=== PATIENT | male | born 1955 | race Caucasian/White ===

== ENCOUNTER 2022-09-24 09:10 | Outpatient (OUT) | payer MEDICARE, SELFPAY ==
--- NOTE | 2022-09-24 | RT_ITS ---
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 Findings were considered accurate and reproducible. Both pre- and post-bronchodilator values utilized for spirometry. No prior studies available for comparison. Spirometry (based on pre-bronchodilator values): -FEV1/FVC: Reduced @ 68% -FEV1: Normal @ 84% -FVC: Normal @ 91% -There is no significant bronchodilator response. Lung volumes by plethysmography (based on pre-bronchodilator values): -RV: Increased @ 135% -TLC: Normal @ 104% Diffusion capacity: -DLCO: Mild reduction @ 77% when corrected for Hb 14.4g/dL Flow-volume loop: -Mild obstructive pattern Impressions: -Mild obstructive pattern in spirometry without a bronchodilator response. Elevated RV suggests air trapping. Mild diffusion impairment. Overall study compatible with mild COPD/emphysema. Clinical correlation required. Electronically Signed On 09-26-2022 18:22:43 EDT by Nilesh Lala
[2022-09-24] MEDS: ALBUTEROL SULFATE 2.5 MG/3 ML VIAL NEB IH (11:38)
== END 2022-09-24 09:11 ==
LOC: CARD 09:16
PROVIDERS: PCP Nurse Practitioner Primary Care; Visit Provider Nurse Practitioner Primary Care
DX: R06.09 Other forms of dyspnea (principal); R94.2 Abnormal results of pulmonary function studies
CPT/HCPCS: 94060; 94726; 94729

== ENCOUNTER 2022-12-09 09:15 | Outpatient (OUT) | payer MEDICARE, SELFPAY ==
[2022-12-09 12:01] LABS: Prostate Specific Antigen Dx <0.13 ng/mL (<=4.00)
== END 2022-12-09 09:16 | disposition home or self-care (01) ==
LOC: LAB 09:17
PROVIDERS: PCP Nurse Practitioner Primary Care; Visit Provider Urology
DX: C61 Malignant neoplasm of prostate (principal)
CPT/HCPCS: 36415; 84153

== ENCOUNTER 2023-01-25 06:46 | Outpatient (OUT) | payer MEDICARE, SELFPAY ==
[2023-01-25 07:10] LABS: Basophils Percent Auto 0.8 % (0.2-2.0); Eosinophils Absolute Auto 0.2 10^3/uL (0.0-0.7); Eosinophils Percent Auto 3.6 % (0.9-7.0); Hematocrit 43.3 % (42.0-54.0); Hemoglobin 14.5 g/dL (14.0-18.0); Immature Granulocytes Abs Auto 0.02 10^3/uL (0.00-0.03); Immature Granulocytes Pct Auto 0.4 % (0.0-0.5); Lymphocytes Absolute Auto 1.1 10^3/uL (1.2-3.8); Lymphocytes Percent Auto 22.4 % (20.5-60.0); Mean Corpuscular HGB Conc 33.5 g/dL (29.9-35.2); Mean Corpuscular Hemoglobin 30.5 pg (25.9-34.0); Monocytes Absolute Auto 0.5 10^3/uL (0.3-0.8); Monocytes Percent Auto 9.2 % (1.7-12.0); Neutrophils Absolute Auto 3.2 10^3/uL (1.4-6.5); Neutrophils Percent Auto 63.6 % (43.0-75.0); Platelet Count 204 10^3/uL (150-450); Red Blood Count 4.76 10^6/uL (4.70-6.10); Red Cell Distribution Width 13.2 % (11.0-15.0)
[2023-01-25 07:59] LABS: Estimated Average Glucose 105 mg/dL; Glycohemoglobin A1C 5.3 % (4.5-6.2)
[2023-01-25 08:00] LABS: Alanine Aminotransferase 52 U/L (16-63); Albumin Globulin Ratio 1.1; Albumin Level 3.9 g/dL (3.4-5.0); Alkaline Phosphatase 57 U/L (46-116); Anion Gap 11.7; Aspartate Amino Transferase 22 U/L (15-37); BUN Creatinine Ratio 19.1; Bilirubin Total 0.4 mg/dL (0.2-1.0); Calcium 9.3 mg/dL (8.5-10.1); Carbon Dioxide 30.4 mmol/L (21.0-32.0); Chloride 105 mmol/L (98-107); Chol HDL Ratio 2.7; Cholesterol 138 mg/dL (<=200); Estimated GFR (African America >60 (>=60); Estimated GFR (Non-African Ame >60 (>=60); Globulin 3.5 g/dL; Glucose 93 mg/dL (74-106); HDL Cholesterol 51 mg/dL (40-60); LDL Cholesterol Calculated 65.4 mg/dL; Potassium 4.1 mmol/L (3.5-5.1); Sodium 143 mmol/L (136-145); Total Protein 7.4 g/dL (6.4-8.2); Triglycerides 108 mg/dL (<=150); VLDL CHOLESTEROL 21.6 mg/dL
[2023-01-25 08:13] LABS: Prostate Specific Antigen Scrn <0.13 ng/mL (<=4.00)
[2023-01-26 08:08] LABS: HCV Ab Non Reactive (Non Reactive)
== END 2023-01-25 06:47 | disposition home or self-care (01) ==
LOC: LAB 06:46
PROVIDERS: PCP Nurse Practitioner Primary Care; Visit Provider Nurse Practitioner Primary Care
DX: Z00.00 Encounter for general adult medical examination without abnormal findings (principal); Z11.59 Encounter for screening for other viral diseases; Z12.5 Encounter for screening for malignant neoplasm of prostate; Z13.6 Encounter for screening for cardiovascular disorders
CPT/HCPCS: 36415; 80053; 80061; 83036; 85025; 86803; G0103

== ENCOUNTER 2023-01-30 08:34 | Outpatient (OUT) | payer MEDICARE, SELFPAY ==
--- NOTE | 2023-01-30 | CT_ITS ---
[address] [address] Patient Name: CAMRON GRANDE MRN: [id number] date: 1955 Sex: M Assigned Patient Location: CT Current Patient Location: Accession/Order Number: [id number] Exam Date: 01/30/2023 08:40 Report Date: 01/31/2023 06:44 At the request of: SARAH MEJIAS Procedure: CT chest wo con EXAMINATION: CT chest wo con HISTORY: incidental lung nodule: AAA ; follow-up lung nodules; follow-up aortic aneurysm COMPARISON: CTA chest 08/28/2022, CT lung cancer screening 01/24/2022 TECHNIQUE: Multi-planar CT images were obtained without and/or with IV contrast as indicated by examination type. Axial, Coronal, and Sagittal images. Dose reduction techniques were achieved by using automated exposure control and/or adjustment of mA and/or kV according to patient size and/or use of iterative reconstruction technique. FINDINGS: LUNGS: A few small calcified granulomas scattered within the lungs. No significant chronic interstitial changes, acute infiltrates, or suspicious nodules. PLEURA: No mass, effusion, or pneumothorax. VASCULATURE: No abnormality. JOLLY: Calcified hilar lymph nodes compatible with chronic granulomatous disease. MEDIASTINUM: A few calcified lymph nodes. CARDIAC: No enlargement, pericardial thickening, or significant calcification. AORTA: Ascending aorta is upper limits of normal, 4.0 cm in diameter. CHEST WALL: No mass or axillary adenopathy. BONES: No bone lesion or fracture. LIMITED ABDOMEN: No suspicious findings Limited images of the upper abdomen. OTHER: Negative. CT/CT chest wo con IMPRESSION: 1. Evidence of chronic granulomatous disease. No suspicious nodules. 2. Diameter of ascending aorta is upper limits of normal; increased compared to prior studies. Electronically authenticated by: PAMELA BRUNO Date: 01/31/2023 06:44
== END 2023-01-30 08:35 | disposition home or self-care (01) ==
LOC: CT 08:34
PROVIDERS: PCP Nurse Practitioner Primary Care; Visit Provider Nurse Practitioner Primary Care
DX: R91.1 Solitary pulmonary nodule (principal); I71.9 Aortic aneurysm of unspecified site, without rupture; D71 Functional disorders of polymorphonuclear neutrophils
CPT/HCPCS: 71250

== ENCOUNTER 2023-03-03 07:48 | Outpatient (OUT) | payer MEDICARE, SELFPAY ==
[2023-03-03 09:29] LABS: Prostate Specific Antigen Dx <0.13 ng/mL (<=4.00)
== END 2023-03-03 07:49 | disposition home or self-care (01) ==
LOC: LAB 07:58
PROVIDERS: PCP Nurse Practitioner Primary Care; Visit Provider Urology
DX: C61 Malignant neoplasm of prostate (principal)
CPT/HCPCS: 36415; 84153

== ENCOUNTER 2023-08-13 08:52 | Outpatient (OUT) | payer MEDICARE, SELFPAY ==
--- OUTSIDE RECORDS SUMMARY | 2023-08-13 09:17 | XMS_ITS | CCD ---
Author Organization [facility] Care Team Providers Care Marine Machinist Name Role Phone NURYMO, MR. ALVAREZ ANGELA Primary Care Physician Shammo, Antonio Primary Care Provider [phone] Shammo, Antonio Primary Care Provider SHAMMO, ANTONIO ANGELA Primary Care Physician Shammo HAND TUFTER, Antonio Primary Care Provider SHAMMO, ANTONIO Primary Care Unavailable SALTY, DR JUAN PABLO Ojeda Consulting Unavailable ENGELER, DR JUAN PABLO Ojeda Admitting Unavailable ENGELER, DR JUAN PABLO Ojeda Attending Unavailable SHAMMO, ANTONIO Primary Care Unavailable SHAMMO, ANTONIO Consulting Unavailable SHAMMO, ANTONIO Admitting Unavailable SHAMMO, ANTONIO Attending Unavailable SHAMMO, ANTONIO Attending Unavailable SHAMMO, ANTONIO Primary Care Unavailable DO NOT USE SHAMMO, ANTONIO Admitting Unavail able SHAMMO, ANTONIO Primary Care Unavailable ABBAS, DR AYALA Consulting Unavailable ABBAS, DR AYALA Admitting Unavailable ABBAS, DR AYALA Attending Unavailable SHAMMO, ANTONIO Attending Unavailable SHAMMO, ANTONIO Consulting Unavailable SHAMMO, ANTONIO Primary Care Unavailable SHAMMO, ANTONIO Admitting Unavailable SHAMMO, ANTONIO Primary Care Unavailable MARKER ., DR CORONEL Consulting Unavailable MARKER ., DR CORONEL Admitting Unavailable MARKER ., DR CORONEL Attending Unavailable POLICARO, KARINA Consulting Unavailable GOMEZ ., DR NAZARIO Admitting Unavailable GOMEZ ., DR NAZARIO Attending Unavailable GOMEZ ., DR NAZARIO Consulting Unavailable SHAMMO, ANTONIO Primary Care Unavailable ZIEBER, DR PAMELA Cordova Consulting Unavailable FARIAS, BONNIE Consulting Unavailable GOMEZ ., DR NAZARIO Admitting Unavailable GOMEZ ., DR NAZARIO Attending Unavailable GOMEZ ., DR NAZARIO Consulting Unavailable SHAMMO, ANTONIO Primary Care Unavailable PECAN GAP, DR LEONARD Smith Consulting Unavailable SHAMMO, ANTONIO Attending Unavailable SHAMMO, ANTONIO Consulting Unavailable SHAMMO, ANTONIO Admitting Unavailable SHAMMO, ANTONIO Primary Care Unavailable SHAMMO, ANTONIO Primary Care Unavailable ABBAS, DR AYALA Consulting Unavailable ABBAS, DR AYALA Admitting Unavailable ABBAS, DR AYALA Attending Unavailable WEST, DR LEONARD Smith Consulting Unavailable SHAMMO, ANTONIO Attending Unavailable SHAMMO, ANTONIO Primary Care Unavailable SHAMMO, ANTONIO Admitting Unavailable ZIEBER, DR PAMELA Cordova Consulting Unavailable SHAMMO, ANTONIO Consulting Unavailable GOMEZ ., DR NAZARIO Admitting Unavailable GOMEZ ., DR NAZARIO Attending Unavailable SHAMMO, ANTONIO Primary Care Unavailable GOMEZ ., DR NAZARIO Consulting Unavailable SHAMMO, ANTONIO Primary Care Unavailable SHAMMO, ANTONIO Attending Unavailable SHAMMO, ANTONIO Admitting Unavailable WEST, DR LEONARD Smith Consulting Unavailable SHAMMO, ANTONIO Consulting Unavailable SHAMMO, ANTONIO Primary Care Unavailable SHAMMO, ANTONIO Admitting Unavailable SHAMMO, ANTONIO Attending Unavailable SHAMMO, ANTONIO Consulting Unavailable SHAMMO, ANTONIO Primary Care Unavailable NILL ., DR GRULLON Consulting Unavailable NILL ., DR GRULLON Admitting Unavailable NILL ., DR GRULLON Attending Unavailable FREDERICKFELIPA ChandlerCHRISTINE Consulting Unavailable VENKAT II, MARGARET Consulting Unavailable SHAMMO, ANTONIO Primary Care Unavailable MAXIMINO, MADELYN Consulting Unavailable MAXIMINO, MADELYN Admitting Unavailable MAXIMINO, MADELYN Attending Unavailable SHAMMO, ANTONIO Primary Care Unavailable MAXIMINO, MADELYN Consulting Unavailable MAXIMINO, MADELYN Admitting Unavailable MAXIMINO, MADELYN Attending Unavailable ZIEBER, DR PAMELA Cordova Consulting Unavailable GOMEZ ., DR NAZARIO Admitting Unavailable GOMEZ ., DR NAZARIO Attending Unavailable GOMEZ ., DR NAZARIO Consulting Unavailable SHAMMO, ANTONIO Primary Care Unavailable ENGELER, DR JUAN PABLO Ojeda Consulting Unavailable ZIEBER, DR PAMELA Cordova Consulting Unavailable VENKAT II, MARGARET Consulting Unavailable KULWANT ATKINSON Consulting Unavailable NILL ., DR GRULLON Consulting Unavailable NILL ., DR GRULLON Admitting Unavailable NILL ., DR GRULLON Attending Unavailable Unknown, Referring Provider Unavailable Unav ailable Unavailable Unavailable MD Safia Cerda Attending Provider Shammo, EXECUTIVE ADMINISTRATOR-BC Antonio T Primary Care Provider [phone] UNKNOWN, PCP Primary Care Unavailable SAFIA CERDA Referring Unavailable SAFIA CERDA Attending Unavailable MD SAFIA CERDA Attending Unavailable UNKNOWN, PCP Primary Care Unavailable UNKNOWN, PCP Primary Care Unavailable MD SAFIA CERDA Attending Unavailable Dr. Nilesh Lala Referring Unavailab le Unavailable Primary Care Provider Unavailabl e Mansi GOMEZ Attending Unavailable SHAMMO, ANTONIO Primary Care Unavailable SHAMMO, ANTONIO Primary Care Unavailable Mansi GOMEZ Attending Unavailable GOMEZMansi Attending Unavailable SHAMMO, ANTONIO Primary Care Unavailable SHAMMO, ANTONIO Primary Care Unavailable SHAMMO, ANTONIO Primary Care Unavailable NILL, Mitchel Cordova Attending Unavailable NILL, Mitchel Cordova Attending Unavailable SHAMMO, ANTONIO Primary Care Unavailable SHAMMO, ANTONIO Referring Unavailable NILL, Mitchel Cordova Attending Unavailable SHAMMO, ANTONIO Primary Care Unavailable SHAMMO, ANTONIO Referring Unavailable SHAMMO, ANTONIO Primary Care Unavailable Mansi GOMEZ Attending Unavailable SHAMMO, ANTONIO Primary Care Unavailable NILL, Mitchel Cordova Attending Unavailable GOMEZMansi Attending Unavailable SHAMMO, ANTONIO Primary Care Unavailable SHAMMO, ANTONIO Primary Care Unavailable Mansi GOMEZ Attending Unavailable SHAMMO, ANTONIO Primary Care Unavailable Mansi GOMEZ Attending Unavailable Safia Cerda Admitting Unavailable Safia Cerda Attending Unavailable Shammo, Antonio T Primary Care Unavailable Safia Cerda Attending Unavailable Cerda Safia Admitting Unavailable Shammo, Antonio T Primary Care Unavailable ABBAS JIHAD T Referring Unavailable SHAMMO, ANTONIO Primary Care Unavailable ABBAS JIHAD T Referring Unavailable SHAMMO, ANTONIO Primary Care Unavailable ABBAS, JIHAD T Admitting Unavailable ABBAS, JIHAD T Attending Unavailable SHAMMO, ANTONIO Primary Care Unavailable Shammo ENGLISH LANGUAGE LEARNER TUTOR-HAND TUFTER, Antonio Primary Care Provider ABBJAMIE JUNIOR T Attending Unavailable SHAMMO, ANTONIO Referring Unavailable SHAMMO, ANTONIO Primary Care Unavailable VALERIE ARRIOLA F Attending Unavailable SHAMMO, ANTONIO Referring Unavailable SHAMMO, ANTONIO Primary Care Unavailable Shelley POND Attending Unavailable SHAMMO, ANTONIO Primary Care Unavailable Shelley POND Referring Unavailable SHAMMO, ANTONIO Primary Care Unavailable CORRY HANSON Attending Unavailable SHAMMO, ANTONIO Primary Care Unavailable SHAMMO, ANTONIO Primary Care Unavailable Shelley POND Attending Unavailable SHAMMO, ANTONIO Primary Care Unavailable RUDY OSORIO Attending Unavailable SHAMMO, ANTONIO Primary Care Unavailable RICARDO WANG Attending Unavailable SELF Referring Unavailable [facility] ANTONIO Primary Care Unavailable RICARDO WANG Referring Unavailable RICARDO WANG Referring Unavailable [facility], ANTONIO Primary Care Unavailable SAFIA CERDA Attending Unavailable SAFIA CERDA Attending Unavailable SAFIA CERDA Referring Unavailable Allergies Allergy Classification Reported Allergen(s) Allergy Type Date of Onset Reaction(s) Facility (13 sources) Iodinated Contrast Media; Translations: [IODINATED CONTRAST MEDIA] Drug Allergy [address] [facility] (2 sources) Iodine (And Iodine Containting Drugs) Drug allergy (disorder) 3 [facility] (1 source) No Known Medication Allergies; Translations: [No Known Medication Allergies] Propensity to adverse reactions (disorder) [facility] Repository Medications Current Medications Medication Drug Class(es) Dates Sig (Normalized) Sig (Original) acetaminophen 325 mg / HYDROcodone bitartrate 5 mg oral tablet (20 sources) Opioid Agonist Start: 03-05-2023 End: 08-07-2023 take 1 tablet by mouth every six hours acetaminophen-hyd rocodone 325 mg-5 mg oral tablet 1 tab(s), Oral, q6hr, Refill(s) 0 Start Date: 03/05/23 Status: Ordered Start: 12-12-2022 take 1 tablet by jos th twice daily Hydrocodone-Acetaminophen Active 1 TAB P O Twice daily December 12, 2022 12:00am Start: 05-06-2022 take 1 tablet by jos th every eight hours as needed for pain HYDROcodone-acetaminophen (NORCO) 5-325 mg per tablet Indications: Malignant neoplasm of prostate (HCC) Take 1 tablet by mouth every 8 hours as needed for pain. 10 tablet 0 05/06/2022 Active Start: 02-01-2022 take 1 tablet by jos th once, then take 1 tablet by mouth every hour [place] 325 mg-7.5 mg oral tablet 1 tab(s) , Oral, Once, 1 tab(s), Refill(s) 0, Take 1 hour prior to procedure, [id number], 183, cm, 02/01/22 9:57:00 EDT, Height/Length Dosing, 95, kg, 02/01/22 9:57:00 EDT, Weight Dosing Start Date: 02/01/22 Status: Ordered take 1 tablet by jos th every four to six hours as needed for pain HYDROcodone-Acetaminophen 5-325 MG Oral Tablet TAKE 1 TABLET EVERY 4 TO 6 HOURS NEEDED FOR PAIN. Quantity: 0 Refills: 0 Ordered: 28-Nov-2022 DO Active Comment on above: Take 1 tablet by jos th every 8 hours as needed for pain. aspirin 81 mg chewable tablet (20 sources) Platelet Aggregation Inhibitor, Nonsteroidal Anti-inflammatory Drug Start: 08-07-2023 End: 08-06-2024 aspirin 81 mg chewable tablet Indications: Peripheral vascular disease ([facility]-H[facility]) Chew 1 tablet (81 mg) once daily. 90 tablet 3 08/07/2023 08/06/2024 Active Start: 03-05-2023 take 1 capsule by mo uth every twenty-four hours aspirin 81 mg oral capsule 81 mg = 1 cap(s), Oral, q24hr Start Date: 03/05/23 Status: Ordered Start: 12-12-2022 take 81 mg by mouth once daily Aspirin Active 81 MG PO Daily December 12, 2022 12:00am End: 08-07-2023 take 1 tablet by mouth once daily aspirin 81 mg EC tab let Take 1 tablet (81 mg) by mouth once daily. 08/07/2023 Discontinued (Therapy completed) take 1 tablet by mouth once castro y aspirin 325 mg tablet Take 325 mg by mouth once daily. 0 Active take 1 tablet by jos th in the morning aspirin 325 mg EC tablet Take 1 tablet (325 mg total) by mouth in the morning. 0 Active Comment on above: Take 81 mg by mouth once daily. Take 325 mg by mouth once daily. atorvastatin 40 mg oral tablet (18 sources) HMG-CoA Reductase Inhibitor Start: 3 End: take 1 tablet by mouth once daily atorvastatin (Lipitor) 40 mg tablet Indications: Mixed hyperlipidemia Take 1 tablet (40 mg) by mouth once daily. 90 tablet 3 08/07/2023 08/06/2024 Active Comment on above: Take 40 mg by mouth once daily. bicalutamide 50 mg oral tablet (14 sources) Androgen Receptor Inhibitor Start: take 1 tablet by mouth every twenty-four hours bicalutamide 50 mg Tab 50 mg = 1 tab(s), Oral, q24hr Start Date: 03/05/23 Status: Ordered Start: 12-12-2022 End: 08-07-2023 take 50 mg by mouth once daily Bicalutamide Active 50 MG PO Daily December 12, 2022 12:00am Comment on above: Take 50 mg by mouth once daily. calcium carb and citrate-vitD3 600 mg-12.5 mcg (500 unit) tablet extended release (2 sources) End: 08-07-2023 take 2 tablets by mouth once daily calcium carb and citrate-vitD3 600 mg-12.5 mcg (500 unit) tablet extended release Take 2 tablets by mouth once daily. 08/07/2023 Discontinued (Therapy completed) take 2 tablets by mouth once janis ly calcium carb and citrate-vitD3 600 mg-12.5 mcg (500 unit) tablet extended release Take 2 tablets by mouth once daily. 0 Active cilostazol 100 mg oral tablet (5 sources) Phosphodiesterase 3 Inhibitor Start: 05-29-2023 take 1 tablet by mouth in the morning, then take 1 tablet by mouth at bedtime cilostazoL (PLETAL) 100 mg tablet Take 1 tablet (100 mg total) by mouth in the morning and 1 tablet (100 mg total) before bedtime. 180 tablet 1 05/29/2023 Active Start: 02-01-2022 cilostazol Ora l, BID, Refills(s) 0 Start Date: 02/01/22 Status: Ordered ciprofloxacin 500 mg oral tablet (6 sources) Quinolone Antimicrobial Start: 05-06-2022 End: 05-16-2022 take 1 tablet by mouth twice daily ciprofloxacin HCl (CIPRO) 500 mg tablet Take 1 tablet by mouth twice daily for 10 days. 20 tablet 1 05/06/2022 05/16/2022 Active Start: 02-01-2022 End: 02-08-2022 Cipro 500 mg Tab 500 mg = 1 tab(s), Oral, q12hr, Start 3 days prior to procedure, X 7 day(s), # 14 tab(s), Refills(s) 0, Pharmacy: [id number], 183, cm, 02/01/22 9:57:00 EDT, Height/Length Dosing, 95, kg, 02/01/22 9:57:00 EDT, Weight Dosing Start Date: 02/01/22 Stop Date: 02/08/22 Status: Ordered Comment on above: Take 1 tablet by jos th twice daily for 10 days. clopidogrel 75 mg oral tablet (17 sources) P2Y12 Platelet Inhibitor Start: 11-15-19 End: 08-07-19 take 1 tablet by mouth once daily clopidogrel (Plavix) 75 mg tablet Indications: Peripheral vascular disease (CMS-HCC) , Mixed hyperlipidemia Take 1 tablet (75 mg) by mouth once daily. 90 tablet 3 08/07/2023 08/06/2024 Active Comment on above: Take 75 mg by mouth once daily. 24 hr dilTIAZem hydrochloride 120 mg extended release oral capsule (13 sources) Calcium Channel Damaris Start: 11-29-19 End: 08-07-19 take 1 capsule by mouth once daily dilTIAZem CD (Cardizem CD) 120 mg 24 hr capsule Indications: Primary hypertension Take 1 capsule (120 mg) by mouth once daily. 90 capsule 3 08/07/2023 08/06/2024 Active Comment on above: Take 120 mg by mouth once daily. enteric contrast (will be provided with radiology test) (1 source) Start: 05-08-19 End: 05-09-19 enteric contrast (will be provided with radiology test) For CT ABD/PEL W IVCON Routine order Administer, As Directed One Time Only, via Oral, Rectal, both Oral and Rectal, Enteric Tube, Stoma or Indwelling Catheter, Enteric Contrast as designated per enteric contrast guidelines 1 Each 0 05/08/2022 05/09/2022 Active Comment on above: For CT ABD/PEL W IVC ON Routine order Administer, As Directed One Time Only, via Oral, Rectal, both Oral and Rectal, Enteric Tube, Stoma or Indwelling Catheter, Enteric Contrast as designated per enteric contrast guidelines losartan potassium 25 mg oral tablet (20 sources) Angiotensin 2 Receptor Damaris Start: 04-08-20 End: 08-07-19 take 1 tablet by mouth once daily losartan (Cozaar) 25 mg tablet Indications: Primary hypertension Take 1 tablet (25 mg) by mouth once daily. 90 tablet 3 08/07/2023 08/06/2024 Active Start: 04-08-2022 End: 07-02-2023 losartan (COZAAR) 25 mg tabl et 20 mg. 0 04/08/2022 07/02/2023 Discontinued (Discontinued by another Health Care Provider) Comment on above: TAKE 1 TABLET BY JOS TH EVERY DAY FOR 90 DAYS 20 mg. naproxen 500 mg oral tablet (17 sources) Nonsteroidal Anti-inflammatory Drug Start: 04-02-2022 take 1 tablet by mouth twice daily naproxen 500 mg Tab 500 mg = 1 tab(s), Oral, BID, Refills(s) 0 Start Date: 04/02/22 Status: Ordered Start: 03-08-2022 End: 05-08-2023 take 1 tablet by mouth every twelve hours at mealtime as needed naproxen (NAPROSYN) 500 mg tablet TAKE 1 TABLET BY MOUTH EVERY 12 HOURS WITH FOOD OR MILK NEEDED FOR 30 DAYS 0 03/08/2022 05/08/2023 Discontinued (Therapy completed) Start: 02-01-2022 naproxen 500 m g Tab Refills(s) 0 Start Date: 02/01/22 Status: Ordered Comment on above: TAKE 1 TABLET BY JOS TH EVERY 12 HOURS WITH FOOD OR MILK NEEDED FOR 30 DAYS 24 hr oxybutynin chloride 15 mg extended release oral tablet (20 sources) Cholinergic Muscarinic Antagonist Start: End: take 1 tablet by mouth at bedtime oxybutynin 15 mg ER Tab 15 mg = 1 tab(s), Oral, Bedtime, X 30 day(s), # 30 tab(s), Refills(s) 11, Pharmacy: [id number], 184, cm, 03/05/23 8:06:00 EST, Height/Length Dosing, 115.4, kg, 03/05/23 8:06:00 EST, Weight Dosing Start Date: 03/05/23 Stop Date: 02/28/24 Status: Ordered Start: 12-12-2022 End: 08-07-2023 take 10 mg by mouth once daily Oxybutynin Chloride Act carrie 10 MG PO Daily December 12, 2022 12:00am Start: 06-17-2022 take 2 tablets by mo uth once daily oxybutynin (DITROPAN) 5 mg tablet Take 2 tablets (10 mg total) by mouth nightly. 0 06/17/2022 Active Start: 06-17-2022 End: 01-13-2023 take 1 tablet by mouth once daily at bedtime oxybutynin 5 mg Tab 5 mg = 1 tab(s), Oral, Daily, Take at bedtime., X 30 day(s), # 30 tab(s), Refills(s) 6, Pharmacy: [id number], 184, cm, 06/17/22 9:43:00 EST, Height/Length Dosing, 95, kg, 06/17/22 9:43:00 EST, Weight Dosing Start Date: 06/17/22 Stop Date: 01/13/23 Status: Ordered take 1 tablet by jos once daily oxybutynin ER (DITROPAN XL) 10 mg 24 hr tablet Take 15 mg by mouth once daily. 0 Active Comment on above: Take 10 mg by mouth once daily. Take 15 mg by mouth once daily. potassium bicarbonate 25 meq effervescent oral tablet (3 sources) take 1 tablet by mouth in the evening potassium bicarbonate (K-LYTE) 25 MEQ disintegrating tablet Take 1 tablet (25 mEq total) by mouth in the evening. 0 Active solifenacin succinate 10 mg oral tablet (4 sources) Cholinergic Muscarinic Antagonist Start: 05-23-19 take 1 tablet by mouth in the morning solifenacin (VESICARE) 10 mg tablet Take 1 tablet (10 mg total) by mouth in the morning. 0 05/23/2022 Active sucralfate 1000 mg oral tablet (18 sources) Aluminum Complex Start: 03-13-20 sucralfate 1 g Tab gm tab(s), Oral, QIDACHS, Refills(s) 0 Start Date: 03/13/22 Status: Ordered Start: 03-11-2022 End: 07-04-2022 sucralfate (CARAFATE) 1 gram tablet 1 tablet on an empty stomach 0 03/11/2022 07/04/2022 Discontinued (Discontinued by another Health Care Provider) Comment on above: 1 tablet on an empty stomach tamsulosin hydrochloride 0.4 mg oral capsule (20 sources) alpha-Adrenergic Damaris Start: 06-17-2022 End: 08-07-2023 take 1 capsule by mouth twice daily tamsulosin (FLOMAX) 0.4 mg capsule TAKE ONE CAPSULE BY MOUTH TWICE A DAY FOR 30 DAYS 0 06/17/2022 Active Start: 04-08-2022 End: 06-04-2022 take 1 capsule by mouth once daily at bedtime tamsulosin (FLOMAX) 0.4 mg Take 1 capsule by mouth daily at bedtime. 30 capsule 1 06/04/2022 Active Comment on above: Take 1 capsule by mo [facility] daily at bedtime. varenicline 1 mg oral tablet (3 sources) Partial Cholinergic Nicotinic Agonist Start: 3 End: 4 take 1 tablet by mouth twice daily varenicline 1 mg oral tablet 1 mg = 1 tab(s), Oral, BID, Refills(s) 0 Start Date: 05/31/22 Status: Ordered Completed/Discontinued Medications Medication Drug Class(es) Dates Sig (Normalized) Sig (Original) Calcium (3 sources) Phosphate Binder, Calcium take 2 tablets by mouth once daily [facility] 600 MG Oral Tablet TAKE 2 TABLET Daily Quantity: 0 Refills: 0 Ordered: 28-Nov-2022 DO Active Calcium Carbonate (1 source) End: 05-08-2023 take 1200 mg by mouth in the morning CALCIUM CARBONATE ORAL Take 1,200 mg by mouth in the morning. 0 05/08/2023 Discontinued (Therapy completed) 30 actuat fluticasone furoate 0.1 mg/actuat / umeclidinium 0.0625 mg/actuat / vilanterol 0.025 mg/actuat dry powder inhaler (1 source) Anticholinergic, Corticosteroid, beta2-Adrenergic Agonist End: 05-08-2023 take 1 puff(s) by inhalation once daily fluticasone-umeclid in-vilanter (TRELEGY ELLIPTA) 100-62.5-25 mcg blister with device Inhale 1 puff once daily. 0 05/08/2023 Discontinued (Therapy completed) Folic Acid (1 source) End: 05-08-2023 take 800 mg by mouth in the morning FOLIC ACID ORAL Take 800 mg by mouth in the morning. 0 05/08/2023 Discontinued (Therapy completed) hydrOXYzine pamoate 25 mg oral capsule (20 sources) Antihistamine Start: 03-13-2022 End: 01-02-2023 take 1 capsule by mouth once daily as needed hydrOXYzine pamoate (VISTARIL) 25 mg capsule TAKE 1 CAPSULE BY MOUTH EVERY DAY NEEDED AT BEDTIME FOR 30 DAYS 0 03/13/2022 01/02/2023 Discontinued (Discontinued by another Health Care Provider) Comment on above: TAKE 1 CAPSULE BY [facility] EVERY DAY NEEDED AT BEDTIME FOR 30 DAYS iv contrast (will be provided with radiology test) (3 sources) Start: 01-02-2023 End: 01-03-2023 iv contrast (will be provided with radiology test) CT kidney wow Inject, intravenously, once for 1 dose.No IV access, insert saline lock prior to the beginning of sedation, infusion, injection of imaging exam. Discontinue saline lock post exam. If Pt. has a central line or IVAD, may access for administration according to line specific nursing protocol. Once exam is complete flush line and de-access according to line specific nursing protocol in the CT contrast administration guidelines link. 1 Each 0 01/02/2023 01/03/2023 Start: 05-10-2022 End: 05-11-2022 iv contrast (will be provide d with radiology test) CT kidney wow Inject, intravenously, once for 1 dose.No IV access, insert saline lock prior to the beginning of sedation, infusion, injection of imaging exam. Discontinue saline lock post exam. If Pt. has a central line or IVAD, may access for administration according to line specific nursing protocol. Once exam is complete flush line and de-access according to line specific nursing protocol in the CT contrast administration guidelines link. 1 Each 0 05/10/2022 05/11/2022 Active Start: 05-08-2022 End: 05-09-2022 iv contrast (will be provide d with radiology test) CT ABD/PEL -Inject, intravenously, once for 1 dose.No IV access, insert saline lock prior to the beginning of sedation, infusion, injection of imaging exam. Discontinue saline lock post exam. If Pt. has a central line or IVAD, may access for administration according to line specific nursing protocol. Once exam is complete flush line and de-access according to line specific nursing protocol in the CT contrast administration guidelines link. 1 Each 0 05/08/2022 05/09/2022 Active Comment on above: CT ABD/PEL -Inject, intravenously, once for 1 dose.No IV access, insert saline lock prior to the beginning of sedation, infusion, injection of imaging exam. Discontinue saline lock post exam. If Pt. has a central line or IVAD, may access for administration according to line specific nursing protocol. Once exam is complete flush line and de-access according to line specific nursing protocol in the CT contrast administration guidelines link. CT kidney wow Inject , intravenously, once for 1 dose.No IV access, insert saline lock prior to the beginning of sedation, infusion, injection of imaging exam. Discontinue saline lock post exam. If Pt. has a central line or IVAD, may access for administration according to line specific nursing protocol. Once exam is complete flush line and de-access according to line specific nursing protocol in the CT contrast administration guidelines link. omeprazole 20 mg delayed release oral capsule (20 sources) Proton Pump Inhibitor Start: 03-11-2022 End: 01-02-2023 omeprazole (PRILOSEC) 20 mg capsule TAKE 1 CAPSULE BY MOUTH EVERY DAY 30 MINUTES BEFORE MORNING MEAL FOR 90 DAYS 0 03/11/2022 01/02/2023 Discontinued (Discontinued by another Health Care Provider) Comment on above: TAKE 1 CAPSULE BY [facility] EVERY DAY 30 MINUTES BEFORE MORNING MEAL FOR 90 DAYS sertraline 25 mg oral tablet (20 sources) Serotonin Reuptake Inhibitor Start: 03-11-2022 End: 01-02-2023 sertraline (ZOLOFT) 25 mg tablet Take 1 tablet by mouth. 0 03/11/2022 01/02/2023 Discontinued (Discontinued by another Health Care Provider) Comment on above: Take 1 tablet by jos . Problems Active Problems Problem Classification Problem Date Documented Date Episodic/Chronic Abdominal pain (10 sources) Left lower quadrant pain; Translations: [Left lower quadrant pain] Onset: 05-15-2022 Episodic Anxiety disorders (5 sources) Anxiety; Translations: [Anxiety disorder, unspecified] Onset: 09-02-2022 03-29-2022 Chronic Aortic; peripheral; and visceral artery aneurysms (1 source) Aneurysm of artery of lower extremity; Translations: [Aneurysm of artery of lower extremity] 07-09-2023 Chronic Cancer of prostate (20 sources) Malignant tumor of prostate; Translations: [Malignant neoplasm of prostate] Onset: 03-13-2022 Chronic Chronic obstructive pulmonary disease and bronchiectasis (11 sources) Chronic obstructive pulmonary disease, unspecified; Translations: [Pulmonary emphysema] Onset: 09-02-2022 01-22-2023 Chronic Diabetes mellitus with complications (6 sources) Type 2 diabetes mellitus with diabetic mononeuropathy; Translations: [Mononeuropathy due to type 2 diabetes mellitus] Onset: 07-02-2022 07-04-2023 Chronic Disorders of lipid metabolism (9 sources) Hyperlipidemia; Translations: [Other and unspecified hyperlipidemia] Onset: 01-22-2023 01-23-2023 Chronic Diverticulosis and diverticulitis (6 sources) Diverticulosis of sigmoid colon; Translations: [Diverticulosis of large intestine without perforation or abscess without bleeding] Onset: 03-13-2022 04-02-2022 Chronic Esophageal disorders (6 sources) Gastroesophageal reflux disease; Translations: [Gastroesophageal reflux disease without esophagitis] Onset: 05-31-2022 03-29-2022 Chronic Essential hypertension (15 sources) Essential (primary) hypertension; Translations: [Hypertensive disorder] Onset: 09-02-2022 Resolved: 08-07-2023 01-23-2023 Chronic Gastroduodenal ulcer (except hemorrhage) (5 sources) H/O: peptic ulcer; Translations: [Personal history of peptic ulcer disease] Onset: 05-17-2022 04-02-2022 Episodic Genitourinary symptoms and ill-defined conditions (1 source) Urge incontinence of urine 09-11-2022 Chronic Genitourinary symptoms and ill-defined conditions (6 sources) Nocturia; Translations: [Nocturia] Onset: 06-17-2022 Episodic Headache; including migraine (9 sources) Migraine; Translations: [Migraine, unspecified, without mention of intractable migraine without mention of status migrainosus] Onset: 01-22-2023 03-29-2022 Chronic Hyperplasia of prostate (11 sources) Benign prostatic hypertrophy without outflow obstruction; Translations: [Nodular prostate without lower urinary tract symptoms] Onset: 02-01-2022 Chronic Nonspecific chest pain (4 sources) Other chest pain; Translations: [OTHER CHEST PAIN] Onset: 09-17-2022 Episodic Occlusion or stenosis of precerebral arteries (7 sources) Bilateral stenosis of carotid arteries; Translations: [Occlusion and stenosis of bilateral carotid arteries] Onset: 07-04-2023 07-04-2023 Chronic Other aftercare (1 source) 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; Translations: [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 USE OF ASPIRIN] Onset: 09-02-2022 Episodic Other aftercare (1 source) Other assisted (current) drug therapy; Translations: [OTH FDC CURRENT DRUG THERAPY] Onset: 09-02-2022 Episodic Other aftercare (3 sources) Treatment changed; Translations: [Long-term (current) use of other medications] Episodic Other and ill-defined cerebrovascular disease (1 source) Cerebral aneurysm, nonruptured; Translations: [CEREBRAL ANEURYSM NONRUPTURED] Onset: 02-13-2022 Chronic Other and ill-defined cerebrovascular disease (5 sources) Intracranial aneurysm; Translations: [Cerebral aneurysm, nonruptured] Onset: 01-22-2023 01-22-2023 Chronic Other circulatory disease (1 source) Other specified symptoms and signs involving the circulatory and respiratory systems; Translations: [OTH SPEC SX SIGNS INVLV CIRC RS] Onset: 07-02-2022 Episodic Other connective tissue disease (5 sources) Neurogenic claudication; Translations: [Other symptoms and signs involving the nervous system] Onset: 07-04-2023 07-04-2023 Episodic Other diseases of kidney and ureters (2 sources) Disorder of kidney and/or ureter; Translations: [Other specified disorders of kidney and ureter] Chronic Other diseases of kidney and ureters (8 sources) Renal mass; Translations: [Other specified disorders of kidney and ureter] Onset: 04-16-2023 Chronic Other diseases of kidney and ureters (1 source) Other specified disorders of kidney and ureter; Translations: [Other specified disorders of kidney and ureter] Onset: 01-17-2023 Chronic Other diseases of kidney and ureters (1 source) Acquired renal cystic disease; Translations: [Cyst of kidney, acquired] Episodic Other diseases of kidney and ureters (1 source) Disorder of kidney and/or ureter; Translations: [Disorder of kidney and ureter, unspecified] Onset: 03-05-2023 Episodic Other diseases of kidney and ureters (1 source) Kidney lesion 09-11-2022 Episodic Other lower respiratory disease (3 sources) Dyspnea on exertion; Translations: [Shortness of breath] Episodic Other lower respiratory disease (11 sources) Dyspnea; Translations: [Shortness of breath] Onset: 01-22-2023 01-23-2023 Episodic Other lower respiratory disease (1 source) Shortness of breath; Translations: [Shortness of breath] Onset: 12-16-2022 Episodic Other nervous system disorders (4 sources) Other specified polyneuropathies; Translations: [OTHER SPECIFIED POLYNEUROPATHIES] Onset: 04-22-2022 Chronic Other nervous system disorders (4 sources) Paresthesia 03-29-2022 Episodic Other nutritional; endocrine; and metabolic disorders (8 sources) Obese class I; Translations: [Obesity, unspecified] Onset: 03-21-2023 03-21-2023 Chronic Other nutritional; endocrine; and metabolic disorders (1 source) Obesity, unspecified; Translations: [Obesity, Class I, BMI 30-34.9] Onset: 03-21-2023 Chronic Other nutritional; endocrine; and metabolic disorders (2 sources) Body mass index 30+ - obesity; Translations: [Body mass index (BMI) 34.0-34.9, adult] Onset: 08-07-2023 08-07-2023 Chronic Other nutritional; endocrine; and metabolic disorders (2 sources) Body mass index (BMI) 34.0-34.9, adult; Translations: [Body mass index (BMI) 34.0-34.9, adult] Onset: 08-07-2023 Chronic Other nutritional; endocrine; and metabolic disorders (4 sources) Overweight in adulthood with body mass index of 25 or more but less than 30 04-02-2022 Episodic Other screening for suspected conditions (not mental disorders or infectious disease) (20 sources) Raised prostate specific antigen; Translations: [Elevated prostate specific antigen [PSA]] Onset: 01-25-2022 Episodic Peripheral and visceral atherosclerosis (20 sources) Peripheral vascular disease; Translations: [Peripheral vascular disease, unspecified] Onset: 01-25-2022 03-29-2022 Chronic Residual codes; unclassified (1 source) Acquired absence of other specified parts of digestive tract; Translations: [ACQ ABSENCE OTH PART DIGESTV TRACT] Onset: 09-02-2022 Episodic Residual codes; unclassified (2 sources) Patient noncompliance - general; Translations: [Medical non-compliance] Onset: 08-07-2023 08-07-2023 Episodic Screening and history of mental health and substance abuse codes (8 sources) Personal history of nicotine dependence; Translations: [Ex-smoker] Onset: 09-02-2022 08-07-2023 Episodic Comment on above: August 2022 1ppd; Substance-related disorders (12 sources) Smoker; Translations: [Nicotine dependence, cigarettes, uncomplicated] Onset: 01-24-2022 02-01-2022 Chronic Comment on above: Added secondary to d ocumentation in Social History. Unclassified (4 sources) Patient encounter status 04-02-2022 Unclassified (1 source) CONTACT W/AND (SUSP) EXPOS COVID-19; Translations: [CONTACT W/AND (SUSP) EXPOS COVID-19] Onset: 05-15-2022 Unclassified (1 source) Encounter for preprocedural laboratory examination; Translations: [Encounter for preprocedural laboratory examination] Onset: 12-12-2022 Unclassified (1 source) PAD WITH CLAUDICATION Onset: 05-08-2023 Past or Other Problems Problem Classification Problem Date Documented Date Episodic/Chronic Administrative/socia l admission (3 sources) Follow-up status; Translations: [Person consulting for explanation of examination or test findings] Onset: 01-23-2023 01-23-2023 Episodic Gastritis and duodenitis (1 source) Gastritis, unspecified, without bleeding; Translations: [GASTRITIS UNS WITHOUT BLEEDING] Onset: 05-17-2022 Episodic Immunizations and screening for infectious disease (4 sources) Encounter for screening for human immunodeficiency virus [HIV]; Translations: [ENCOUNTER FOR SCREENING FOR HIV] Onset: 06-05-2022 Episodic Mood disorders (3 sources) Mood disorders; Translations: [DEPRESSION UNSPECIFIED] Onset: 05-27-2022 01-23-2023 Nausea and vomiting (1 source) Nausea; Translations: [NAUSEA] Onset: 05-17-2022 Episodic Other circulatory disease (4 sources) Other disorder of circulatory system; Translations: [OTHER DISORDER CIRCULATORY SYSTEM] Onset: 02-08-2022 Episodic Other connective tissue disease (5 sources) Muscle pain; Translations: [Myalgia and myositis, unspecified] Onset: 01-22-2023 01-22-2023 Episodic Other lower respiratory disease (4 sources) Shortness of breath; Translations: [SHORTNESS OF BREATH] Onset: 09-02-2022 Episodic Other lower respiratory disease (5 sources) Multiple nodules of lung; Translations: [Other nonspecific abnormal finding of lung field] Onset: 01-22-2023 01-22-2023 Episodic Other nutritional; endocrine; and metabolic disorders (6 sources) Obesity; Translations: [Obesity, unspecified] Onset: 01-22-2023 Resolved: 08-07-2023 01-25-2023 Chronic Residual codes; unclassified (1 source) Family history of malignant neoplasm of digestive organs; Translations: [FAM HX MALIG NEOPLASM DIGESTIV ORGN] Onset: 05-27-2022 Episodic Residual codes; unclassified (1 source) Family history of leukemia; Translations: [FAMILY HISTORY OF LEUKEMIA] Onset: 05-27-2022 Episodic Unclassified (3 sources) Patient status finding; Translations: [Patient new to provider] Unclassified (2 sources) Onset: 01-23-2023 Resolved: 08-07-2023 01-23-2023 Results Test Name Value Interpretation Reference Range Facility [facility] 07-08-2023 CNPN Telephone (VASSMN) -------- ELVIS GRANDE ([id number]) 1955 M Date Time Provider Department 07/08/23 RICARDO WANG During your visit today, we recorded the following information about you: Yolis Young RN 07/08/2023 8:[address] Wang has requested for patient to see spine (Dr. Calzada) for neurogenic claudication as well as pulmonology to evaluate chronic shortness of breath. Pending these appointments, patient should have a carotid duplex followed by office visit with Dr Wang. Patient agreeable to plan and verbalizes understanding. All additional questions have been answered at this time. Office call back number provided. Additionally- need OSH records and imaging sent for review. -PFT's done last year at [facility] -CTA abd/pelvis with runoff 04/24/23 done @ [facility] (need images) -Angiogram done at [facility] 11/14/22 (needs images and op report) Aleida Arauz 07/09/2023 1:16 PM Signed Spoke to patient advise of phone number to the appointment center to have the pulm and niq scheduled. Advised will schedule patient once these are scheduled. Allergies As of Date: 07/08/2023 Noted Allergy Reaction IODINATED CONTRAST MEDIA 04/05/2013 16 - Unknown Comments: In the 1970S but has had it since and no problems Date Reviewed: 07/04/2023 Reviewed by: Emerita Marin LPN - Fully Assessed Prescriptions as of 07/09/2023 - aspirin 325 mg tablet Take 325 mg by mouth once daily. - oxybutynin ER (DITROPAN XL) 10 mg 24 hr tablet Take 15 mg by mouth once daily. - atorvastatin (LIPITOR) 40 mg tablet Take 40 mg by mouth once daily. - aspirin, enteric coated (ASPIRIN, ENTERIC COATED) 81 mg EC tablet Take 81 mg by mouth once daily. - tamsulosin (FLOMAX) 0.4 mg Take 1 capsule by mouth daily at bedtime. - HYDROcodone-acetaminophe n (NORCO) 5-325 mg per tablet Take 1 tablet by mouth every 8 hours as needed for pain. Problem List As Of Date 07/08/2023 Noted Resolved Obesity, Class I, BMI 30-34.9 [E66.9] 03/21/2023 Prostate cancer (HCC) [C61] 04/16/2023 Renal mass [N28.89] 04/16/2023 Diabetic mononeuropathy associated with type 2 *07/04/2023 SOB (shortness of breath) [R06.02] 07/04/2023 Neurogenic claudication [R29.818] 07/04/2023 Bilateral carotid artery stenosis [I65.23] 07/04/2023 Encounter Status:Closed by YOLIS YOUNG on 07/08/23 [facility] CNOVon 07-04-2023 CNOV Office Visit (VASSMN ) -------- ELVIS GRANDE ([id number]) 1955 Date Time Provider Department 07/04/23 1:00 PM RICARDO WANG During your visit today, we recorded the following information about you: Pulse Respiration Blood pressure Weight 102/minute 16/minute 119/92 113.4 kg Height 1.829 m Ricardo Wang MD 07/04/2023 1:34 PM Signed [facility] [place] DEPARTMENT OF VASCULAR SURGERY OUTPATIENT VISIT DATE July 04, 2023 OUTPATIENT VISIT TYPE CONSULTATION SERVICE DATE: 07/04/2023 SERVICE TIME: 1:13 PM PRIMARY CARE PHYSICIAN: Antonio Castellon CNP REFERRING PROVIDER: WILLIAN Consult requested for an opinion regarding the evaluation and treatment of the above. My final impression and recommendations will be communicated back to the requesting physician by way of the shared medical record or letter via [place] mail. CHIEF COMPLAINT: PAD HISTORY OF PRESENT ILLNESS: Vascular consultation at the request of Dr. Mora. A copy of this consultation note will be provided to the requesting physician by way of shared Medical record or letter to requesting physician via US mail. Mr. Grande is a 68 year old male who is seen today for for lower extremity symptoms. He states that over the last year or 2 he has had bilateral lower extremity numbness which is present at rest and at all times. No provocative or ameliorating factors. Bilateral forefoot and toes with this sensation. He has had several angiograms 1 of which included an left common iliac stent per his report we do not have the imaging. He had a CAT scan most recently in April. He has a reported and documented history of contrast dye allergy although he states that this was many years ago and he states that he has since had contrast dye exposure without any premedication. He reports that he has had a Long history of physical work which may have resulted in the back injury and he has at least 1 flare of chronic back pain each year that is quite severe. He is also had worsening shortness of breath that relatively a short distance with minimal exertion he is underwent a left heart catheterization which demonstrated no hemodynamically significant coronary disease per the report that we have available. His echo demonstrated a preserved ejection fraction. He states that he is also undergone PFTs although we do not have those results. 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 PAST MEDICAL HISTORY Diagnosis Date Brain aneurysm With Clamp Stomach ulcer Hypertension, hyperlipidemia Coronary artery disease peripheral artery disease, PAST SURGICAL HISTORY Procedure Laterality Date PAST SURGICAL HISTORY OF Vein strippings REMOVAL GALLBLADDER Left heart catheterization, iliac stent placement, lower extremity angiography SOCIAL HISTORY: Social History Tobacco Use Smoking status: Every Day Packs/day: 1.00 Years: 45.00 Additional pack years: 0.00 Total pack years: 45.00 Types: Cigarettes Smokeless tobacco: Never Substance Use Topics Alcohol use: Never FAMILY HISTORY Problem Relation Age of Onset Leukemia Mother other (esophageal cancer) Brother MEDICATIONS: aspirin 325 mg tablet Take 325 mg by mouth once daily. oxybutynin ER (DITROPAN XL) 10 mg 24 hr tablet Take 15 mg by mouth once daily. atorvastatin (LIPITOR) 40 mg tablet Take 40 mg by mouth once daily. tamsulosin (FLOMAX) 0.4 mg Take 1 capsule by mouth daily at bedtime. HYDROcodone-acetaminophe n (NORCO) 5-325 mg per tablet Take 1 tablet by mouth every 8 hours as needed for pain. aspirin, enteric coated (ASPIRIN, ENTERIC COATED) 81 mg EC tablet Take 81 mg by mouth once daily. (Patient not taking: Reported on 07/04/2023) ALLERGIES: ALLERGIES Allergen Reactions Iodinated Contrast * Unknown In the 1970S but has had it since and no problems REVIEW OF SYSTEM: Constitutional: No weight loss, malaise or fevers. HEENT: Negative for frequent or significant headaches Respiratory: Positive for shortness of breath limiting daily activity Cardiovascular: Negative for chest pain, leg swelling or palpitations Gatrointestinal: Negative for abdominal discomfort, blood in stools or black stools or change in bowel habits Genitourinary: No history of dysuria, frequency, or incontinence Musculoskeletal: Negative for joint pain or swelling, back pain or muscle pain Endocrine: Negative for cold or heat intolerance, polyuria, polydipsia and goiter Hematology/Lymphatic: Negative for prolonged bleeding, bruising easily or swollen nodes Neurologic: No history or headaches, syncope, paralysis, seizures or tremors Integumentary: Negative for lesions, rash, and itching. PHYSICAL EXAM: VITALS: BP 119/92 Pulse 102 Resp 16 Ht 6' 0 (1.83m) Wt 250 lb (113.4kg) (more content not included)... Normal [facility] PVR LEG DIETER VAS LABon 2023 PVR LEG DIETER VAS LAB Non-Invasive Vascula r Laboratory [facility] F30 Lower Extremity Arterial Physiology Study Bilateral/Complete Date of service/time: 07/04/2023 1:52:08 PM Name: MR. ELVIS GRANDE Date of : 1955 Age: 68 years Gender: M Clinical Indication Peripheral arterial disease. TECHNIQUE -------- An arterial physiological examination was performed, including measurement of blood pressures using continuous wave Doppler and recording of plethysmographic with or without Doppler waveforms at the below-mentioned limb segments. FINDINGS -------- RIGHT SIDE AT REST Right Pressures Brachial: 116 mmHg High thigh: 140 mmHg Low thigh: 140 mmHg Calf: 132 mmHg Ankle dorsalis pedis: 116 mmHg LIZ: 0.97 Ankle posterior tibial: 125 mmHg LIZ: 1.04 Digit: 82 mmHg Right PVR Waveforms High thigh: Normal. Low thigh: Normal. Calf: Normal. Ankle: Normal. Transmetatarsal: Normal. Digit: Mildly dampened. LEFT SIDE AT REST Left Pressures Brachial: 120 mmHg High thigh: 157 mmHg Partially non-compressible arteries. Low thigh: 123 mmHg Calf: 97 mmHg Ankle dorsalis pedis: 91 mmHg LIZ: 0.76 Ankle posterior tibial: 97 mmHg LIZ: 0.81 Digit: 66 mmHg Left PVR Waveforms High thigh: Normal. Low thigh: Normal. Calf: Mildly dampened. Ankle: Mildly dampened. Transmetatarsal: Mildly dampened. Digit: Mildly dampened. IMPRESSION The patient has an LIZ consistent with a diagnosis of peripheral artery disease. Consider referral to a vascular specialist for evaluation unless already implemented. RIGHT SIDE Resting right ankle brachial index: 1.04 Right toe brachial index: 0.68 Normal ankle brachial index at rest in the right leg. Abnormal toe brachial index at rest is evidence of peripheral artery disease. Right ankle: Normal at rest. Right small vessel disease versus vasoconstriction. LEFT SIDE Resting left ankle brachial index: 0.81 Left toe brachial index: 0.55 Abnormal ankle brachial index at rest diagnostic of peripheral artery disease. Abnormal toe brachial index at rest is evidence of peripheral artery disease. Left ankle: Mild disease at rest. Left distal superficial femoral and/or popliteal disease. Technologist: Mitchel Holder RVT Marlin Astorga RVT Ordering physician: RICARDO WANG Interpreting physician: RUPINDER Hernandez DO Final CC [facility] : [id number] See Link below for Image Normal [facility] US CAROTID ARTERIES DIETER VAS LABon 07-04-2023 US CAROTID ARTERIES DIETER VAS LAB Non-Invasive Vascular Laboratory [facility] F30 Carotid Duplex Bilateral/Complete Date of service/time: 07/04/2023 1:58:18 PM Name: MR. ELVIS GRANDE Date of : 1955 Age: 68 years Gender: M Clinical Indication Bruit. TECHNIQUE -------- A carotid duplex ultrasound examination was performed, including grayscale imaging and color Doppler and spectral Doppler examination of the below mentioned arteries. FINDINGS -------- RIGHT SIDE Common carotid artery: Origin: PSV: 91 cm/s. EDV: 11 cm/s. Proximal: PSV: 97 cm/s. EDV: 20 cm/s. Mid: PSV: 67 cm/s. EDV: 19 cm/s. Distal: PSV: 52 cm/s. EDV: 15 cm/s. Mild heterogeneous plaque from proximal to distal. Internal carotid artery: Origin: PSV: 34 cm/s. EDV: 12 cm/s. Proximal: PSV: 63 cm/s. EDV: 24 cm/s. Mid: PSV: 72 cm/s. EDV: 33 cm/s. Distal: PSV: 72 cm/s. EDV: 33 cm/s. Mild heterogeneous plaque at origin. ICA/CCA Ratio: 1.4 External carotid artery: PSV: 83 cm/s. EDV: 12 cm/s. Proximal: PSV: 83 cm/s. EDV: 12 cm/s. Subclavian artery: PSV: 138 cm/s. EDV: 0 cm/s. Innominate artery: PSV: 129 cm/s. EDV: 13 cm/s. Vertebral artery: PSV: 39 cm/s. EDV: 14 cm/s. LEFT SIDE Common carotid artery: Proximal: PSV: 106 cm/s. EDV: 26 cm/s. Mid: PSV: 67 cm/s. EDV: 20 cm/s. Distal: PSV: 52 cm/s. EDV: 17 cm/s. Internal carotid artery: Proximal: PSV: 57 cm/s. EDV: 28 cm/s. Mid: PSV: 65 cm/s. EDV: 31 cm/s. Distal: PSV: 68 cm/s. EDV: 34 cm/s. Mild heterogeneous plaque at origin. ICA/CCA Ratio: 1.3 External carotid artery: PSV: 92 cm/s. EDV: 15 cm/s. Subclavian artery: Proximal: PSV: 132 cm/s. EDV: 6 cm/s. Vertebral artery: PSV: 35 cm/s. EDV: 15 cm/s. IMPRESSION RIGHT SIDE Common carotid artery: Plaque visualized without evidence of hemodynamically significant stenosis. Internal carotid artery: 20-39% stenosis. Vertebral artery: Patent and antegrade flow noted. LEFT SIDE Internal carotid artery: 20-39% stenosis. Vertebral artery: Patent and antegrade flow noted. Technologist: Mitchel Holder T Ordering physician: RICARDO WANG Interpreting physician: RUPINDER Hernandez DO Final CC [facility] : [id number] See Link below for Image Normal [facility] US Carotid arteries - bilate ralon 07-04-[address] [facility] CNOVon 07-02-2023 CNOV Office Visit (RADTSA ) -------- ELVIS GRANDE ([id number]) 1955 M Date Time Provider Department 07/02/23 9:00 AM Shelley POND During your visit today, we recorded the following information about you: Temperature Pulse Respiration Blood pressure 97 degrees 67/minute 16/minute 135/85 Weight 113 kg Sally Alfredo LPN 07/10/2023 2:20 PM Signed AUA= 13 Shelley Pond MD 07/10/2023 2:20 PM Signed Radiation Oncology - Follow Up Note PATIENT NAME: Elvis Grande PATIENT DIAGNOSIS: Prostate adenocarcinoma, initial PSA 32.05, biopsy Clara score 4 + 3 = 7 (grade group 3), clinical stage T2a, N0, M0, stage IIIA [T1-T2, N0, M0, PSA >=20, GG 1-4] (AJCC 8th ed.), s/p TRUS Random biopsy. Prostate cancer (C61), 2019 NCCN Risk Group: High Risk Group Clinical State: Localized Cancer - New Diagnosis RADIATION SUMMARY: DATES OF TREATMENT: 04/01/22-05/08/22: Pelvic EBRT 05/23/22: Prostate Brachytherapy AREA TREATED: Pelvis Prostate DELIVERED DOSE: Pelvis Prostate: 45Gy in 25 fractions, 3 Celis, IMRT, 10MV with daily CBCT Prostate: 100 Gy, Pd-103. 71 sources, 112.18 mCi INTERVAL HISTORY: Doing well no new problems or concerns. PSA HISTORY: PSA. (no units) Date Value 03/03/2023 <0.13 12/09/2022 <0.13 2022 0.14 ALLERGIES Allergen Reactions Iodinated Contrast * Unknown In the 1970S but has had it since and no problems oxybutynin ER (DITROPAN XL) 10 mg 24 hr tablet Take 15 mg by mouth once daily. atorvastatin (LIPITOR) 40 mg tablet Take 40 mg by mouth once daily. aspirin, enteric coated (ASPIRIN, ENTERIC COATED) 81 mg EC tablet Take 81 mg by mouth once daily. (Patient not taking: Reported on 07/04/2023) tamsulosin (FLOMAX) 0.4 mg Take 1 capsule by mouth daily at bedtime. HYDROcodone-acetaminophe n (NORCO) 5-325 mg per tablet Take 1 tablet by mouth every 8 hours as needed for pain. aspirin 325 mg tablet Take 325 mg by mouth once daily. REVIEW OF SYSTEMS: D/N = 5-7/2-3 Hematuria: none Dysuria: no Incontinence: No Urgency: moderate Catheter use: none Medications to aid urination: y - Total AUA Score: 13 Bowel movement frequency: 1-2/day Bowel movement quality: normal Blood per rectum: none PHYSICAL EXAM: BP 135/85 Pulse 67 Temp 36.1 ?C (97 ?F) Resp 16 Wt 113 kg (249 lb 1.9 oz) SpO2 99% BMI 33.79 kg/m? KPS: 100 General Appearance: Alert and oriented. No acute distress. Rectal exam is deferred. ASSESSMENT/PLAN: Prostate adenocarcinoma, initial PSA 32.05, biopsy Clara score 4 + 3 = 7 (grade group 3), clinical stage T2a, N0, M0, stage IIIA [T1-T2, N0, M0, PSA >=20, GG 1-4] (AJCC 8th ed.), s/p pelvic radiation, prostate brachytherapy boost, ADT. Doing well with undetectable PSA. No significant posttreatment problems. He continues close follow-up with urology. Plan to see patient back in 6 months for further postradiation follow-up. Signed by: Shelley Pond MD cc: ANTONIO CASTELLON [address] [place] [address] Dr. Gomez Allergies As of Date: 07/02/2023 Noted Allergy Reaction IODINATED CONTRAST MEDIA 04/05/2013 16 - Unknown Date Reviewed: 07/02/2023 Reviewed by: Sally Alfredo LPN - Fully Assessed Primary Visit Diagnosis:Malignant neoplasm of prostate (HCC) [C61] Order(s):PSA (OUTSIDE) [[id number]] Order #: [id number] Prescriptions as of 07/10/2023 - aspirin 325 mg tablet Take 325 mg by mouth once daily. - oxybutynin ER (DITROPAN XL) 10 mg 24 hr tablet Take 15 mg by mouth once daily. - atorvastatin (LIPITOR) 40 mg tablet Take 40 mg by mouth once daily. - aspirin, enteric coated (ASPIRIN, ENTERIC COATED) 81 mg EC tablet Take 81 mg by mouth once daily. - tamsulosin (FLOMAX) 0.4 mg Take 1 capsule by mouth daily at bedtime. - HYDROcodone-acetaminophe n (NORCO) 5-325 mg per tablet Take 1 tablet by mouth every 8 hours as needed for pain. Problem List As Of Date 07/02/2023 Noted Resolved Obesity, Class I, BMI 30-34.9 [E66.9] 03/21/2023 Prostate cancer (HCC) [C61] 04/16/2023 Renal mass [N28.89] 04/16/2023 Visit Notes: >> Sally Alfredo LPN FriJul 02, 2023 8:41 AM Status: Signed AUA= 13 Medications Discontinued During This Encounter Prescriptions - losartan (COZAAR) 25 mg tablet (Discontinued) 20 mg. - dilTIAZem CR (TIAZAC, TAZTIA XT) 120 mg 24 hr capsule (Discontinued) Take 120 mg by mouth once daily. - clopidogrel (PLAVIX) 75 mg tablet (Discontinued) Take 75 mg by mouth once daily. - bicalutamide (CASODEX) 50 mg tablet (Discontinued) Take 50 mg by mouth once daily. Disposition: Return in about 6 months (around 01/02/2024). Follow-up and Disposition History for Encounter Date Provider Department Center 07/02/2023 [id number] POND [facility] Encounter Status:Closed by Shelley POND on 07/10/23 [facility] Carloz 06-24-2023 YADIN Telephone (LUIGI) -------- ELVIS GRANDE ([id number]) 1955 M Date Time Provider Department 06/24/23 RICARDO WANG During your visit today, we recorded the following information about you: Mariah Brumfield 06/24/2023 9:29 AM Signed New Pt : Reason: 2nd opinion Diagnosis: 73.9 Claudication in peripheral vascular disease Ziggy Whaley 06/27/2023 9:20 AM Signed Spoke with patient appt scheduled 07/04/[address] Wang,patient MyChart active. Allergies As of Date: 06/24/2023 Noted Allergy Reaction IODINATED CONTRAST MEDIA 04/05/2013 16 - Unknown Date Reviewed: 03/21/2023 Reviewed by: Juan C Wolfe OCCA - Fully Assessed Reason for Visit: Appointment [186] Prescriptions as of 06/27/2023 - bicalutamide (CASODEX) 50 mg tablet Take 50 mg by mouth once daily. - oxybutynin ER (DITROPAN XL) 10 mg 24 hr tablet Take 10 mg by mouth once daily. - atorvastatin (LIPITOR) 40 mg tablet Take 40 mg by mouth once daily. - clopidogrel (PLAVIX) 75 mg tablet Take 75 mg by mouth once daily. - dilTIAZem CR (TIAZAC, TAZTIA XT) 120 mg 24 hr capsule Take 120 mg by mouth once daily. - aspirin, enteric coated (ASPIRIN, ENTERIC COATED) 81 mg EC tablet Take 81 mg by mouth once daily. - tamsulosin (FLOMAX) 0.4 mg Take 1 capsule by mouth daily at bedtime. - HYDROcodone-acetaminophe n (NORCO) 5-325 mg per tablet Take 1 tablet by mouth every 8 hours as needed for pain. - losartan (COZAAR) 25 mg tablet 20 mg. Problem List As Of Date 06/24/2023 Noted Resolved Obesity, Class I, BMI 30-34.9 [E66.9] 03/21/2023 Prostate cancer (HCC) [C61] 04/16/2023 Renal mass [N28.89] 04/16/2023 Encounter Status:Closed by [facility] ELVIS GRANDE ([id number]) 1955 M Date Time Provider Department 06/24/23 ANTONIO CASTELLON During your visit today, we recorded the following information about you: Kajal Conley 06/24/2023 1:34 PM Signed reason for call: Mr Grande called and he would like to schedule an appointment with DR [facility] and cell number [phone] Diagnosis 73.9 Claudication in peripheral vascular disease Kind Regards Kajal Lita Allergies As of Date: 06/24/2023 Noted Allergy Reaction IODINATED CONTRAST MEDIA 04/05/2013 16 - Unknown Date Reviewed: 03/21/2023 Reviewed by: Juan C Wolfe OCCA - Fully Assessed Reason for Visit: Appointment [186] Prescriptions as of 06/24/2023 - bicalutamide (CASODEX) 50 mg tablet Take 50 mg by mouth once daily. - oxybutynin ER (DITROPAN XL) 10 mg 24 hr tablet Take 10 mg by mouth once daily. - atorvastatin (LIPITOR) 40 mg tablet Take 40 mg by mouth once daily. - clopidogrel (PLAVIX) 75 mg tablet Take 75 mg by mouth once daily. - dilTIAZem CR (TIAZAC, TAZTIA XT) 120 mg 24 hr capsule Take 120 mg by mouth once daily. - aspirin, enteric coated (ASPIRIN, ENTERIC COATED) 81 mg EC tablet Take 81 mg by mouth once daily. - tamsulosin (FLOMAX) 0.4 mg Take 1 capsule by mouth daily at bedtime. - HYDROcodone-acetaminophe n (NORCO) 5-325 mg per tablet Take 1 tablet by mouth every 8 hours as needed for pain. - losartan (COZAAR) 25 mg tablet 20 mg. Problem List As Of Date 06/24/2023 Noted Resolved Obesity, Class I, BMI 30-34.9 [E66.9] 03/21/2023 Prostate cancer (HCC) [C61] 04/16/2023 Renal mass [N28.89] 04/16/2023 Encounter Status:Closed by KAJAL CONLEY on 06/24/23 Normal [facility] CT CTA ABD AORTA W RUNOFFon 04-28-2023 CT CTA ABD AORTA W RUNOFF CT CTA ABD AORTA W RUNOFF INDICATION: Lower extremity arterial dissection, known or suspected. Bilateral lower extremity pain while walking. COMPARISON: Vascular ultrasound on 03/27/2023. TECHNIQUE: Multidetector CT Angiogram performed with IV contrast through the abdomen, pelvis, and bilateral lower extremities. 3-D Maximum intensity projection reconstructions constructed under concurrent physician supervision on a independent workstation. 3 D images obtained to improve visualization of vascular detail. All CT scans at this facility use dose modulation, iterative reconstruction, and/or weight based dosing when appropriate to reduce radiation dose to as low as reasonably achievable. FINDINGS: VASCULAR STRUCTURES: Aorta: Moderate calcified atherosclerosis. No aneurysm or high-grade stenosis. Celiac artery: No aneurysm, occlusion, or high-grade stenosis. Superior mesenteric artery: No aneurysm, occlusion, or high-grade stenosis. Renal arteries: No aneurysm, occlusion, or high-grade stenosis. Inferior mesenteric artery: No occlusion. R. common iliac artery: Calcified atherosclerosis. No aneurysm, occlusion, or high-grade stenosis. R. internal iliac artery: Calcified atherosclerosis. No occlusion. R. external iliac artery: No aneurysm or occlusion. At least mild stenosis. Calcified atherosclerosis. L. common iliac artery: No aneurysm. Moderate calcified atherosclerosis. Status post stent repair. L. internal iliac artery: Calcified atherosclerosis. No aneurysm or occlusion. L. external iliac artery: No aneurysm or occlusion. Moderate calcified atherosclerosis. Status post stent repair. Moderate to high-grade stenosis at the stent terminus. Right lower extremity: Common femoral artery: No aneurysm, occlusion, or stenosis. Profunda femoris: No aneurysm or occlusion. Superficial femoral artery: No aneurysm or occlusion. Popliteal artery: No aneurysm, occlusion, or stenosis. Tibioperoneal trunk: No aneurysm or occlusion. Anterior tibial artery: No occlusion. Peroneal artery: No occlusion. Posterior tibial artery: No occlusion. Left lower extremity: Common femoral artery: No aneurysm, occlusion, or stenosis. Profunda femoris: No aneurysm or occlusion. Superficial femoral artery: No aneurysm or occlusion. Popliteal artery: There is complete occlusion of the left popliteal artery, with enhancement of collateral vasculature, supplying the branches of the popliteal artery distally. Tibioperoneal trunk: No occlusion. Likely supplied by a lateral collateral artery. Anterior tibial artery: No occlusion. Peroneal artery: No occlusion. Posterior tibial artery: No occlusion. Assessment of the arterial vasculature in the bilateral ankles and feet is limited by suboptimal contrast bolus timing. NON-VASCULAR STRUCTURES: LOWER CHEST: No focal consolidation or pleural effusion. LIVER AND BILIARY: Suggestion of diffuse hepatic steatosis, however the diffuse hypoattenuation of the liver may be sequelae of arterial phase of contrast. The gallbladder is absent. PANCREAS: No focally enhancing lesions are seen in the pancreas. A 1.0 cm focus of macroscopic fat is seen in the pancreatic body, nonspecific for lipoma versus fatty infiltration. No follow-up is recommended for this finding. Punctate calcification in the pancreatic neck. SPLEEN: Nonenlarged. Multiple calcified splenic granulomas are seen. ADRENALS: Unremarkable. KIDNEYS, URETERS, AND BLADDER: Exophytic inferior right renal cyst, requiring no follow-up. A 1.1 cm heterogeneous lesion in the left inferior renal cortex is indeterminate (axial image 84 of 497). Brachytherapy seeds in the prostate. GI TRACT AND PERITONEUM: The bowel is nondistended. Unremarkable appendix. Descending colon diverticulosis. No free gas or free fluid. LYMPH NODES AND IVC: No enlarged retroperitoneal lymph nodes by size criteria. The IVC is right-sided. MUSCULOSKELETAL: Multilevel degenerative changes of the thoracolumbar spine. L5 spondylolisthesis. 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 * Patent Left external iliac artery stent, moderate to high-grade stenosis at the stent terminus. * No occlusion, aneurysm, or high-grade stenosis of the right lower extremity arterial vasculature. * Moderate calcified atherosclerosis of the abdominal aorta without high-grade stenosis. Approved by Resident Savita Barkley MD on 04/28/2023 8:18 AM I, Pamela Borja MD have personally reviewed the image(s) and agree with and/or edited the report Finalized by Pamela Borja MD on 04/28/2023 9:18 AM Normal [facility] CREATININEon 04-24-2023 Creatinine [Mass/Vol] 0.88 mg/dL Normal 0.70-1.20 [facility] Comment on above: Result Comment: METH OD TRACEABLE TO IDMS STANDARD Performed By: #### C RT #### [facility] ([id number]) [address] [place] [id number] eGFR (CKD-EPI) NON-RACE DEPENDENT >90 Normal >[address] [facility] Comment on above: Result Comment: Reported eGFR is based on the CKD-EPI 2020 equation that does not use a race coefficient. 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 His renal mass was previously noted to be 1cm on last CT scan 05/22/22. 1-Duration: 2022 2-Location: kidney 3-Severity: see imaging 4-Quality: Not applicable 5-Context: Imaging 6-Timing: N/A 7-Modifying factors: No treatment prior to referral 8-Associated signs AND symptoms: no additional symptoms Family History of Genitourinary Cancer: N/A LABS Creatinine Date Value Ref Range Status 01/17/2023 0.91 0.73 - 1.22 mg/dL Final 05/06/2022 0.74 0.73 - 1.22 mg/dL Final PSA <0.[address] Kidney 01/17/23 IMPRESSION: 1. Since 05/22/2022, slight increase in size of a now 1.2 cm enhancing mass arising from the left renal lower pole (previously 1 cm). As previously, this remains suspicious for a primary renal neoplasm. Consider urology consultation, if not previously obtained. 2. Unchanged 0.6 cm enhancing left posterior interpolar renal mass, likely also a small renal neoplasm. 3. Patent renal veins and inferior vena cava. No lymphadenopathy or evidence of abdominal metastatic disease. 4. Diffuse hepatic steatosis. REVIEW OF SYSTEMS GENERAL:No weight loss, malaise or fevers., SEE HPI HEENT:Negative for frequent or significant headaches, No changes in hearing or vision, no nose bleeds or other nasal problems RESPIRATORY: See HPI CARDIOVASCULAR: Not reviewed GASTROINTESTINAL: Not reviewed GENITOURINARY: No history of dysuria, frequency or incontinence, See HPI TRAFFIC COURT REFEREE: NA MUSCULOSKELETAL: Negative for joint pain or swelling, back pain or muscle pain. NEUROLOGIC:Not reviewed HEMATOLOGIC/LYMPHATIC/IM MUNOLOGIC:Not reviewed ENDOCRINE: Not reviewed The remainder of the ROS was negative. HISTORIES PAST MEDICAL HISTORY Diagnosis Date Brain aneurysm With Clamp Stomach ulcer FAMILY HISTORY Problem Relation Age of Onset Leukemia Mother other (esophageal cancer) Brother SOCIAL HISTORY Social History Tobacco Use Smoking status: Every Day Packs/day: 1.00 Years: 45.00 Additional pack years: 0.00 Total pack years: 45.00 Types: Cigarettes Smokeless tobacco: Never Substance Use Topics Alcohol use: Never PHYSICAL EXAMINATION General appearance: Well appearing, alert, in no acute distress, and well-hydrated, well nourished Back: no pain to palpation over spine or costovertebral angles, reflexes are 2+ and symmetric, motor and sensory appear to be normal Lungs: Not examined Heart: Not examined Abdomen: Not reviewed Extremities: Extremities normal. No deformities, edema, or skin discoloration. Good capillary refill. Musculoskeletal: Spine range of motion normal. 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 of the kidney on 01/17/2023 showed that the slight increase in size of a now 1.2 cm enhancing mass arising from the left renal lower pole (previously 1 cm). Suspicious for a primary renal neoplasm. Unchanged 0.6 cm enhancing left posterior interpolar renal mass, likely also a small renal neoplasm. Diffuse hepatic steatosis. I have reassured the Pt that the kidney cancer is unlikely to metastasize, and his previous Hx of prostate cancer is unrelated to the development of cancer in the kidney. Plan - CT Kidney at [facility] in 9 months with a virtual visit at least 1 day later with Pina Ott - If no substantial growth in the tumors, then annual follow up with CT or MRI Scribe Attestation: By signing my name below, I, Get Hicks, attest that this documentation has been prepared under the direction and in the presence of Corry Hanson MD. Electronically Signed:oc Youssef, March 21, 2023 10:46 AM Allergies As of Date: 03/21/2023 Noted Allergy Reaction IODINATED CONTRAST MEDIA 04/05/2013 16 - Unknown Date Reviewed: 03/21/2023 Reviewed by: Juan C Wolfe OCCA - Fully Assessed Primary Visit Diagnosis:Other specified disorders of kidney and ureter [N28.89] Other Visit Diagnoses:Obesity, Class I, BMI 30-34.9 [E66.9] Prostate cancer (HCC) [C61] Renal mass [N28.89] Order(s):CT KIDNEY WO/W IVCON [[id number]] Order #: [id number] FUTURE [] iv cont (more content not included)... Normal [facility] URINALYSIS, REFLEX MICROSCOP ICon 03-21-2023 Bilirubin Ql (U) Negative Normal Negative [facility] Comment on above: Order Comment: Speci men Type: URINE SPECIMENOrdering Facility: [facility] Address: [address] [place] [address] Performed By: #### L [id number] ####[facility] LABCLIA [id number] [place] [address] [place] Clarity (Unsp spec) Clear Normal Clear [facility] Comment on above: Order Comment: Speci men Type: URINE SPECIMENOrdering Facility: [facility] Address: [address] [place] [address] Performed By: #### L [id number] ####[facility] LABCLIA [id number] [place] [address] [place] Color (U) Light Yellow Normal Yellow [facility] Comment on above: Order Comment: Speci men Type: URINE SPECIMENOrdering Facility: [facility] Address: [address] [place] [address] Performed By: #### L [id number] ####[facility] LABCLIA [id number] [place] [address] [place] Glucose Test strip (U) [Mass/Vol] Negative Normal Trace, Negative [facility] Comment on above: Order Comment: Speci men Type: URINE SPECIMENOrdering Facility: [facility] Address: [address] [place] [address] Performed By: #### L [id number] ####[facility] LABCLIA [id number] [place] [address] [place] Hemoglobin Ql (U) Negative Normal Negative, Trace [facility] Comment on above: Order Comment: Speci men Type: URINE SPECIMENOrdering Facility: [facility] Address: [address] [place] [address] Performed By: #### L [id number] ####[facility] LABCLIA [id number] [place] [address] [place] Ketones Ql (U) Negative Normal Negative, Trace [facility] Comment on above: Order Comment: Speci men Type: URINE SPECIMENOrdering Facility: [facility] Address: [address] [place] [address] Performed By: #### L [id number] ####[facility] LABCLIA [id number] [place] [address] [place] Leukocyte esterase Test strip Ql (U) Negative Normal Negative, 25 Demetri/uL [facility] Comment on above: Order Comment: Speci men Type: URINE SPECIMENOrdering Facility: [facility] Address: [address] [place] [address] Performed By: #### L [id number] ####[facility] LABCLIA [id number] [place] [address] [place] Nitrite Ql (U) Negative Normal Negative [facility] Comment on above: Order Comment: Speci men Type: URINE SPECIMENOrdering Facility: [facility] Address: [address] [place] [address] Performed By: #### L [id number] ####[facility] LABIA [id number] [place] [address] [place] pH (U) 5.0 [pH] Normal 5.0-8.0 [facility] Comment on above: Order Comment: Speci men Type: URINE SPECIMENOrdering Facility: [facility] Address: [address] [place] [address] Performed By: #### L [id number] ####[facility] LABIA [id number] [place] [address] [place] Protein (U) [Mass/Vol] Negative Normal Trace, Negative [facility] Comment on above: Order Comment: Speci men Type: URINE SPECIMENOrdering Facility: [facility] Address: [address] [place] [address] Performed By: #### L [id number] ####[facility] LABIA [id number] [place] [address] [place] Specific gravity (U) [Rel density] 1.025 Normal 1.005-1.030 [facility] Comment on above: Order Comment: Speci men Type: URINE SPECIMENOrdering Facility: [facility] Address: [address] [place] [address] Performed By: #### L [id number] ####[facility] LABIA [id number] [place] [address] [place] Urobilinogen Ql (U) Negative Normal Negative [facility] Comment on above: Order Comment: Speci men Type: URINE SPECIMENOrdering Facility: [facility] Address: [address] [place] [address] Performed By: #### L [id number] ####[facility] LABCLIA [id number] [facility] [id number] [address] [place] Bilirubin Ql (U) Negative Negative [facility] Clarity (Unsp spec) Clear Clear [facility] Color (U) Light Yellow Yellow [facility] Glucose Test strip (U) [Mass/Vol] Negative Trace, Negative [facility] Hemoglobin Ql (U) Negative Negative, Trace [facility] Ketones Ql (U) Negative Negative, Trace [facility] Leukocyte esterase Test strip Ql (U) Negative Negative, 25 Demetri/uL [facility] Nitrite Ql (U) Negative Negative [facility] pH (U) 5.0 [pH] 5.0 - 8.[address] [facility] Protein (U) [Mass/Vol] Negative Trace, Negative [facility] Specific gravity (U) [Rel density] 1.025 1.005 - 1.[address] [facility] Urobilinogen Ql (U) Negative Negative [facility] Screenson 03-06-2023 Screens [id number] FF Normal [facility] Ambulatory Visit Summaryon 1 05-05-2022 Ambulatory Visit Summary ELVIS GRANDE :1955 Visit Date:03/05/2023 Ambulatory Visit Instructions Your Diagnosis Prostate cancer Urinary urgency Nocturia Renal lesion Shortness of breath Tests Performed Urnls Dip Stick Auto w/o Microscopy POC [id number] Your Care Team Attending Physician - PATRICIA SALINAS, Mansi Cordova Primary Care Physician - ANTONIO CASTELLON CNP This Is Your Medications List oxybutynin (oxybutynin 15 mg ER Tab) tamsulosin (Flomax 0.4 mg Cap) Contact prescribing physician if questions or concerns acetaminophen-hydrocodon e (acetaminophen-hydrocodo ne 325 mg-5 mg oral tablet) aspirin (aspirin 81 mg oral capsule) bicalutamide (bicalutamide 50 mg Tab) clopidogrel (clopidogrel 75 mg Tab) losartan (losartan 25 mg Tab) Procedures Performed Brachytherapy (05/23/2022), Colonoscopy (05/15/2022), EGD - Esophagogastroduodenosco py (05/15/2022), External beam radiation therapy procedure (04/21/2022), Transrectal needle biopsy of prostate (02/13/2022), Cholecystectomy, Clamping of cerebral aneurysm, Colonoscopy, EGD - Esophagogastroduodenosco py, Excision of vein, Removal of foreign body from neck, Stripping of vein. Discharge Vitals Heart Rate (Peripheral) 74 Blood Pressure 120/88 Height 184 cm Height 72 in Weight 115.4 kg Weight 253.88 lb BMI 34.09 What to do next Scheduled Follow-Up Appointments Friday. 2023 8:00 AM EDT With: Mansi GOMEZ MD Where: [facility] Patient Educationon 03-05-20 Patient Education Oncology Hormone Suppression Therapy for Prostate Cancer Hormone suppression therapy is a treatment for prostate cancer that can help slow the growth of cancer cells in the prostate gland. It is also called androgen deprivation therapy (ADT) or androgen suppression therapy. Hormone suppression therapy targets male sex hormones (androgens) in the body that help cancer cells grow. Hormone suppression therapy alone will not cure prostate cancer, but it can slow the growth of cancer cells and may shrink tumors over time. Your health care provider can help you find the best treatment that fits your lifestyle. Hormone suppression therapy may be used in the following cases: ? When prostate cancer has spread too far to other places in the body and cannot be cured by surgery or radiation. ? When a person has health problems that prevent the use of surgery or radiation. ? Before radiation to help shrink the size of the cancer and make the radiation treatment more effective. ? If the prostate cancer remains or comes back following treatment with surgery or radiation. What are the types of hormone suppression therapy? Orchiectomy Orchiectomy, also called surgical castration, is a surgery to remove one or both testicles. The testicles make the two main androgens?testosterone and dihydrotestosterone (DHT). This surgery reduces the levels of testosterone in the blood, leading to decreased androgen production. Medicine therapy Medicine therapy, also called medical or chemical castration, involves taking medicines to keep your body from making or using androgens. Medicines can do this in one of three ways: 1. Reducing androgen production by the testicles. ? Luteinizing hormone-releasing hormone (LHRH) agonists. These medicines are injected or implanted under your skin to lower the amount of androgens that your testicles make. Depending on the medicine, they can be given monthly or up to every 3 to 6 months. If you take these medicines, you may also be prescribed other medicines to help with side effects. ? LHRH antagonists. These medicines also work to lower the amount of androgens made in the testicles, but they work faster than LHRH agonist medicines and have less severe side effects. They are given as a monthly injection under the skin, and they are used when prostate cancer is in an advanced stage. ? Estrogens. These medicines are female hormones that help to reduce androgen production by the testicles. Estrogens are not used as commonly as other types of hormone suppression therapy due to their side effects. However, they may be used if other treatments do not work. 2. Blocking androgen attachment throughout the body. ? Anti-androgen medicines, also called androgen receptor antagonists, block areas on the body where androgens attach. These are pills that are usually used in combination with other types of hormone suppression therapy, like orchiectomy and other medicines. 3. Blocking androgen production throughout the body. ? Androgen synthesis inhibitor medicines. These medicines help to stop other areas of the body from making androgens. They are taken as pills. They may be used if the prostate cancer is advanced and has not gotten better with surgery or other medicines. A steroid medicine may be given with this type of medicine to help with side effects. What are the risks? Hormone suppression therapy may cause side effects, including: ? Hot flashes. ? Diarrhea and nausea. ? Itching. ? Sexual side effects, such as: ? Decrease or lack of sexual desire. ? Decrease in size of the penis or testicles. ? Inability to get an erection (erectile dysfunction, or impotence). ? Breast tenderness or increase in breast size. ? Fatigue. ? Weight gain. ? Anemia. ? Thinning of the bones (osteoporosis) and loss of muscle mass. ? Depression, mood swings, and trouble with thinking or focusing. Hormone suppression therapy may also increase your risk of high blood pressure, increased cholesterol levels, stroke, heart attack, or diabetes. What are the benefits? One of the main benefits of hormone suppression therapy is having additional treatment options. You may have only one type of treatment, or two or more types at the same time. Treatments may be combined to: ? Help with side effects. ? Treat advanced cancer. Where to find more information ? [place] [employer]: www.cancer.org ? National Cancer [place]: www.cancer.gov Contact a health care provider if: ? You have pain or side effects that do not get better with treatment. ? You have trouble urinating. ? You have new side effects that do not go away. Get help right away if: ? You have severe chest pain. ? You have trouble breathing. ? You have an irregular heartbeat. ? You have numbness or paralysis in the lower half of your body. ? You are confused. ? You have trouble talking or understanding speech. These symptoms may be an emergenc (more content not included)... [facility] Urology Office/Clinic Noteon 03-05-2023 Urology Office/Clinic Note Chief Complaint 6 month follow up HPI Staff 67 yo male here for 6 month f/u with PSA. Previous DX: prostate ca, nocturia, urge incontinence, renal lesion. S/p brachytherapy 05/23/22 and EBRT 04/21/22. Saw Dr. Pond 01/02/23. Began Casodex 50mg qd at prior OV. D/c oxybutynin 5mg qhs and started oxybutynin ER 10mg qhs at prior OV. CT kidney wo/w IV con done 01/17/23 at [facility]. D/C Lupron Injection per last visit. PSA 07/01/22 - 0.14 09/09/22 - <0.13 12/09/22 - <0.13 Dysuria: yes having burring denies any pain Incomplete bladder emptying: denies Hematuria: denies visible blood Frequency: every hour Urgency: yes Nocturia: every hour and half Stream: denies hesitancy, denies weak stream Leaking: denies Post void dripping: denies Wearing pads/ Depends: denies Urge incontinence: denies Stress incontinence: denies Incontinence without Sensory Awareness: denies Abdominal pain: denies Flank pain: denies Sexual complaints: denies History of Present Illness Tests reviewed: reviewed UA, PSA, CT, consult note I have reviewed the previous health record information and history for this patient from Dr. Gomez. I have reviewed and verified the staff HPI to be accurate for this encounter. There have been no associated fever, chills, flank pain, or blood in the urine. Denies any urinary infections since last encounter. Review of Systems PHQ Score Initial Depression Screen Score: 0 SCORE ROS - Provider Constitutional: denies weight loss, denies hot flashes. Eyes: denies eye problems. Gastrointestinal: denies nausea, denies vomiting. Cardiovascular: denies chest pain or angina. Integumentary: no dryness Musculoskeletal: denies musculoskeletal symptoms. ENMT: denies otolaryngeal symptoms. Respiratory: no shortness of breath. Heme/Lymph: denies easy bleeding tendency, denies easy bruising tendency. Psychiatric: no confusion, no anxiety. Genitourinary: See HPI. Physical Exam Vitals & Measurements HR: 74(Peripheral) BP: 120/88 HT: 72 in HT: 184 cm WT: 115.4 kg WT: 253.88 lb BMI: 34.09 General Appearance: alert, no distress, well nourished, well developed male. Genitourinary: normal scrotum, normal testes, normal urethra, normal epididymis, normal vas deferens/spermatic cord. Flank Pain: none. Bladder: nonpalpable. Assessment/Plan 1. Prostate cancer (C61: Malignant neoplasm of prostate) PSA: 01/23/22 - 32.05 07/01/22 - 0.14 09/09/22 - <0.13 12/09/22 - <0.13 03/03/23 - <0.13 TRUS/bx 02/13/22 - Clara Score 7 (3+4) 1 cores, 7 (4+3) in 2 cores, grade group 3, and CHAS in 2 cores (all right side). Bone scan 03/08/22 - No evidence of metastatic disease to the bones. CT AP w con scan 03/08/22 - No definite metastatic disease. S/p EBRT 04/01/22 - 04/21/22. S/p brachytherapy 05/23/22. Last rad onc consult 01/02/23 - Plan to see pt for 6 mos f/u. D/c Lupron injections due to bothersome SE of hot flashes and started Casodex 50 mg qd at prior OV. Taking Flomax 0.4 mg bid. IPSS 17 (22). Also c/o dysuria, this is from radiation. Will cont to heal with time. PSA remains undetectable. Will cont to monitor. Follow up 6 mos with PSA or sooner if needed. Pt understands and agrees with plan. -D/c Casodex for 2 weeks to see if #5 improves, possible unique SE of this med. If #5 does not improve, he is to restart this med. 2. Urinary urgency (R39.15: Urgency of urination) Increased Oxybutynin to 10 mg ER qhs at prior OV. Still having urgency but no UUI. Reassured pt this is not causing #5. -Increase Oxybutynin to 15 mg ER qhs. SEs discussed. Rx sent to [facility]. 3. Nocturia (R35.1: Nocturia) Ongoing, q30min. See #2. 4. Renal lesion (N28.9: Disorder of kidney and ureter, unspecified) CT kidney w/wo con 05/22/22 - A 1 cm enhancing exophytic solid mass arising from the lateral left renal lower pole, compatible with a small renal neoplasm. A 0.6 cm exophytic solid mass arising from the posterior left renal interpolar region, compatible with a small renal neoplasm. Both unchanged compared to 05/08/22. No lymphadenopathy or evidence of abdominal metastatic disease. CT Ab (kidney) w/wo con 01/17/23 [facility] - Slight increase in size of a now 1.2 cm enhancing exophytic solid mass arising from the lateral L renal lower pole, compatible with a small renal neoplasm (previously 1 cm). A 0.6 cm exophytic solid mass arising from the posterior L renal interpolar region, unchanged. No new renal lesion. Reviewed CT with pt. Discussed referring to [facility] to discuss possible partial nephrectomy. -Refer to [facility]. 5. Shortness of breath (R06.02: Shortness of breath) Has been having SOB, saw cardiology and pulmonology with no clear etiology. Onset about 5 mos ago when he stopped smoking. See #1. Follow-up With When Contact Information PATRICIA SALINAS, Mansi Cordova, [facility] [address], [place] [address]- Additional Instructions: 6 mos with PSA Patient Education Hormone Suppression Therapy for Pros (more content not included)... [facility] Comment on above: Result Comment: Elec tronically Signed By: Mansi GOMEZ MD\.br\Date and Time Signed: 03/05/23 08:55 EST\.br\Electronically Co-Signed By: Karissa Reyez\.br\Date and Time Co-Signed: 03/05/23 08:53 EST Lab Reportson 03-04-2023 Lab Reports [id number] F [facility] RAD - CT Reporton 01-31-2023 RAD - CT Report [id number] F [facility] CREATININE BLDon 01-17-2023 Creatinine [Mass/Vol] 0.91 mg/dL Normal 0.73-1.22 [facility] Comment on above: Order Comment: Speci men Type: BLOOD SPECIMENOrdering Facility: [facility] Address: [address] [place] [address] Performed By: #### C RET1 ####[facility] LABCLIA [id number] [place] [id number] Creatinine and Glomerular filtration rate.predicted panel (S/P/Bld) 93 mL/min/1.73m??? Normal >=60 [facility] Comment on above: Order Comment: Speci men Type: BLOOD SPECIMENOrdering Facility: [facility] Address: [address] [place] [address] Result Comment: Nela mated Glomerular Filtration Rate (eGFR) is calculated using the 2020 CKD-EPI creatinine equation. This equation utilizes serum creatinine, sex, and age as parameters. The creatinine assay has traceable calibration to isotope dilution-mass spectrometry. Refer to KDIGO guidelines for clinical interpretation. In patients with unstable renal function, e.g. those with acute kidney injury, the eGFR may not accurately reflect actual GFR. Performed By: #### C RET1 ####[facility] LABCLIA [id number] [place] [address] CT KIDNEY WO/W IVCONon 01-17 CT KIDNEY WO/W IVCON * * *Final Report* * * DATE OF EXAM: Jan 17 2023 9:18AM [facility] 0546 - CT KIDNEY WO/W IVCON / PROCEDURE REASON: Other specified disorders of kidney and ureter * * * * Physician Interpretation * * * * RESULT: EXAMINATION: CT ABDOMEN (KIDNEY) WITHOUT AND WITH IV CONTRAST CLINICAL HISTORY: Renal mass TECHNIQUE: Spiral imaging in three phases through the kidneys and including the abdomen was performed utilizing IV contrast only. No oral contrast was given. Arterial phase MIP, and nephrographic phase oblique coronal and sagittal reformations were created from thin-slice images under physician supervision on the imaging modality workstation. MQ: [id number] Contrast: IV: 120 ml of Omnipaque 350 Oral Contrast: None CT Radiation dose: Integrated dose-length product (DLP) for this visit = 2564 mGy*cm. CT Dose Reduction Employed: mAs-kVp adjusted based on patient size-age COMPARISON: CT abdomen 05/22/2022; CT abdomen 05/08/2022 RESULT: Renal findings RIGHT kidney and vasculature: Right kidney and ureter: No nephrolithiasis or hydronephrosis. Unchanged cyst within the right renal lower pole, measuring 2 cm (Bosniak 1). No suspicious right renal mass. Right renal vasculature: The right renal artery is patent. There are two patent right renal veins. Right adrenal: Normal, no nodules or thickening LEFT kidney and vasculature: Left kidney and ureter: No nephrolithiasis or hydronephrosis. There has been slight increase in size of a now 1.2 cm enhancing exophytic solid mass arising from the lateral left renal lower pole (series 8, image 268), compatible with a small renal neoplasm (previously 1 cm). A 0.6 cm exophytic solid mass arising from the posterior left renal interpolar region (series 8, image 220) is unchanged. No new renal lesion is identified. Left renal vasculature: The left renal artery is patent. Patent preaortic left renal vein. Left adrenal: Normal, no nodules or thickening Retroperitoneal lymphadenopathy and IVC involvement: The inferior vena cava is patent. No retroperitoneal lymphadenopathy. Abdomen: Liver: Normal liver morphology. Diffuse hypodensity of the hepatic parenchyma is compatible with hepatic steatosis. No suspicious hepatic mass. Biliary: No bile duct dilation. The gallbladder is absent. Spleen: No mass. Multiple calcified splenic granulomas. No splenomegaly. Pancreas: No mass or duct dilatation. Punctate calcifications within the pancreatic head are likely the sequela of prior pancreatitis. GI tract: The imaged bowel is normal in caliber without evidence of wall thickening or obstruction. There are scattered colonic diverticula, without associated inflammation. Lymph nodes (other): No abdominal lymphadenopathy. Mesentery/Peritoneum: No ascites or mass. Retroperitoneum: No mass. Vasculature (other): Vasculature: - Abdominal aorta: Atherosclerotic calcifications without aneurysm. A left external iliac artery stent is patent. - Celiac and SMA: Patent without stenosis. - Portal venous system (SMV, splenic vein, portal vein and branches): Patent. - Hepatic veins: Patent. - IVC: Patent IVC without thrombus. Bones/Soft Tissues: Degenerative changes involve the lumbar spine. No destructive lytic or blastic osseous abnormality. There are bilateral L5 pars defects with grade 1 anterolisthesis of L5 on S1. Lower thorax: There is mild left basilar juxtapleural subsegmental atelectasis. Webmaster (topogram) images: No additional findings. IMPRESSION: 1. Since 05/22/2022, slight increase in size of a now 1.2 cm enhancing mass arising from the left renal lower pole (previously 1 cm). As previously, this remains suspicious for a primary renal neoplasm. Consider urology consultation, if not previously obtained. 2. Unchanged 0.6 cm enhancing left posterior interpolar renal mass, likely also a small renal neoplasm. 3. Patent renal veins and inferior vena cava. No lymphadenopathy or evidence of abdominal metastatic disease. 4. Diffuse hepatic steatosis. ACTIONABLE RESULT: FOLLOW-UP Acuity: Actionable Findings: Kidneys/Ureters/Bladder Routing Code: GU_1 Recommendation: Unlisted Recommendation (see report) Time Frame: At the discretion of the clinical team. COMMUNICATION: Results will be communicated with the ordering provider via [facility] staff message or phone message by [employer] within 2 business days of report finalization. --END OF FINDING-- Algorithms for management of incidental imaging findings can be found on the [facility] Intranet Sharepoint site at: [email or web address] ndi [email or web address] Transcribe Date/Time: Jan 17 2023 9:57A Dictated by: BRYCE ISBELL MD This examination was interpreted and the report reviewed and electronically signed by: BRYCE ISBELL MD on (more content not included)... Invalid Interpretation Code [facility] Consultation Noteon 01-14-20 Consultation Note [id number]: 127 [facility] CNOVon 01-02-2023 CNOV Office Visit (RADTSA ) -------- ELVIS GRANDE ([id number]) 1955 M Date Time Provider Department 01/02/23 9:00 AM Shelley POND During your visit today, we recorded the following information about you: Temperature Pulse Respiration Blood pressure 96.7 degrees 65/minute 18/minute 113/74 Weight 110.5 kg Shelley Pond MD 01/09/2023 12:55 PM Signed Radiation Oncology - Follow Up Note PATIENT NAME: Elvis Grande PATIENT DIAGNOSIS: Prostate adenocarcinoma, initial PSA 32.05, biopsy [place] score 4 + 3 = 7 (grade group 3), clinical stage T2a, N0, M0, stage IIIA [T1-T2, N0, M0, PSA >=20, GG 1-4] (AJCC 8th ed.), s/p TRUS Random biopsy. Prostate cancer (C61), 2019 NCCN Risk Group: High Risk Group Clinical State: Localized Cancer - New Diagnosis RADIATION SUMMARY: DATES OF TREATMENT: 04/01/22-05/08/22: Pelvic EBRT 05/23/22: Prostate Brachytherapy AREA TREATED: Pelvis Prostate DELIVERED DOSE: Pelvis Prostate: 45Gy in 25 fractions, 3 Celis, IMRT, 10MV with daily CBCT Prostate: 100 Gy, Pd-103. 71 sources, 112.18 mCi INTERVAL HISTORY: The patient presents for routine follow-up. Doing fairly well. Still sensation of increased urinary frequency and urgency though improved. No hematuria. PSA HISTORY: PSA. (no units) Date Value 12/09/2022 <0.13 2022 0.14 ALLERGIES Allergen Reactions Iodinated Contrast * Unknown bicalutamide (CASODEX) 50 mg tablet Take 50 mg by mouth once daily. oxybutynin ER (DITROPAN XL) 10 mg 24 hr tablet Take 10 mg by mouth once daily. atorvastatin (LIPITOR) 40 mg tablet Take 40 mg by mouth once daily. clopidogrel (PLAVIX) 75 mg tablet Take 75 mg by mouth once daily. dilTIAZem CR (TIAZAC, TAZTIA XT) 120 mg 24 hr capsule Take 120 mg by mouth once daily. aspirin, enteric coated (ASPIRIN, ENTERIC COATED) 81 mg EC tablet Take 81 mg by mouth once daily. tamsulosin (FLOMAX) 0.4 mg Take 1 capsule by mouth daily at bedtime. HYDROcodone-acetaminophe n (NORCO) 5-325 mg per tablet Take 1 tablet by mouth every 8 hours as needed for pain. losartan (COZAAR) 25 mg tablet 20 mg. REVIEW OF SYSTEMS: D/N = 5-7/2-3 Hematuria: none Dysuria: no Incontinence: No Urgency: moderate Catheter use: none Medications to aid urination: y - Total AUA Score: 19 Bowel movement frequency: 1-2/day Bowel movement quality: normal Blood per rectum: none PHYSICAL EXAM: BP 113/74 Pulse 65 Temp (!) 35.9 ?C (96.7 ?F) Resp 18 Wt 110.5 kg (243 lb 9.6 oz) SpO2 98% BMI 33.03 kg/m? KPS: 100 General Appearance: Alert and oriented. No acute distress. Rectal exam is deferred. ASSESSMENT/PLAN: Prostate adenocarcinoma, initial PSA 32.05, biopsy [place] score 4 + 3 = 7 (grade group 3), clinical stage T2a, N0, M0, stage IIIA [T1-T2, N0, M0, PSA >=20, GG 1-4] (AJCC 8th ed.), s/p pelvic radiation, prostate brachytherapy boost, ADT. Patient doing fairly well. PSA undetectable. He continues on ADT given his initial elevated PSA. He continues close follow-up with urology. Plan to see patient back in 6 months for further postradiation follow-up. Signed by: Shelley Pond MD cc: ANTONIO CASTELLON [address] [place] [address] Bonnie Martin RN 01/09/2023 12:55 PM Signed AUA 19 Bonnie Sanz RN Allergies As of Date: 01/02/2023 Noted Allergy Reaction IODINATED CONTRAST MEDIA 04/05/2013 16 - Unknown Date Reviewed: 01/02/2023 Reviewed by: Bonnie Sanz RN - Fully Assessed Reason for Visit: Prostate Cancer [590] Primary Visit Diagnosis:Malignant neoplasm of prostate (HCC) [C61] Other Visit Diagnosis:Other specified disorders of kidney and ureter [N28.89] Order(s):PSA (OUTSIDE) [8834901] Order #: [id number] CT KIDNEY WO/W IVCON [5730331] Order #: [id number] FUTURE [] iv contrast (will be provided with radiology test)CT kidney wow Inject, intravenously, once for 1 dose.No IV access, insert saline lock prior to the beginning of sedation, infusion, injection of imaging exam. Discontinue saline lock post exam. If Pt. has a central line or IVAD, may access for administration according to line specific nursing protocol. Once exam is complete flush line and de-access according to line specific nursing protocol in the CT contrast administration guidelines link.Disp: 1 EachRfl: 0 CREATININE BLD [SQCRET] Order #: [id number] FUTURE Prescriptions as of 01/09/2023 - bicalutamide (CASODEX) 50 mg tablet Take 50 mg by mouth once daily. - oxybutynin ER (DITROPAN XL) 10 mg 24 hr tablet Take 10 mg by mouth once daily. - atorvastatin (LIPITOR) 40 mg tablet Take 40 mg by mouth once daily. - clopidogrel (PLAVIX) 75 mg tablet Take 75 mg by mouth once daily. - dilTIAZem CR (TIAZAC, TAZTIA XT) 120 mg 24 hr capsule Take 120 mg by mouth once daily. - aspirin, enteric coated (ASPIRIN, ENTERIC (more content not included)... [facility] Echocardiogramon 12-20-2022 Echocardiography [facility] [address], [address], [place] [address] TRANSTHORACIC ECHOCARDIOGRAM REPORT Patient Name: ELVIS Alvarado HARJINDER Reading Physician: [id number] Renata Hammond MD Study Date: 12/20/2022 Referring Physician: SAFIA CERDA MRN/PID: [id number] PCP: Accession/Order#: [id number] Department Location: [facility] Date of : 1955 Fellow: Gender: M Nurse: Admit Date: Air Reduction Equipment Operator: Marisa Akbar RDCS, RT(R), RDMS, RVT Height: 182.88 cm CC Report to: Weight: 108.86 kg Study Type: Echocardiogram BSA: 2.30 m2 Blood Pressure: 112 /60 mmHg Diagnosis/ICD: R06.02-Shortness of breath Indication: SOBOE Procedure/CPT: Echo Complete w Full Doppler-[id number] Patient History: Smoker: Former. Pertinent History: COPD and Hyperlipidemia. Study Detail: The following Echo studies were performed: 2D, M-Mode, Doppler and color flow. PHYSICIAN INTERPRETATION: Left Ventricle: Left ventricular systolic function is normal, with an estimated ejection fraction of 65%. There are no regional wall motion abnormalities. The left ventricular cavity size is normal. Spectral Doppler shows an impaired relaxation pattern of left ventricular diastolic filling. Left Atrium: The left atrium is normal in size. Right Ventricle: The right ventricle is normal in size. There is normal right ventricular global systolic function. Right Atrium: The right atrium is normal in size. Aortic Valve: The aortic valve appears abnormal. There is mild to moderate aortic valve cusp calcification. There is no evidence of aortic valve regurgitation. The peak instantaneous gradient of the aortic valve is 25.0 mmHg. The mean gradient of the aortic valve is 17.0 mmHg. The aortic valve appearance consistent with mild aortic stenosis. Peak gradient measured around 25 mmHg. Mean gradient around 17 mmHg there is hemodynamic consistent with mild aortic stenosis. Mitral Valve: The mitral valve is normal in structure. There is no evidence of mitral valve regurgitation. Tricuspid Valve: The tricuspid valve is structurally normal. No evidence of tricuspid regurgitation. Pulmonic Valve: The pulmonic valve is structurally normal. There is no indication of pulmonic valve regurgitation. Pericardium: There is no pericardial effusion noted. Aorta: The aortic root is normal. CONCLUSIONS: 1. Left ventricular systolic function is normal with a 65% estimated ejection fraction. 2. Spectral Doppler shows an impaired relaxation pattern of left ventricular diastolic filling. 3. Aortic valve appears abnormal. 4. The aortic valve appearance consistent with mild aortic stenosis. Peak gradient measured around 25 mmHg. Mean gradient around 17 mmHg there is hemodynamic consistent with mild aortic stenosis. 5. No previous study available for comparison. QUANTITATIVE DATA SUMMARY: 2D MEASUREMENTS: Normal Ranges: Ao Root d: 3.20 cm (2.0-3.7cm) LAs: 3.70 cm (2.7-4.0cm) RVIDd: 2.80 cm (0.9-3.6cm) IVSd: 0.90 cm (0.6-1.1cm) LVPWd: 0.80 cm (0.6-1.1cm) LVIDd: 4.90 cm (3.9-5.9cm) LVIDs: 3.90 cm LV Mass Index: 61.6 g/m2 LV % FS 20.4 % LA VOLUME: Normal Ranges: LA Volume Index: 15.0 ml/m2 AORTA MEASUREMENTS: Normal Ranges: Asc Ao, d: 3.20 cm (2.1-3.4cm) LV SYSTOLIC FUNCTION BY 2D PLANIMETRY (MOD): Normal Ranges: EF-A4C View: 60.4 % (>=55%) EF-A2C View: 70.1 % EF-Biplane: 67.3 % LV DIASTOLIC FUNCTION: Normal Ranges: MV Peak E: 1.05 m/s (0.7-1.2 m/s) MV Peak A: 1.00 m/s (0.42-0.7 m/s) E/A Ratio: 1.05 (1.0-2.2) MV lateral e' 0.09 m/s MV medial e' 0.06 m/s E/e' Ratio: 11.30 (<8.0) MITRAL VALVE: Normal Ranges: MV Vmax: 1.10 m/s (<=1.3m/s) MV peak P.8 mmHg (<5mmHg) MV mean P.0 mmHg (<48mmHg) MV DT: 222 msec (150-240msec) AORTIC VALVE: Normal Ranges: AoV Vmax: 2.50 m/s (<=1.7m/s) AoV Peak P.0 mmHg (<20mmHg) AoV Mean P.0 mmHg (1.7-11.5mmHg) LVOT Max Anam: 1.52 m/s (<=1.1m/s) AoV VTI: 63.60 cm (18-25cm) LVOT VTI: 31.00 cm LVOT Diameter: 2.50 cm (1.8-2.4cm) AoV Area, VTI: 2.39 cm2 (2.5-5.5cm2) AoV Area,Vmax: 2.98 cm2 (2.5-4.5cm2) AoV Dimensionless Index: 0.49 PULMONIC VALVE: Normal Ranges: PV Max Anam: 1.3 m/s (0.6-0.9m/s) PV Max P.7 mmHg PIEDV: 1.37 m/s PADP: 10.5 mmHg [id number] Renata Hammond MD Electronically signed on 12/24/2022 at 2:25:[address] [facility] Reminderson 12-17-2022 Reminders - From: Karissa Reyez To: [facility] - Results; Sent: 09/11/2022 14:36:39 EDT Show up: 12/12/2022 14:36:00 EDT Subject: 3 mos PSA wo OV Due Date/Time: 12/18/2022 14:36:00 EDT Pt should have gotten 3 mos PSA wo OV. Please look for these results. He will then need another PSA in 3 mos WITH an OV. Monitoring PSA more closely since d/c Lupron and starting casodex. addressed in separate message. [facility] Arterial Blood Gason 023 ABG Base Excess -1.2 mmol/L Normal -3.0-3.0 [facility] Comment on above: Order Comment: drawn Wedge Performed By: #### A BG #### Point of Care testing , ABG Frac Inspired O2 21 % Normal [facility] [facility] Comment on above: Order Comment: drawn Wedge Performed By: #### A BG #### Point of Care testing , ABG Oxygen Content 6.5 mmol/L Low 6.6-9.7 [facility] Comment on above: Order Comment: drawn Wedge Performed By: #### A BG #### Point of Care testing , ABG Oxygen Saturation 74.2 % Low 95.0-100.0 [facility] Comment on above: Order Comment: drawn Wedge Performed By: #### A BG #### Point of Care testing , ABG PCO2 45.6 mm[Hg] High 35.0-45.0 [facility] Comment on above: Order Comment: drawn Wedge Performed By: #### A BG #### Point of Care testing , ABG PH 7.35 Normal 7.35-7.45 [facility] Comment on above: Order Comment: drawn Wedge Performed By: #### A BG #### Point of Care testing , ABG PO2 38.2 mm[Hg] Off scale low 80.0-100.0 [facility] Comment on above: Order Comment: drawn Wedge Performed By: #### A BG #### Point of Care testing , CO2 [Moles/Vol] 26.1 mmol/L Normal 23.0-27.0 [facility] Comment on above: Order Comment: drawn Wedge Performed By: #### A BG #### Point of Care testing , HCO3 (Bld) [Moles/Vol] 24.7 mmol/L Normal 23.0-29.0 [facility] Comment on above: Order Comment: drawn Wedge Performed By: #### A BG #### Point of Care testing , Respiratory Critical Normal [facility] Comment on above: Order Comment: drawn Wedge Result Comment: Crit ical Value called on: 12/16/2022 at 17:17 PERFORMED BY: [facility] [place] [address] PATHOLOGIST DISTRIBUTOR PUBLICATIONS THOM SKAGGS M.D. Performed By: #### A BG #### Point of Care testing , VBG Draw Site Artline Normal [facility] Comment on above: Order Comment: drawn Wedge Performed By: #### A BG #### Point of Care testing , ABG Base Excess -1.6 mmol/L Normal -3.0-3.0 [facility] Comment on above: Order Comment: drawn from Fem Art Performed By: #### A BG #### Point of Care testing , ABG Frac Inspired O2 21 % Normal [facility] Comment on above: Order Comment: drawn from Fem Art Performed By: #### A BG #### Point of Care testing , ABG Oxygen Content 8.8 mmol/L Normal 6.6-9.7 [facility] Comment on above: Order Comment: drawn from Fem Art Performed By: #### A BG #### Point of Care testing , ABG Oxygen Saturation 94.8 % Low 95.0-100.0 [facility] Comment on above: Order Comment: drawn from Fem Art Performed By: #### A BG #### Point of Care testing , ABG PCO2 38.6 mm[Hg] Normal 35.0-45.0 [facility] Comment on above: Order Comment: drawn from Fem Art Performed By: #### A BG #### Point of Care testing , ABG PH 7.39 Normal 7.35-7.45 [facility] Comment on above: Order Comment: drawn from Fem Art Performed By: #### A BG #### Point of Care testing , ABG PO2 71.0 mm[Hg] Low 80.0-100.0 [facility] Comment on above: Order Comment: drawn from Fem Art Performed By: #### A BG #### Point of Care testing , CO2 [Moles/Vol] 24.2 mmol/L Normal 23.0-27.0 [facility] Comment on above: Order Comment: drawn from Fem Art Performed By: #### A BG #### Point of Care testing , HCO3 (Bld) [Moles/Vol] 23.0 mmol/L Normal 23.0-29.0 [facility] Comment on above: Order Comment: drawn from Fem Art Performed By: #### A BG #### Point of Care testing , Respiratory Critical [facility] Comment on above: Order Comment: drawn from Fem Art Result Comment: Crit ical Value called on: 12/16/2022 at 17:10 PERFORMED BY: [facility] [place] [address] PATHOLOGIST DISTRIBUTOR PUBLICATIONS THOM SKAGGS M.D. Performed By: #### A BG #### Point of Care testing , VBG Draw Site Artline [facility] Comment on above: Order Comment: drawn from Fem Art Performed By: #### A BG #### Point of Care testing , ABG Base Excess -1.8 mmol/L Normal -3.0-3.0 [facility] Comment on above: Order Comment: drawn from Fem Art Performed By: #### A BG #### Point of Care testing , ABG Frac Inspired O2 21 % Normal [facility] Comment on above: Order Comment: drawn from Fem Art Performed By: #### A BG #### Point of Care testing , ABG Oxygen Content 6.3 mmol/L Low 6.6-9.7 [facility] Comment on above: Order Comment: drawn from Fem Art Performed By: #### A BG #### Point of Care testing , ABG Oxygen Saturation 72.5 % Low 95.0-100.0 [facility] Comment on above: Order Comment: drawn from Fem Art Performed By: #### A BG #### Point of Care testing , ABG PCO2 44.6 mm[Hg] Normal 35.0-45.0 [facility] Comment on above: Order Comment: drawn from Fem Art Performed By: #### A BG #### Point of Care testing , ABG PH 7.35 Normal 7.35-7.45 [facility] Comment on above: Order Comment: drawn from Fem Art Performed By: #### A BG #### Point of Care testing , ABG PO2 37.6 mm[Hg] Off scale low 80.0-100.0 [facility] Comment on above: Order Comment: drawn from Fem Art Performed By: #### A BG #### Point of Care testing , CO2 [Moles/Vol] 25.4 mmol/L Normal 23.0-27.0 [facility] Comment on above: Order Comment: drawn from Fem Art Performed By: #### A BG #### Point of Care testing , HCO3 (Bld) [Moles/Vol] 24.0 mmol/L Normal 23.0-29.0 [facility] Comment on above: Order Comment: drawn from Fem Art Performed By: #### A BG #### Point of Care testing , Respiratory Critical Normal [facility] Comment on above: Order Comment: drawn from Fem Art Result Comment: Crit ical Value called on: 12/16/2022 at 17:05 PERFORMED BY: [facility] [address] [place] [address] PATHOLOGIST DISTRIBUTOR PUBLICATIONS THOM SKAGGS M.D. Performed By: #### A BG #### Point of Care testing , VBG Draw Site Artline [facility] Comment on above: Order Comment: drawn from Fem Art Performed By: #### A BG #### Point of Care testing , ABG Base Excess -0.4 mmol/L Normal -3.0-3.0 [facility] Comment on above: Order Comment: drawn RA Performed By: #### A BG #### Point of Care testing , ABG Frac Inspired O2 21 % [facility] Comment on above: Order Comment: drawn RA Performed By: #### A BG #### Point of Care testing , ABG Oxygen Content 6.2 mmol/L Low 6.6-9.7 [facility] Comment on above: Order Comment: drawn RA Performed By: #### A BG #### Point of Care testing , ABG Oxygen Saturation 70.4 % Low 95.0-100.0 [facility] Comment on above: Order Comment: drawn RA Performed By: #### A BG #### Point of Care testing , ABG PCO2 45.9 mm[Hg] High 35.0-45.0 [facility] Comment on above: Order Comment: drawn RA Performed By: #### A BG #### Point of Care testing , ABG PH 7.36 Normal 7.35-7.45 [facility] Comment on above: Order Comment: drawn RA Performed By: #### A BG #### Point of Care testing , ABG PO2 35.5 mm[Hg] Off scale low 80.0-100.0 [facility] Comment on above: Order Comment: drawn RA Performed By: #### A BG #### Point of Care testing , CO2 [Moles/Vol] 26.8 mmol/L Normal 23.0-27.0 [facility] Comment on above: Order Comment: drawn RA Performed By: #### A BG #### Point of Care testing , HCO3 (Bld) [Moles/Vol] 25.4 mmol/L Normal 23.0-29.0 [facility] Comment on above: Order Comment: drawn RA Performed By: #### A BG #### Point of Care testing , Respiratory Critical Normal [facility] Comment on above: Order Comment: drawn RA Result Comment: Crit ical Value called on: 12/16/2022 at 17:00 PERFORMED BY: [facility] [address] [place] [address] PATHOLOGIST DISTRIBUTOR PUBLICATIONS THOM SKAGGS M.D. Performed By: #### A BG #### Point of Care testing , [facility] Comment on above: Order Comment: drawn RA Performed By: #### A BG #### Point of Care testing , Laboratory - Chemistry and C hemistry - challengeOrdered By: Safia Cerda on 12-16-2022 CO2 [Moles/Vol] 26.1 mmol/L 23.0-27.0 [facility] HCO3 (Bld) [Moles/Vol] 24.7 mmol/L 23.0-29.0 [facility] No Panel InformationOrdered By: Safia Cerda on 12-16-2022 Arterial Blood Base Excess -1.2 mmol/L -3.0-3.0 [facility] Arterial Blood Oxygen Content 6.5 mmol/L 6.6-9.7 [facility] Arterial Blood Oxygen Saturation 74.2 % 95.0-100.0 [facility] Arterial Blood Partial Pressure CO2 45.6 mm[Hg] 35.0-45.0 [facility] Arterial Blood Partial Pressure O2 38.2 mm[Hg] 80.0-100.0 [facility] Arterial Blood pH 7.35 7.35-7.45 [facility] Blood Gas Critical Value See comment [facility] Comment on above: Critical Value ellis walden on: 12/16/2022 at 17:17 Blood Gas Sample Site [facility] FiO2 21 % [facility] Lab Reportson 12-13-2022 Lab Reports [id number]: 127 Normal [facility] Activated partial thrombopla stin time (aPTT) in platelet poor plasma by coagulation aOrdered By: Safia Cerda on 12-12-2022 aPTT Coag (PPP) [Time] 28.7 s 25.1-36.5 [facility] Basophils Auto (Bld) [#/Vol] Ordered By: Safia Cerda on 12-12-2022 Basophils (Bld) [#/Vol] 0.0 10*3/uL 0.0-0.2 [facility] Basophils/100 WBC Auto (Bld) Ordered By: Safia Cerda on 12-12-2022 Basophils/100 WBC (Bld) 0.6 % . [facility] Blood Urea Nitrogenon 2022 Urea nitrogen [Mass/Vol] 19 mg/dL Normal 11-12 [facility] Comment on above: Performed By: #### C REAT, CBC, PP, LIPID, LYTES, BUN #### [facility] [address] Carbon dioxide, total [Moles /volume] in Serum or PlasmaOrdered By: Safia Cerda on 12-12-2022 CO2 [Moles/Vol] 25.6 mmol/L 21.0-31.0 [facility] Chloride [Moles/volume] in S angel or PlasmaOrdered By: Safia Cerda on 12-12-2022 Chloride [Moles/Vol] 108 mmol/L 98-107 [facility] Cholesterol [Mass/volume] in Serum or PlasmaOrdered By: Safia Cerda on 12-12-2022 Cholesterol [Mass/Vol] 135 mg/dL 140-200 [facility] Comment on above: Chol less than 200 m g/dl low riskChol 201-239 mg/dl borderline riskChol 240 mg/dl and greater high risk Cholesterol in LDL Calc [Mas s/Vol]Ordered By: Safia Cerda on 12-12-2022 Cholesterol in LDL [Mass/Vol] 67 mg/dL 0-100 [facility] Comment on above: LDL ATP III CLASSIFI CATIONLDL less than 100 mg/dL OptimalLDL 100-129 mg/dL Near or above optimalLDL 130-159 mg/dL Borderline highLDL 160-189 mg/dL HighLDL greater than 189 mg/dL Very high Cholesterol in VLDL Calc [Ma ss/Vol]Ordered By: Safia Cerda on 12-12-2022 Cholesterol in VLDL [Mass/Vol] 19 mg/dL [facility] Coagulation Profileon 2022 aPTT Coag (Bld) [Time] 28.7 s Normal 25.1-36.5 [facility] Comment on above: Result Comment: PERF ORMED BY: [place] [address] PATHOLOGIST DISTRIBUTOR PUBLICATIONS THOM SKAGGS M.D. Performed By: #### C REAT, CBC, PP, LIPID, LYTES, BUN #### [facility] [address] [place] [address] INR Coag (PPP) [Relative time] 1.1 {INR} Normal [facility] Comment on above: Result Comment: INR Therapeutic Range A) Pre- and Peroperative OAT started two weeks before surgery. NOT HIP SURGERY: 1.5 - 2.5 HIP SURGERY: 2 - 3 B) Primary and secondary prevention of venous THROMBOSIS: 2 - 3 C) Active venous thrombosis, pulmonary embolism and prevention of recurrent venous thrombosis: 2 - 3 D) Prevention of arterial thromboembolism including patients with mechanical heart valves: 3 - 4.5 Performed By: #### C REAT, CBC, PP, LIPID, LYTES, BUN #### [address] PT Coag (PPP) [Time] 12.4 s Normal 9.0-12.9 [facility] Comment on above: Performed By: #### C REAT, CBC, PP, LIPID, LYTES, BUN #### [address] Complete Blood Count Auto Di ffon 12-12-2022 Basophils (Bld) [#/Vol] 0.0 10*3/uL Normal 0.0-0.2 [facility] Comment on above: Result Comment: PERF ORMED BY: [place] [address] PATHOLOGIST DISTRIBUTOR PUBLICATIONS THOM SKAGGS M.D. Performed By: #### C REAT, CBC, PP, LIPID, LYTES, BUN #### [address] Basophils/100 WBC (Bld) 0.6 % Normal . [facility] Comment on above: Performed By: #### C REAT, CBC, PP, LIPID, LYTES, BUN #### [address] Eosinophils (Bld) [#/Vol] 0.2 10*3/uL Normal 0.0-0.45 [facility] Comment on above: Performed By: #### C REAT, CBC, PP, LIPID, LYTES, BUN #### [address] Eosinophils/100 WBC (Bld) 5.0 % Normal . [facility] Comment on above: Performed By: #### C REAT, CBC, PP, LIPID, LYTES, BUN #### [address] Erythrocyte distribution width (RBC) [Ratio] 14.1 % Normal 12.0-14.8 [facility] Comment on above: Performed By: #### C REAT, CBC, PP, LIPID, LYTES, BUN #### [address] Hematocrit (Bld) [Volume fraction] 40.8 % Normal 38.8-50.0 [facility] Comment on above: Performed By: #### C REAT, CBC, PP, LIPID, LYTES, BUN #### [address] Hemoglobin (Bld) [Mass/Vol] 13.9 g/dL Normal 13.0-17.0 [facility] Comment on above: Performed By: #### C REAT, CBC, PP, LIPID, LYTES, BUN #### [address] Lymphocytes (Bld) [#/Vol] 0.9 10*3/uL Low 1.00-4.8 [facility] Comment on above: Performed By: #### C REAT, CBC, PP, LIPID, LYTES, BUN #### [address] Lymphocytes/100 WBC (Bld) 21.1 % Normal . [facility] Comment on above: Performed By: #### C REAT, CBC, PP, LIPID, LYTES, BUN #### [address] MCH (RBC) [Entitic mass] 30.5 pg Normal 27.5-35.2 [facility] Comment on above: Performed By: #### C REAT, CBC, PP, LIPID, LYTES, BUN #### [address] MCV (RBC) [Entitic vol] 89.2 fL Normal 83.5-101 [facility] Comment on above: Performed By: #### C REAT, CBC, PP, LIPID, LYTES, BUN #### [address] Mean Corpuscular HGB Conc 34.2 g/dL Normal 32.5-35.6 [facility] Comment on above: Performed By: #### C REAT, CBC, PP, LIPID, LYTES, BUN #### [address] Monocytes (Bld) [#/Vol] 0.5 10*3/uL Normal 0.0-0.8 [facility] Comment on above: Performed By: #### C REAT, CBC, PP, LIPID, LYTES, BUN #### [facility] [address] Monocytes/100 WBC (Bld) 11.6 % Normal . [facility] Comment on above: Performed By: #### C REAT, CBC, PP, LIPID, LYTES, BUN #### [address] Neutrophils (Bld) [#/Vol] 2.6 10*3/uL Normal 1.8-7.7 [facility] Comment on above: Performed By: #### C REAT, CBC, PP, LIPID, LYTES, BUN #### [address] Neutrophils/100 WBC (Bld) 61.7 % Normal . [facility] Comment on above: Performed By: #### C REAT, CBC, PP, LIPID, LYTES, BUN #### [address] NRBC% 0.1 /100{WBC} Normal 0-0.5 [facility] Comment on above: Performed By: #### C REAT, CBC, PP, LIPID, LYTES, BUN #### [address] Platelet mean volume (Bld) [Entitic vol] 7.4 fL Normal 6.6-10.1 [facility] Comment on above: Performed By: #### C REAT, CBC, PP, LIPID, LYTES, BUN #### [address] Platelets (Bld) [#/Vol] 186 10*3/uL Normal 150-450 [facility] Comment on above: Performed By: #### C REAT, CBC, PP, LIPID, LYTES, BUN #### [address] RBC (Bld) [#/Vol] 4.57 10*6/uL Normal 3.90-5.60 [facility] Comment on above: Performed By: #### C REAT, CBC, PP, LIPID, LYTES, BUN #### [facility] [address] WBC (Bld) [#/Vol] 4.1 10*3/uL Normal 4.1-10.5 [facility] Comment on above: Performed By: #### C REAT, CBC, PP, LIPID, LYTES, BUN #### [facility] [address] Creatinineon 12-12-2022 Creatinine [Mass/Vol] 0.79 mg/dL Normal 0.70-1.30 [facility] Comment on above: Performed By: #### C REAT, CBC, PP, LIPID, LYTES, BUN #### [facility] [address] GFR/1.73 sq M.predicted MDRD (S/P/Bld) [Vol rate/Area] mL/min/{1.73_m2} [facility] Comment on above: Performed By: #### C REAT, CBC, PP, LIPID, LYTES, BUN #### [facility] [address] Creatinine [Mass/volume] in Serum or PlasmaOrdered By: Safia Cerda on 12-12-2022 Creatinine [Mass/Vol] 0.79 mg/dL 0.70-1.30 [facility] ECG 12 lead ECGon 12-12-2022 ECG 12 lead ECG [facility] [place] [address] [place] [address] Electrocardiograph Report Signed Patient: Elvis Grande MR#: [id number] : 1955 Acct:[id number] Age/Sex: 67 / M ADM Date: 12/12/22 Loc: Room: [facility]: Safia Cerda MD Ordering Provider: Safia Cerda MD Date of Service: 12/12/22 ECG/ECG 12 lead ECG: Pre op Copies to: Test Reason : Blood Pressure : / mmHG Vent. Rate : 067 BPM Atrial Rate : 067 BPM P-R Int : 170 ms QRS Dur : 076 ms QT Int : 398 ms P-R-T Axes : 016 027 029 degrees QTc Int : 420 ms Normal sinus rhythm Normal ECG No previous ECGs available Confirmed by RENATA HAMMOND MD ([id number]) on 12/12/2022 2:55:25 PM Referred By: PARI Electronically Signed By:RENATA HAMMOND MD Transcribed By: MUS Signed By Renata Hammond MD 0 12/12/22 1455 Normal [facility] Electrolyteson 12-12-2022 Anion gap [Moles/Vol] 10.7 mmol/L Normal 6.0-15.0 [facility] Comment on above: Performed By: #### C REAT, CBC, PP, LIPID, LYTES, BUN #### [facility] [address] Chloride [Moles/Vol] 108 mmol/L High 98-107 [facility] Comment on above: Performed By: #### C REAT, CBC, PP, LIPID, LYTES, BUN #### [facility] [address] CO2 [Moles/Vol] 25.6 mmol/L Normal 21.0-31.0 [facility] Comment on above: Performed By: #### C REAT, CBC, PP, LIPID, LYTES, BUN #### [facility] [address] [place] [address] [place] Potassium [Moles/Vol] 4.3 mmol/L Normal 3.5-5.1 [facility] Comment on above: Performed By: #### C REAT, CBC, PP, LIPID, LYTES, BUN #### [facility] [address] [place] [address] [place] Sodium [Moles/Vol] 140 mmol/L Normal 136-145 [facility] Comment on above: Performed By: #### C REAT, CBC, PP, LIPID, LYTES, BUN #### [facility] [address] Eosinophils Auto (Bld) [#/Vo l]Ordered By: Safia Cerda on 12-12-2022 Eosinophils (Bld) [#/Vol] 0.2 10*3/uL 0.0-0.45 [facility] Eosinophils/100 WBC Auto (Bl d)Ordered By: Safia Cerda on 12-12-2022 Eosinophils/100 WBC (Bld) 5.0 % . [facility] Erythrocyte distribution wid th Auto (RBC) [Ratio]Ordered By: Safia Cerda on 12-12-2022 Erythrocyte distribution width (RBC) [Ratio] 14.1 % 12.0-14.8 [facility] Hematocrit Auto (Bld) [Volum e fraction]Ordered By: Safiamichael Cerda on 12-12-2022 Hematocrit (Bld) [Volume fraction] 40.8 % 38.8-50.0 [facility] Hemoglobin [Mass/volume] in BloodOrdered By: Safia Cerda on 12-12-2022 Hemoglobin (Bld) [Mass/Vol] 13.9 g/dL 13.0-17.0 [facility] INR in Platelet poor plasma by Coagulation assayOrdered By: Safia Cerda on 12-12-2022 INR Coag (PPP) [Relative time] 1.1 {INR} [facility] Comment on above: INR Therapeutic Rang e A) Pre- and Peroperative OAT started two weeks before surgery. NOT HIP SURGERY: 1.5 - 2.5 HIP SURGERY: 2 - 3B) Primary and secondary prevention of venous THROMBOSIS: 2 - 3C) Active venous thrombosis, pulmonary embolismand prevention of recurrent venous thrombosis: 2 - 3D) Prevention of arterial thromboembolismincluding patients with mechanical heart valves: 3 - 4.5 Laboratory - Chemistry and C hemistry - challengeon 12-12-2022 Cholesterol [Mass/Vol] 135\S\135 below low threshold 140-200 [facility] [address] DO Work Phone: Comment on above: Chol less than 200 m g/dl low risk Chol 201-239 mg/dl borderline risk Chol 240 mg/dl and greater high risk Cholesterol in LDL [Mass/Vol] 67\S\67 Normal 0-100 [facility]u [address] 250 DO Work Phone: Comment on above: LDL ATP III CLASSIFI CATION LDL less than 100 mg/dL Optimal LDL 100-129 mg/dL Near or above optimal LDL 130-159 mg/dL Borderline high LDL 160-189 mg/dL High LDL greater than 189 mg/dL Very high Laboratory - CoagulationOrde red By: Safia Cerda on 12-12-2022 PT Coag (PPP) [Time] 12.4 s 9.0-12.9 [facility] Leukocytes [#/volume] correc sybil for nucleated erythrocytes in Blood by Automated counOrdered By: Safia Cerda on 12-12-2022 WBC corrected for nucl RBC Auto (Bld) [#/Vol] 4.1 10*3/uL 4.1-10.5 [facility] Lipid Panelon 12-12-2022 Cholesterol [Mass/Vol] 135 mg/dL Low 140-200 [facility] Comment on above: Result Comment: Chol less than 200 mg/dl low risk Chol 201-239 mg/dl borderline risk Chol 240 mg/dl and greater high risk Performed By: #### C REAT, CBC, PP, LIPID, LYTES, BUN #### [facility] [address] [place] [id number] [place] Cholesterol in HDL [Mass/Vol] 48 mg/dL Normal 23-92 [facility] Comment on above: Result Comment: HDL CHOL ATP-III CLASSIFICATION Cardiovascular Risk HDL > or equal to 60 mg/dL LOW HDL < 40 mg/dL HIGH Performed By: #### C REAT, CBC, PP, LIPID, LYTES, BUN #### [facility] [address] [place] [id number] [place] Cholesterol.total/Cho lesterol in HDL [Mass ratio] 2.8 {ratio} Normal <5.0 [facility] Comment on above: Result Comment: PERF ORMED BY: [facility] [address] [place] [address] PATHOLOGIST DISTRIBUTOR PUBLICATIONS JIANLAN SUN M.D. Performed By: #### C REAT, CBC, PP, LIPID, LYTES, BUN #### [facility] [address] LDL Cholesterol,Calculate d 67 mg/dL Normal 0-100 [facility] Comment on above: Result Comment: LDL ATP III CLASSIFICATION LDL less than 100 mg/dL Optimal LDL 100-129 mg/dL Near or above optimal LDL 130-159 mg/dL Borderline high LDL 160-189 mg/dL High LDL greater than 189 mg/dL Very high Performed By: #### C REAT, CBC, PP, LIPID, LYTES, BUN #### [facility] [address] Triglyceride w/Reflex 99 mg/dL Normal 0-149 [facility] Comment on above: Result Comment: TRIG ATP III CLASSIFICATION TRIG less than 150 mg/dL Normal TRIG 150-199 mg/dL Borderline high TRIG 200-500 mg/dL High TRIG greater than 500 mg/dL Very high Standard traceable to the Center for Disease Conrtrol and Prevention (CDC) test method. Performed By: #### C REAT, CBC, PP, LIPID, LYTES, BUN #### [facility] [address] VLDL CHOLESTEROL 19 mg/dL Normal [facility] Comment on above: Performed By: #### C REAT, CBC, PP, LIPID, LYTES, BUN #### [facility] [address] Lymphocytes Auto (Bld) [#/Vo l]Ordered By: Safia Cerda on 12-12-2022 Lymphocytes (Bld) [#/Vol] 0.9 10*3/uL 1.00-4.8 [facility] Lymphocytes/100 WBC Auto (Bl d)Ordered By: Safia Cerda on 12-12-2022 Lymphocytes/100 WBC (Bld) 21.1 % . [facility] MCH Auto (RBC) [Entitic mass ]Ordered By: Safia Cerda on 12-12-2022 MCH (RBC) [Entitic mass] 30.5 pg 27.5-35.2 [facility] MCHC Auto (RBC) [Mass/Vol]Or dered By: Safia Cerda on 12-12-2022 MCHC (RBC) [Mass/Vol] 34.2 g/dL 32.5-35.6 [facility] MCV Auto (RBC) [Entitic vol] Ordered By: Safia Cerda on 12-12-2022 MCV (RBC) [Entitic vol] 89.2 fL 83.5-101 [facility] Monocytes Auto (Bld) [#/Vol] Ordered By: Safia Cerda on 12-12-2022 Monocytes (Bld) [#/Vol] 0.5 10*3/uL 0.0-0.8 [facility] Monocytes/100 WBC Auto (Bld) Ordered By: Safia Cerda on 12-12-2022 Monocytes/100 WBC (Bld) 11.6 % . [facility] Neutrophils Auto (Bld) [#/Vo l]Ordered By: Safia Cerda on 12-12-2022 Neutrophils (Bld) [#/Vol] 2.6 10*3/uL 1.8-7.7 [facility] Neutrophils/100 WBC Auto (Bl d)Ordered By: Safia Cerda on 12-12-2022 Neutrophils/100 WBC (Bld) 61.7 % . [facility] No Panel InformationOrdered By: Safia Cerda on 12-12-2022 Estimated GFR (CKD-EPI) > 60.0 mL/Min [facility] Creatinine Clearance (Chem N/A [facility] No Panel Informationon 12-12 2.8\S\2.8 Normal <5.0 [facility] [place] husam 250 DO Work Phone: Comment on above: PERFORMED BY:[place] [address] [place], [place] [phone] MEDICAL DIRECTORTHOM SKAGGS M.D. 19\S\19 Normal 7-25 [facility] husam 250 DO Work Phone: 99\S\99 Normal 0-149 [facility] husam 250 DO Work Phone: Comment on above: TRIG ATP III CLASSIF ICATION TRIG less than 150 mg/dL Normal TRIG 150-199 mg/dL Borderline high TRIG 200-500 mg/dL High TRIG greater than 500 mg/dL Very high Standard traceable to the Center for Disease Conrtrol and Prevention (CDC) test method. 48\S\48 Normal 23-92 [facility]-Daphne weiner 250 DO Work Phone: Comment on above: HDL CHOL ATP-III CLA SSIFICATION Cardiovascular Risk HDL > or equal to 60 mg/dL LOW HDL < 40 mg/dL HIGH > 60.0 Normal [facility]-Daphne weiner 250 DO Work Phone: 0.79\S\0.79 Normal 0.70-1.30 [facility]-Daphne weiner 250 DO Work Phone: 10.7\S\10.7 Normal 6.0-15.0 [facility]-Daphne weiner 250 DO Work Phone: 25.6\S\25.6 Normal 21.0-31.0 [facility]-Daphne weiner 250 DO Work Phone: 108\S\108 above high threshold 98-107 [facility]-Daphne weiner 250 DO Work Phone: 4.3\S\4.3 Normal 3.5-5.1 [facility] HeartBoris weiner 250 DO Work Phone: 140\S\140 Normal 136-145 [facility] HeartBoris weiner 250 DO Work Phone: 28.7\S\28.7 Normal 25.1-36.5 [facility]-Daphne weiner 250 DO Work Phone: Comment on above: PERFORMED BY:[place] [address] [place], [place] [phone] MEDICAL DIRECTORTHOM SKAGGS M.D. 1.1\S\1.1 Normal [facility] Heart-aDphne weiner 250 DO Work Phone: Comment on above: INR Therapeutic Rang e A) Pre- and Peroperative OAT started two weeks before surgery. NOT HIP SURGERY: 1.5 - 2.5 HIP SURGERY: 2 - 3 B) Primary and secondary prevention of venous THROMBOSIS: 2 - 3 C) Active venous thrombosis, pulmonary embolism and prevention of recurrent venous thrombosis: 2 - 3 D) Prevention of arterial thromboembolism including patients with mechanical heart valves: 3 - 4.5 12.4\S\12.4 Normal 9.0-12.9 -[facility]-Sandu husam 250 DO Work Phone: 61.7\S\61.7 Normal . [facility]-Sandu husam 250 DO Work Phone: 7.4\S\7.4 Normal 6.6-10.1 [facility]-Sandu husam 250 DO Work Phone: [phone] 186\S\186 Normal 150-450 [facility]-Sandu husam 250 DO Work Phone: 14.1\S\14.1 Normal 12.0-14.8 [facility]-Sandu husam 250 DO Work Phone: 34.2\S\34.2 Normal 32.5-35.6 [facility]-Sandu husam 250 DO Work Phone: 30.5\S\30.5 Normal 27.5-35.2 [facility]-Sandu husam 250 DO Work Phone: 2.6\S\2.6 Normal 1.8-7.7 [facility]-Sandu husam 250 DO Work Phone: 0.1\S\0.1 Normal 0-0.5 -[facility]-Sandu husam 250 DO Work Phone: 0.6\S\0.6 Normal . [facility]-Sandu husam 250 DO Work Phone: 5.0\S\5.0 Normal . [facility]-Sandu husam 250 DO Work Phone: [phone] 11.6\S\11.6 Normal . [facility]-Sandu husam 250 DO Work Phone: [phone] 21.1\S\21.1 Normal . [facility]-Sandu husam 250 DO Work Phone: [phone] 0.0\S\0.0 Normal 0.0-0.2 [facility]-Sandu husam 250 DO Work Phone: Comment on above: PERFORMED BY:[facility] [place], [place] [phone] MEDICAL DIRECTORTHOM SKAGGS M.D. 0.2\S\0.2 Normal 0.0-0.45 [facility]-Sandu husam 250 DO Work Phone: 0.5\S\0.5 Normal 0.0-0.8 [facility]-Ensocareu husam 250 DO Work Phone: [phone] 0.9\S\0.9 below low threshold 1.00-4.8 [facility]-Sandu husam 250 DO Work Phone: [phone] 89.2\S\89.2 Normal 83.5-101 [facility]-Sandu husam 250 DO Work Phone: [phone] 40.8\S\40.8 Normal 38.8-50.0 [facility]-Ensocareu husam 250 DO Work Phone: [phone] 13.9\S\13.9 Normal 13.0-17.0 [facility]-Sandu husam 250 DO Work Phone: [phone] 4.57\S\4.57 Normal 3.90-5.60 -[facility]-Sandu husam 250 DO Work Phone: [phone] 4.1\S\4.1 Normal 4.1-10.5 -[facility]-Sandu husam 250 DO Work Phone: Nucleated erythrocytes [Pres ence] in Blood by Automated countOrdered By: Safia Cerda on 12-12-2022 Nucleated RBC Auto Ql (Bld) 0.1 /100{WBC} 0-0.5 [facility] Platelet mean volume Auto (B ld) [Entitic vol]Ordered By: Safia Cerda on 12-12-2022 Platelet mean volume (Bld) [Entitic vol] 7.4 fL 6.6-10.1 [facility] Platelets Auto (Bld) [#/Vol] Ordered By: Safia Cerda on 12-12-2022 Platelets (Bld) [#/Vol] 186 10*3/uL 150-450 [facility] Potassium [Moles/volume] in Serum or PlasmaOrdered By: Safia Cerda on 12-12-2022 Potassium [Moles/Vol] 4.3 mmol/L 3.5-5.1 [facility] RBC Auto (Bld) [#/Vol]Ordere d By: Safia Cerda on 12-12-2022 RBC (Bld) [#/Vol] 4.57 10*6/uL 3.90-5.60 [facility] Serum or plasma anion gap de terminationOrdered By: Safia Cerda on 12-12-2022 Anion gap [Moles/Vol] 10.7 mmol/L 6.0-15.0 [facility] Serum or plasma high density lipoprotein (HDL) cholesterol measurementOrdered By: Safia Cerda on 12-12-2022 Cholesterol in HDL [Mass/Vol] 48 mg/dL 23-92 [facility] Comment on above: HDL CHOL ATP-III CLA SSIFICATION Cardiovascular RiskHDL > or equal to 60 mg/dL LOWHDL < 40 mg/dL HIGH Serum or plasma total choles terol/high density lipoprotein (HDL) cholesterol mass ratOrdered By: Safia Cerda on 12-12-2022 Cholesterol.total/Cho lesterol in HDL [Mass ratio] 2.8 {ratio} <5.0 [facility] Sodium [Moles/volume] in Ser um or PlasmaOrdered By: Safia Cerda on 12-12-2022 Sodium [Moles/Vol] 140 mmol/L 136-145 [facility] Triglyceride [Mass/volume] i n Serum or PlasmaOrdered By: Safia Cerda on 12-12-2022 Triglyceride [Mass/Vol] 99 mg/dL 0-149 [facility] Comment on above: TRIG ATP III CLASSIF ICATIONTRIG less than 150 mg/dL NormalTRIG 150-199 mg/dL Borderline highTRIG 200-500 mg/dL High TRIG greater than 500 mg/dL Very highStandard traceable to the Center for Disease Conrtrol and Prevention (CDC) test method. 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) SOB (shortness of breath) on exertion (786.05) (R06.02) Prostate cancer (185) (C61) Hyperlipidemia (272.4) (E78.5) Peripheral vascular disease (443.9) (I73.9) Migraine (346.90) (G43.909) Cerebral aneurysm (437.3) (I67.1) Primary hypertension (401.9) (I10) Medication course changed (V58.69) (Z79.899) Myalgia (729.1) (M79.10) Former smoker (V15.82) (Z87.891) August 2022 1ppd Claudication, class III (443.9) (I73.9) Orders Class 1 obesity with body mass index (BMI) of 32.0 to 32.9 in adult Healthy Weight Tips; Status:Complete - Retrospective Authorization; Done: 28Nov2022 Some eating tips that can help you lose weight.; Status:Complete - Retrospective Authorization; Done: 28Nov2022 COPD (chronic obstructive pulmonary disease) with emphysema, Peripheral vascular disease, SOB (shortness of breath) on exertion Cardiac Catherization; Status:Active - Retrospective Authorization; Requested for:28Nov2022; Health Maintenance, Patient new to provider IO EKG Electrocardiogram- 12 Lead; Status:Complete; Done: 28Nov2022 Hyperlipidemia Basic Metabolic Panel; Status:Active - Retrospective Authorization; Requested for:28Nov2022; Complete Blood Count; Status:Active - Retrospective Authorization; Requested for:28Nov2022; Creatine Kinase, Level; Status:Active - Retrospective Authorization; Requested for:28Nov2022; PT/INR; Status:Active - Retrospective Authorization; Requested for:28Nov2022; Hypertension, unspecified type, Peripheral vascular disease Start: dilTIAZem HCl ER Coated Beads 120 MG Oral Capsule Extended Release 24 Hour; TAKE 1 CAPSULE ONCE DAILY Peripheral vascular disease, SOB (shortness of breath) on exertion Echocardiogram; Status:Hold For - Scheduling,Retrospective Authorization; Requested for:28Nov2022; SocHx: Former smoker Tobacco Use Screening; Status:Complete; Done: 28Nov2022 Patient Instructions Please bring all medicines, vitamins, and herbal supplements with you when you come to the office. Prescriptions will not be filled unless you are compliant with your follow up appointments or have a follow up appointment scheduled as per instruction of your physician. Refills should be requested at the time of your visit. echo testing Cardiac Cath labs 1 week prior to testing follow up in 6-8 weeks Chief Complaint ELVIS GRANDE is being seen for Dr. Lala Referral for LAZAR. History of Present Illness 67-year-old gentleman is being seen in cardiology consultation at the request of Dr. Spike Talavera exertional shortness of breath particularly noticeable in the past 3 to 4 months. Currently functional class III, no orthopnea PND or lower extremity edema. Has multiple cardiac risk factors to include hypertension hyperlipidemia peripheral vascular disease age male sex. Smoked 2 packs/day for 25 years then 1 pack/day for 25 years and quit 4 months ago patient reports that ever since he quit smoking he has been noticing the shortness of breath and also pain in his legs with activity. 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 Denies orthopnea or PND, denies lower extremity edema. Activity is limited by burning discomfort in the calf area both legs, left worse than right. Also reports achy muscles particularly in the lower extremities. Diagnosed with prostate cancer few months ago, had 25 radiation treatments, radiation seed implantation, and currently is on hormone replacement therapy, which causes him to have hot flashes and sweating and some shortness of breath particularly at night. Gives history of migraine headaches peripheral vascular disease stent in the left lower extremity above thigh, migraine headaches and small abdominal aortic aneurysm. EKG is normal I reviewed laboratory data and testing results from Dr. Lala. Lexiscan Myoview was reported to be normal. History so far : 1.Multiple cardiac risk factors 2. Hypertension 3. Hyperlipidemia 4. Class II/III claudication 5. Cannot exclude statin induced myalgia 6. 04-[id number]-[id number] history of smoking quit 4 months ago 7. Lexiscan Myoview08/2022 -normal perfusion, Patient reports that he did not walk on the treadmill.Transient ischemic dilatation 0.8, LVEF 69% 8. History of cerebral aneurysm clipping in 1980 at [facility] in [place], has seen Dr. Castillo of neurology, who is no longer seeing patient on a regular basis 9. Current use of dual antiplatelet therapy 10. Increased BMI 11. Pulmonary function testing-September 2022-mild obstructive pattern on spirometry without bronchodilator response elevated residual volumes suggest air trapping mild diffusion impairment overall study compatible with mild COPD/emphysema diffus (more content not included)... Normal [employer] Tobacco Screening.on 023 Adult depression screening assessment No [facility] [employer] 250 DO Work Phone: Fall risk assessment a) No falls within the last year [facility] [employer] husam 250 DO Work Phone: Tobacco use status [facility] b) No [facility] [employer] 250 DO Work Phone: NM STRESS/REST MULTIon 09-17 NM STRESS/REST MULTI Patient: DANIE GRANDE. Exam Date: 09/17/2022 : 1955 Gender:M Ordering : ANTONIO CASTELLON Admission #: [id number] Family : Order #: [id number] CLICK HERE TO VIEW EXAM RADIOLOGY REPORT PROCEDURE: RADIONUCLIDE IMAGING STRESS/REST MULTI COMPARISON: None. INDICATIONS: Chest pain TECHNIQUE: Exam Description: Rest/Stress one day protocol gated SPECT Rest Imagin.3 mCi Tc-99m Cardiolite IV on 09/17/2022 Stress Imaging 30.4 mCi Tc-99m Cardiolite IV on 09/17/2022 Exercise Protocol: 0.4 mg Lexiscan given IV Heart Rate (bpm): Rest: 68 Max: 95 PMHR: 61 Blood Pressure: Rest: 142/86 Max: 152/82 Symptoms: Rest and peak stress ECG findings were normal and the exercise portion of the study was normal per attending physician Dr. Lala . For more details please see separate cardiac stress test report. FINDINGS: QUALITY OF STUDY: Excellent. PERFUSION DEFECT: None. LOCATION: N/A SIZE: N/A. SEVERITY: N/A. TYPE: N/A. WALL MOTION: Normal. LV SIZE: Normal. 89 mL. TID / TCD: None; 0.8 LVEF: Normal. Calculated EF 69%. SUMMARY: Myocardial perfusion imaging study is NORMAL. CONCLUSION: 1. Normal nuclear medicine myocardial perfusion scan. Dictated by: Pamela Bruno M.D. on 09/18/2022 at 11:42 Approved by: Pamela Bruno M.D. on 09/18/2022 at 11:[address] [facility] Lab Reportson 09-12-2022 Lab Reports [id number]: 127 Normal [facility] Screenson 09-12-2022 Screens [id number]: 127 Normal [facility] Patient Educationon 09-12-19 Patient Education Oncology Hormone Suppression Therapy for Prostate Cancer Hormone suppression therapy is a treatment for prostate cancer that can help slow the growth of cancer cells in the prostate gland. It is also called androgen deprivation therapy (ADT) or androgen suppression therapy. Hormone suppression therapy targets male sex hormones (androgens) in the body that help cancer cells grow. Hormone suppression therapy alone will not cure prostate cancer, but it can slow the growth of cancer cells and may shrink tumors over time. Your health care provider can help you find the best treatment that fits your lifestyle. Hormone suppression therapy may be used in the following cases: ? When prostate cancer has spread too far to other places in the body and cannot be cured by surgery or radiation. ? When a person has health problems that prevent the use of surgery or radiation. ? Before radiation to help shrink the size of the cancer and make the radiation treatment more effective. ? If the prostate cancer remains or comes back following treatment with surgery or radiation. What are the types of hormone suppression therapy? Orchiectomy Orchiectomy, also called surgical castration, is a surgery to remove one or both testicles. The testicles make the two main androgens?testosterone and dihydrotestosterone (DHT). This surgery reduces the levels of testosterone in the blood, leading to decreased androgen production. Medicine therapy Medicine therapy, also called medical or chemical castration, involves taking medicines to keep your body from making or using androgens. Medicines can do this in one of three ways: 1. Reducing androgen production by the testicles. ? Luteinizing hormone-releasing hormone (LHRH) agonists. These medicines are injected or implanted under your skin to lower the amount of androgens that your testicles make. Depending on the medicine, they can be given monthly or up to every 3 to 6 months. If you take these medicines, you may also be prescribed other medicines to help with side effects. ? LHRH antagonists. These medicines also work to lower the amount of androgens made in the testicles, but they work faster than LHRH agonist medicines and have less severe side effects. They are given as a monthly injection under the skin, and they are used when prostate cancer is in an advanced stage. ? Estrogens. These medicines are female hormones that help to reduce androgen production by the testicles. Estrogens are not used as commonly as other types of hormone suppression therapy due to their side effects. However, they may be used if other treatments do not work. 2. Blocking androgen attachment throughout the body. ? Anti-androgen medicines, also called androgen receptor antagonists, block areas on the body where androgens attach. These are pills that are usually used in combination with other types of hormone suppression therapy, like orchiectomy and other medicines. 3. Blocking androgen production throughout the body. ? Androgen synthesis inhibitor medicines. These medicines help to stop other areas of the body from making androgens. They are taken as pills. They may be used if the prostate cancer is advanced and has not gotten better with surgery or other medicines. A steroid medicine may be given with this type of medicine to help with side effects. What are the risks? Hormone suppression therapy may cause side effects, including: ? Hot flashes. ? Diarrhea and nausea. ? Itching. ? Sexual side effects, such as: ? Decrease or lack of sexual desire. ? Decrease in size of the penis or testicles. ? Inability to get an erection (erectile dysfunction, or impotence). ? Breast tenderness or increase in breast size. ? Fatigue. ? Weight gain. ? Anemia. ? Thinning of the bones (osteoporosis) and loss of muscle mass. ? Depression, mood swings, and trouble with thinking or focusing. Hormone suppression therapy may also increase your risk of high blood pressure, increased cholesterol levels, stroke, heart attack, or diabetes. What are the benefits? One of the main benefits of hormone suppression therapy is having additional treatment options. You may have only one type of treatment, or two or more types at the same time. Treatments may be combined to: ? Help with side effects. ? Treat advanced cancer. Where to find more information ? [place] [employer]: www.cancer.org ? National Cancer [place]: www.cancer.gov Contact a health care provider if: ? You have pain or side effects that do not get better with treatment. ? You have trouble urinating. ? You have new side effects that do not go away. Get help right away if: ? You have severe chest pain. ? You have trouble breathing. ? You have an irregular heartbeat. ? You have numbness or paralysis in the lower half of your body. ? You are confused. ? You have trouble talking or understanding speech. These symptoms may be an emergenc (more content not included)... Normal [facility] Urology Office/Clinic Noteon 09-11-2022 Urology Office/Clinic Note Chief Complaint 3 month follow up HPI Staff Pt is here today for 3 month follow up w/ PSA & Lupron. Previous DX: elevated PSA, nocturia, prostate cancer, prostate nodule. S/P brachytherapy done on 05/15/22, EBRT done on 04/21/22, TRUS/bx done on 02/13/22. Current PSA 0.14 done on 07/01/22, previous PSA 32.05 done 01/23/22. Pt currently taking Tamsulosin 0.4mg qd. Oxybutynin 5mg qd. IPSS 22. Pt wants to discuss if he still needs the Lupron Injection. Dysuria: denies pain or burning Incomplete bladder emptying: sometimes Hematuria: denies visible blood Frequency: denies Urgency: yes Nocturia: 6-8x a night Stream: sometimes has hesitancy, sometimes has weak stream Leaking: denies Post void dripping: denies Wearing pads/ Depends: denies Urge incontinence: denies Stress incontinence: denies Incontinence without Sensory Awareness: denies Abdominal pain: denies Flank pain: denies Sexual complaints: denies History of Present Illness Tests reviewed: reviewed UA, PSA. I have reviewed the previous health record information and history for this patient from Dr. Gomez. I have reviewed and verified the staff HPI to be accurate for this encounter. There have been no associated fever, chills, flank pain, or blood in the urine. Denies any urinary infections since last encounter. Review of Systems PHQ Score Initial Depression Screen Score: 0 ROS - Provider Constitutional: denies weight loss, denies hot flashes. Eyes: denies eye problems. Gastrointestinal: denies nausea, denies vomiting. Cardiovascular: denies chest pain or angina. Integumentary: no dryness Musculoskeletal: denies musculoskeletal symptoms. ENMT: denies otolaryngeal symptoms. Respiratory: no shortness of breath. Heme/Lymph: denies easy bleeding tendency, denies easy bruising tendency. Psychiatric: no confusion, no anxiety. Genitourinary: See HPI. Physical Exam Vitals & Measurements HR: 77(Peripheral) BP: 118/80 HT: 72 in HT: 184 cm WT: 95 kg WT: 209 lb BMI: 28.06 General Appearance: alert, no distress, well nourished, well developed male. Genitourinary: normal scrotum, normal testes, normal urethra, normal epididymis, normal vas deferens/spermatic cord. Flank Pain: none. Bladder: nonpalpable. Assessment/Plan 1. Prostate CA (C61: Malignant neoplasm of prostate) PSA: 01/23/22 - 32.05 07/01/22 - 0.14 09/09/22 - <0.13 TRUS/bx 02/13/22 - Path showed [facility] Score 7 (3+4) 1 cores, 7 (4+3) in 2 cores, grade group 3, and CHAS in 2 cores (all right side). Bone scan 03/08/22 - No evidence of metastatic disease to the bones. CT AP w con scan 03/08/22 - No definite metastatic disease. EBRT 04/01/22 - 04/21/22. S/P brachytherapy 05/23/22. Last rad onc consult 07/04/22. Started Flomax 0.4 mg bid at prior OV due to bothersome urinary sxs post brachy. UA today negative for blood and infection. IPSS 22. C/o hot flashes, 6-10/day. Pt inquired about d/c Lupron injections, discussed this including starting oral med instead. Would also require PSAs q3mos. Could take 6+ mos for hot flashes to cease. Can also start injections again if PSA starts to rise. Still having urgency and some UUI episodes after starting Flomax. Follow up 6 mos with 2 PSAs or sooner if needed. Pt understands and agrees with plan. -Start Casodex 50 mg qd. SEs discussed. Rx sent to [facility]. -PSA in 3 mos then in 6 mos. 2. Nocturia (R35.1: Nocturia) Started Oxybutynin 5 mg qhs at prior OV. Does not feel sxs have improved. Still getting up q1-1.5hs during the night. -D/c Oxy 5 mg and start Oxybutynin 10 mg ER qhs. SEs discussed. Rx sent to [facility]. 3. Urge incontinence (N39.41: Urge incontinence) See #1 and #2. Oxy ER for nighttime and daytime sx control. 4. Renal lesion (N28.9: Disorder of kidney and ureter, unspecified) CT kidney w/wo con 05/22/22 - There is a 1 cm enhancing exophytic solid mass arising from the lateral left renal lower pole (series 6, image 65) compatible with a small renal neoplasm. There is a 0.6 cm exophytic solid mass arising from the posterior left renal interpolar region (series 6, image 52), compatible with a small renal neoplasm. Both of the aforementioned masses are unchanged since the recent comparison examination of 05/08/2022. Patent renal veins and inferior vena cava. No lymphadenopathy or evidence of abdominal metastatic disease. Will cont to monitor. reimaging scheduled at [facility] in a few months. Follow-up With When Contact Information Mansi GOMEZ MD, URL [facility] [address] [place] [address]- Additional Instructions: 6 mos with 2 PSAs Patient Education Hormone Suppression Therapy for Prostate Cancer I, Karissa Reyez, personally scribed for Dr. Gomez on 09/11/2022 14:34:18. . Documentation recorded by the scribe, Karissa Reyez, accurately reflects the services(s) I performed and decisions made by me. Authenticated by Dr. Spears (more content not included)... Normal [facility] Comment on above: Result Comment: Elec tronically Signed By: Mansi GOMEZ MD\.br\Date and Time Signed: 09/11/22 14:37 EDT\.br\Electronically Co-Signed By: Karissa Reyez\.br\Date and Time Co-Signed: 09/11/22 14:34 EDT CTA CHEST WO W CONon 023 CTA CHEST WO W CON CTA OF THE CHEST HISTORY: Shortness of breath and chest pain. COMPARISON: None. TECHNIQUE: CT angiography of the pulmonary arteries following the administration of intravenous contrast. Coronal and sagittal MIP images were performed. Dose reduction techniques were achieved by using automated exposure control and/or adjustment of mA and/or kV according to patient size and/or use of iterative reconstruction technique. FINDINGS: There is no acute pulmonary embolism. The evaluation of the thoracic aorta is limited with no IV contrast. There are no enlarged mediastinal or hilar lymph nodes. There is no pericardial effusion. The lungs are clear. There are no pleural effusions. There are emphysematous changes. There is no pneumothorax. The liver is fatty. There are no acute bony abnormalities. IMPRESSION: No acute pulmonary embolism. Emphysema. Fatty liver. Electronically authenticated by: KARINA MEZA Date: 2022-08-28 23:29 Normal [facility] ER URINE PROFILEon 3 Bilirubin Ql (U) Negative Normal NEGATIVE [facility] Comment on above: Performed By: #### E RUR #### [facility] [address] [place] [address] Dr. Suresh Durand Clarity (U) CLEAR Normal CLEAR [facility] Comment on above: Performed By: #### E RUR #### [facility] [address] [place] [address] Dr. Suresh Durand Color (U) LT. YELLOW Normal YELLOW [facility] Comment on above: Performed By: #### E RUR #### [facility] [address] [place] [address] Dr. Suresh Durand ERUAHD A micrscopic examina tion will be performed if indicated. Normal [facility] Comment on above: Performed By: #### E RUR #### [facility] [address] [place] [address] Dr. Suresh Durand Glucose Ql (U) Negative Normal NEGATIVE [facility] Comment on above: Performed By: #### E RUR #### [facility] [address] [place] [address] Dr. Suresh Durand Hemoglobin Ql (U) Negative Normal NEGATIVE [facility] Comment on above: Performed By: #### E RUR #### [facility] [address] [place] [address] Dr. Suresh Durand Ketones Ql (U) Negative Normal NEGATIVE [facility] Comment on above: Performed By: #### E RUR #### [facility] [address] [place] [address] Dr. Suresh Durand LEUKOCYTES Negative Normal NEGATIVE [facility] Comment on above: Performed By: #### E RUR #### [facility] [address] [place] [address] Dr. Suresh Durand Nitrite Ql (U) Negative Normal NEGATIVE [facility] Comment on above: Performed By: #### E RUR #### [facility] [address] [place] [address] Dr. Suresh Durand pH (U) 5.0 [pH] Normal 5-[address] [facility] Comment on above: Performed By: #### E RUR #### [facility] [address] [place] [address] Dr. Suresh Durand SPEC GRAVITY 1.010 Normal 1.005-<=1.025 [facility] Comment on above: Performed By: #### E RUR #### [facility] [address] [place] [address] Dr. Suresh Durand UA PROTEIN Negative Normal NEGATIVE/ TRACE [facility] Comment on above: Performed By: #### E RUR #### [facility] [address] [place] [address] Dr. Suresh Durand UR MICRO IND NOT INDICATED Normal [facility] Comment on above: Performed By: #### E RUR #### [facility] [address] [place] [address] Dr. Suresh Durand Urobilinogen Qn (U) 0.2 {Terrence'U}/dL Normal 0.2 - 1. 0 [facility] Comment on above: Performed By: #### E RUR #### [facility] [address] [place] [address] Dr. Suresh Durand MAGNESIUMon 08-29-2022 Magnesium [Mass/Vol] 2.0 mg/dL Normal 1.8-2.[address] [facility] Comment on above: Performed By: #### C VDTBH #### [facility] [address] [place] [address] Dr. Suresh Durand PROF 14(COMP METB)on 023 Albumin [Mass/Vol] 3.6 g/dL Normal 3.4-5.[address] [facility] Comment on above: Performed By: #### C VDTBH #### [facility] [address] [place] [address] Dr. Suresh Durand Albumin/Globulin [Mass ratio] 0.9 {ratio} Normal [facility] Comment on above: Performed By: #### C VDTBH #### [facility] [address] [place] [address] Dr. Suresh Durand ALP [Catalytic activity/Vol] 57 U/L Normal 46-116 [facility] Comment on above: Performed By: #### C VDTBH #### [facility] [address] [place] [address] Dr. Suresh Durand ALT [Catalytic activity/Vol] 80 U/L Critically high 16-[address] [facility] Comment on above: Performed By: #### C VDTBH #### [facility] [address] [place] [address] Dr. Suresh Durand Anion gap [Moles/Vol] 13.8 mmol/L Normal Th e [facility] Comment on above: Performed By: #### C VDTBH #### [facility] [address] [place] [address] Dr. Suresh Durand AST [Catalytic activity/Vol] 30 U/L Normal 15-[address] [facility] Comment on above: Performed By: #### C VDTBH #### [facility] [address] [place] [address] Dr. Suresh Durand Bilirubin [Mass/Vol] 0.2 mg/dL Normal 0.2-1.[address] [facility] Comment on above: Performed By: #### C VDTBH #### [facility] [address] [place] [address] Dr. Suresh Durand Calcium [Mass/Vol] 9.5 mg/dL Normal 8.5-10.[address] [facility] Comment on above: Performed By: #### C VDTBH #### [facility] [address] [place] [address] Dr. Suresh Durand Chloride [Moles/Vol] 109 mmol/L Critically high 98-[address] [facility] Comment on above: Performed By: #### C VDTBH #### [facility] [address] [place] [address] Dr. Suresh Durand CO2 [Moles/Vol] 23.7 mmol/L Normal 21.0-32.0 [facility] Comment on above: Performed By: #### C VDTBH #### [facility] [address] [place] [address] Dr. Suresh Durand Creatinine [Mass/Vol] 0.85 mg/dL Normal 0.70-1.[address] [facility] Comment on above: Performed By: #### C VDTBH #### [facility] [address] [place] [address] Dr. Suresh Durand EGFR-AF FILIPINO >60 Normal >=[address] [facility] Comment on above: Performed By: #### C VDTBH #### [facility] [address] [place] [address] Dr. Suresh Durand EGFR-NON AF FILIPINO >60 Normal >=[address] [facility] Comment on above: Performed By: #### C VDTBH #### [facility] [address] [address] [address] Suresh Durand Globulin (S) [Mass/Vol] 4.0 g/dL Normal [facility] Comment on above: Performed By: #### C VDTBH #### [facility] [address] [place] [address] Dr. Suresh Durand Glucose [Mass/Vol] 112 mg/dL Critically high 74-106 [facility] Comment on above: Performed By: #### C VDTBH #### [facility] [address] [place] [address] Dr. Suresh Durand Potassium [Moles/Vol] 4.5 mmol/L Normal 3.5-5.[address] [facility] Comment on above: Performed By: #### C VDTBH #### [facility] [address] [place] [address] Dr. Suresh Durand Protein [Mass/Vol] 7.6 g/dL Normal 6.4-8.[address] [facility] Comment on above: Performed By: #### C VDTBH #### [facility] [address] [place] [address] Dr. Suresh uDrand Sodium [Moles/Vol] 142 mmol/L Normal 136-[address] [facility] Comment on above: Performed By: #### C VDTBH #### [facility] [address] [address] [address] Suresh Durand Urea nitrogen [Mass/Vol] 20.0 mg/dL Critically high 7.0-18.[address] [facility] Comment on above: Performed By: #### C VDTBH #### [facility] [address] [place] [address] Dr. Suresh Durand Urea nitrogen/Creatinine [Mass ratio] 23.5 mg/mg Normal [facility] Comment on above: Performed By: #### C VDTBH #### [facility] [address] [place] [address] Dr. Suresh Durand TROPONIN, HIGH SENSITIVITYon 08-29-2022 HSTROP 4.6 pg/mL Normal 4.0-76.1 [facility] Comment on above: Result Comment: CUT- OFF POINTS HAVE BEEN ESTABLISHED BASED ON THE FOURTH UNIVERSAL DEFINITIONS OF MYOCARDIAL INFARCTION. THE UPPER REFERENCE LIMIT (URL) OF TROPONIN, DEFINED THE 99TH PERCENTILE OF cTnI DISTRIBUTION IN A REFERENCE POPULATION, HAS BEEN CONFIRMED THE DECISION THRESHOLD FOR CT DIAGNOSIS. Performed By: #### C VDTBH #### [facility] [address] [place] [address] Dr. Suresh Durand HSTROP 6.5 pg/mL Normal 4.0-76.1 [facility] Comment on above: Result Comment: CUT- OFF POINTS HAVE BEEN ESTABLISHED BASED ON THE FOURTH UNIVERSAL DEFINITIONS OF MYOCARDIAL INFARCTION. THE UPPER REFERENCE LIMIT (URL) OF TROPONIN, DEFINED THE 99TH PERCENTILE OF cTnI DISTRIBUTION IN A REFERENCE POPULATION, HAS BEEN CONFIRMED THE DECISION THRESHOLD FOR CT DIAGNOSIS. Performed By: #### H STROPN #### [facility] [address] [place] [address] Dr. Suresh Durand BNPon 08-28-2022 Natriuretic peptide B (Bld) [Mass/Vol] 72.0 pg/mL Normal <=900.0 [facility] Comment on above: Performed By: #### C MP, BNP, HSTROPN #### [facility] [address] [place] [address] Dr. Suresh Durand CBC AUTO DIFFon 08-28-2022 BASO # 0.0 103/ul Normal 0.0-0.1 [facility] Comment on above: Performed By: #### P SAD #### [facility] [address] [place] [address] Dr. Suresh Durand Basophils/100 WBC (Bld) 0.7 % Normal 0.2-2.[address] [facility] Comment on above: Performed By: #### P SAD #### [facility] [address] [place] [address] Dr. Suresh Durand EO # 0.3 103/ul Normal 0.0-0.7 [facility] Comment on above: Performed By: #### P SAD #### [facility] [address] [place] [address] Dr. Suresh Durand Eosinophils/100 WBC (Bld) 4.7 % Normal 0.9-7.[address] [facility] Comment on above: Performed By: #### P SAD #### [facility] [address] [place] [address] Dr. Suresh Durand Erythrocyte distribution width (RBC) [Ratio] 13.2 % Normal 11.0-15.[address] [facility] Comment on above: Performed By: #### P SAD #### [facility] [address] [place] [address] Dr. Suresh Durand Hematocrit (Bld) [Volume fraction] 43.2 % Normal 42.0-54.[address] [facility] Comment on above: Performed By: #### P SAD #### [facility] [address] [place] [address] Dr. Suresh Durand Hemoglobin (Bld) [Mass/Vol] 14.4 g/dL Normal 14.0-18.0 [facility] Comment on above: Performed By: #### P SAD #### [facility] [address] [place] [address] Dr. Suresh Durand IG # 0.03 10e3/ul Normal 0.00-0.03 [facility] Comment on above: Performed By: #### P SAD #### [facility] [address] [place] [address] Dr. Suresh Durand IG % 0.5 % Normal 0.0-0.5 [facility] Comment on above: Performed By: #### P SAD #### [facility] [address] [place] [address] Dr. Suresh Durand LYMPH # 1.3 103/ul Normal 1.2-3.8 [facility] Comment on above: Performed By: #### P SAD #### [facility] [address] [place] [address] Dr. Suresh Durand Lymphocytes/100 WBC (Bld) 22.8 % Normal 20.5-60.[address] [facility] Comment on above: Performed By: #### P SAD #### [facility] [address] [place] [address] Dr. Suresh Durand MANUAL DIFF REQ NO Normal [facility] Comment on above: Performed By: #### P SAD #### [facility] [address] [place] [address] Dr. Suresh Durand MCH (RBC) [Entitic mass] 30.9 pg Normal 25.9-34.[address] [facility] Comment on above: Performed By: #### P SAD #### [facility] [address] [place] [address] Dr. Suresh Durand MCHC (RBC) [Mass/Vol] 33.3 g/dL Normal 29.9-35.[address] [facility] Comment on above: Performed By: #### P SAD #### [facility] [address] [place] [address] Dr. Suresh Durand MCV (RBC) [Entitic vol] 92.7 fL Normal 80.0-94.[address] [facility] Comment on above: Performed By: #### P SAD #### [facility] [address] [place] [address] Dr. Suresh Durand MONO # 0.5 103/ul Normal 0.3-0.[address] [facility] Comment on above: Performed By: #### P SAD #### [facility] [address] [place] [address] Dr. Suresh Durand Monocytes/100 WBC (Bld) 8.3 % Normal 1.7-12.[address] [facility] Comment on above: Performed By: #### P SAD #### [facility] [address] [place] [address] Dr. Suresh Durand NEUT # 3.5 103/ul Normal 1.4-6.[address] [facility] Comment on above: Performed By: #### P SAD #### [facility] [address] [place] [address] Dr. Suresh Durand Neutrophils/100 WBC (Bld) 63.0 % Normal 43.0-75.[address] [facility] Comment on above: Performed By: #### P SAD #### [facility] [address] [place] [address] Dr. Suresh Durand Platelet mean volume (Bld) [Entitic vol] 9.1 fL Critically low 9.5-13.[address] [facility] Comment on above: Performed By: #### P SAD #### [facility] [address] [place] [address] Dr. Suresh Durand PLT 227 103/ul Normal 150-450 [facility] Comment on above: Performed By: #### P SAD #### [facility] [address] [place] [address] Dr. Suresh Durand RBC 4.66 106/ul Critically low 4.70-6.10 [facility] Comment on above: Performed By: #### P SAD #### [facility] [address] [place] [address] Dr. Suresh Durand WBC 5.5 103/ul Normal 4.0-11.0 [facility] Comment on above: Performed By: #### P SAD #### [facility] [address] [place] [address] Dr. Suresh Durand LACTATE/LACTIC ACIDon 2022 Lactate [Moles/Vol] 1.6 mmol/L Normal 0.4-2.[address] [facility] Comment on above: Performed By: #### C VDTBH #### [facility] [address] [place] [address] Dr. Suresh Durand PROF 14(COMP METB)on 023 Albumin [Mass/Vol] 3.9 g/dL Normal 3.4-5.0 [facility] Comment on above: Performed By: #### C MP, BNP, HSTROPN #### [facility] [address] [place] [address] Dr. Suresh Durand Albumin/Globulin [Mass ratio] 1.0 {ratio} Normal [facility] Comment on above: Performed By: #### C MP, BNP, HSTROPN #### [facility] [address] [address] [address] Suresh Durand ALP [Catalytic activity/Vol] 65 U/L Normal 46-116 [facility] Comment on above: Performed By: #### C MP, BNP, HSTROPN #### [facility] [address] [address] [address] Suresh Durand ALT [Catalytic activity/Vol] 80 U/L Critically high 16-63 [facility] Comment on above: Performed By: #### C MP, BNP, HSTROPN #### [facility] [address] [address] [address] Suresh Durand Anion gap [Moles/Vol] 12.5 mmol/L Normal Th e [facility] Comment on above: Performed By: #### C MP, BNP, HSTROPN #### [facility] [address] [place] [address] Dr. Suresh Durand AST [Catalytic activity/Vol] 33 U/L Normal 15-[address] [facility] Comment on above: Performed By: #### C MP, BNP, HSTROPN #### [facility] [address] [address] [address] Suresh Durand Bilirubin [Mass/Vol] 0.3 mg/dL Normal 0.2-1.[address] [facility] Comment on above: Performed By: #### C MP, BNP, HSTROPN #### [facility] [address] [address] [address] Suresh Durand Calcium [Mass/Vol] 9.4 mg/dL Normal 8.5-10.[address] [facility] Comment on above: Performed By: #### C MP, BNP, HSTROPN #### [facility] [address] [address] [address] Suresh Durand Chloride [Moles/Vol] 106 mmol/L Normal 98-107 [facility] Comment on above: Performed By: #### C MP, BNP, HSTROPN #### [facility] [address] [address] [address] Suresh Durand CO2 [Moles/Vol] 28.3 mmol/L Normal 21.0-32.[address] [facility] Comment on above: Performed By: #### C MP, BNP, HSTROPN #### [facility] [address] [place] [address] Dr. Suresh Durand Creatinine [Mass/Vol] 0.97 mg/dL Normal 0.70-1.[address] [facility] Comment on above: Performed By: #### C MP, BNP, HSTROPN #### [facility] [address] [place] [address] Dr. Suresh Durand EGFR-AF FILIPINO >60 Normal >=[address] [facility] Comment on above: Performed By: #### C MP, BNP, HSTROPN #### [facility] [address] [place] [address] Dr. Suresh Durand EGFR-NON AF FILIPINO >60 Normal >=[address] [facility] Comment on above: Performed By: #### C MP, BNP, HSTROPN #### [facility] [address] [place] [address] Dr. Suresh Durand Globulin (S) [Mass/Vol] 3.9 g/dL Normal [facility] Comment on above: Performed By: #### C MP, BNP, HSTROPN #### [facility] [address] [place] [address] Dr. Suresh Durand Glucose [Mass/Vol] 121 mg/dL Critically high 74-106 [facility] Comment on above: Performed By: #### C MP, BNP, HSTROPN #### [facility] [address] [place] [address] Dr. Suresh Durand Potassium [Moles/Vol] 3.8 mmol/L Normal 3.5-5.1 [facility] Comment on above: Performed By: #### C MP, BNP, HSTROPN #### [facility] [address] [place] [address] Dr. Suresh Durand Protein [Mass/Vol] 7.8 g/dL Normal 6.4-8.[address] [facility] Comment on above: Performed By: #### C MP, BNP, HSTROPN #### [facility] [address] [address] [address] Suresh Durand Sodium [Moles/Vol] 143 mmol/L Normal 136-[address] [facility] Comment on above: Performed By: #### C MP, BNP, HSTROPN #### [facility] [address] [address] [address] Suresh Durand Urea nitrogen [Mass/Vol] 21.0 mg/dL Critically high 7.0-18.[address] [facility] Comment on above: Performed By: #### C MP, BNP, HSTROPN #### [facility] [address] [address] [address] Suresh Durand Urea nitrogen/Creatinine [Mass ratio] 21.6 mg/mg Normal [facility] Comment on above: Performed By: #### C MP, BNP, HSTROPN #### [facility] [address] [place] [address] Dr. Suresh Durand TROPONIN, HIGH SENSITIVITYon 08-28-2022 HSTROP 6.5 pg/mL Normal 4.0-76.[address] [facility] Comment on above: Result Comment: CUT- OFF POINTS HAVE BEEN ESTABLISHED BASED ON THE FOURTH UNIVERSAL DEFINITIONS OF MYOCARDIAL INFARCTION. THE UPPER REFERENCE LIMIT (URL) OF TROPONIN, DEFINED THE 99TH PERCENTILE OF cTnI DISTRIBUTION IN A REFERENCE POPULATION, HAS BEEN CONFIRMED THE DECISION THRESHOLD FOR CT DIAGNOSIS. Performed By: #### C MP, BNP, HSTROPN #### [facility] [address] [place] [address] Dr. Suresh Durand Consultation Noteon 07-17-19 Consultation Note [id number]: 127 Normal [facility] Patient Educationon 06-17-19 Patient Education Oncology Prostate Cancer The prostate is a walnut-sized gland that is involved in the production of semen. It is located below a man's bladder, in front of the rectum. Prostate cancer is the abnormal growth of cells in the prostate gland. What are the causes? The exact cause of this condition is not known. What increases the risk? This condition is more likely to develop in men who: ? Are older than age 65. ? Are -[place]. ? Are obese. ? Have a family history of prostate cancer. ? Have a family history of breast cancer. What are the signs or symptoms? Symptoms of this condition include: ? A need to urinate often. ? Weak or interrupted flow of urine. ? Trouble starting or stopping urination. ? Inability to urinate. ? Pain or burning during urination. ? Painful ejaculation. ? Blood in urine or semen. ? Persistent pain or discomfort in the lower back, lower abdomen, hips, or upper thighs. ? Trouble getting an erection. ? Trouble emptying the bladder all the way. How is this diagnosed? This condition can be diagnosed with: ? A digital rectal exam. For this exam, a health care provider inserts a gloved finger into the rectum to feel the prostate gland. ? A blood test called a prostate-specific antigen (PSA) test. ? An imaging test called transrectal ultrasonography. ? A procedure in which a sample of tissue is taken from the prostate and examined under a microscope (prostate biopsy). Once the condition is diagnosed, tests will be done to determine how far the cancer has spread. This is called staging the cancer. Staging may involve imaging tests, such as: ? A bone scan. ? A CT scan. ? A PET scan. ? An MRI. The stages of prostate cancer are as follows: ? Stage I. At this stage, the cancer is found in the prostate only. The cancer is not visible on imaging tests and it is usually found by accident, such as during a prostate surgery. ? Stage II. At this stage, the cancer is more advanced than it is in stage I, but the cancer has not spread outside the prostate. ? Stage III. At this stage, the cancer has spread beyond the outer layer of the prostate to nearby tissues. The cancer may be found in the seminal vesicles, which are near the bladder and the prostate. ? Stage IV. At this stage, the cancer has spread other parts of the body, such as the lymph nodes, bones, bladder, rectum, liver, or lungs. How is this treated? Treatment for this condition depends on several factors, including the stage of the cancer, your age, personal preferences, and your overall health. Talk with your health care provider about treatment options that are recommended for you. Common treatments include: ? Observation for early stage prostate cancer (active surveillance). This involves having exams, blood tests, and in some cases, more biopsies. For some men, this is the only treatment needed. ? Surgery. Types of surgeries include: ? Open surgery. In this surgery, a larger incision is made to remove the prostate. ? A laparoscopic prostatectomy. This is a surgery to remove the prostate and lymph nodes through several, small incisions. It is often referred to as a minimally invasive surgery. ? A robotic prostatectomy. This is a surgery to remove the prostate and lymph nodes with the help of a robotic arm that is controlled by a computer. ? Orchiectomy. This is a surgery to remove the testicles. ? Cryosurgery. This is a surgery to freeze and destroy cancer cells. ? Radiation treatment. Types of radiation treatment include: ? External beam radiation. This type aims beams of radiation from outside the body at the prostate to destroy cancerous cells. ? Brachytherapy. This type uses radioactive needles, seeds, wires, or tubes that are implanted into the prostate gland. Like external beam radiation, brachytherapy destroys cancerous cells. An advantage is that this type of radiation limits the damage to surrounding tissue and has fewer side effects. ? High-intensity, focused ultrasonography. This treatment destroys cancer cells by delivering high-energy ultrasound waves to the cancerous cells. ? Chemotherapy medicines. This treatment kills cancer cells or stops them from multiplying. ? Hormone treatment. This treatment involves taking medicines that act on one of the male hormones (testosterone): ? By stopping your body from producing testosterone. ? By blocking testosterone from reaching cancer cells. Follow these instructions at home: ? Take cagp-yez-yisabdo and prescription medicines only as told by your health care provider. ? Maintain a healthy diet. ? Get plenty of sleep. ? Consider joining a support group for men who have prostate cancer. Meeting with a support group may help you learn to cope with the stress of having cancer. ? Keep all follow-up visits as told by your health care provider. This is important. ? If you have to go to the hospital, notify your cancer specialis (more content not included)... [facility] Urology Office/Clinic Noteon 06-17-2022 Urology Office/Clinic Note Chief Complaint S/P Brachytherapy HPI Staff S/P Brachytherapy done 05/23/22 due to Prostate Cancer. Pt c/o burning, dribbling, urgency and discomfort around prostate area since procedure. No Urology Medications at this time. History of Present Illness Tests reviewed: reviewed UA, op note. I have reviewed the previous health record information and history for this patient from Dr. Gomez. I have reviewed and verified the staff HPI to be accurate for this encounter. There have been no associated fever, chills, flank pain, or blood in the urine. Denies any urinary infections since last encounter. Review of Systems PHQ Score Initial Depression Screen Score: 0 ROS - Provider Constitutional: denies weight loss, denies hot flashes. Eyes: denies eye problems. Gastrointestinal: denies nausea, denies vomiting. Cardiovascular: denies chest pain or angina. Integumentary: no dryness Musculoskeletal: denies musculoskeletal symptoms. ENMT: denies otolaryngeal symptoms. Respiratory: no shortness of breath. Heme/Lymph: denies easy bleeding tendency, denies easy bruising tendency. Psychiatric: no confusion, no anxiety. Genitourinary: See HPI. Physical Exam Vitals & Measurements HR: 83(Peripheral) RR: 16 BP: 132/82 HT: 72 in HT: 184 cm WT: 95 kg WT: 209 lb BMI: 28.06 General Appearance: alert, no distress, well nourished, well developed male. Genitourinary: normal scrotum, normal testes, normal urethra, normal epididymis, normal vas deferens/spermatic cord. Flank Pain: none. Bladder: nonpalpable. Assessment/Plan 1. Prostate cancer (C61: Malignant neoplasm of prostate) -Most recent PSA 32.05 done 01/22/22, none prior in our records. -S/P TRUS/bx done on 02/13/22. Pathology showed [place] [facility] Score 7 (3+4) 1 cores, 7 (4+3) in 2 cores, CHAS in 2 cores (all right side). -Bone scan done 03/08/22 showed no evidence of metastatic disease to the bones. CT scan done 03/08/22 showed no definite metastatic disease. Crea done 03/08/22 WNL. -S/P brachytherapy done 05/23/22. UA today negative for blood and infection. C/o burning at tip of penis, urgency and urge incontinence. Pt to start Flomax 0.4 mg BID to help with urination sxs PO brachytherapy, will remain on this med assisted to help with urination. SEs discussed. Rx sent to [facility]. Voids q1hrs during the day and the night. Follow up already scheduled in August for Lupron, PSA, and review meds, or sooner if needed. Pt understands and agrees with plan. -start Flomax BID 2. Nocturia (R35.1: Nocturia) Voids q1hrs during the day and the night. Pt to start Oxybutynin 5 mg QD at bedtime with 6 refills. SEs discussed. Rx sent to [facility]. -start Oxybutynin at bedtime Follow-up With When Contact Information PATRICIA SALINAS, Mansi Cordova, [facility] [address], [place] [address]- Additional Instructions: august 2022 for psa, lupron Patient Education Prostate Cancer I, Karissa Reyez, personally scribed for Dr. Gomez on 06/17/2022 10:19:23. . Documentation recorded by the scribe, Karissa Reyez, accurately reflects the services(s) I performed and decisions made by me. Authenticated by Dr. Gomez on 06/17/2022 10:21:04. Problem List/Past Medical History Ongoing Abnormal abdominal CT scan Anxiety BMI 29.0-29.9,adult Elevated PSA Epigastric pain GERD (gastroesophageal reflux disease) Migraines Nocturia Paresthesia Peripheral vascular disease Personal history of peptic ulcer disease Prostate CA Prostate cancer Prostate nodule Screening for malignant neoplasm of colon Sigmoid diverticulosis Smoker Historical No qualifying data Procedure/Surgical History Brachytherapy (05/23/2022), Colonoscopy (05/15/2022), EGD - Esophagogastroduodenosco py (05/15/2022), External beam radiation therapy procedure (04/21/2022), Transrectal needle biopsy of prostate (02/13/2022), Cholecystectomy, Clamping of cerebral aneurysm, Colonoscopy, EGD - Esophagogastroduodenosco py, Excision of vein, Removal of foreign body from neck, Stripping of vein. Medications hydrOXYzine pamoate 25 mg Cap losartan 25 mg Tab omeprazole 20 mg Cap-DR, Oral, Daily tamsulosin 0.4 mg Cap varenicline 1 mg oral tablet, 1 mg= 1 tab(s), Oral, BID Allergies No Known Allergies No Known Medication Allergies Social History Alcohol - Denies Alcohol Use, 04/02/2022 Substance Abuse - Denies Substance Abuse, 04/02/2022 Tobacco 10 or more cigarettes (1/2 pack or more)/day in last 30 days Tobacco Use:. Never Smokeless Tobacco Use:. Cigarettes, 1 per day. Started age 16.0 Years. Yes, 06/17/2022 Family History Esophageal cancer: Brother. Leukemia: Mother. Immunizations Vaccine Date Status Comments influenza virus vaccine, inactivated - Not Given Patient Refuses SARS-CoV-2 (COVID-19) mRNA BNT-162b2 vax 03/02/2021 Recorded 2022-03-13: TPV60 SARS-CoV-2 (COVID-19) Ad26 vaccine 08/28/2020 Recor (more content not included)... [facility] Comment on above: Result Comment: Elec tronically Signed By: Mansi GOMEZ MD\.br\Date and Time Signed: 06/17/22 10:21 EST\.br\Electronically Co-Signed By: Karissa Reyez\.br\Date and Time Co-Signed: 06/17/22 10:20 EST HIV 1 AND 2 WITH REFLEXon HIV Screen 4th Generation wRfx Non-Reactive Normal Non Reactive [facility] Comment on above: Result Comment: HIV Negative HIV-1/HIV-2 antibodies and HIV-1 p24 antigen were NOT detected. There is no laboratory evidence of HIV infection. Performed By: #### P SAD #### [facility] [address] [address] [address] Suresh Durand Ambulatory Visit Summaryon 0 05-31-2022 Ambulatory Visit Summary ELVIS GRANDE :1955 Visit Date:05/31/2022 Ambulatory Visit Instructions Your Care Team Attending Physician - SANYA SALINAS, Mitchel Cordova Primary Care Physician - ANTONIO CASTELLON CNP This Is Your Medications List hydrOXYzine (hydrOXYzine pamoate 25 mg Cap) naproxen (naproxen 500 mg Tab) omeprazole (omeprazole 20 mg Cap-) sertraline (sertraline 25 mg Tab) solifenacin (solifenacin 10 mg Tab) varenicline (varenicline 1 mg oral tablet) Procedures Performed Colonoscopy (05/15/2022), EGD - Esophagogastroduodenosco py (05/15/2022), Transrectal needle biopsy of prostate (02/13/2022), Cholecystectomy, Clamping of cerebral aneurysm, Colonoscopy, EGD - Esophagogastroduodenosco py, Excision of vein, Removal of foreign body from neck, Stripping of vein. What to do next Scheduled Follow-Up Appointments Friday 9:30 AM EST With: PATRICIA SALINAS, Mansi Cordova Where: [facility] Normal [address] [place] [address]- \.br\ Medications\.b r\ What How Much When Instructions\. br\ Unchanged hydrOXYzine (hydrOXYzine pamoate 25 mg Cap)\.br\ Unchanged naproxen (naproxen 500 mg Tab) 1 Tablets By Mouth 2 times a day\.br\ Unchanged omeprazole (omeprazole 20 mg Cap-DR) By Mouth Every day\.br\ Unchanged sertraline (sertraline 25 mg Tab) By Mouth Every day\.br\ Unchanged solifenacin (solifenacin 10 mg Tab) 1 Tablets By Mouth Every day\.br\ Unchanged varenicline (varenicline 1 mg oral tablet) 1 Tablets By Mouth 2 times a day\.br\ Allergies\.br\ No Known Allergies\.br\ No Known Medication Allergies\.br\ Problems\.br\ Ongoing - Any problem that you are currently receiving treatment for.\.br\ Abnormal abdominal CT scan\.br\ Anxiety\.br\ BMI 29.0-29.9,adul t\.br\ Elevated PSA\.br\ Epigastric pain\.br\ GERD (gastroesophag eal reflux disease)\.br\ Migraines\.br\ Paresthesia\.b r\ Peripheral vascular disease\.br\ Personal history of peptic ulcer disease\.br\ Prostate CA\.br\ Prostate nodule\.br\ Screening for malignant neoplasm of colon\.br\ Sigmoid diverticulosis \.br\ Smoker\.br\ \.br\ [facility] General Surgery Office/Clini c Noteon 05-31-2022 General Surgery Office/Clinic Note Chief Complaint post operative follow up HPI Staff 16 day post operative follow up post colonoscopy and EGD with antral biopsy. History of Present Illness s/p EGD and colonoscopy due to abd pain and diverticular disease; doing well; denies pain; no bowel problems; had brachytherapy to prostate last week. Review of Systems ROS - Provider Constitutional: no fever, no sweats, no weight loss. Eyes: no glasses, no blurred vision, no visual loss. ENMT: no dentures, no hoarseness, no swallowing difficulties, no hearing loss, no ear infection(s), no nose bleeds. Cardiovascular: normal blood pressure, no chest pain, regular heartbeat, no heart murmur. Respiratory: no shortness of breath, no cough, no asthma, no wheezing. Gastrointestinal: no nausea, no vomiting, no diarrhea, no constipation, no blood in stool, no change in bowel habits, no abdominal pain, no hepatitis. Genitourinary: no kidney stones, no urine infection, no dysuria. Musculoskeletal: no pain, no weakness. Skin: no changing moles, no rash, no skin lumps. Neurologic: no seizures, no epilepsy, no headache. Psychiatric: no emotional or psychiatric problem. Heme/Lymph: no bleeding problems, no anemia, no blood clots, no transfusions. Allergy/Immunologic: no swollen lymph nodes/glands, no IV drug abuse. Other: Additional ROS info: Except as noted in the above Review of Systems and in the History of Present Illness, all other systems have been reviewed and are negative or noncontributory. Assessment/Plan 1. GERD (gastroesophageal reflux disease) (K21.9: Gastro-esophageal reflux disease without esophagitis) controlled, some gastritis on antral bx, negative for H pylori; patient asymptomatic; normal colon, moderated diverticulosis without inflammation or scarring; doing well, recommend high fiber diet, f/u screening colonoscopy in 10 years; call sooner if problems/questions. 2. Abnormal abdominal CT scan (R93.5: Abnormal findings on diagnostic imaging of other abdominal regions, including retroperitoneum) see # 1 Follow-up No qualifying data available Problem List/Past Medical History Ongoing Abnormal abdominal CT scan Anxiety BMI 29.0-29.9,adult Elevated PSA Epigastric pain GERD (gastroesophageal reflux disease) Migraines Paresthesia Peripheral vascular disease Personal history of peptic ulcer disease Prostate CA Prostate nodule Screening for malignant neoplasm of colon Sigmoid diverticulosis Smoker Historical No qualifying data Procedure/Surgical History Colonoscopy (05/15/2022), EGD - Esophagogastroduodenosco py (05/15/2022), Transrectal needle biopsy of prostate (02/13/2022), Cholecystectomy, Clamping of cerebral aneurysm, Colonoscopy, EGD - Esophagogastroduodenosco py, Excision of vein, Removal of foreign body from neck, Stripping of vein. Medications hydrOXYzine pamoate 25 mg Cap naproxen 500 mg Tab, 500 mg= 1 tab(s), Oral, BID omeprazole 20 mg Cap-DR, Oral, Daily sertraline 25 mg Tab, Oral, Daily solifenacin 10 mg Tab, 10 mg= 1 tab(s), Oral, Daily varenicline 1 mg oral tablet, 1 mg= 1 tab(s), Oral, BID Allergies No Known Allergies No Known Medication Allergies Social History Alcohol - Denies Alcohol Use, 04/02/2022 Substance Abuse - Denies Substance Abuse, 04/02/2022 Tobacco 10 or more cigarettes (1/2 pack or more)/day in last 30 days Tobacco Use:. Never Smokeless Tobacco Use:. Cigarettes, 1 per day. Started age 16.0 Years. Yes, 04/02/2022 Family History Esophageal cancer: Brother. Leukemia: Mother. Immunizations Vaccine Date Status Comments influenza virus vaccine, inactivated - Not Given Patient Refuses SARS-CoV-2 (COVID-19) mRNA BNT-162b2 vax 03/02/2021 Recorded 2022-03-13: TPV60 SARS-CoV-2 (COVID-19) Ad26 vaccine 08/28/2020 Recorded 2022-03-13: TPV60 [facility] Comment on above: Result Comment: Elec tronically Signed By: SANYA SALINAS, Mitchel Vizcarra\Date and Time Signed: 05/31/22 16:20 EST Operative Reporton Operative Report [id number]: 127 [facility] RAD - MISCon 05-24-2022 RAD - MISC [id number]: 127 [facility] Consultation Noteon 05-17-19 Consultation Note [id number]: 127 [facility] ECG 12-Leadon 05-17-2022 ECG 12-Lead [id number]#1.00CD: 127 [facility] Lab Reportson 05-17-2022 Lab Reports [id number]: 127 [facility] Outside Colonoscopyon 2022 Outside Colonoscopy [id number]: 127 [facility] Pathology Noteon 05-17-2022 Pathology Note [id number]: 127 [facility] RAD - MISCon 05-17-2022 RAD - MISC [id number]: 127 [facility] Reminderson 05-16-2022 Reminders - From: Yarelis Wilkerson LPN To: N - Clinical; Sent: 05/16/2022 16:03:35 EST Show up: 04/15/2032 07:00:00 EST Subject: colonoscopy recall Due Date/Time: 05/16/2032 07:00:00 EST Reminder/Recall Patient is due for screening colonoscopy 05/16/2032. [facility] Lab Reportson 05-15-2022 Lab Reports [id number]: 127 [facility] CBC W MANUAL DIFFon 05-13-19 ATYPICAL LYMPH # Normal [facility] Comment on above: Performed By: #### [facility] #### [facility] [address] [place] [address] Dr. Suresh Durand ATYPICAL LYMPH % Normal [facility] Comment on above: Performed By: #### C VDTBH #### [facility] [address] [place] [address] Dr. Suresh Durand BAND # Normal 0.0-0.[address] [facility] Comment on above: Performed By: #### C VDTBH #### [facility] [address] [place] [address] Dr. Suresh Durand BAND % Normal 0-[address] [facility] Comment on above: Performed By: #### C VDTBH #### [facility] [address] [place] [address] Dr. Suresh Durand BASOM # 0.05 103/ul Normal 0.00-0.[address] [facility] Comment on above: Performed By: #### C VDTBH #### [facility] [address] [place] [address] Dr. Suresh Durand BASOM % 1.0 % Normal 0.2-2.[address] [facility] Comment on above: Performed By: #### C VDTBH #### [facility] [address] [place] [address] Dr. Suresh Durand BLAST # Normal [facility] Comment on above: Performed By: #### C VDTBH #### [facility] [address] [place] [address] Dr. Suresh Durand BLAST % Normal [facility] Comment on above: Performed By: #### C VDTBH #### [facility] [address] [place] [address] Dr. Suresh Durand CORRECTED WBC Normal 4.0-11.[address] [facility] Comment on above: Performed By: #### C VDTBH #### [facility] [address] [place] [address] Dr. Suresh Durand EOS # 0.10 103/ul Normal 0.00-0.[address] [facility] Comment on above: Performed By: #### C VDTBH #### [facility] [address] [place] [address] Dr. Suresh Durand EOS% 2.0 % Normal 0.9-7.[address] [facility] Comment on above: Performed By: #### C VDTBH #### [facility] [address] [place] [address] Dr. Suresh Durand HCT 41.1 % Critically low 42.0-54.[address] [facility] Comment on above: Performed By: #### C VDTBH #### [facility] [address] [place] [address] Dr. Suresh Durand HGB 14.7 g/dl Normal 14.0-18.[address] [facility] Comment on above: Performed By: #### C VDTBH #### [facility] [address] [place] [address] Dr. Suresh Durand LYMPHM # 0.72 103/ul Critically low 1.20-3.[address] [facility] Comment on above: Performed By: #### C VDTBH #### [facility] [address] [place] [address] Dr. Suresh Durand LYMPHM% 15.0 % Critically low 20.5-60.[address] [facility] Comment on above: Performed By: #### C VDTBH #### [facility] [address] [place] [address] Dr. Suresh Durand MCH 29.7 pg Normal 25.9-34.[address] [facility] Comment on above: Performed By: #### C VDTBH #### [facility] [address] [place] [address] Dr. Suresh Durand MCHC 35.8 g/dl Critically high 29.9-35.2 [facility] Comment on above: Performed By: #### C VDTBH #### [facility] [address] [place] [address] Dr. Suresh uDrand MCV 83.0 fL Normal 80.0-94.[address] [facility] Comment on above: Performed By: #### C VDTBH #### [facility] [address] [place] [address] Dr. Suresh Durand METAMYELOCYTE # Normal [facility] Comment on above: Performed By: #### C VDTBH #### [facility] [address] [place] [address] Dr. Suresh Durand METAMYELOCYTE % Normal [facility] Comment on above: Performed By: #### C VDTBH #### [facility] [address] [place] [address] Dr. Suresh Durand MONOM# 0.38 103/ul Normal 0.30-0.[address] [facility] Comment on above: Performed By: #### C VDTBH #### [facility] [address] [place] [address] Dr. Suresh Durand MONOM% 8.0 % Normal 1.7-12.[address] [facility] Comment on above: Performed By: #### C VDTBH #### [facility] [address] [place] [address] Dr. Suresh Durand MPV 8.6 fL Critically low 9.5-13.[address] [facility] Comment on above: Performed By: #### C VDTBH #### [facility] [address] [place] [address] Dr. Suresh Durand MYELOCYTE # Normal [facility] Comment on above: Performed By: #### C VDTBH #### [facility] [address] [place] [address] Dr. Suresh Durand MYELOCYTE % Normal [facility] Comment on above: Performed By: #### C VDTBH #### [facility] [address] [place] [address] Dr. Suresh Durand NRBC Normal [facility] Comment on above: Performed By: #### C VDTBH #### [facility] [address] [place] [address] Dr. Suresh Durand PLT 210 103/ul Normal 150-[address] [facility] Comment on above: Performed By: #### C VDTBH #### [facility] [address] [place] [address] Dr. Suresh Durand RBC 4.95 106/ul Normal 4.70-6.[address] [facility] Comment on above: Performed By: #### C VDTBH #### [facility] [address] [address] [address] Suresh Durand RDW 14.4 % Normal 11.0-15.[address] [facility] Comment on above: Performed By: #### C VDTBH #### [facility] [address] [place], [place] [address] Dr. Suresh Durand SEG # 3.55 103/ul Normal 1.40-6.[address] [facility] Comment on above: Performed By: #### C VDTBH #### [facility] [address] [address] [address] Suresh Durand SEG % 74.0 % Normal 43.0-75.[address] [facility] Comment on above: Performed By: #### C VDTBH #### [facility] [address] [place] [address] Dr[address] Suresh Durand WBC 4.8 103/ul Normal 4.0-11.[address] [facility] Comment on above: Performed By: #### C VDTBH #### [facility] [address] [address] [address] Suresh Durand [facility] SARS-CoV-2 (COVID-19) RNA JEREMIAH+probe Ql (Unsp spec) Not detected Normal NOT DETECTED [facility] Comment on above: Result Comment: This test is not yet approved or cleared by the [place] FDA. When there are no FDA-approved or cleared tests available, and other criteria are met, FDA can make tests available under an emergency access mechanism called an Emergency Use Authorization (EUA). The EUA for this test is supported by the [employer] of Health and Human Service's (HHS's) declaration that circumstances exist to justify the emergency use of in vitro diagnostics for the detection and/or diagnosis of the virus that causes COVID-19. This EUA will remain in effect (meaning this test can be used) for the duration of the COVID-19 declaration justifying emergency of IVDs, unless it is terminated or revoked by FDA (after which the test may no longer be used). When diagnostic testing is negative, the possibility of a false negative should be considered in the context of a patient's recent exposures and the presence of clinical signs and symptoms consistent with SARS-CoV-2. Performed By: #### C VDTBH #### [facility] [address] [place] [address] Dr. Suresh Durand PROF CHEM 8 (BAS METB)on Anion gap [Moles/Vol] 11.8 mmol/L Normal [facility] Comment on above: Performed By: #### C VDTBH #### [facility] [address] [place] [address] Dr. Suresh Durand Calcium [Mass/Vol] 9.6 mg/dL Normal 8.5-10.[address] [facility] Comment on above: Performed By: #### C VDTBH #### [facility] [address] [place] [address] Dr. Suresh Durand Chloride [Moles/Vol] 104 mmol/L Normal 98-[address] [facility] Comment on above: Performed By: #### C VDTBH #### [facility] [address] [place] [address] Dr. Suresh Durand CO2 [Moles/Vol] 30.6 mmol/L Normal 21.0-32.[address] [facility] Comment on above: Performed By: #### C VDTBH #### [facility] [address] [place] [address] Dr. Suresh Durand Creatinine [Mass/Vol] 0.74 mg/dL Normal 0.70-1.30 [facility] Comment on above: Performed By: #### C VDTBH #### [facility] [address] [place] [address] Dr. Suresh Durand EGFR-AF FILIPINO >60 Normal >=60 [facility] Comment on above: Performed By: #### C VDTBH #### [facility] [address] [place] [address] Dr. Suresh Durand EGFR-NON AF FILIPINO >60 Normal >=60 [facility] Comment on above: Performed By: #### C VDTBH #### [facility] [address] [place] [address] Dr. Suresh Durand Glucose [Mass/Vol] 97 mg/dL Normal 74-106 [facility] Comment on above: Performed By: #### C VDTBH #### [facility] [address] [place] [address] Dr. Suresh Durand Potassium [Moles/Vol] 4.4 mmol/L Normal 3.5-5.[address] [facility] Comment on above: Performed By: #### C VDTBH #### [facility] [address] [place] [address] Dr. Suresh Durand Sodium [Moles/Vol] 142 mmol/L Normal 136-145 [facility] Comment on above: Performed By: #### C VDTBH #### [facility] [address] [place] [address] Dr. Suresh Durand Urea nitrogen [Mass/Vol] 23.0 mg/dL Critically high 7.0-18.[address] [facility] Comment on above: Performed By: #### C VDTBH #### [facility] [address] [place] [address] Dr. Suresh Durand Urea nitrogen/Creatinine [Mass ratio] 31.1 mg/mg Normal [facility] Comment on above: Performed By: #### C VDTBH #### [facility] [address] [place] [address] Dr. Suresh Durand PROTIMEon 05-13-2022 INR Coag (PPP) [Relative time] 0.96 {INR} Normal [facility] Comment on above: Performed By: #### P TT, PT #### [facility] [address] [place] [address] Dr. Suresh Durand INR GUIDELINES SEE BELOW Normal [facility] Comment on above: Result Comment: JAZMÍN RED INR: 2.0 - 3.0 CONDITIONS NOT LISTED BELOW 2.5 - 3.5 FOR PROSTHETIC HEART VALVE REPLACEMENT 2.5 - 3.5 RECURRENT THROMBOSIS Performed By: #### P TT, PT #### [facility] [address] [place] [address] Dr. Suresh Durand PT Coag (PPP) [Time] 10.2 s Normal 9.0-11.[address] [facility] Comment on above: Performed By: #### P TT, PT #### [facility] [address] [address] [address] Suresh Durand PTTon 05-13-2022 aPTT Coag (Bld) [Time] 25.9 s Normal 22.3-36.2 [facility] Comment on above: Performed By: #### P SASC #### [facility] [address] [address] [address] ABD/PEL W IVCONon 023 Radiology Result ACTIONABLE Abnormal [facility] Basic metabolic 2000 panelon 05-06-2022 Anion gap [Moles/Vol] 9 mmol/L 9 - 18 mmol/L [facility] Calcium [Mass/Vol] 9.7 mg/dL 8.5 - 10. 2 mg/dL [facility] Chloride [Moles/Vol] 104 mmol/L 97 - 10 5 mmol/L [facility] CO2 [Moles/Vol] 26 mmol/L 22 - 30 mmol/L [facility] Creatinine [Mass/Vol] 0.74 mg/dL 0.73 - 1.22 mg/dL [facility] Estimated Glomerular Filtration Rate 101 mL/min/1.73m >=60 mL/min/1.73m [facility] Glucose [Mass/Vol] 104 mg/dL High 74 - 99 mg/dL [facility] Potassium [Moles/Vol] 4.5 mmol/L 3.7 - 5.1 mmol/L [facility] Sodium [Moles/Vol] 139 mmol/L 136 - 144 mmol/L [facility] Urea nitrogen [Mass/Vol] 25 mg/dL High 9 - 24 mg/dL [facility] CBC W Auto Differential pane l (Bld)on 05-06-2022 Basophils (Bld) [#/Vol] 0.04 10*3/uL <0.11 k/uL [facility] Basophils/100 WBC (Bld) 0.8 % [facility] Differential cell count method Nom (Bld) Auto [facility] Eosinophils (Bld) [#/Vol] 0.17 10*3/uL <0.46 k/uL [facility] Eosinophils/100 WBC (Bld) 3.2 % [facility] Erythrocyte distribution width (RBC) [Ratio] 14.0 % 11.5 - 15.0 % [facility] Hematocrit (Bld) [Volume fraction] 45.9 % 39.0 - 51.0 % [facility] Hemoglobin (Bld) [Mass/Vol] 15.4 g/dL 13.0 - 17.0 g/dL [facility] Immature granulocytes (Bld) [#/Vol] 0.04 10*3/uL <0.10 k/uL [facility] Immature granulocytes/100 WBC (Bld) 0.8 % [facility] Lymphocytes (Bld) [#/Vol] 0.67 10*3/uL Low 1.00 - 4.00 k/uL [facility] Lymphocytes/100 WBC (Bld) 12.7 % [facility] MCH (RBC) [Entitic mass] 29.6 pg 26.0 - 34.[address] [facility] MCHC (RBC) [Mass/Vol] 33.6 g/dL 30.5 - 36.0 g/dL [facility] MCV (RBC) [Entitic vol] 88.1 fL 80.0 - 100.[address] [facility] Monocytes (Bld) [#/Vol] 0.44 10*3/uL <0.87 k/uL [facility] Monocytes/100 WBC (Bld) 8.3 % [facility] Neutrophils (Bld) [#/Vol] 3.91 10*3/uL 1.45 - 7.50 k/uL [facility] Neutrophils/100 WBC (Bld) 74.2 % [facility] Nucleated RBC (Bld) [#/Vol] <0.01 k/uL [facility] Nucleated RBC/100 WBC (Bld) [Ratio] 0.0 /[address] [facility] Platelet mean volume (Bld) [Entitic vol] 8.8 fL Low 9.0 - 12.[address] [facility] Platelets (Bld) [#/Vol] 210 10*3/uL 150 - 400 k/uL [facility] RBC (Bld) [#/Vol] 5.21 10*6/uL 4.20 - 6.0 0 m/uL [facility] WBC (Bld) [#/Vol] 5.27 10*3/uL 3.70 - 11. 00 k/uL [facility] Consent for Procedure/Surger yon 04-29-2022 Consent for Procedure/Surgery [id number]: 127 Normal [facility] CTA HEAD WO W CONon 04-23-19 CTA HEAD WO W CON EXAMINATION: CTA HEA D WO W CON HISTORY: Polyneuropathy ; history of brain aneurysm and clip repair COMPARISON: No relevant comparison available. TECHNIQUE: CT imaging of the head following IV administration of non-ionic contrast. Multi-planar/3-D imaging were created to optimize visualization of vascular anatomy. Dose reduction techniques were achieved by using automated exposure control and/or adjustment of mA and/or kV according to patient size and/or use of iterative reconstruction technique. FINDINGS: VASCULATURE: Prior aneurysm clip repair adjacent the proximal right middle cerebral artery. No additional aneurysm. No appreciable vessel stenosis or occlusion. VENTRICLES: Normal for age. No enlargement or displacement. CEREBRUM: Normal for age. No excessive atrophy, mass, or hemorrhage, or abnormal enhancement. CEREBELLUM: Normal for age. No excessive atrophy, mass, or hemorrhage, or abnormal enhancement. BRAINSTEM: Normal for age. No excessive atrophy, mass, or hemorrhage, or abnormal enhancement. BASAL CISTERNS: Normal. No subarachnoid hemorrhage or effacement. SKULL: Negative. IMPRESSION: 1. 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 No prior studies for comparison. 2. Mild age consistent chronic changes. No acute or suspicious findings. Electronically authenticated by: PAMELA BRUNO Date: 2022-04-23 08:31 Normal [facility] BUNon 04-22-2022 Urea nitrogen [Mass/Vol] 18.0 mg/dL Normal 7.0-18.[address] [facility] Comment on above: Performed By: #### P SAS #### [facility] [address] [address] [address] Suresh Durand CREATININEon 04-22-2022 Creatinine [Mass/Vol] 0.74 mg/dL Normal 0.70-1.[address] [facility] Comment on above: Performed By: #### P SASC #### [facility] [address] [address] [address] Suresh Durand EGFR-AF FILIPINO >60 Normal >=[address] [facility] Comment on above: Performed By: #### P SAS #### [facility] [address] [address] [address] Suresh Durand EGFR-NON AF FILIPINO >60 Normal >=60 [facility] Comment on above: Performed By: #### P SASC #### [facility] [address] [address] [address] Suresh Durand PROTEIN ELECTROPHERESISon Albumin [Mass/Vol] 3.9 g/dL Normal 2.9-4.[address] [facility] Comment on above: Performed By: #### P SASC #### [facility] [address] [address] [address] Suresh Durand Albumin/Globulin [Mass ratio] 1.3 {ratio} Normal 0.7-1.[address] [facility] Comment on above: Performed By: #### P SASC #### [facility] [address] [place] [address] Dr. Suresh Durand Ykhxe-8-Jssttdew 0.3 g/dL Normal 0.0-0.[address] [facility] Comment on above: Performed By: #### P SASC #### [facility] [address] [address] [address] Suresh Durand Ckbxf-3-Maoopfod 0.8 g/dL Normal 0.4-1.[address] [facility] Comment on above: Performed By: #### P SASC #### [facility] [address] [address] [address] Suresh Durand Beta Globulin 1.1 g/dL Normal 0.7-1.3 [facility] Comment on above: Performed By: #### P SASC #### [facility] [address] [address] [address] Suresh Durand Gamma Globulin 0.9 g/dL Normal 0.4-1.8 [facility] Comment on above: Performed By: #### P SASC #### [facility] [address] [place] [address] Dr. Suresh Durand Globulin (S) [Mass/Vol] 3.1 g/dL Normal 2.2-3.9 [facility] Comment on above: Performed By: #### P SASC #### [facility] [address] [address] [address] Suresh Durand M-Inder Not Observed Normal Not Observed [facility] Comment on above: Performed By: #### P SASC #### [facility] [address] [address] [address] Suresh Durand PDF . Normal [facility] Comment on above: Performed By: #### P SASC #### [facility] [address] [address] [address] Suresh Durand Please note: Comment Normal [facility] Comment on above: Result Comment: Prot ein electrophoresis scan will follow via computer, mail, or certified ophthalmic technician delivery. Performed By: #### P SASC #### [facility] [address] [place] [address] Dr. Suresh Durand Protein [Mass/Vol] 7.0 g/dL Normal 6.0-8.5 [facility] Comment on above: Performed By: #### P SASC #### [facility] [address] [place] [address] Dr. Suresh Durand VIT B12 AND FOLATEon Cobalamin (Vitamin B12) [Mass/Vol] 939.0 pg/mL Normal 193.0-986.[address] [facility] Comment on above: Performed By: #### P SASC #### [facility] [address] [place] [address] Dr. Suresh Durand FOLATE 6.40 ng/mL Critically low 8.60-58.[address] [facility] Comment on above: Performed By: #### P SASC #### [facility] [address] [place] [address] Dr. Suresh Durand CBC W Auto Differential pane l (Bld)on 04-11-2022 Basophils (Bld) [#/Vol] <0.11 k/uL [facility] Basophils/100 WBC (Bld) 0.2 % [facility] Differential cell count method Nom (Bld) Auto [facility] Eosinophils (Bld) [#/Vol] 0.09 10*3/uL <0.46 k/uL [facility] Eosinophils/100 WBC (Bld) 1.6 % [facility] Erythrocyte distribution width (RBC) [Ratio] 13.6 % 11.5 - 15.0 % [facility] Hematocrit (Bld) [Volume fraction] 47.2 % 39.0 - 51.0 % [facility] Hemoglobin (Bld) [Mass/Vol] 16.0 g/dL 13.0 - 17.0 g/dL [facility] Immature granulocytes (Bld) [#/Vol] 0.03 10*3/uL <0.10 k/uL [facility] Immature granulocytes/100 WBC (Bld) 0.5 % [facility] Lymphocytes (Bld) [#/Vol] 0.98 10*3/uL Low 1.00 - 4.00 k/uL [facility] Lymphocytes/100 WBC (Bld) 17.8 % [facility] MCH (RBC) [Entitic mass] 30.0 pg 26.0 - 34.[address] [facility] MCHC (RBC) [Mass/Vol] 33.9 g/dL 30.5 - 36.0 g/dL [facility] MCV (RBC) [Entitic vol] 88.4 fL 80.0 - 100.[address] [facility] Monocytes (Bld) [#/Vol] 0.38 10*3/uL <0.87 k/uL [facility] Monocytes/100 WBC (Bld) 6.9 % [facility] Neutrophils (Bld) [#/Vol] 4.03 10*3/uL 1.45 - 7.50 k/uL [facility] Neutrophils/100 WBC (Bld) 73.0 % [facility] Nucleated RBC (Bld) [#/Vol] <0.01 k/uL [facility] Nucleated RBC/100 WBC (Bld) [Ratio] 0.0 /[address] [facility] Platelet mean volume (Bld) [Entitic vol] 9.4 fL 9.0 - 12.[address] [facility] Platelets (Bld) [#/Vol] 171 10*3/uL 150 - 400 k/uL [facility] RBC (Bld) [#/Vol] 5.34 10*6/uL 4.20 - 6.0 0 m/uL [facility] WBC (Bld) [#/Vol] 5.52 10*3/uL 3.70 - 11. 00 k/uL [facility] Consent for Procedure/Surger yon 04-04-2022 Consent for Procedure/Surgery [id number]: 127 Normal [facility] Ambulatory Visit Summaryon 1 05-13-2021 Ambulatory Visit Summary ELVIS GRANDE :1955 Visit Date:03/13/2022 Ambulatory Visit Instructions Your Diagnosis Prostate CA Elevated PSA Prostate nodule Tests Performed Urnls Dip Stick Auto w/o Microscopy POC 53294 Your Care Team Attending Physician - Mansi GOMEZ MD Primary Care Physician - CANDE, MR. ANTONIO MILLER This Is Your Medications List Contact prescribing physician if questions or concerns cilostazol hydrOXYzine (hydrOXYzine pamoate 25 mg Cap) naproxen (naproxen 500 mg Tab) omeprazole (omeprazole 20 mg Cap-DR) sertraline (sertraline 25 mg Tab) sucralfate (sucralfate 1 g Tab) Procedures Performed Transrectal needle biopsy of prostate (02/13/2022), Cholecystectomy, Procedure on brain, Stripping of vein. Discharge Vitals Heart Rate (Peripheral) 80 Blood Pressure 139/83 Height 72 cm Height 28 in Weight 95 kg Weight 209 lb BMI 183.26 What to do next Scheduled Follow-Up Appointments Friday 3:20 PM EST With: Mitchel SEGUNDO MD Where: [facility] Normal [address] [place] [address]- \.br\ You Need to Schedule the Following Appointments\. br\ Follow Up with Mansi GOMEZ MD, URL When: \.br\ Where:\.br\ [facility] [address]\.br\ [place] [address]-\.br\ Medications\.b r\ What How Much When Instructions\. br\ Unchanged cilostazol 2 times a day Contact prescribing physician if questions or concerns \.br\ Unchanged hydrOXYzine (hydrOXYzine pamoate 25 mg Cap) Contact prescribing physician if questions or concerns \.br\ Unchanged naproxen (naproxen 500 mg Tab) Contact prescribing physician if questions or concerns \.br\ Unchanged omeprazole (omeprazole 20 mg Cap-DR) Every day Contact prescribing physician if questions or concerns \.br\ Unchanged sertraline (sertraline 25 mg Tab) Every day Contact prescribing physician if questions or concerns \.br\ Unchanged sucralfate (sucralfate 1 g Tab) Four times a day (before meals and at bedtime) Contact prescribing physician if questions or concerns \.br\ Test Results\.br\ Urnls Dip Stick Auto w/o Microscopy POC 11617 (03/13/2022)\. br\ Bilirubin Urine Dipstick - Negative\.br\ Blood Urine Dipstick - Trace-intact\. br\ Glucose Urine Dipstick - Negative\.br\ Ketones Urine Dipstick - Negative\.br\ Leukocytes Urine Dipstick - Negative\.br\ Nitrite Urine Dipstick - Negative\.br\ Protein Urine Dipstick - Negative\.br\ Specific Arena Urine Dipstick - >=1.030\.br \ Urine Appearance Urine Dipstick - Clear\.br\ Urine Color Urine Dipstick - Yellow\.br\ Urobilinogen Urine Dipstick - Normal 0.2-1 EU/dl\.br\ pH Urine Dipstick - 5.5\.br\ Medications and Immunizations Administered\. br\ Given\.br\ Lupron Depot 45 mg/6 months intramuscular injection, extended release, 45 mg, IntraMuscular. For: Prostate CA\.br\ Allergies\.br\ No Known Medication Allergies\.br\ Problems\.br\ Ongoing - Any problem that you are currently receiving treatment for.\.br\ Elevated PSA\.br\ Prostate CA\.br\ Prostate nodule\.br\ Smoker\.br\ Education Materials\.br\ Brachytherapy for Prostate Cancer\.br\ \.br\ Brachytherapy for prostate cancer is radiation treatment that is placed inside of the prostate (prostate gland). There are several types of brachytherapy: \.br\ ? \.br\ Low-dose rate (LDR) therapy. This may involve temporary implants or permanent radioactive seed or pellet implants. The radiation does not travel far from the prostate, which means that healthy, noncancerous tissues around the prostate receive only a small dose of radiation. This helps to protect those tissues from injury. This type of treatment may be followed by a course of external beam radiation.\.br \ ? \.br\ Temporary low-dose implants are left in the prostate for 1?7 days. The implants are needles, applicators, or thin, plastic tubes (catheters) that contain radioactive material. You will need to stay in the hospital while the implant is in place.\.br\ ? \.br\ Permanent low-dose implants (seeds or pellets) are injected into the prostate, and they work for up to one year after they are inserted. They are left in place and are not removed.\.br\ ? \.br\ High-dose rate (HDR) therapy. This is given through needles, applicators, or catheters that contain radioactive material. The tubes are removed after treatment, and no radiation is left in the prostate. This type of treatment may be followed by a course of external beam radiation.\.br \ Tell a health care provider about:\.br\ ? \.br\ Any allergies you have.\.br\ ? \.br\ All medicines you are taking, including vitamins, herbs, eye drops, creams, and uspq-wpr-fugvn er medicines.\.br \ ? \.br\ Any problems you or family members have had with anesthetic medicines.\.br \ ? \.br\ Any surgeries you have had.\.br\ ? \.br\ Any blood disorders you have.\.br\ ? \.br\ Any medical conditions you have.\.br\ What are the risks?\.br\ Generally, this is a safe procedure. However, problems may occur, including:\.br \ ? \.br\ Inflammation of the rectum.\.br\ ? \.br\ Problems getting or keeping an erection (erectile dysfunction).\ .br\ ? \.br\ Trouble urinating.\.br \ ? \.br\ Diarrhea.\.br\ ? \.br\ Bleeding.\.br\ ? \.br\ Loss of bowel control.\.br\ What happens before the procedure?\.br \ Staying hydrated\.br\ Follow instructions from your health care provider about hydration, which may include:\.br\ ? \.br\ Up to 2 hours before the procedure ? you may continue to drink clear liquids, such as water, clear fruit juice, black coffee, and plain tea.\.br\ Eating and drinking\.br\ Follow instructions from your health care provider about eating and drinking, which may include:\.br\ ? \.br\ 8 hours before the procedure ? stop eating heavy meals or foods such as meat, fried foods, or fatty foods.\.br\ ? \.br\ 6 hours before the procedure ? stop eating light meals or foods, such as toast or cereal.\.br\ ? \.br\ 6 hours before the procedure ? stop drinking milk or drinks that contain milk.\.br\ ? \.br\ 2 hours before the procedure ? stop drinking clear liquids.\.br\ Medicines\.br\ ? \.br\ Ask your health care provider about:\.br\ ? \.br\ Changing or stopping your regular medicines. This is especially important if you are taking diabetes medicines or blood thinners.\.br\ ? \.br\ Taking medicines such as aspirin and ibuprofen. These medicines can thin your blood. Do not take these medicines before your procedure if your health care provider instructs you not to.\.br\ ? \.br\ You may be given antibiotic medicine to help prevent infection.\.br \ General instructions\. br\ ? \.br\ Plan to have someone take you home from the hospital or clinic.\.br\ ? \.br\ If you will be going home right after the procedure, plan to have someone with you for 24 hours.\.br\ ? \.br\ You may have imaging tests done, including an ultrasound, CT scan, or MRI.\.br\ ? \.br\ You may have blood tests done.\.br\ ? \.br\ You may have a test to check the electrical signals in your heart (electrocardio gram).\.br\ ? \.br\ You may need to take medicine to clean out your bowel (bowel prep).\.br\ What happens during the procedure?\.br \ ? \.br\ To lower your risk of infection:\.br \ ? \.br\ Your health care team will wash or sanitize their hands.\.br\ ? \.br\ Your skin will be washed with soap.\.br\ ? \.br\ Hair may be removed from the surgical area.\.br\ ? \.br\ An IV will be inserted into one of your veins.\.br\ ? \.br\ You will be given one or more of the following:\.br \ ? \.br\ A medicine to help you relax (sedative).\.b r\ ? \.br\ A medicine to numb the area (local anesthetic).\. br\ ? \.br\ A medicine to make you fall asleep (general anesthetic).\. br\ ? \.br\ You may have a thin, plastic tube (catheter) inserted to drain your bladder.\.br\ ? \.br\ If you are receiving brachytherapy with implants:\.br\ ? \.br\ A needle, applicator, or catheter will be inserted into the prostate. It will be inserted through a body cavity, such as the rectum, or through the tissue between the testicles and the anus (perineum).\.b r\ ? \.br\ An X-ray, ultrasound, MRI, or CT scan will be used to guide the catheter or applicator toward the prostate.\.br\ ? \.br\ Radioactive seeds, wires, or ribbons will be fed through the catheter or applicator.\.b r\ ? \.br\ If the high-dose method is used:\.br\ ? \.br\ The radioactive [facility] Patient Educationon 03-13-20 Patient Education Oncology Brachytherapy for Prostate Cancer Brachytherapy for prostate cancer is radiation treatment that is placed inside of the prostate (prostate gland). There are several types of brachytherapy: ? Low-dose rate (LDR) therapy. This may involve temporary implants or permanent radioactive seed or pellet implants. The radiation does not travel far from the prostate, which means that healthy, noncancerous tissues around the prostate receive only a small dose of radiation. This helps to protect those tissues from injury. This type of treatment may be followed by a course of external beam radiation. ? Temporary low-dose implants are left in the prostate for 1?7 days. The implants are needles, applicators, or thin, plastic tubes (catheters) that contain radioactive material. You will need to stay in the hospital while the implant is in place. ? Permanent low-dose implants (seeds or pellets) are injected into the prostate, and they work for up to one year after they are inserted. They are left in place and are not removed. ? High-dose rate (HDR) therapy. This is given through needles, applicators, or catheters that contain radioactive material. The tubes are removed after treatment, and no radiation is left in the prostate. This type of treatment may be followed by a course of external beam radiation. Tell a health care provider about: ? Any allergies you have. ? All medicines you are taking, including vitamins, herbs, eye drops, creams, and htrk-zrj-kfpwged medicines. ? Any problems you or family members have had with anesthetic medicines. ? Any surgeries you have had. ? Any blood disorders you have. ? Any medical conditions you have. What are the risks? Generally, this is a safe procedure. However, problems may occur, including: ? Inflammation of the rectum. ? Problems getting or keeping an erection (erectile dysfunction). ? Trouble urinating. ? Diarrhea. ? Bleeding. ? Loss of bowel control. What happens before the procedure? Staying hydrated Follow instructions from your health care provider about hydration, which may include: ? Up to 2 hours before the procedure ? you may continue to drink clear liquids, such as water, clear fruit juice, black coffee, and plain tea. Eating and drinking Follow instructions from your health care provider about eating and drinking, which may include: ? 8 hours before the procedure ? stop eating heavy meals or foods such as meat, fried foods, or fatty foods. ? 6 hours before the procedure ? stop eating light meals or foods, such as toast or cereal. ? 6 hours before the procedure ? stop drinking milk or drinks that contain milk. ? 2 hours before the procedure ? stop drinking clear liquids. Medicines ? Ask your health care provider about: ? Changing or stopping your regular medicines. This is especially important if you are taking diabetes medicines or blood thinners. ? Taking medicines such as aspirin and ibuprofen. These medicines can thin your blood. Do not take these medicines before your procedure if your health care provider instructs you not to. ? You may be given antibiotic medicine to help prevent infection. General instructions ? Plan to have someone take you home from the hospital or clinic. ? If you will be going home right after the procedure, plan to have someone with you for 24 hours. ? You may have imaging tests done, including an ultrasound, CT scan, or MRI. ? You may have blood tests done. ? You may have a test to check the electrical signals in your heart (electrocardiogram). ? You may need to take medicine to clean out your bowel (bowel prep). What happens during the procedure? ? To lower your risk of infection: ? Your health care team will wash or sanitize their hands. ? Your skin will be washed with soap. ? Hair may be removed from the surgical area. ? An IV will be inserted into one of your veins. ? You will be given one or more of the following: ? A medicine to help you relax (sedative). ? A medicine to numb the area (local anesthetic). ? A medicine to make you fall asleep (general anesthetic). ? You may have a thin, plastic tube (catheter) inserted to drain your bladder. ? If you are receiving brachytherapy with implants: ? A needle, applicator, or catheter will be inserted into the prostate. It will be inserted through a body cavity, such as the rectum, or through the tissue between the testicles and the anus (perineum). ? An X-ray, ultrasound, MRI, or CT scan will be used to guide the catheter or applicator toward the prostate. ? Radioactive seeds, wires, or ribbons will be fed through the catheter or applicator. ? If the high-dose method is used: ? The radioactive wires or ribbons will be left in for a few minutes and then removed. ? Once the treatment is finished, the catheter or applicator will be removed. ? If the low-dose method is used, the implant will stay in place for 1?7 days. ? You w (more content not included)... Normal [facility] Urology Office/Clinic Noteon 03-13-2022 Urology Office/Clinic Note Chief Complaint Pt is here for review CT and bone scan HPI Staff Elvis is a 66 y.o. male here to review CT and bone scan. Previous Dx: elevated PSA, prostate CA, prostate nodule. S/P TRUS/bx done on 02/13/22. Bone scan done on 03/08/22 showed no evidence of metastatic disease to the bones. CT scan done on 03/08/22 showed no definite metastatic disease. Dysuria: denies Incomplete bladder emptying: denies Hematuria: denies Frequency: every 45 minutes Urgency: on occasion Nocturia: 2x a night Stream: steady stream some hesitancy Leaking: denies Post void dripping: denies Wearing pads/ Depends: denies Urge incontinence: denies Stress incontinence: denies Incontinence without Sensory Awareness: denies Abdominal pain: yes Flank pain: denies Sexual complaints: _ History of Present Illness Tests reviewed: reviewed UA, CT scan, bone scan. I have reviewed the previous health record information and history for this patient from Dr. Gomez. I have reviewed and verified the staff HPI to be accurate for this encounter. There have been no associated fever, chills, flank pain, or blood in the urine. Denies any urinary infections since last encounter. Review of Systems PHQ Score Initial Depression Screen Score: 0 ROS - Provider Constitutional: denies weight loss, denies hot flashes. Eyes: denies eye problems. Gastrointestinal: denies nausea, denies vomiting. Cardiovascular: denies chest pain or angina. Integumentary: no dryness Musculoskeletal: denies musculoskeletal symptoms. ENMT: denies otolaryngeal symptoms. Respiratory: no shortness of breath. Heme/Lymph: denies easy bleeding tendency, denies easy bruising tendency. Psychiatric: no confusion, no anxiety. Genitourinary: denies dysuria, denies hematuria, denies discharge, denies urinary frequency, denies urinary hesitancy, denies nocturia, denies incontinence, denies genital sores, denies decreased libido, and denies erectile dysfunction. Physical Exam Vitals & Measurements HR: 80(Peripheral) BP: 139/83 HT: 28 in HT: 72 cm WT: 95 kg WT: 209 lb BMI: 183.26 General Appearance: alert, no distress, well nourished, well developed male. Genitourinary: normal scrotum, normal testes, normal urethra, normal epididymis, normal vas deferens/spermatic cord. Flank Pain: none. Bladder: nonpalpable. Assessment/Plan 1. Prostate CA (C61: Malignant neoplasm of prostate) S/P TRUS/bx done on 02/13/22. Pathology showed Clara Score 3+4 =7 in 1 cores, 4+3=7 in 2 cores, CHAS in 2 cores (all right sided). Bone scan done on 03/08/22 showed no evidence of metastatic disease to the bones. CT scan done on 03/08/22 showed no definite metastatic disease. Crea done 03/08/22 WNL. UA today negative for blood and infection. Pt experiencing every 45 minutes, occasional urgency, nocturia 2x/night, steady stream some hesitancy, abdominal pain. Discussed results from CT and bone scan, negative, however high PSA indicates systemic cancer. Pt seeing Dr. Pond and has discussed hormone injections and external beam and subsequent seed implant with him. Pt will have Lupron injections done at this office. Discussed Lupron side effects (hot flashes, decreased libido, achieving/maintaining erection difficulty, bone thinning). Pt to start taking OTC calcium and vitamin D QD for bone health. Discussed testosterone level recovery once permanently finished with Lupron injections. Lupron given IO today. Lupron 45 mgIM injection given today with no complications. Left glute. Pt. denies side effects at this time. All questions/concerns were discussed. Pt. to call the office if heencounters any issues prior. Pt. acknowledges understanding. Follow up for prostate seed implant after he completes his external beam, then in 6 mos with PSA and Lupron injection. 2. Elevated PSA (R97.20: Elevated prostate specific antigen [PSA]) Current PSA 32.05 done 01/22/22. 3. Prostate nodule (N40.2: Nodular prostate without lower urinary tract symptoms) Entire R half of prostate is rock hard from prior OV note. Follow-up With When Contact Information PATRICIA SALINAS, Mansi Cordova, [facility] [address], [place] [address]- Additional Instructions: F/u 6 mos w/PSA, lupron Patient Education Brachytherapy for Prostate Cancer I, Karissa Reyez, personally scribed for Dr. Gomez on 03/13/2022 12:11:25. . .. Problem List/Past Medical History Ongoing Elevated PSA Prostate CA Prostate nodule Smoker Historical No qualifying data Procedure/Surgical History Transrectal needle biopsy of prostate (02/13/2022), Cholecystectomy, Procedure on brain, Stripping of vein. Medications cilostazol, Oral, BID hydrOXYzine pamoate 25 mg Cap naproxen 500 mg Tab omeprazole 20 mg Cap-DR, Oral, Daily sertraline 25 mg Tab, Oral, Daily sucralfate 1 g Tab, Oral, QIDACHS Allergies No Known Medication Allergies Social History (more content not included)... Normal [facility] Comment on above: Result Comment: Elec tronically Signed By: Mansi GOMEZ MD\.br\Date and Time Signed: 03/13/22 12:23 EST\.br\Electronically Co-Signed By: Karissa Reyez\.br\Date and Time Co-Signed: 03/13/22 12:11 EST Lab Reportson 03-12-2022 Lab Reports [id number]: 127 Normal [facility] RAD - CT Reporton 03-12-2022 RAD - CT Report [id number]: 127 Normal [facility] RAD - Pet Scan Reporton 02-20 RAD - Pet Scan Report [id number]: 127 Normal [facility] Physician Referralon 022 Physician Referral [id number]: 127 Normal [facility] Physician Referral [id number]: 127 Normal [facility] CREATININEon 03-08-2022 Creatinine [Mass/Vol] 0.79 mg/dL Normal 0.70-1.[address] [facility] Comment on above: Performed By: #### P SASC #### [facility] [address] [address] [address] Suresh Durand EGFR-AF FILIPINO >60 Normal >=[address] [facility] Comment on above: Performed By: #### P SASC #### [facility] [address] [address] [address] Suresh Durand EGFR-NON AF FILIPINO >60 Normal >=[address] [facility] Comment on above: Performed By: #### P SASC #### [facility] [address] [address] [address] ABD/PELV W CONon 03-08-20 CT ABD/PELV W CON EXAMINATION: CT ABD/ PELV W CON, 03/08/2022 9:01 AM EST HISTORY: Primary malignant neoplasm of prostate COMPARISON: None. TECHNIQUE: CT scan of the abdomen and pelvis was performed with IV contrast. CT dose reduction technique was used, including Automated Exposure Control. FINDINGS: LUNG BASES: No visible pulmonary or pleural disease. LIVER: No enlargement, atrophy, abnormal density, or significant focal lesion. BILIARY: Surgical clips from cholecystectomy PANCREAS: No lesion, fluid collection, ductal dilatation, or atrophy. SPLEEN: No enlargement or focal lesion. ADRENALS: No mass or enlargement. KIDNEYS: No mass, obstruction, or calcification. BOWEL/MESENTERY: Inflammatory changes surrounding the descending, second portion of the duodenum with small outpouching possibly representing a diverticulum this is best visualized on axial image 49 Large amount of stool in the rectum which measures 6.5 cm extensive colonic diverticulosis without evidence of acute diverticulitis. Nonobstructive bowel gas pattern. AORTA/VASCULAR: No aortic aneurysm. Moderate atherosclerosis RETROPERITONEUM: No mass or adenopathy. LYMPH NODES: No adenopathy. URINARY BLADDER: No visible focal wall thickening, lesion, or calculus. PELVIC ORGANS: Moderately enlarged prostate gland which measures 6 cm transversely ABDOMINAL WALL: No mass or hernia. BONES: 10 mm anterolisthesis of L5 on S1. Bilateral L5 pars reticularis fracture. Moderate diffuse degenerative change OTHER: Negative. IMPRESSION: No definite evidence of metastatic disease Inflammatory changes of the descending duodenum, consider duodenal diverticulum, duodenitis versus ulcer. Extensive colonic diverticulosis without evidence of acute diverticulitis Electronically authenticated by: LEONARD PEPE Date: 2022-03-08 14:41 Normal [facility] BODYon 022 [facility] BODY EXAMINATION: [facility] BODY HISTORY: Carcinoma of prostate COMPARISON: No relevant comparison available. TECHNIQUE: After obtaining the patient's consent, 25.6 mCi Technetium 99m MDP was injected intravenously. Images were obtained approximately two hours later. FINDINGS: ABNORMALITIES: Normal target and nontarget ratio. Increased activity identified in the bilateral acromioclavicular, glenohumeral and the joints. No areas of increased uptake to suggest metastatic disease to the bones OTHER: Negative. IMPRESSION: No definite evidence of metastatic disease to the bones Electronically authenticated by: LEONARD PEPE Date: 2022-03-08 15:[address] [facility] US CAROTID ART BILon -21-2 022 US CAROTID ART DIETER EXAMINATION: US COLON TID ART DIETER HISTORY: Disorder of cardiovascular system COMPARISON: No relevant comparison available. TECHNIQUE: Duplex Doppler ultrasound analysis of carotid and vertebral arteries. . Bilateral carotid arterial duplex examination was performed using B-mode, color flow and spectral analysis. Carotid stenosis is reported according to validated velocity parameters, similar to NASCET criteria. FINDINGS: RIGHT CAROTID ARTERY Mild atherosclerotic plaque Subclavian: PSV: 131.9 cm/s cm/s EDV: 0.0 cm/s cm/s CCA: Prox: PSV: 74.7 cm/s cm/s EDV: 17.5 cm/s cm/s Mid: PSV: 64.9 cm/s cm/s EDV: 19.5 cm/s cm/s Distal: PSV: 39.5 cm/s cm/s EDV: 12.0 cm/s cm/s BULB: PSV: 49.3 cm/s cm/s EDV: 12.0 cm/s cm/s ICA: Prox: PSV: 76.3 cm/s cm/s EDV: 31.0 cm/s cm/s Mid: PSV: 74.6 cm/s cm/s EDV: 32.6 cm/s cm/s Distal: PSV: 92.3 cm/s cm/s EDV: 40.7 cm/s cm/s ECA: PSV: 69.7 cm/s cm/s EDV: 11.6 cm/s cm/s VERTEBRAL: PSV: 43.8 cm/s cm/s EDV: 13.1 cm/s cm/s ICA/CCA ratio: PSV: 1.4 EDV: 2.1 LEFT CAROTID ARTERY Mild atherosclerotic plaque Subclavian: PSV: 135.2 cm/s cm/s EDV: 12.1 cm/s CCA: Prox: PSV: 107.3 cm/s cm/s EDV: 30.7 cm/s Mid: PSV: 77.1 cm/s cm/s EDV: 21.4 cm/s Distal: PSV: 70.1 cm/s cm/s EDV: 19.0 cm/s BULB: PSV: 40.7 cm/s cm/s EDV: 14.9 cm/s ICA: Prox: PSV: 91.9 cm/s cm/s EDV: 33.8 cm/s Mid: PSV: 108.0 cm/s cm/s EDV: 49.9 cm/s Distal: PSV: 91.9 cm/s cm/s EDV: 37.0 cm/s ECA: PSV: 104.8 cm/s cm/s EDV: 14.4 cm/s VERTEBRAL: PSV: 56.3 cm/s cm/s EDV: 24.1 cm/s ICA/CCA ratio: PSV: 1.5 EDV: 2.6 Left thyroid nodule measuring 1.9 cm IMPRESSION: 0-49% flow stenosis bilateral internal carotid arteries Spectral Doppler US Thresholds (Reference: Ammon EG, et al. Radiology 2000; 214:247-252) Stenosis (%) PSV (cm/sec) VICA/VCCA 0-49 <150 <2.5 50-69 150-225 2.5-4.0 >70 >225 >4.0 Electronically authenticated by: LEONARD PEPE Date: 2022-02-08 19:[address] [facility] CT LUNG CANCER SCREENINGon 1 CT LUNG CANCER SCREENING EXAMINATION: CT LUNG CANCER SCREENING HISTORY: Screening for malignant neoplasm of respiratory tract COMPARISON: No relevant comparison available. TECHNIQUE: Axial, Coronal, and Sagittal images were created without the administration of IV contrast material. Dose reduction techniques were achieved by using automated exposure control and/or adjustment of mA and/or kV according to patient size and/or use of iterative reconstruction technique. FINDINGS: LUNGS: Mild paraseptal and centrilobular emphysema. Some linear opacities identified in the left lung base, atelectasis or scar is favored. Scattered punctate pulmonary nodules calcified and noncalcified measuring up to 4 mm, nonspecific. PLEURA: No mass, effusion, or pneumothorax. VASCULATURE: No abnormality. JOLLY: Small calcified bilateral hilar lymph nodes MEDIASTINUM: Small calcified pretracheal lymph nodes CARDIAC: No enlargement or pericardial effusion. Mild coronary atherosclerosis AORTA: No aortic aneurysm. Mild atherosclerosis CHEST WALL: No mass or axillary adenopathy BONES: No bone lesion or fracture. Moderate degenerative spondylosis LIMITED ABDOMEN: No suspicious findings. Limited images of the upper abdomen. OTHER: Negative. IMPRESSION: LUNG SCREENING: Lung-RADS Category 2- Benign Appearance or Behavior. Nodules with a very low likelihood of becoming a clinically active cancer due to size or lack of growth. 2. Continue annual screening with LDCT in 12 months. Electronically authenticated by: LEONARD PEPE Date: 2022-01-24 08:41 Normal [facility] US ABD AORTA SCREENINGon US ABD AORTA SCREENING EXAMINATION: US ABD AORTA SCREENING HISTORY: Screening for cardiovascular system disease COMPARISON: No relevant comparison available. TECHNIQUE: Ultrasound examination of the retroperitoneal area was performed, with a focused evaluation of the abdominal aorta. 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 CBC AUTO DIFFon 01-22-2022 BASO # 0.0 103/ul Normal 0.0-0.[address] [facility] Comment on above: Performed By: #### C BC #### [facility] [address] [place] [address] Dr. Suresh Durand Basophils/100 WBC (Bld) 0.4 % Normal 0.2-2.[address] [facility] Comment on above: Performed By: #### C BC #### [facility] [address] [place] [address] Dr. Suresh Durand EO # 0.2 103/ul Normal 0.0-0.[address] [facility] Comment on above: Performed By: #### C BC #### [facility] [address] [place] [address] Dr. Suresh Durand Eosinophils/100 WBC (Bld) 2.0 % Normal 0.9-7.[address] [facility] Comment on above: Performed By: #### C BC #### [facility] [address] [place] [address] Dr. Suresh Durand Erythrocyte distribution width (RBC) [Ratio] 14.2 % Normal 11.0-15.[address] [facility] Comment on above: Performed By: #### C BC #### [facility] [address] [place] [address] Dr. Suresh Durand Hematocrit (Bld) [Volume fraction] 50.7 % Normal 42.0-54.[address] [facility] Comment on above: Performed By: #### C BC #### [facility] [address] [place] [address] Dr. Suresh Durand Hemoglobin (Bld) [Mass/Vol] 16.8 g/dL Normal 14.0-18.[address] [facility] Comment on above: Performed By: #### C BC #### [facility] [address] [place] [address] Dr. Suresh Durand IG # 0.03 10e3/ul Normal 0.00-0.[address] [facility] Comment on above: Performed By: #### C BC #### [facility] [address] [place] [address] Dr. Suresh Durand IG % 0.3 % Normal 0.0-0.[address] [facility] Comment on above: Performed By: #### C BC #### [facility] [address] [place] [address] Dr. Suresh Durand LYMPH # 2.3 103/ul Normal 1.2-3.[address] [facility] Comment on above: Performed By: #### C BC #### [facility] [address] [place] [address] Dr. Suresh Durand Lymphocytes/100 WBC (Bld) 24.0 % Normal 20.5-60.[address] [facility] Comment on above: Performed By: #### C BC #### [facility] [address] [place] [address] Dr. Suresh Durand MANUAL DIFF REQ NO Normal [facility] Comment on above: Performed By: #### C BC #### [facility] [address] [place] [address] Dr. Suresh Durand MCH (RBC) [Entitic mass] 30.3 pg Normal 25.9-34.[address] [facility] Comment on above: Performed By: #### C BC #### [facility] [address] [address] [address] Suresh Durand MCHC (RBC) [Mass/Vol] 33.1 g/dL Normal 29.9-35.[address] [facility] Comment on above: Performed By: #### C BC #### [facility] [address] [address] [address] Suresh Durand MCV (RBC) [Entitic vol] 91.4 fL Normal 80.0-94.[address] [facility] Comment on above: Performed By: #### C BC #### [facility] [address] [place] [address] Dr. Suresh Durand MONO # 0.6 103/ul Normal 0.3-0.[address] [facility] Comment on above: Performed By: #### C BC #### [facility] [address] [place] [address] Dr. Suresh Durand Monocytes/100 WBC (Bld) 6.6 % Normal 1.7-12.[address] [facility] Comment on above: Performed By: #### C BC #### [facility] [address] [place] [address] Dr. Suresh Durand NEUT # 6.5 103/ul Normal 1.4-6.[address] [facility] Comment on above: Performed By: #### C BC #### [facility] [address] [place] [address] Dr. Suresh Durand Neutrophils/100 WBC (Bld) 66.7 % Normal 43.0-75.0 [facility] Comment on above: Performed By: #### C BC #### [facility] [address] [place] [address] Dr. Suresh Durand Platelet mean volume (Bld) [Entitic vol] 9.0 fL Critically low 9.5-13.5 [facility] Comment on above: Performed By: #### C BC #### [facility] [address] [place] [address] Dr. Suresh Durand PLT 230 103/ul Normal 150-450 [facility] Comment on above: Performed By: #### C BC #### [facility] [address] [place] [address] Dr. Suresh Durand RBC 5.55 106/ul Normal 4.70-6.[address] [facility] Comment on above: Performed By: #### C BC #### [facility] [address] [place] [address] Dr. Suresh Durand WBC 9.7 103/ul Normal 4.0-11.[address] [facility] Comment on above: Performed By: #### C BC #### [facility] [address] [place] [address] Dr. Suresh Durand GLYCOHEMOGLOBIN A1Con 2021 ADA RECOMMENDATION SEE BELOW Normal [facility] Comment on above: Result Comment: ADA RECOMMENDED LIMIT 4.0 - 6.0 ADA THERAPEUTIC TARGET < 7.0 ACTION SUGGESTED > 7.0 Performed By: #### C VDTBH #### [facility] [address] [place] [address] Dr. Suresh Durand Glucose [Mass/Vol] 108 mg/dL Normal [facility] Comment on above: Performed By: #### C VDTBH #### [facility] [address] [place] [address] Dr. Suresh Durand HbA1c (Bld) [Mass fraction] 5.4 % Normal 4.5-6.[address] [facility] Comment on above: Performed By: #### C VDTBH #### [facility] [address] [place] [address] Dr. Suresh Durand LIPID PROFILEon 01-22-2022 CHOL-HDL RATIO NORM SEE BELOW Normal [facility] Comment on above: Result Comment: 3.3 - 4.4 LOW RISK 4.4 - 7.1 AVERAGE RISK 7.1 - 11.0 MODERATE RISK >11.0 HIGH RISK Performed By: #### C VDTBH #### [facility] [address] [place] [address] Dr. Suresh Durand Cholesterol [Mass/Vol] 181 mg/dL Normal <=[address] [facility] Comment on above: Performed By: #### C VDTBH #### [facility] [address] [address] [address] Suresh Durand Cholesterol in HDL [Mass/Vol] 37 mg/dL Critically low 40-[address] [facility] Comment on above: Performed By: #### C VDTBH #### [facility] [address] [address] [address] Suresh Durand Cholesterol in LDL [Mass/Vol] 121.0 mg/dL Normal [facility] Comment on above: Performed By: #### C VDTBH #### [facility] [address] [address] [address] Suresh Durand Cholesterol.total/Cho lesterol in HDL [Mass ratio] 4.9 {ratio} Normal [facility] Comment on above: Performed By: #### C VDTBH #### [facility] [address] [address] [address] Suresh Durand HDL NORMAL > or = 60 mg/dl - LO W CARDIOVASCULAR RISK <40 mg/dl - HIGH CARDIOVASCULAR RISK Normal [facility] Comment on above: Performed By: #### C VDTBH #### [facility] [address] [place] [address] Dr. Suresh Durand LDL CALC NORMAL SEE BELOW Normal [facility] Comment on above: Result Comment: <100 mg/dl OPTIMAL 100 - 129 mg/dl NEAR OR ABOVE OPTIMAL 130 - 159 mg/dl BORDERLINE HIGH 160 - 189 mg/dl HIGH >190 mg/dl VERY HIGH Performed By: #### C VDTBH #### [facility] [address] [place] [address] Dr. Suresh Durand Triglyceride [Mass/Vol] 115 mg/dL Normal <=150 [facility] Comment on above: Performed By: #### C VDTBH #### [facility] [address] [address] [address] Suresh Durand VLDL CALC 23.0 mg/dL Normal [facility] Comment on above: Performed By: #### C VDTBH #### [facility] [address] [address] [address] Suresh Durand PROF 14(COMP METB)on 022 Albumin [Mass/Vol] 4.0 g/dL Normal 3.4-5.[address] [facility] Comment on above: Performed By: #### C VDTBH #### [facility] [address] [place] [address] Dr. Suresh Durand Albumin/Globulin [Mass ratio] 1.1 {ratio} Normal [facility] Comment on above: Performed By: #### C VDTBH #### [facility] [address] [address] [address] Suresh Durand ALP [Catalytic activity/Vol] 54 U/L Normal 46-[address] [facility] Comment on above: Performed By: #### C VDTBH #### [facility] [address] [place] [address] Dr. Suresh Durand ALT [Catalytic activity/Vol] 46 U/L Normal 16-[address] [facility] Comment on above: Performed By: #### C VDTBH #### [facility] [address] [place] [address] Dr. Suresh Durand Anion gap [Moles/Vol] 12.6 mmol/L Normal [facility] Comment on above: Performed By: #### C VDTBH #### [facility] [address] [place] [address] Dr. Suresh Durand AST [Catalytic activity/Vol] 26 U/L Normal 15-[address] [facility] Comment on above: Performed By: #### C VDTBH #### [facility] [address] [place] [address] Dr. Suresh Durand Bilirubin [Mass/Vol] 0.6 mg/dL Normal 0.2-1.0 [facility] Comment on above: Performed By: #### C VDTBH #### [facility] [address] [place] [address] Dr. Suresh Durand Calcium [Mass/Vol] 9.3 mg/dL Normal 8.5-10.[address] [facility] Comment on above: Performed By: #### C VDTBH #### [facility] [address] [address] [address] Suresh Durand Chloride [Moles/Vol] 105 mmol/L Normal 98-[address] [facility] Comment on above: Performed By: #### C VDTBH #### [facility] [address] [address] [address] Suresh Durand CO2 [Moles/Vol] 27.9 mmol/L Normal 21.0-32.0 [facility] Comment on above: Performed By: #### C VDTBH #### [facility] [address] [address] [address] Suresh Durand Creatinine [Mass/Vol] 0.78 mg/dL Normal 0.70-1.30 [facility] Comment on above: Performed By: #### C VDTBH #### [facility] [address] [address] [address] Suresh Durand EGFR-AF FILIPINO >60 Normal >=[address] [facility] Comment on above: Performed By: #### C VDTBH #### [facility] [address] [address] [address] Suresh Durand EGFR-NON AF FILIPINO >60 Normal >=60 [facility] Comment on above: Performed By: #### C VDTBH #### [facility] [address] [address] [address] Suresh Durand Globulin (S) [Mass/Vol] 3.5 g/dL Normal [facility] Comment on above: Performed By: #### C VDTBH #### [facility] [address] [address] [address] Suresh Durand Glucose [Mass/Vol] 100 mg/dL Normal 74-106 [facility] Comment on above: Performed By: #### C VDTBH #### [facility] [address] [address] [address] Suresh Durand Potassium [Moles/Vol] 4.5 mmol/L Normal 3.5-5.1 [facility] Comment on above: Performed By: #### C VDTBH #### [facility] [address] [address] [address] Suresh Durand Protein [Mass/Vol] 7.5 g/dL Normal 6.4-8.2 [facility] Comment on above: Performed By: #### C VDTBH #### [facility] [address] [address] [address] Suresh Durand Sodium [Moles/Vol] 141 mmol/L Normal 136-[address] [facility] Comment on above: Performed By: #### C VDTBH #### [facility] [address] [address] [address] Suresh Durand Urea nitrogen [Mass/Vol] 16.0 mg/dL Normal 7.0-18.[address] [facility] Comment on above: Performed By: #### C VDTBH #### [facility] [address] [address] [address] Suresh Durand Urea nitrogen/Creatinine [Mass ratio] 20.5 mg/mg Normal [facility] Comment on above: Performed By: #### C VDTBH #### [facility] [address] [address] [address] Suresh Durand Vital Signs Date Time Vital Sign Value Performing Clinician Facility 08-07-2023 09:31-0400 Body height 182.9 cm Safia Cerda MD Work Phone: [facility] 08-07-2023 09:31-0400 Body mass index (BMI) [Ratio] 34.31 kg/m2 Safia Cerda MD Work Phone: [facility] 08-07-2023 09:31-0400 Body weight 114.76 kg Safia Cerda MD Work Phone: [facility] 08-07-2023 09:31-0400 Diastolic blood pressure 90 mm[Hg] Safia Cerda MD Work Phone: [facility] 08-07-2023 09:31-0400 Heart rate 80 /min Safia eCrda MD Work Phone: [facility] 08-07-2023 09:31-0400 Systolic blood pressure 154 mm[Hg] Safia Cerda MD Work Phone: [facility] 07-04-2023 12:44-0400 Body height 182.9 cm Ricardo Wang MD Work Phone: [facility] 07-04-2023 12:44-0400 Body weight 113.4 kg Ricardo Wang MD Work Phone: [facility] 07-04-2023 12:44-0400 Diastolic blood pressure 92 mm[Hg] Ricardo Wang MD Work Phone: [facility] 07-04-2023 12:44-0400 Heart rate 102 /min Ricardo Wang MD Work Phone: [facility] 07-04-2023 12:44-0400 Respiratory rate 16 /min Ricardo Wang MD Work Phone: [facility] 07-04-2023 12:44-0400 SaO2% (BldA) [Mass fraction] 97 % Ricardo Wang MD Work Phone: [facility] 07-04-2023 12:44-0400 Systolic blood pressure 119 mm[Hg] Ricardo Wang MD Work Phone: [facility] 07-02-2023 08:40-0400 Body temperature 97 [degF] FEDERICO Pond MD Work Phone: [facility] 07-02-2023 08:40-0400 Body weight 113 kg FEDERICO Pond MD Work Phone: [facility] 07-02-2023 08:40-0400 Diastolic blood pressure 85 mm[Hg] FEDERICO Pond MD Work Phone: [facility] 07-02-2023 08:40-0400 Heart rate 67 /min FEDERICO Pond MD Work Phone: [facility] 07-02-2023 08:40-0400 Respiratory rate 16 /min FEDERICO Pond MD Work Phone: [facility] 07-02-2023 08:40-0400 SaO2% (BldA) [Mass fraction] 99 % FEDERICO Pond MD Work Phone: [facility] 07-02-2023 08:40-0400 Systolic blood pressure 135 mm[Hg] FEDERICO Pond MD Work Phone: [facility] 05-29-2023 10:18-0500 Body height 182.9 cm Valerie Arriola MD Work Phone: [facility] 05-29-2023 10:18-0500 Body mass index (BMI) [Ratio] 34.64 kg/m2 Valerie Arriola MD Work Phone: [facility] 05-29-2023 10:18-0500 Body weight 115.85 kg Valerie Arriola MD Work Phone: [facility] 05-29-2023 10:18-0500 Diastolic blood pressure 75 mm[Hg] Valerie Arriola MD Work Phone: [facility] 05-29-2023 10:18-0500 Heart rate 73 /min Valerie Arriola MD Work Phone: [facility] 05-29-2023 10:18-0500 Systolic blood pressure 117 mm[Hg] Valerie Arriola MD Work Phone: [facility] 05-01-2023 15:15-0500 Diastolic blood pressure 88 mm[Hg] Jamie Dave MD Work Phone: [facility] 05-01-2023 15:15-0500 Heart rate 74 /min Jamie Dave MD Work Phone: [facility] 05-01-2023 15:15-0500 Systolic blood pressure 142 mm[Hg] Jamie Dave MD Work Phone: [facility] 05-01-2023 15:14-0500 Body height 182.9 cm Jamie Dave MD Work Phone: [facility] 05-01-2023 15:14-0500 Body mass index (BMI) [Ratio] 34.91 kg/m2 Jamie Dave MD Work Phone: [facility] 05-01-2023 15:14-0500 Body weight 116.76 kg Jamie Dave MD Work Phone: [facility] L[facility] 03-05-2023 08:04-0500 Blood Pressure Location Mansi GOMEZ [facility] 03-05-2023 08:04-0500 Diastolic blood pressure 88 mm[Hg] Mansi GOMEZ [facility] 03-05-2023 08:04-0500 Heart rate 74 /min Mansi GOMEZ [facility] 03-05-2023 08:04-0500 Systolic blood pressure 120 mm[Hg] Mansi GOMEZ [facility] 01-23-2023 09:19-0400 Body height 182.9 cm Safia Cerda MD Work Phone: [facility] 01-23-2023 09:19-0400 Body mass index (BMI) [Ratio] 33.23 kg/m2 Safia Cerda MD Work Phone: [facility] 01-23-2023 09:19-0400 Body weight 111.13 kg Safia Cerda MD Work Phone: [facility] 01-23-2023 09:19-0400 Diastolic blood pressure 78 mm[Hg] Safia Cerda MD Work Phone: [facility] 01-23-2023 09:19-0400 Heart rate 64 /min Safia Cerda MD Work Phone: [facility] 01-23-2023 09:19-0400 Systolic blood pressure 100 mm[Hg] Safia Cerda MD Work Phone: [facility] 01-02-2023 08:55-0400 Body temperature 96.69 [degF] FEDERICO Pond MD Work Phone: [facility] 01-02-2023 08:55-0400 Body weight 110.5 kg FEDERICO Pond MD Work Phone: [facility] 01-02-2023 08:55-0400 Diastolic blood pressure 74 mm[Hg] FEDERICO Pond MD Work Phone: [facility] 01-02-2023 08:55-0400 Heart rate 65 /min FEDERICO Pond MD Work Phone: [facility] 01-02-2023 08:55-0400 Respiratory rate 18 /min FEDERICO Pond MD Work Phone: [facility] 01-02-2023 08:55-0400 SaO2% (BldA) [Mass fraction] 98 % FEDERICO Pond MD Work Phone: [facility] 01-02-2023 08:55-0400 Systolic blood pressure 113 mm[Hg] FEDERICO Pond MD Work Phone: [facility] 12-16-2022 19:47-0400 Diastolic blood pressure 84 mm[Hg] EXECUTIVE ADMINISTRATOR-BC Antonio Shammo Work Phone: [facility] 12-16-2022 19:47-0400 Heart rate 63 /min EXECUTIVE ADMINISTRATOR-BC Antonio Shammo Work Phone: [facility] 12-16-2022 19:47-0400 Respiratory rate 16 /min EXECUTIVE ADMINISTRATOR-BC Antonio Shammo Work Phone: [facility] 12-16-2022 19:47-0400 SaO2% (BldA) [Mass fraction] 97 % EXECUTIVE ADMINISTRATOR-BC Antonio Shammo Work Phone: [facility] 12-16-2022 19:47-0400 Systolic blood pressure 129 mm[Hg] EXECUTIVE ADMINISTRATOR-BC Antonio Shammo Work Phone: [facility] 12-16-2022 13:58-0400 Body height 182.88 cm EXECUTIVE ADMINISTRATOR-BC Antonio Shammo Work Phone: [facility] 12-16-2022 13:58-0400 Body temperature 97.1 [degF] [facility] Antonio Shammo Work Phone: [facility] 12-16-2022 13:58-0400 Body weight 109.5 kg [facility] Antonio Shammo Work Phone: [facility] 11-28-2022 14:11-0400 Diastolic blood pressure 82 mm[Hg] Referring Provider Unknown [facility] 250 DO Work Phone: 11-28-2022 14:11-0400 Systolic blood pressure 130 mm[Hg] Referring Provider Unknown [facility] 250 DO Work Phone: 11-28-2022 14:10-0400 Body height 182.88 cm Referring Provider Unknown [facility] 250 DO Work Phone: 11-28-2022 14:10-0400 Body mass index (BMI) [Ratio] 32.55 kg/m2 Referring Provider Unknown [facility] 250 DO Work Phone: 11-28-2022 14:10-0400 Body surface area Derived from formula 2.3 m2 Referring Provider Unknown [facility] 250 DO Work Phone: 11-28-2022 14:10-0400 Body weight 108.86 kg Referring Provider Unknown [facility] 250 DO Work Phone: 11-28-2022 14:10-0400 Diastolic blood pressure 86 mm[Hg] Referring Provider Unknown [facility] 250 DO Work Phone: 11-28-2022 14:10-0400 Heart rate 75 /min Referring Provider Unknown [facility] 250 DO Work Phone: 11-28-2022 14:10-0400 Systolic blood pressure 140 mm[Hg] Referring Provider Unknown [facility] 250 DO Work Phone: 03-16-2023 09:43-0400 Body temperature 96.91 [degF] FEDERICO Pond MD Work Phone: [facility] 07-04-2022 09:43-0400 Body weight 102.51 kg FEDERICO Pond MD Work Phone: [facility] 07-04-2022 09:43-0400 Diastolic blood pressure 85 mm[Hg] FEDERICO Pond MD Work Phone: [facility] 07-04-2022 09:43-0400 Heart rate 74 /min FEDERICO Pond MD Work Phone: [facility] 07-04-2022 09:43-0400 Respiratory rate 16 /min FEDERICO Pond MD Work Phone: [facility] 07-04-2022 09:43-0400 SaO2% (BldA) [Mass fraction] 100 % FEDERICO Pond MD Work Phone: [facility] 07-04-2022 09:43-0400 Systolic blood pressure 135 mm[Hg] FEDERICO Pond MD Work Phone: [facility] 06-17-2022 09:40-0500 Blood Pressure Location Mansi GOMEZ [facility] 06-17-2022 09:40-0500 Diastolic blood pressure 82 mm[Hg] Mansi GOMEZ [facility] 06-17-2022 09:40-0500 Heart rate 83 /min Mansi GOMEZ [facility] 06-17-2022 09:40-0500 Respiratory rate 16 /min Mansi GOMEZ [facility] 06-17-2022 09:40-0500 Systolic blood pressure 132 mm[Hg] Mansi GOMEZ [facility] 06-07-2022 09:29-0500 Body height 182.9 cm FEDERICO Pond MD Work Phone: [facility] 06-07-2022 09:29-0500 Body temperature 97.81 [degF] FEDERICO Pond MD Work Phone: [facility] 06-07-2022 09:29-0500 Body weight 100.97 kg FEDERICO Pond MD Work Phone: [facility] 06-07-2022 09:29-0500 Diastolic blood pressure 79 mm[Hg] FEDERICO Pond MD Work Phone: [facility] 06-07-2022 09:29-0500 Heart rate 79 /min FEDERICO Pond MD Work Phone: [facility] 06-07-2022 09:29-0500 Respiratory rate 16 /min FEDERICO Pond MD Work Phone: [facility] 06-07-2022 09:29-0500 SaO2% (BldA) [Mass fraction] 99 % FEDERICO Pond MD Work Phone: [facility] 06-07-2022 09:29-0500 Systolic blood pressure 129 mm[Hg] FEDERICO Pond MD Work Phone: [facility] 05-06-2022 07:47-0500 Body temperature 96.01 [degF] FEDERICO Pond MD Work Phone: [facility] 05-06-2022 07:47-0500 Body weight 97.52 kg FEDERICO Pond MD Work Phone: [facility] 05-06-2022 07:47-0500 Diastolic blood pressure 86 mm[Hg] FEDERICO Pond MD Work Phone: [facility] 05-06-2022 07:47-0500 Heart rate 85 /min FEDERICO Pond MD Work Phone: [facility] 05-06-2022 07:47-0500 Respiratory rate 18 /min FEDERICO Pond MD Work Phone: [facility] 05-06-2022 07:47-0500 SaO2% (BldA) [Mass fraction] 100 % FEDERICO Pond MD Work Phone: [facility] 05-06-2022 07:47-0500 Systolic blood pressure 116 mm[Hg] FEDERICO Pond MD Work Phone: [facility] 04-29-2022 08:19-0500 Body temperature 96.69 [degF] Scot Licona MD Work Phone: [facility] 04-29-2022 08:19-0500 Body weight 100.25 kg Scot Licona MD Work Phone: [facility] 04-29-2022 08:19-0500 Diastolic blood pressure 81 mm[Hg] Scot Licona MD Work Phone: [facility] 04-29-2022 08:19-0500 Heart rate 84 /min Scot Licona MD Work Phone: [facility] 04-29-2022 08:19-0500 Respiratory rate 18 /min Scot Licona MD Work Phone: [facility] 04-29-2022 08:19-0500 SaO2% (BldA) [Mass fraction] 98 % Scot Licona MD Work Phone: [facility] 04-29-2022 08:19-0500 Systolic blood pressure 151 mm[Hg] Scot Licona MD Work Phone: [facility] 04-23-2022 08:25-0500 Body temperature 97.11 [degF] FEDERICO Pond MD Work Phone: [facility] 04-23-2022 08:25-0500 Body weight 99.61 kg FEDERICO Pond MD Work Phone: [facility] 04-23-2022 08:25-0500 Diastolic blood pressure 77 mm[Hg] FEDERICO Pond MD Work Phone: [facility] 04-23-2022 08:25-0500 Heart rate 82 /min FEDERICO Pond MD Work Phone: [facility] 04-23-2022 08:25-0500 Respiratory rate 18 /min FEDERICO Pond MD Work Phone: [facility] 04-23-2022 08:25-0500 SaO2% (BldA) [Mass fraction] 99 % FEDERICO Pond MD Work Phone: [facility] 04-23-2022 08:25-0500 Systolic blood pressure 125 mm[Hg] FEDERICO Pond MD Work Phone: [facility] 04-16-2022 17:09-0500 Body temperature 97.3 [degF] FEDERICO Pond MD Work Phone: [facility] 04-16-2022 17:09-0500 Body weight 100.25 kg FEDERICO Pond MD Work Phone: [facility] 04-16-2022 17:09-0500 Diastolic blood pressure 84 mm[Hg] FEDERICO Pond MD Work Phone: [facility] 04-16-2022 17:09-0500 Heart rate 81 /min FEDERICO Pond MD Work Phone: [facility] 04-16-2022 17:09-0500 Respiratory rate 16 /min FEDERICO Pond MD Work Phone: [facility] 04-16-2022 17:09-0500 SaO2% (BldA) [Mass fraction] 99 % FEDERICO Pond MD Work Phone: [facility] 04-16-2022 17:09-0500 Systolic blood pressure 144 mm[Hg] FEDERICO Pond MD Work Phone: [facility] 04-08-2022 07:58-0500 Body temperature 97.39 [degF] FEDERICO Pond MD Work Phone: [facility] 04-08-2022 07:58-0500 Body weight 99.34 kg FEDERICO Pond MD Work Phone: [facility] 04-08-2022 07:58-0500 Heart rate 75 /min FEDERICO Pond MD Work Phone: [facility] 04-08-2022 07:58-0500 Respiratory rate 18 /min FEDERICO Pond MD [facility] [facility] 04-08-2022 07:58-0500 SaO2% (BldA) [Mass fraction] 98 % FEDERICO Pond MD Work Phone: [facility] 04-01-2022 07:49-0500 Body temperature 96.3 [degF] FEDERICO Pond MD Work Phone: [facility] 04-01-2022 07:49-0500 Body weight 92.53 kg FEDERICO Pond MD Work Phone: [facility] 04-01-2022 07:49-0500 Diastolic blood pressure 88 mm[Hg] FEDERICO Pond MD Work Phone: [facility] 04-01-2022 07:49-0500 Heart rate 74 /min FEDERICO Pond MD Work Phone: [facility] 04-01-2022 07:49-0500 Respiratory rate 16 /min FEDERICO Pond MD Work Phone: [facility] 04-01-2022 07:49-0500 SaO2% (BldA) [Mass fraction] 74 % FEDERICO Pond MD Work Phone: [facility] 04-01-2022 07:49-0500 Systolic blood pressure 158 mm[Hg] FEDERICO Pond MD Work Phone: [facility] 03-13-2022 11:33-0500 Blood Pressure Location Mansi GOMEZ [facility] 03-13-2022 11:33-0500 Diastolic blood pressure 83 mm[Hg] Mansi GOMEZ [facility] 03-13-2022 11:33-0500 Heart rate 80 /min Mansi GOMEZ [facility] 03-13-2022 11:33-0500 Systolic blood pressure 139 mm[Hg] Mansi GOMEZ [facility] 03-06-2022 12:57-0500 Body height 182.9 cm FEDERICO Pond MD Work Phone: [facility] 03-06-2022 12:57-0500 Body temperature 96.69 [degF] FEDERICO Pond MD Work Phone: [facility] 03-06-2022 12:57-0500 Body weight 96.16 kg FEDERICO Pond MD Work Phone: [facility] 03-06-2022 12:57-0500 Diastolic blood pressure 83 mm[Hg] FEDERICO Pond MD Work Phone: [facility] 03-06-2022 12:57-0500 Heart rate 72 /min FEDERICO Pond MD Work Phone: [facility] 03-06-2022 12:57-0500 Respiratory rate 18 /min FEDERICO Pond MD Work Phone: [facility] 03-06-2022 12:57-0500 SaO2% (BldA) [Mass fraction] 99 % FEDERICO Pond MD Work Phone: [facility] 03-06-2022 12:57-0500 Systolic blood pressure 151 mm[Hg] FEDERICO Pond MD Work Phone: [facility] 02-13-2022 13:11-0400 Blood Pressure Location Mansi GOMEZ [facility] 02-13-2022 13:11-0400 Diastolic blood pressure 87 mm[Hg] Mansi GOMEZ [facility] 02-13-2022 13:11-0400 Heart rate 68 /min Mansi GOMEZ [facility] 02-13-2022 13:11-0400 Respiratory rate 16 /min Mansivibha GOMEZ [facility] 02-13-2022 13:11-0400 Systolic blood pressure 130 mm[Hg] Mansivibha GOMEZ [facility] 02-01-2022 09:34-0400 Blood Pressure Location Mansivibha GOMEZ [facility] 02-01-2022 09:34-0400 Diastolic blood pressure 81 mm[Hg] Mansi GOMEZ [facility] 02-01-2022 09:34-0400 Heart rate 76 /min Mansivibha GOMEZ [facility] 02-01-2022 09:34-0400 Respiratory rate 16 /min Mansivibha GOMEZ [facility] 02-01-2022 09:34-0400 Systolic blood pressure 137 mm[Hg] Mansi GOMEZ [facility] Encounters Encounter Date Encounter Type Care Provider Facility Start: 09-10-2023 ambulatory [facility] Facility:Rachel Pitty Start: 08-07-2023 End: 08-07-2023 ambulatory [facility] Amb[facility] Start: 08-07-2023 End: 08-07-2023 Office outpatient visit 25 minutes Safia Cerda MD Work Phone: [facility] Comment on above: Peripheral vascular disease (CMS-HCC); Primary hypertension; Mixed hyperlipidemia; BMI 34.0-34.9,adult; Pulmonary emphysema, unspecified emphysema type (Multi); Shortness of breath; Former smoker; Prostate cancer (Multi); Medical non-compliance Start: 07-09-2023 Orders Only Ricardo gaffney MD Work Phone: [facility] Comment on above: Bilateral carotid ar betzaida stenosis (Primary Dx); 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) Start: 07-08-2023 Telephone encounter Ricardo bravo MD Work Phone: [facility] Start: 07-04-2023 End: 07-04-2023 ambulatory RICARDO WANG Facility:[facility] Start: 07-04-2023 End: 07-04-2023 Patient encounter procedure Ricardo Wang MD Work Phone: [facility]urg [facility] Comment on above: SOB (shortness of br eath) (Primary Dx); Neurogenic claudication; Bilateral carotid artery stenosis; Diabetic mononeuropathy associated with type 2 diabetes mellitus (HCC) Start: 07-02-2023 End: 07-02-2023 Orders Only Ricardo Wang MD Work Phone: [facility] Surg Dept Comment on above: PAD (peripheral jozef ry disease) (HCC) (Primary Dx) Malignant neoplasm o f prostate (HCC) (Primary Dx) Start: 06-27-2023 Orders Only Ricardo gaffney MD Work Phone: [facility]urg [facility] Comment on above: PAD (peripheral jozef ry disease) (HCC) (Primary Dx) Start: 06-24-2023 Telephone encounter Ricardo bravo MD Work Phone: V[facility] Surg Dept Comment on above: Appointment Start: 06-10-2023 Telephone encounter [facility] Start: 05-29-2023 End: 05-29-2023 ambulatory VALERIE ARRIOLA [facility] Start: 05-29-2023 End: 05-29-2023 Office outpatient visit 25 minutes Valerie Arriola MD [facility] Comment on above: PAD (peripheral jozef ry disease) (CMS-HCC) (Primary Dx); Claudication (CMS-HCC) Start: 05-08-2023 End: 05-08-2023 ambulatory [facility] Start: 05-01-2023 End: 05-01-2023 ambulatory [facility] Start: 05-01-2023 End: 05-01-2023 Office outpatient visit 25 minutes Jamie Dave MD Work Phone: [facility] Comment on above: PAD (peripheral jozef ry disease) (CMS-HCC) (Primary Dx); Claudication (CMS-HCC); Rest pain of lower extremity due to atherosclerosis (CMS-HCC) Start: 04-24-2023 End: 04-25-2023 ambulatory [facility] Start: 03-21-2023 End: 03-22-2023 ambulatory Corry Hanson MD Work Phone: Urology Start: 03-05-2023 End: 03-06-2023 ambulatory [facility] Facility:[facility] Start: 03-05-2023 End: 03-05-2023 Patient encounter procedure Mansi GOMEZ [facility] Start: 01-23-2023 End: 01-23-2023 ambulatory [facility] Ambulatory Start: 01-23-2023 End: 01-23-2023 Office outpatient visit 15 minutes Safia Cerda MD Work Phone: [facility] Comment on above: Peripheral vascular disease (CMS/HCC) (Primary Dx); Shortness of breath; Mixed hyperlipidemia; Primary hypertension; Encounter to discuss test results; Class 1 obesity with body mass index (BMI) of 32.0 to 32.9 in adult Start: 01-17-2023 End: 01-17-2023 ambulatory Shelley POND Facility:[facility] Start: 01-02-2023 End: 01-03-2023 ambulatory Shelley POND Facility:[facility] Start: 01-02-2023 End: 01-03-2023 Patient encounter procedure Shelley Pond MD Work Phone: Radiation Oncology Comment on above: Malignant neoplasm o f prostate (HCC) (Primary Dx); Other specified disorders of kidney and ureter Start: 12-28-2022 Chart Update Referring Prov ider Unknown [facility] 250 DO Work Phone: Start: 12-20-2022 ambulatory PCP UNKNOWN Facility:[id number] Start: 12-16-2022 End: 12-16-2022 ambulatory Safia Cerda Facility:[facility] Start: 12-16-2022 End: 12-16-2022 Admission to same day surgery center [facility] Antonio Shammo Work Phone: [facility] [facility] Manager Work Phone: Start: 12-16-2022 End: 12-16-2022 ambulatory [facility] Antonio T Shammo Work Phone: [facility] Work Phone: Start: 12-16-2022 ambulatory MD SAFIA CERDA Facilit y:[id number] Start: 12-12-2022 Chart Update Referring Prov ider Unknown [facility] 250 DO Work Phone: Start: 12-12-2022 End: 12-12-2022 ambulatory Safia Cerda Facility:[facility] Start: 12-12-2022 End: 12-12-2022 Patient encounter procedure [facility] Antonio Shammo Work Phone: [facility] Work Phone: Start: 11-28-2022 Office consultation new/estab patient 60 min Referring Provider Unknown [facility] 250 DO Work Phone: Start: 11-28-2022 ambulatory PCP UNKNOWN Facility:[id number] Start: 09-17-2022 End: 09-18-2022 ambulatory ANTONIO SHAMMO Facility:[facility] Start: 09-11-2022 End: 09-12-2022 ambulatory Mansi GOMEZ Facility: [place] Start: 09-09-2022 End: 09-10-[address] MANSI GOMEZ . Facility:[facility]1 Start: 08-29-2022 End: 08-30-2022 ambulatory ANTONIO SHAMMO Facility:[facility] Start: 08-28-2022 End: 08-29-2022 ambulatory ANTONIO SHAMMO Facility:[facility] Start: 07-04-2022 End: 07-04-2022 Patient encounter procedure Shelley Pond MD Work Phone: [facility] Comment on above: Malignant neoplasm o f prostate (HCC) (Primary Dx); Renal mass, left Start: 2022 End: 07-02-2022 ambulatory ANTONIO SHAMMO Facility:[facility] Start: 06-28-2022 End: 06-29-2022 ambulatory ANTONIO SHAMMO Facility:[facility] Start: 06-20-2022 Patient encounter procedure Shelley Pond MD Work Phone: [facility] Start: 06-20-2022 Radiation Oncology Note G Jitendra Pond MD Work Phone: [facility] Comment on above: Simulation Note Start: 06-17-2022 End: 06-18-2022 ambulatory Mansi GOMEZ Facility: [place] Start: 06-17-2022 End: 06-17-2022 Patient encounter procedure Mansi GOMEZ [facility] Start: 06-07-2022 End: 06-07-2022 Patient encounter procedure Shelley Pond MD Work Phone: [facility] Comment on above: Malignant neoplasm o f prostate (HCC) (Primary Dx) Start: 06-05-2022 End: 06-06-2022 ambulatory ANTONIO SHAMMO Facility:[facility] Start: 06-04-2022 Refill G Stuart west MD Work Phone: [facility] Comment on above: Refill Request Start: 05-31-2022 End: 06-01-2022 ambulatory ANTONIO SHAMMO Facility: [place] Start: 05-31-2022 End: 05-31-2022 Patient encounter procedure Mitchel SEGUNDO General Surgery [facility] [place] Start: 05-29-2022 End: 05-30-2022 ambulatory ANTONIOSANDI ARRINGTONMO Facility: [place] Start: 05-29-2022 End: 05-29-2022 Patient encounter procedure Mansi GOMEZ [facility] [place] Start: 05-24-2022 End: 05-24-2022 ambulatory ANTONIOSANDI ARRINGTONUT Facility:CD:[id number] Start: 05-23-2022 End: 05-23-[address] MANSI GOMEZ . Facility:[facility] Start: 05-23-2022 End: 05-23-2022 Patient encounter procedure Shelley Pond MD Work Phone: Radiation Oncology Comment on above: Malignant neoplasm o f prostate (HCC) (Primary Dx) Start: 05-15-2022 Encounter for preprocedural cardiovascular examination DR MITCHEL SEGUNDO . [facility] Start: 05-15-2022 Encounter for preprocedural laboratory examination DR MITCHEL SEGUNDO . [facility] Start: 05-15-2022 End: 05-16-2022 ambulatory ANTONIO [facility] Facility:[facility]1 Start: 05-14-2022 Encounter for preprocedural cardiovascular examination DR MANSI GOMEZ . [facility] Start: 05-14-2022 Encounter for preprocedural laboratory examination DR MANSI GOMEZ . [facility] Start: 05-14-2022 Patient encounter procedure Shelley Pond MD Work Phone: [place] Start: 05-14-2022 Radiation Oncology Note G Jitendra Pond MD Work Phone: Radiation Oncology Comment on above: Treatment Planning Start: 05-13-2022 End: 05-14-[address] MANSI GOMEZ . Facility:[facility]1 Start: 05-13-2022 End: 05-14-2022 Encounter for preprocedural cardiovascular examination ANTONIO SHAMMO Facility:[facility] Start: 05-13-2022 End: 05-14-2022 Encounter for preprocedural laboratory examination DR MANSI GOMEZ . Facility:[facility]1 Start: 05-10-2022 Orders Only Shelley west MD Work Phone: [facility] Comment on above: Acquired cyst of kid apollo (Primary Dx); Other specified disorders of kidney and ureter Appointment Start: 05-08-2022 End: 05-08-2022 Patient encounter procedure Shelley Pond MD Work Phone: [facility] Comment on above: Left lower quadrant abdominal pain (Primary Dx); Left inguinal pain Start: 05-08-2022 Radiation Oncology Note Shelley Pond MD Work Phone: [facility] Comment on above: Completion Note Start: 05-06-2022 End: 05-06-2022 Patient encounter procedure Shelley Pond MD Work Phone: [facility] Comment on above: Malignant neoplasm o f prostate (HCC) (Primary Dx) Start: 04-29-2022 End: 04-29-2022 Patient encounter procedure Scot Licona MD Work Phone: [facility] Oncology Comment on above: Malignant neoplasm o f prostate (HCC) (Primary Dx) Start: 04-23-2022 End: 04-23-2022 Patient encounter procedure Shelley Pond MD Work Phone: [facility] Oncology Comment on above: Malignant neoplasm o f prostate (HCC) (Primary Dx) Start: 04-22-2022 End: 04-23-2022 ambulatory ANTONIO SHAMUT Facility:[facility] Start: 04-18-2022 End: 04-19-2022 ambulatory [facility] Facility:[facility]1 Start: 04-16-2022 End: 04-16-2022 Patient encounter procedure Shelley Pond MD Work Phone: Radiation Oncology Comment on above: Malignant neoplasm o f prostate (HCC) (Primary Dx) Start: 04-11-2022 End: 04-11-2022 Patient encounter procedure [facility] [facility] Work Phone: Radiation Oncology Comment on above: Malignant neoplasm o f prostate (HCC) Start: 04-08-2022 End: 04-08-2022 Patient encounter procedure Shelley Pond MD Work Phone: Rad[facility] Oncology Comment on above: Malignant neoplasm o f prostate (HCC) (Primary Dx) Start: 04-02-2022 End: 04-03-2022 ambulatory Mitchel SEGUNDO Facility: [place] Start: 04-01-2022 End: 04-01-2022 Patient encounter procedure Shelley Pond MD Work Phone: Rad[facility] Oncology Comment on above: Malignant neoplasm o f prostate (HCC) (Primary Dx) Start: 03-27-2022 End: 03-27-2022 Patient encounter procedure Shelley Pond MD Work Phone: [facility] Comment on above: Malignant neoplasm o f prostate (HCC) (Primary Dx) Start: 03-25-2022 Telephone encounter Shelley Pond MD Work Phone: Radiation Oncology Comment on above: Orders Start: 03-21-2022 Patient encounter procedure [facility]cf Provider [facility] Department Start: 03-18-2022 Patient encounter procedure Shelley Pond MD Work Phone: [place] Start: 03-18-2022 Radiation Oncology Note Shelley Pond MD Work Phone: Radiation Oncology Comment on above: Simulation Note Treatment Planning Start: 03-13-2022 End: 03-13-2022 Patient encounter procedure Ccf Provider [facility] Department Start: 03-13-2022 End: 03-14-2022 ambulatory Mansi GOMEZ Facility: [place] Start: 03-11-2022 ambulatory Mitchel SEGUNDO Facility : [place] Start: 03-08-2022 End: 03-09-[address] MANSI GOMEZ . Facility: Start: 03-06-2022 ambulatory Bonnie Sanz RN Radiati on Oncology Comment on above: Patient Education Start: 03-06-2022 End: 03-06-2022 Patient encounter procedure Shelley Pond MD Work Phone: [facility]iation Oncology Comment on above: Malignant neoplasm o f prostate (HCC) (Primary Dx) Start: 02-13-2022 End: 02-13-2022 Patient encounter procedure Mansi GOMEZ [facility] Start: 02-08-2022 End: 02-09-2022 ambulatory ANTONIO SHAMMO Facility:[facility] Start: 02-01-2022 End: 02-01-2022 Patient encounter procedure Mansi GOMEZ [facility] Start: 01-25-2022 Encounter for genera l adult medical examination without abnormal findings ANTONIO SHAMMO [facility] Start: 01-25-2022 ambulatory ANTONIO SHAMMO Facility:H 1 Start: 01-24-2022 End: 01-25-2022 ambulatory ANTONIO SHAMMO Facility:[facility] Start: 01-23-2022 End: 01-24-2022 ambulatory ANTONIO SHAMMO Facility:[facility] Start: 01-22-2022 End: 01-23-2022 ambulatory ANTONIO SHAMMO Facility:[facility] Start: 01-22-2022 End: 01-23-2022 Encounter for general adult medical examination without abnormal findings ANTONIO SHAMMO Facility:[facility] Procedures Date Procedure Procedure Detail Performing Clinician Start: 08-07-2023 FOLLOW UP IN CARDIOLOGY SAFIA CERDA Start: 05-01-2023 Follow-up visit Follow-up JAMIE DAVE Start: 03-21-2023 Urnls dip stick/tablet rgnt auto w/o microscopy Bulk Order Provider Start: 03-03-2023 PSA screening [facility] Provider Start: 12-20-2022 Echocardiography Referring Provider Unknown Start: 12-16-2022 CL Closure Device Placement 0 EXECUTIVE ADMINISTRATOR-BC Ge as Shammo Work Phone: Start: 12-16-2022 CL RHC/LHC w/Cor Angio EXECUTIVE ADMINISTRATOR-BC Antonio Shammo Work Phone: Start: 12-09-2022 PSA screening [facility] Provider Start: 09-09-2022 PSA screening ANTONIO SHAMMO Comment on above: Performed By: #### PSAD #### [facility] [address] [place] [address] Dr. Suresh Durand Start: 2022 End: 2022 PSA screening [facility] Provider Comment on above: Performed By: #### PSAD #### [facility] [address] [place] [address] Dr. Suresh Durand Start: 05-23-2022 Brachytherapy Mansi GOMEZ Start: 05-15-2022 Colonoscopy Safia Cerda MD Work Phone: Start: 05-15-2022 Colonoscopy Mitchel SEGUNDO Start: 05-15-2022 Esophagogastroduodenoscopy Mitchel SEGUNDO Start: 04-21-2022 Teleradiotherapy procedure Mansi VACA S Start: 04-11-2022 Blood count complete auto&auto difrntl wbc G Stuart Pond MD Work Phone: Start: 03-11-2022 Colonoscopy FEDERICO Pond MD Work Phone: Start: 02-13-2022 Transrectal needle biopsy of prostate Mansi GOMEZ Start: 01-22-2022 PSA screening ANTONIO CASTELLON Comment on above: Performed By: #### PSASC #### [facility] [address] [place] [address] Dr. 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, Adriane or [place] Mansi GOMEZ Cholecystectomy Mansivibha SPEARSRachel SWAN Cholecystectomy Referring Pr ovider Unknown Colonoscopy Mansi GOMEZ Esophagogastroduodenoscopy P atrick PATRICIA Excision of vein Mansi ALICIA ERS Comment on above: scrotum Internal metabolic radiotherapy Referring Provider Unknown Intracranial aneurysm operation Referring Provider Unknown Ligation of varicose vein Re ferring Provider Unknown Procedure on brain Mansi Vida ATEBENY Removal of foreign body from neck Mansi GOMEZ Removal of foreign b veda of subcutaneous tissue Referring Provider Unknown Stripping of vein Mansi FABIAN Total colonoscopy Referring Provider Unknown Comment on above: September 2022; Plan of Treatment Date Care Activity Detail Author Start: 05-15-2032 Screening for malign ant neoplasm of colon [facility] Start: 03-03-2028 Prostate specific antigen measurement Prostate Cancer Screening Discussion [facility] Start: 12-10-2027 Prostate Cancer Screening Discussion Prostate Cancer Screening Discussion [facility] Start: 07-02-2027 PROSTATE CANCER SCREENING DISCUSSION PROSTATE CANCER SCREENING DISCUSSION [facility] Start: 01-22-2027 PROSTATE CANCER SCREENING DISCUSSION PROSTATE CANCER SCREENING DISCUSSION [facility] Start: 05-06-2025 DIABETES SCREEN DIABETES SCREEN [facility] Start: 05-06-2025 Diabetes Screening Diabetes Screenin g [facility] Start: 11-26-2024 Tobacco Counseling Tobacco Counselin g [facility] Start: 08-02-2024 End: 08-02-2024 Patient encounter procedure 08/02/2024 9:30 AM EDT Office Visit [facility] [address] [facility] [address] [place] [address] Safia Cerda MD [address] [facility] [address] [place], [place] [id number] [facility] Start: 05-29-2024 Adult BMI Screening Adult BMI Screen ing [facility] Start: 05-29-2024 Tobacco Screening Tobacco Screening [facility] Start: 05-08-2024 Adult BMI Screening Adult BMI Screen ing [facility] Start: 05-03-2024 Tobacco Counseling Tobacco Counselin g [facility] Start: 05-01-2024 Tobacco Screening Tobacco Screening [facility] Start: 12-21-2023 Influenza vaccination Influenz a Vaccine (Season Ended) [facility] Start: 08-28-2023 End: 08-28-2023 Patient encounter procedure 08/28/2023 8:30 AM EDT Office Visit [facility] [address] [place] [address] Valerie Arriola MD [address], [facility] [address] [place] [address] [facility] Start: 08-07-2023 End: 08-06-2024 Comprehensive metabolic 2000 panel - Serum or Plasma Comprehensive Metabolic Panel Lab Routine Peripheral vascular disease (CMS-HCC) Primary hypertension Mixed hyperlipidemia Expected: 08/07/2023 (Approximate), Expires: 08/06/2024 [facility] Work Phone: Comment on above: Expected: 08/07/2023 (Approximate), Expires: 08/06/2024 Start: 08-07-2023 End: 08-06-2024 Lipid 1996 panel - Serum or Plasma Lipid Panel Lab Routine Mixed hyperlipidemia Expected: 08/07/2023 (Approximate), Expires: 08/06/2024 [facility] Service Area Work Phone: Comment on above: Expected: 08/07/2023 (Approximate), Expires: 08/06/2024 Start: 08-07-2023 End: 08-07-2023 Patient encounter procedure 08/07/2023 9:30 AM EDT Office Visit [facility] [address] [facility] [address] [place] [address] Safia Cerda MD [address] [facility] [address] [place] [address] [facility] Start: 05-29-2023 End: 05-29-2023 Patient encounter procedure 05/29/2023 10:00 AM EST Office Visit [facility] [address] [place] [address] Valerie Arriola MD [address], [address] [place] [address] [facility] Start: 04-21-2023 Advance Directive Discussion Advance Directive Discussion [facility] Start: 04-21-2023 Depression Assessment Depression Ass essment [facility] Start: 03-11-2023 Colonoscopy COLONOSCOPY [facility] Start: 03-11-2023 COLORECTAL CANCER SCREENING COLORECTAL CANCER SCREENING [facility] Start: 01-23-2023 End: 01-24-2024 Comprehensive metabolic 2000 panel - Serum or Plasma Comprehensive metabolic panel Lab Routine Peripheral vascular disease (CMS/HCC) Mixed hyperlipidemia Primary hypertension Expected: 01/23/2023 (Approximate), Expires: 01/24/2024 [facility] Work Phone: Comment on above: Expected: 01/23/2023 (Approximate), Expires: 01/24/2024 Start: 01-23-2023 End: 01-24-2024 Lipid 1996 panel - Serum or Plasma Lipid Panel Lab Routine Peripheral vascular disease (CMS/HCC) Mixed hyperlipidemia Primary hypertension Expected: 01/23/2023 (Approximate), Expires: 01/24/2024 [facility] Service Area Work Phone: Comment on above: Expected: 01/23/2023 (Approximate), Expires: 01/24/2024 Start: 01-23-2023 FUV, Provider: Safia Cerda, Status: Pen, Time: 9:15 AM FUV, Provider: Safia Cerda, Status: Pen, Time: 9:15 AM [facility] 250 DO Work Phone: Start: 01-16-2023 End: 02-01-2024 Ct abdomen w/o & w/contrast material CT KIDNEY WO/W IVCON Radiology Routine Other specified disorders of kidney and ureter Expected: 01/16/2023, Expires: 02/01/2024 [facility] Work Phone: Comment on above: Expected: 01/16/2023 , Expires: 02/01/2024 Start: 01-02-2023 End: 03-04-2023 CREATININE BLD CREATININE BLD Lab Routine Other specified disorders of kidney and ureter Expected: 01/02/2023, Expires: 03/04/2023 [facility] [facility] Work Phone: Comment on above: Expected: 01/02/2023 , Expires: 03/04/2023 Start: 12-20-2022 Covid-19 Vaccine () Covid-19 Vaccine () [facility] Start: 12-20-2022 Influenza vaccination C [facility] Start: 12-20-2022 ECHO, Provider: JADA MEIER HHVI ULTRASOUND ,[id number], Status: Pen, Time: 11:30 AM ECHO, Provider: HALIE HHVI ULTRASOUND ,[id number], Status: Pen, Time: 11:30 AM [facility] 250 DO Work Phone: Start: 12-16-2022 Hospital admission [facility] Start: 12-16-2022 End: 12-16-2022 [facility] Start: 12-16-2022 SURGNON, Provider: Safia Cerda, Status: Pen, Time: 3:00 PM SURGNONUH, Provider: Safia Cerda, Status: Pen, Time: 3:00 PM [facility] 250 DO Work Phone: Start: 07-05-2022 End: 09-04-2022 Prostate specific Ag [Mass/volume] in Serum or Plasma PSA/PROSTSPECAG DIAG Lab Routine Malignant neoplasm of prostate (HCC) Expected: 07/05/2022, Expires: 09/04/2022 [facility] Work Phone: Comment on above: Expected: 07/05/2022 , Expires: 09/04/2022 Start: 07-04-2022 End: 09-03-2022 Prostate specific Ag [Mass/volume] in Serum or Plasma PSA/PROSTSPECAG DIAG Lab Routine Malignant neoplasm of prostate (HCC) Expected: 07/04/2022, Expires: 09/03/2022 [facility] Work Phone: Comment on above: Expected: 07/04/2022 , Expires: 09/03/2022 Start: 05-06-2022 End: 07-06-2022 Urinalysis complete panel - Urine URINALYSIS, WITH MICROSCOPIC Lab Routine Malignant neoplasm of prostate (HCC) Expected: 05/06/2022, Expires: 07/06/2022 [facility] Work Phone: Comment on above: Expected: 05/06/2022 , Expires: 07/06/2022 Start: 04-21-2022 ADVANCE DIRECTIVE DISCUSSION ADVANCE DIRECTIVE DISCUSSION [facility] Start: 04-21-2022 DEPRESSION ASSESSMENT DEPRESSION ASS ESSMENT [facility] Start: 04-04-2022 End: 06-04-2022 CBC W Auto Differential panel - Blood CBC + DIFF Lab Routine Malignant neoplasm of prostate (HCC) Expected: 04/04/2022, Expires: 06/04/2022 [facility] Work Phone: Comment on above: Expected: 04/04/2022 , Expires: 06/04/2022 Start: 12-20-2021 Influenza vaccination INFLUENZA (#1) [facility] Start: 2021 Abdominal aortic aneurysm screening Abdominal Aortic Aneurysm (AAA) Screening [facility] Start: 2021 ADVANCE DIRECTIVE DISCUSSION ADVANCE DIRECTIVE DISCUSSION [facility] Start: 2021 Fall Risk Screening Fall Risk Screen [facility] [employer] Start: 04-27-2021 COVID-19 VACCINE (3 - Booster for Kim series) COVID-19 VACCINE (3 - Booster for Kim series) [facility] Start: 04-21-2021 DEPRESSION ASSESSMENT DEPRESSION ASS ESSMENT [facility] Start: 2016 RSV Vaccine (1 - 1-d ose 60+ series) RSV Vaccine (1 - 1-dose 60+ series) [facility] Start: 2006 Influenza vaccination LUNG CANCER SC REENING [facility] Start: 2006 Screening for malign ant neoplasm of lung Lung Cancer Screening [facility] Start: 2006 SHINGRIX VACCINE (1 of 2) SHINGRIX VACCINE (1 of 2) [facility] Start: 2006 Zoster Vaccines (1 of 2) Zoster Vacc macey (1 of 2) [facility] Start: 2001 COLOGUARD (FIT-DNA) COLOGUARD (FIT-D NA) [facility] Start: 2001 Colonoscopy COLONOSCOPY [facility] Start: 2001 COLORECTAL CANCER SCREENING COLORECTAL CANCER SCREENING [facility] Start: [address] COLONOGRAPHY [facility] Start: 2001 DIABETES SCREEN DIABETES SCREEN [facility] Start: 2001 FECAL OCCULT BLOOD FECAL OCCULT BLOO D [facility] Start: 2001 Screening for malign ant neoplasm of colon [facility] Start: 2001 SIGMOIDOSCOPY SIGMOIDOSCOPY [facility] Start: 07-02-1991 Lipid 1996 panel - S angel or Plasma Lipid Screening [facility] Start: 07-02-1991 Lipid panel Lipid Screening [facility] Start: 07-02-1991 LIPID SCREEN LIPID SCREEN [facility] Start: 1978 DTaP/Tdap/Td Vaccine s (1 - Tdap) DTaP/Tdap/Td Vaccines (1 - Tdap) [facility] Start: 07-02-1975 Administration of varicella zoster vaccine Zoster (Shingles) Vaccine (1 of 2) [facility] Start: 07-02-1975 DTaP,Tdap and Td Vaccines (1 - Tdap) DTaP,Tdap and Td Vaccines (1 - Tdap) [facility] Start: 07-02-1975 Urine microalbumin profile [facility] Start: 1974 Adult BMI Follow Up Plan Adult BMI F ollow Up Plan [facility] Start: 1974 Annual PCP Team Certified Ophthalmic Technician leeanne Disease Visit Annual PCP Team Chronic Disease Visit [facility] Start: 1974 Diabetes mellitus screening Diabetes Screening [facility] Start: 1974 Diabetic foot examination Diabetic Foot Exam [facility] Start: 1974 Hepatitis B surface antibody level LDL Cholesterol [facility] Start: 1974 HEPATITIS C SCREENING HEPATITIS C [facility] Start: 1974 Hepatitis C screening Hepatitis C [facility] Start: 1974 HIV SCREENING HIV SCREENING [facility] Start: 1968 Depression Screening Depression Scre ening [facility] Start: 1966 Diabetic foot examination Diabetic Foot Exam [facility] Start: 1966 Glaucoma screening Dilated Retinal E xam [facility] Start: 1966 Hepatitis B screening Urine Al bumin:Creatinine Ratio [facility] Start: 1962 Pneumococcal Vaccine : 65+ (1 - PCV) Pneumococcal Vaccine: 65+ (1 - PCV) [facility] Start: 1962 Pneumococcal Vaccine : 65+ (1 of 2 - PCV) Pneumococcal Vaccine: 65+ (1 of 2 - PCV) [facility] Start: 1962 Pneumococcal Vaccine : 65+ Years (1 - PCV) Pneumococcal Vaccine: 65+ Years (1 - PCV) [facility] Start: 1962 Pneumococcal Vaccine : 65+ Years (1 of 2 - PCV) Pneumococcal Vaccine: 65+ Years (1 of 2 - PCV) [facility] Start: 1962 PNEUMOCOCCAL: 65+ (1 - PCV) PNEUMOCOCCAL: 65+ (1 - PCV) [facility] Start: 1961 Hemoglobin A1c measurement HbA1C [facility] Start: 01-01-1957 COVID-19 VACCINE (#1) COVID-19 VACCI NE (#1) [facility] Start: 1956 ABDOMINAL AORTIC ANEURYSM SCREENING ABDOMINAL AORTIC ANEURYSM SCREENING [facility] Start: 1956 Abdominal aortic aneurysm screening Abdominal Aortic Aneurysm Screening [facility] Start: 1956 Glaucoma screening [facility] Start: 1956 Lipid panel Lipid Panel [facility] Start: 1956 Medicare Annual Well ness Visit [facility] Start: 1956 Screening for malign ant neoplasm of colon [facility] End: 06-09-2023 Ct abdomen w/o & w/contrast material CT KIDNEY WO/W IVCON Radiology Routine Acquired cyst of kidney Other specified disorders of kidney and ureter 1 Occurrences starting 05/10/2022 until 06/09/2023 [facility] Work Phone: Comment on above: 1 Occurrences starti ng 05/10/2022 until 06/09/2023 Patient referral [facility] Work Phone: End: 07-08-2024 US Carotid arteries - bilateral US CAROTID ARTERIES DIETER [facility]AS LAB Vascular Lab Routine Bilateral carotid artery stenosis 1 Occurrences starting 07/09/2023 until 07/08/2024 [facility] Work Phone: Comment on above: 1 Occurrences starti ng 07/09/2023 until 07/08/2024 End: 06-26-2024 US Lower extremity artery - bilateral PVR LEG DIETER [facility] Vascular Lab Routine PAD (peripheral artery disease) (HCC) 1 Occurrences starting 06/27/2023 until 06/26/2024 [facility] Work Phone: Comment on above: 1 Occurrences starti ng 06/27/2023 until 06/26/2024 End: 07-08-2024 US Lower extremity artery - bilateral PVR LEG DIETER [facility]AS LAB Vascular Lab Routine Bilateral carotid artery stenosis 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[facility]) 1 Occurrences starting 07/09/2023 until 07/08/2024 [facility] Work Phone: Comment on above: 1 Occurrences starti ng 07/09/2023 until 07/08/2024 End: 2024 US.doppler Extremity arteries - bilateral for physiologic artery study at rest and with exercise PVR LEG W/EXC DIETER [facility] Vascular Lab Routine PAD (peripheral artery disease) ([facility]) 1 Occurrences starting 07/02/2023 until 2024 [facility] Work Phone: Comment on above: 1 Occurrences starti ng 07/02/2023 until 2024 [facility] Immunizations Immunization Date Immunization Notes Care Provider Rubia bearden 03-02-2021 SARS-CoV-2 (COVID-19 ) mRNA BNT-162b2 vax Mansi GOMEZ [facility] Comment on above: Result Comment: 2021: [id number] 08-28-2020 SARS-CoV-2 (COVID-19 ) Ad26 vaccine, recombinant Mansi GOMEZ [facility] Comment on above: Result Comment: 2021: TPV60 NEGATED: Highlighted row has not occurred!03-05-2023 influenza virus vaccine, unspecified formulation Mansi GOMEZ [facility] NEGATED: Highlighted row has not occurred!04-02-2022 influenza virus vaccine, unspecified formulation Mansi PATRICIA [facility] Payers Date Payer Category Payer Self-pay 2022 Unknown [id number] 2021 Medicare [id number] 1958 Medicare [id number] 1958 Medicare [id number] 1956 Unknown [id number] 2.16.84 0.1.772084.3.579.2.593 1956 Unknown [id number] 2.16.84 0.1.171403.3.579.2.593 1956 Unknown [id number] 2.16.84 0.1.518278.3.579.2.593 1956 Unknown [id number] 2.16.84 0.1.115726.3.579.2.593 1956 Unknown [id number] 2.16.84 0.1.725151.3.579.2.593 1956 Unknown [id number] 2.16.84 0.1.081529.3.579.2.593 1956 Unknown [id number] 2.16.84 0.1.489945.3.579.2.593 1956 Unknown [id number] 2.16.84 0.1.330012.3.579.2.593 1956 Unknown [id number] 2.16.84 0.1.790253.3.579.2.593 1956 Unknown [id number] 2.16.84 0.1.460961.3.579.2.593 1956 Unknown [id number] 2.16.84 0.1.943504.3.579.2.593 1956 Unknown [id number] 2.16.84 0.1.113212.3.579.2.593 1956 Unknown [id number] 2.16.84 0.1.660335.3.579.2.593 1956 Unknown [id number] 2.16.84 0.1.653407.3.579.2.593 1956 Unknown [id number] 2.16.84 0.1.314607.3.579.2.593 1956 Unknown [id number] 2.16.84 0.1.107903.3.579.2.593 1956 Unknown [id number] 2.16.84 0.1.692069.3.579.2.593 1956 Unknown [id number] 2.16.84 0.1.819503.3.579.2.593 1956 Unknown [id number] 2.16.84 0.1.387882.3.579.2.593 1956 Unknown [id number] 2.16.8 40.1.110037.3.579.2.1068 1956 Unknown [id number] 2.16. 840.1.996395.3.579.2.356 1956 Unknown [id number] 2.16. 840.1.878836.3.579.2.356 1956 Unknown [id number] 2.16.8 40.1.752402.3.579.2.727 1956 Unknown [id number] 2.16.8 40.1.326499.3.579.2.727 1956 Unknown [id number] 2.16.8 40.1.646961.3.579.2.727 1956 Unknown [id number] 2.16.8 40.1.320803.3.579.2.727 1956 Unknown [id number] 2.16.8 40.1.062916.3.579.2.727 1956 Unknown [id number] 2.16.8 40.1.186163.3.579.2.727 1956 Unknown [id number] 2.16.8 40.1.250176.3.579.2.727 1956 Unknown [id number] 2.16.8 40.1.905283.3.579.2.727 1956 Unknown [id number] 2.16.8 40.1.097410.3.579.2.727 1956 Unknown [id number] 2.16.8 40.1.146686.3.579.2.727 1956 Unknown [id number] 2.16.8 40.1.833246.3.579.2.727 1956 Unknown [id number] 2.16.8 40.1.767640.3.579.2.727 1956 Unknown [id number] 2.16.84 0.1.745902.3.579.2.1286 1956 Unknown [id number] 2.16.84 0.1.815079.3.579.2.1286 1956 Unknown [id number] 2.16.84 0.1.965679.3.579.2.1286 1956 Unknown [id number] 2.16.8 40.1.849455.3.579.2.1286 1956 Unknown [id number] 2.16.84 0.1.029513.3.579.2.1286 1956 Unknown [id number] 2.16.8 40.1.734849.3.579.2.1244 1956 Unknown [id number] 2.16.8 40.1.975020.3.579.2.1244 Unknown MEDICARE Unknown [id number] 2.16.8 40.1.297444.3.579.2.531 Unknown [id number] 2.16.8 40.1.873533.3.579.2.531 Social History Date Type Detail Facility Start: 02-01-2022 Tobacco smoking status Smoker (findi ng) [facility] Start: 07-04-2022 End: 01-23-2023 Sex Assigned At Male [facility] Start: 02-01-2022 End: 03-06-2022 Tobacco smoking status NHIS Smokes tobacco daily [facility] History of tobacco use [facility]ig[facility] Start: 03-06-2022 End: 01-23-2023 Cigarettes smoked current (pack per day) - Reported [address] [facility] Comment on above: 5 hour energy shots 2-6 per day; August 2022 1ppd; Start: 03-06-2022 End: 01-23-2023 Tobacco use and exposure Smokeless tobacco non-user [facility] Start: 03-06-2022 End: 08-07-2023 Alcohol intake Lifetime non-drinker (finding) [facility] Start: 1955 Sex Assigned At Not on file [facility] Start: 02-24-2022 End: 08-07-2023 Exposure to SARS-CoV-2 (event) Not sure [facility] Start: 04-02-2022 End: 06-17-2022 Tobacco smoking status Heavy tobacco smoker (finding) [facility] Tobacco smoking status Never [facility] Start: 12-16-2022 End: 01-23-2023 Tobacco smoking status NHIS Ex-smoker (finding) [facility] Start: 1955 Sex Assigned At Male [facility] Start: 05-01-2023 End: 05-29-2023 Alcohol intake [employer] Medical Equipment Procedure Code Equipment Code Equipment Origin al Text Equipment Identifier Dates Stent Vsc 8mm 40 mm 130cm Triaxial Dlv Sys Rdpq Slf Xpd Sprfc Rpl [id number] - [id number] , [id number] Start: 11-14-2022 Goals Date Patient Goal Desired Activity /State Functional Status Date Assessment Result Facility 03-05-2023 Functional Status N/A [facility] 12-16-2022 Functional status Patient at Baseline [facility] Work Phone: 06-17-2022 Functional Status N/A [facility] 03-13-2022 Functional Status N/A [facility] 02-13-2022 Functional Status N/A [facility] 02-01-2022 Functional Status N/A [facility] Mental Status Date Assessment Result Facility 12-16-2022 Cognitive function Cognitive Sta tus Patient at Baseline [facility] Work Phone: Clinical Notes 01-31-2022 to 08-07-2023 Safia Cerda MD - 08/07/2023 9:30 AM EDTPatient InstructionsTelephone Encounter - Yolis Young RN - 07/08/2023 8:46 AM Ricardo Marie MD - 07/04/2023 1:13 PM EDTPatient Instructions Note Date & Type Note Facility 08-07-2023 History of Present illness Narrative Follow-up visit. Past medical history as noted below. Since last visit patient had a vascular surgery consultation with [facility], and I have reviewed notes. Report says that patient has normal peripheral pulses including pedal pulse. On the left he has evidence of SFA popliteal disease. Clinical impression was that his symptoms were not consistent with PAD. Neuropathic etiology was suggested. CTA imaging was recommended. Carotid ultrasound was recommended. Pulmonary evaluation was recommended. Evaluation with orthopedic surgery was recommended. Unclear if CTA was done. Subjective : Reports that he does not feel well. Says that his breathing is getting worse, his leg discomfort is getting worse. I Has been out of all his medication for months. His previous residential caregiver moved out of town. Unfortunately this patient has seen his primary MD a month ago, and did not bring up the issue of needing medication refills. Denies orthopnea PND palpitations or chest discomfort History so Far : 1.Multiple cardiac risk factors 2. Hypertension 3. Hyperlipidemia 4. Class II/III claudication 5. Cannot exclude statin induced myalgia 6. [id number] history of smoking quit 4 months ago 7. Lexiscan Myoview08/2022 -normal perfusion, Patient reports that he did not walk on the treadmill.Transient ischemic dilatation 0.8, LVEF 69% 8. History of cerebral aneurysm clipping in 1980 at [facility] in [place], has seen Dr. Castillo of neurology, who is no longer seeing patient on a regular basis 9. Current use of dual antiplatelet therapy 10. Increased BMI 11. Pulmonary function testing-September 2022-mild obstructive pattern on spirometry without bronchodilator response elevated residual volumes suggest air trapping mild diffusion impairment overall study compatible with mild COPD/emphysema diffusion capacity 77% predicted. 12. Patient reports 30 pound weight gain on hormone replacement therapy 13.Carotid ultrasound January 2022-mild bilateral carotid disease 14.CTA August 2022-no pulmonary embolism, emphysema was noted. 15. Echocardiogram December 2022-LVEF 65% impaired relaxation pattern of LV diastolic filling peak and mean gradients across aortic valve 25 and 17 respectively, consistent with mild aortic stenosis, left atrial diameter 3.7 cm, left atrial volume index 15 mL per metered square, ascending aorta 3.2 cm, dimensionless index of the aortic valve 0.49. PA pressure not estimated as there was no tricuspid regurgitation envelope. 16. Cardiac catheterization November 2022-right and left heart catheterization-proximal RCA 40% ulcerated stenosis, NATALIE-3 distal flow, mid and distal RCA 20%, left main 0% stenosis, LAD 20% proximal 30% mid, left circumflex less than 20%, LVEF 65% LVEDP 5 to 8 mmHg, right heart catheterization-mean right atrial pressure 3 mmHg RV pressure 23/3 PA pressure 20/8 with a mean of 12, mean pulmonary capillary wedge pressure 8 mmHg, LVEF 60 to 65%, LVEDP 7 to 9 mmHg 17. 80% stenosis right common iliac artery. 18. Carotid ultrasound June 2023-20 to 39% right internal carotid artery stenosis, patent right antegrade vertebral flow, 20 to 39% stenosis left internal carotid artery with antegrade vertebral flow. Objective Failed to redirect to the Timeline version of the REVFS SmartLink. Wt Readings from Last 3 Encounters: 08/07/23 115 kg (253 lb) 01/23/23 111 kg (245 lb) 11/28/22 109 kg (240 lb) Visit Vitals BP 154/90 (BP Location: Left arm, Patient Position: Sitting, BP Cuff Size: Large adult) Pulse 80 Ht 1.829 m (6') Wt 115 kg (253 lb) BMI 34.31 kg/m Smoking Status Former BSA 2.42 m Physical Exam: GENERAL APPEARANCE: in no acute distress. CHEST: Symmetric and non-tender. INTEGUMENT: Skin warm and dry HEENT: No gross abnormalities identified.No pallor or scleral icterus. NECK: Supple, no JVD, no bruit. NEURO/PSHCY: Alert and oriented x3; appropriate behavior and responses and responses LUNGS: Clear to auscultation bilaterally; normal respiratory effort. HEART: Rate and rhythm regular with no evident murmur; no gallop appreciated. ABDOMEN: Soft, non tender. MUSCULOSKELETAL: No gross deformities. EXTREMITIES: Warm There is no edema noted. Meds: Current Outpatient Medications Medication Instructions aspirin 81 mg, oral, Daily atorvastatin (LIPITOR) 40 mg, oral, Daily clopidogrel (PLAVIX) 75 mg, oral, Daily dilTIAZem CD (CARDIZEM CD) 120 mg, oral, Daily losartan (COZAAR) 25 mg, oral, Daily No Known Allergies LABS: No results found for: WBC , HGB , HCT , PLT , CHOL , TRIG , HDL , LDLDIRECT , ALT , AST , NA , K , CL , CREATININE , BUN , CO2 , TSH , PSA , INR , GLUF , HGBA1C , ALBUR No recent laboratory data to review. Patient Active Problem List Diagnosis Date Noted BMI 34.0-34.9,adult 08/07/2023 Former smoker 08/07/2023 Medical non-compliance 08/07/2023 Encounter to discuss test results 01/23/2023 Cerebral aneurysm ([facility]) 01/22/2023 Claudication, class III ([facility]) 01/22/2023 COPD (chronic obstructive pulmonary disease) ([facility]) 01/22/2023 Hyperlipidemia 01/22/2023 Migraine 01/22/2023 Myalgia 01/22/2023 Peripheral vascular disease ([facility]) 01/22/2023 Primary hypertension 01/22/2023 Prostate cancer (Multi) 01/22/2023 Pulmonary nodules 01/22/2023 Shortness of breath 01/22/2023 Assessment: 1. Medical non-compliance 2. Peripheral vascular disease ([facility]) Follow Up In Cardiology Follow Up In Cardiology aspirin 81 mg chewable tablet clopidogrel (Plavix) 75 mg tablet Comprehensive Metabolic Panel 3. Primary hypertension losartan (Cozaar) 25 mg tablet dilTIAZem CD (Cardizem CD) 120 mg 24 hr capsule Comprehensive Metabolic Panel 4. Mixed hyperlipidemia atorvastatin (Lipitor) 40 mg tablet clopidogrel (Plavix) 75 mg tablet Lipid Panel Comprehensive Metabolic Panel 5. BMI 34.0-34.9,adult 6. Pulmonary emphysema, unspecified emphysema type (Multi) 7. Shortness of breath 8. Former smoker 9. Prostate cancer (Multi) Multiple cardiac risk factors as noted No angina pectoris Nonflow-limiting coronary artery disease Vascular consultation notes reviewed, patient has additional testing scheduled, carotid ultrasound test results reviewed. Blood pressure initially elevated recheck blood pressure is at target Discussed medication compliance, discussed the importance of bringing in medication bottles and or accurate list. Cardiac medications were refilled. Follow up : 1 year Comprehensive profile and lipid profile prior to next visit If patient decides to switch his cardiac care to [facility], I asked him to please inform us so that we can cancel his upcoming appointment Pulmonary function testing is planned, patient also asked to follow-up with urology regarding his prostate medications. He understands that if he were to develop new cardiac symptoms he needs to seek prompt medical attention. Provider Attestation - Scribe documentation All medical record entries made by the Scribe were at my direction and personally dictated by me. I have reviewed the chart and agree that the record accurately reflects my personal performance of the history, physical exam, discussion and plan. Scribe Attestation By signing my name below, I, Oc Rod LPN attest that this documentation has been prepared under the direction and in the presence of Safia Cerda MD. documented in this encounter [facility] Work Phone: 08-07-2023 Instructions Kiara Sellers LPN - 08/07/2023 9:30 AM EDT Please bring all medicines, vitamins, and herbal supplements with you when you come to the office. Prescriptions will not be filled unless you are compliant with your follow up appointments or have a follow up appointment scheduled as per instruction of your physician. Refills should be requested at the time of your visit. documented in this encounter [facility] Work Phone: 07-08-[address] Wang has requested for patient to see spine (Dr. Calzada) for neurogenic claudication as well as pulmonology to evaluate chronic shortness of breath. Pending these appointments, patient should have a carotid duplex followed by office visit with Dr Wang. Patient agreeable to plan and verbalizes understanding. All additional questions have been answered at this time. Office call back number provided. Additionally- need OSH records and imaging sent for review. -PFT's done last year at [facility] -CTA abd/pelvis with runoff 04/24/23 done @ [facility] (need images) -Angiogram done at [facility] 11/14/22 (needs images and op report) documented in this encounter [facility] 07-04-2023 Note HNO ID: [id number] Author: RICARDO WANG MD Service: ? Author Type: Physician Type: Progress Notes Filed: 07/04/2023 13:34 Note Text: [facility] [place] DEPARTMENT OF VASCULAR SURGERY OUTPATIENT VISIT DATE July 04, 2023 OUTPATIENT VISIT TYPE CONSULTATION SERVICE DATE: 07/04/2023 SERVICE TIME: 1:13 PM PRIMARY CARE PHYSICIAN: Antonio Castellon CNP REFERRING PROVIDER: SELF Consult requested for an opinion regarding the evaluation and treatment of the above. My final impression and recommendations will be communicated back to the requesting physician by way of the shared medical record or letter via US mail. CHIEF COMPLAINT: PAD HISTORY OF PRESENT ILLNESS: Vascular consultation at the request of Dr. Mora. A copy of this consultation note will be provided to the requesting physician by way of shared Medical record or letter to requesting physician via US mail. Mr. Grande is a 68 year old male who is seen today for for lower extremity symptoms. He states that over the last year or 2 he has had bilateral lower extremity numbness which is present at rest and at all times. No provocative or ameliorating factors. Bilateral forefoot and toes with this sensation. He has had several angiograms 1 of which included an left common iliac stent per his report we do not have the imaging. He had a CAT scan most recently in April. He has a reported and documented history of contrast dye allergy although he states that this was many years ago and he states that he has since had contrast dye exposure without any premedication. He reports that he has had a Long history of physical work which may have resulted in the back injury and he has at least 1 flare of chronic back pain each year that is quite severe. He is also had worsening shortness of breath that relatively a short distance with minimal exertion he is underwent a left heart catheterization which demonstrated no hemodynamically significant coronary disease per the report that we have available. His echo demonstrated a preserved ejection fraction. He states that he is also undergone PFTs although we do not have those results. 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 PAST MEDICAL HISTORY Diagnosis Date Brain aneurysm With Clamp Stomach ulcer Hypertension, hyperlipidemia Coronary artery disease peripheral artery disease, PAST SURGICAL HISTORY Procedure Laterality Date PAST SURGICAL HISTORY OF Vein strippings REMOVAL GALLBLADDER Left heart catheterization, iliac stent placement, lower extremity angiography SOCIAL HISTORY: Social History Tobacco Use Smoking status: Every Day Packs/day: 1.00 Years: 45.00 Additional pack years: 0.00 Total pack years: 45.00 Types: Cigarettes Smokeless tobacco: Never Substance Use Topics Alcohol use: Never FAMILY HISTORY Problem Relation Age of Onset Leukemia Mother other (esophageal cancer) Brother MEDICATIONS: aspirin 325 mg tablet Take 325 mg by mouth once daily. oxybutynin ER (DITROPAN XL) 10 mg 24 hr tablet Take 15 mg by mouth once daily. atorvastatin (LIPITOR) 40 mg tablet Take 40 mg by mouth once daily. tamsulosin (FLOMAX) 0.4 mg Take 1 capsule by mouth daily at bedtime. HYDROcodone-acetaminophen (NORCO) 5-325 mg per tablet Take 1 tablet by mouth every 8 hours as needed for pain. aspirin, enteric coated (ASPIRIN, ENTERIC COATED) 81 mg EC tablet Take 81 mg by mouth once daily. (Patient not taking: Reported on 07/04/2023) ALLERGIES: ALLERGIES Allergen Reactions Iodinated Contrast * Unknown In the 1970S but has had it since and no problems REVIEW OF SYSTEM: Constitutional: No weight loss, malaise or fevers. HEENT: Negative for frequent or significant headaches Respiratory: Positive for shortness of breath limiting daily activity Cardiovascular: Negative for chest pain, leg swelling or palpitations Gatrointestinal: Negative for abdominal discomfort, blood in stools or black stools or change in bowel habits Genitourinary: No history of dysuria, frequency, or incontinence Musculoskeletal: Negative for joint pain or swelling, back pain or muscle pain Endocrine: Negative for cold or heat intolerance, polyuria, polydipsia and goiter Hematology/Lymphatic: Negative for prolonged bleeding, bruising easily or swollen nodes Neurologic: No history or headaches, syncope, paralysis, seizures or tremors Integumentary: Negative for lesions, rash, and itching. PHYSICAL EXAM: VITALS: BP 119/92 Pulse 102 Resp 16 Ht 6' 0 (1.83m) Wt 250 lb (113.4kg) SpO2 97% BMI 33.90 kg/(m2). General: Alert and oriented Integumentary: Normal color, no rash, no lesions. HEENT: EOM, pupils equal, round and reactive. Cardiovascular: Normal S1 AND S2, no rubs, murmurs or gallops. No JVD., Pulse regular. Lungs: Normal breath sounds, no wheeze (more content not included)... [facility] 07-04-2023 History of Present illness Narrative Images from the original note were not included. [facility] [place] DEPARTMENT OF VASCULAR SURGERY OUTPATIENT VISIT DATE July 04, 2023 OUTPATIENT VISIT TYPE CONSULTATION SERVICE DATE: 07/04/2023 SERVICE TIME: 1:13 PM PRIMARY CARE PHYSICIAN: Antonio Castellon CNP REFERRING PROVIDER: SELF Consult requested for an opinion regarding the evaluation and treatment of the above. My final impression and recommendations will be communicated back to the requesting physician by way of the shared medical record or letter via US mail. CHIEF COMPLAINT: PAD HISTORY OF PRESENT ILLNESS: Vascular consultation at the request of Dr. Mora. A copy of this consultation note will be provided to the requesting physician by way of shared Medical record or letter to requesting physician via US mail. Mr. Grande is a 68 year old male who is seen today for for lower extremity symptoms. He states that over the last year or 2 he has had bilateral lower extremity numbness which is present at rest and at all times. No provocative or ameliorating factors. Bilateral forefoot and toes with this sensation. He has had several angiograms 1 of which included an left common iliac stent per his report we do not have the imaging. He had a CAT scan most recently in April. He has a reported and documented history of contrast dye allergy although he states that this was many years ago and he states that he has since had contrast dye exposure without any premedication. He reports that he has had a Long history of physical work which may have resulted in the back injury and he has at least 1 flare of chronic back pain each year that is quite severe. He is also had worsening shortness of breath that relatively a short distance with minimal exertion he is underwent a left heart catheterization which demonstrated no hemodynamically significant coronary disease per the report that we have available. His echo demonstrated a preserved ejection fraction. He states that he is also undergone PFTs although we do not have those results. 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 PAST MEDICAL HISTORY Diagnosis Date Brain aneurysm With Clamp Stomach ulcer Hypertension, hyperlipidemia Coronary artery disease peripheral artery disease, PAST SURGICAL HISTORY Procedure Laterality Date PAST SURGICAL HISTORY OF Vein strippings REMOVAL GALLBLADDER Left heart catheterization, iliac stent placement, lower extremity angiography SOCIAL HISTORY: Social History Tobacco Use Smoking status: Every Day Packs/day: 1.00 Years: 45.00 Additional pack years: 0.00 Total pack years: 45.00 Types: Cigarettes Smokeless tobacco: Never Substance Use Topics Alcohol use: Never FAMILY HISTORY Problem Relation Age of Onset Leukemia Mother other (esophageal cancer) Brother MEDICATIONS: aspirin 325 mg tablet Take 325 mg by mouth once daily. oxybutynin ER (DITROPAN XL) 10 mg 24 hr tablet Take 15 mg by mouth once daily. atorvastatin (LIPITOR) 40 mg tablet Take 40 mg by mouth once daily. tamsulosin (FLOMAX) 0.4 mg Take 1 capsule by mouth daily at bedtime. HYDROcodone-acetaminophen (NORCO) 5-325 mg per tablet Take 1 tablet by mouth every 8 hours as needed for pain. aspirin, enteric coated (ASPIRIN, ENTERIC COATED) 81 mg EC tablet Take 81 mg by mouth once daily. (Patient not taking: Reported on 07/04/2023) ALLERGIES: ALLERGIES Allergen Reactions Iodinated Contrast * Unknown In the 1970S but has had it since and no problems REVIEW OF SYSTEM: Constitutional: No weight loss, malaise or fevers. HEENT: Negative for frequent or significant headaches Respiratory: Positive for shortness of breath limiting daily activity Cardiovascular: Negative for chest pain, leg swelling or palpitations Gatrointestinal: Negative for abdominal discomfort, blood in stools or black stools or change in bowel habits Genitourinary: No history of dysuria, frequency, or incontinence Musculoskeletal: Negative for joint pain or swelling, back pain or muscle pain Endocrine: Negative for cold or heat intolerance, polyuria, polydipsia and goiter Hematology/Lymphatic: Negative for prolonged bleeding, bruising easily or swollen nodes Neurologic: No history or headaches, syncope, paralysis, seizures or tremors Integumentary: Negative for lesions, rash, and itching. PHYSICAL EXAM: VITALS: BP 119/92 Pulse 102 Resp 16 Ht 6' 0 (1.83m) Wt 250 lb (113.4kg) SpO2 97% BMI 33.90 kg/(m^2). General: Alert and oriented Integumentary: Normal color, no rash, no lesions. HEENT: EOM, pupils equal, round and reactive. Cardiovascular: Normal S1 & S2, no rubs, murmurs or gallops. No JVD., Pulse regular. Lungs: Normal breath sounds, no wheezes or crackles. Abdomen: Soft, non-tender, no rigidity. Left lower extremity with palpable femoral absent popliteal pedal pulse foot warm. In the right he has palpable femoral popliteal posterior tibial pulse Diagnostic tests reviewed for today's visit: Most recent imaging CAT scan not available for review IMPRESSION: Mr. Grande is a 68 year old male peripheral artery disease history of left iliac stent. On the right, he has normal peripheral pulses including pedal pulse. On the left he has evidence of SFA popliteal disease. His clinical symptoms are not consistent with PAd. The numbness and tingling at rest suggests neuropathic etiology. We need to have the CTA images lower extremity angiography. He will need carotid ultrasound. He needs to be seen by spine [facility] to evaluate chronic lower back pain. He has a aneurysm clip from previous surgery which may be prohibitive for MRI. He needs pulmonary to evaluate him for shortness of breath pending these we will make further recommendations PLAN and RECOMMENDATIONS: As above SIGNATURE: Ricardo Wang MD PATIENT NAME: Elvis Grande DATE: July 04, 2023 TIME: 1:13 PM documented in this encounter [facility] 07-02-2023 Note HNO ID: [id number] Author: Shelley POND MD Service: ? Author Type: Physician Type: Progress Notes Filed: 07/10/2023 14:20 Note Text: Radiation Oncology - Follow Up Note PATIENT NAME: Elvis Garnde PATIENT DIAGNOSIS: Prostate adenocarcinoma, initial PSA 32.05, biopsy [place] score 4 + 3 = 7 (grade group 3), clinical stage T2a, N0, M0, stage IIIA [T1-T2, N0, M0, PSA >=20, GG 1-4] (AJCC 8th ed.), s/p TRUS Random biopsy. Prostate cancer (C61), 2019 NCCN Risk Group: High Risk Group Clinical State: Localized Cancer - New Diagnosis RADIATION SUMMARY: DATES OF TREATMENT: 04/01/22-05/08/22: Pelvic EBRT 05/23/22: Prostate Brachytherapy AREA TREATED: Pelvis Prostate DELIVERED DOSE: Pelvis Prostate: 45Gy in 25 fractions, 3 Celis, IMRT, 10MV with daily CBCT Prostate: 100 Gy, Pd-103. 71 sources, 112.18 mCi INTERVAL HISTORY: Doing well no new problems or concerns. PSA HISTORY: PSA. (no units) Date Value 03/03/2023 <0.13 12/09/2022 <0.13 2022 0.14 ALLERGIES Allergen Reactions Iodinated Contrast * Unknown In the 1970S but has had it since and no problems oxybutynin ER (DITROPAN XL) 10 mg 24 hr tablet Take 15 mg by mouth once daily. atorvastatin (LIPITOR) 40 mg tablet Take 40 mg by mouth once daily. aspirin, enteric coated (ASPIRIN, ENTERIC COATED) 81 mg EC tablet Take 81 mg by mouth once daily. (Patient not taking: Reported on 07/04/2023) tamsulosin (FLOMAX) 0.4 mg Take 1 capsule by mouth daily at bedtime. HYDROcodone-acetaminophen (NORCO) 5-325 mg per tablet Take 1 tablet by mouth every 8 hours as needed for pain. aspirin 325 mg tablet Take 325 mg by mouth once daily. REVIEW OF SYSTEMS: D/N = 5-7/2-3 Hematuria: none Dysuria: no Incontinence: No Urgency: moderate Catheter use: none Medications to aid urination: y - Total AUA Score: 13 Bowel movement frequency: 1-2/day Bowel movement quality: normal Blood per rectum: none PHYSICAL EXAM: BP 135/85 Pulse 67 Temp 36.1 ?C (97 ?F) Resp 16 Wt 113 kg (249 lb 1.9 oz) SpO2 99% BMI 33.79 kg/m? KPS: 100 General Appearance: Alert and oriented. No acute distress. Rectal exam is deferred. ASSESSMENT/PLAN: Prostate adenocarcinoma, initial PSA 32.05, biopsy [place] score 4 + 3 = 7 (grade group 3), clinical stage T2a, N0, M0, stage IIIA [T1-T2, N0, M0, PSA >=20, GG 1-4] (AJCC 8th ed.), s/p pelvic radiation, prostate brachytherapy boost, ADT. Doing well with undetectable PSA. No significant posttreatment problems. He continues close follow-up with urology. Plan to see patient back in 6 months for further postradiation follow-up. Signed by: Shelley Pond MD cc: ANTONIO CASTELLON [address] [place] [address] Dr. Gomez [facility] 07-02-2023 History of Present illness Narrative Radiation Oncology - Follow Up Note PATIENT NAME: Elvis Grande PATIENT DIAGNOSIS: Prostate adenocarcinoma, initial PSA 32.05, biopsy [place] score 4 + 3 = 7 (grade group 3), clinical stage T2a, N0, M0, stage IIIA [T1-T2, N0, M0, PSA >=20, GG 1-4] (AJCC 8th ed.), s/p TRUS Random biopsy. Prostate cancer (C61), 2019 NCCN Risk Group: High Risk Group Clinical State: Localized Cancer - New Diagnosis RADIATION SUMMARY: DATES OF TREATMENT: 04/01/22-05/08/22: Pelvic EBRT 05/23/22: Prostate Brachytherapy AREA TREATED: Pelvis Prostate DELIVERED DOSE: Pelvis Prostate: 45Gy in 25 fractions, 3 Celis, IMRT, 10MV with daily CBCT Prostate: 100 Gy, Pd-103. 71 sources, 112.18 mCi INTERVAL HISTORY: Doing well no new problems or concerns. PSA HISTORY: PSA. (no units) Date Value 03/03/2023 <0.13 12/09/2022 <0.13 2022 0.14 ALLERGIES Allergen Reactions Iodinated Contrast * Unknown In the 1970S but has had it since and no problems oxybutynin ER (DITROPAN XL) 10 mg 24 hr tablet Take 15 mg by mouth once daily. atorvastatin (LIPITOR) 40 mg tablet Take 40 mg by mouth once daily. aspirin, enteric coated (ASPIRIN, ENTERIC COATED) 81 mg EC tablet Take 81 mg by mouth once daily. (Patient not taking: Reported on 07/04/2023) tamsulosin (FLOMAX) 0.4 mg Take 1 capsule by mouth daily at bedtime. HYDROcodone-acetaminophen (NORCO) 5-325 mg per tablet Take 1 tablet by mouth every 8 hours as needed for pain. aspirin 325 mg tablet Take 325 mg by mouth once daily. REVIEW OF SYSTEMS: D/N = 5-7/2-3 Hematuria: none Dysuria: no Incontinence: No Urgency: moderate Catheter use: none Medications to aid urination: y - Total AUA Score: 13 Bowel movement frequency: 1-2/day Bowel movement quality: normal Blood per rectum: none PHYSICAL EXAM: BP 135/85 Pulse 67 Temp 36.1 C (97 F) Resp 16 Wt 113 kg (249 lb 1.9 oz) SpO2 99% BMI 33.79 kg/m KPS: 100 General Appearance: Alert and oriented. No acute distress. Rectal exam is deferred. ASSESSMENT/PLAN: Prostate adenocarcinoma, initial PSA 32.05, biopsy [place] score 4 + 3 = 7 (grade group 3), clinical stage T2a, N0, M0, stage IIIA [T1-T2, N0, M0, PSA >=20, GG 1-4] (AJCC 8th ed.), s/p pelvic radiation, prostate brachytherapy boost, ADT. Doing well with undetectable PSA. No significant posttreatment problems. He continues close follow-up with urology. Plan to see patient back in 6 months for further postradiation follow-up. Signed by: Shelley Pond MD cc: ANTONIO CASTELLON [id number] [place] [id number] Dr. Gomez documented in this encounter [facility] 07-02-2023 Nurse Note AUA= 13 documented in this encounter [facility] 06-27-2023 Miscellaneous Notes Spoke with patient appt scheduled 07/04/[address] Wang,patient MyChart active. New Pt : Reason: 2nd opinion Diagnosis: 73.9 Claudication in peripheral vascular disease documented in this encounter [facility] 06-10-2023 Miscellaneous Notes Patient's PCP called stating that the patient would like a referral to [facility] for a second opinion and further testing. Please contact the patient at [phone]. LMOM for patient to contact office back regarding this matter documented in this encounter [facility] 06-10-2023 Telephone encounter Note Patient's PCP called stating that the patient would like a referral to [facility] for a second opinion and further testing. Please contact the patient at [phone]. [facility] 06-10-2023 Telephone encounter Note LMOM for patient to contact office back regarding this matter [facility] History of Present illness Narrative Images from the original note were not included. [facility] [address] [facility] [id number] Subjective: Patient ID: Elvis Grande is a 67 y.o. male. Chief Complaint Chief Complaint Patient presents with Follow up from Angio History of Present Illness: 67 M with sever claudication, s/p angio. LIZ on the right is 0.6 and on the left 0.8. He is on ASA/Plavix and statin. No wounds or rest pain. He doesn't smoke. Patient Active Problem List Diagnosis Rest pain of lower extremity due to atherosclerosis ([facility]) PAD (peripheral artery disease) ([facility]) Claudication ([facility]) Current Outpatient Medications: aspirin 325 mg EC tablet, Take 1 tablet (325 mg total) by mouth in the morning., Disp: , Rfl: atorvastatin (LIPITOR) 40 mg tablet, Take 1 tablet (40 mg total) by mouth in the morning., Disp: , Rfl: cilostazoL (PLETAL) 100 mg tablet, Take 1 tablet (100 mg total) by mouth in the morning and 1 tablet (100 mg total) before bedtime., Disp: 180 tablet, Rfl: 1 HYDROcodone-acetaminophen (NORCO) 5-325 mg per tablet, Take 1 tablet by mouth every 8 (eight) hours as needed., Disp: , Rfl: losartan (COZAAR) 25 mg tablet, Take 1 tablet (25 mg total) by mouth in the morning., Disp: , Rfl: oxybutynin (DITROPAN) 5 mg tablet, Take 2 tablets (10 mg total) by mouth nightly., Disp: , Rfl: potassium bicarbonate (K-LYTE) 25 MEQ disintegrating tablet, Take 1 tablet (25 mEq total) by mouth in the evening., Disp: , Rfl: solifenacin (VESICARE) 10 mg tablet, Take 1 tablet (10 mg total) by mouth in the morning., Disp: , Rfl: tamsulosin (FLOMAX) 0.4 mg capsule, TAKE ONE CAPSULE BY MOUTH TWICE A DAY FOR 30 DAYS, Disp: , Rfl: clopidogreL (PLAVIX) 75 mg tablet, Take 1 tablet (75 mg total) by mouth in the morning. (Patient not taking: Reported on 05/29/2023), Disp: 30 tablet, Rfl: 2 The following portions of the patient's history were reviewed and updated as appropriate: allergies, current medications, past family history, past medical history, past social history, past surgical history and problem list. Review of Systems: Review of Systems All other systems reviewed and are negative. Objective: Vitals BP 117/75 (BP Site: Right Arm, BP Postition: Sitting, BP CUFF SIZE: L (13-17 inches)) Pulse 73 Ht 182.9 cm (6') Wt 115.8 kg (255 lb 6.4 oz) BMI 34.64 kg/m Physical Exam Physical Exam Constitutional: Appearance: Normal appearance. HENT: Head: Normocephalic and atraumatic. Eyes: Pupils: Pupils are equal, round, and reactive to light. Cardiovascular: Rate and Rhythm: Normal rate and regular rhythm. Pulmonary: Effort: Pulmonary effort is normal. Breath sounds: Normal breath sounds. Abdominal: General: Abdomen is flat. Palpations: Abdomen is soft. Musculoskeletal: General: Normal range of motion. Cervical back: Normal range of motion and neck supple. Skin: General: Skin is warm and dry. Neurological: General: No focal deficit present. Mental Status: He is alert. Mental status is at baseline. He is disoriented. Studies Reviewed CTA, Angio imaging, PVR Assesment: Elvis was seen today for follow up from angio. Diagnoses and all orders for this visit: PAD (peripheral artery disease) ([facility]) - Ambulatory Referral to Vascular Rehabilitation (Non[facility]); Future Claudication ([facility]) - Ambulatory Referral to Vascular Rehabilitation ([facility]); Future Other orders - cilostazoL (PLETAL) 100 mg tablet; Take 1 tablet (100 mg total) by mouth in the morning and 1 tablet (100 mg total) before bedtime. Plan Plan: Supervised walking program Cilostazol F/u I 3 months Valerie Arriola MD documented in this encounter [facility] 05-01-2023 History of Present illness Narrative CHIEF COMPLAINT: Chief Complaint Patient presents with Follow-up 3 week follow up with testing prior. HISTORY OF PRESENT ILLNESS: Elvis Grande is a 67 y.o. male who presents to the office today for evaluation of Peripheral arterial disease and claudications. Patient still reports that he has pain in both of his lower extremities when he walks not even a block distance. Patient reports that both legs are equivalent. The pain is aching in nature and it is gone when he rests. Patient denies any discolorations of his lower extremities or any wounds on his lower extremities. Patient reports the usual lower back pain that he usually has. Patient is currently on aspirin and Plavix. Patient had a lower extremity arterial Dopplers done. Patient also reports shortness of breath when he walks. He has not sure what comes 1st with a lower extremity pain or the shortness of breath but not being able to walk is extremely frustrating to him. ALLERGIES: No Known Allergies MEDICATIONS: Current Outpatient Medications Medication Sig Dispense Refill clopidogreL (PLAVIX) 75 mg tablet Take 1 tablet (75 mg total) by mouth in the morning. 30 tablet 2 HYDROcodone-acetaminophen (NORCO) 5-325 mg per tablet Take 1 tablet by mouth every 8 (eight) hours as needed. oxybutynin (DITROPAN) 5 mg tablet Take 2 tablets (10 mg total) by mouth nightly. potassium bicarbonate (K-LYTE) 25 MEQ disintegrating tablet Take 1 tablet (25 mEq total) by mouth in the evening. solifenacin (VESICARE) 10 mg tablet Take 1 tablet (10 mg total) by mouth in the morning. tamsulosin (FLOMAX) 0.4 mg capsule TAKE ONE CAPSULE BY MOUTH TWICE A DAY FOR 30 DAYS aspirin 325 mg EC tablet Take 1 tablet (325 mg total) by mouth in the morning. losartan (COZAAR) 25 mg tablet Take 1 tablet (25 mg total) by mouth in the morning. No current facility-administered medications for this visit. SOCIAL HISTORY: Social History Tobacco Use Smoking status: Every Day Types: Cigarettes Smokeless tobacco: Never Substance Use Topics Alcohol use: Defer REVIEW OF SYSTEMS: Review of Systems Constitutional: Negative for activity change, appetite change, chills, fatigue, fever and unexpected weight change. HENT: Negative for facial swelling and trouble swallowing. Eyes: Negative for visual disturbance. Respiratory: Positive for shortness of breath (When he walks.). Negative for chest tightness. Cardiovascular: Positive for leg swelling. Negative for chest pain. Gastrointestinal: Negative for abdominal pain. Genitourinary: Negative for flank pain and frequency. Musculoskeletal: Positive for arthralgias, back pain and myalgias. Negative for joint swelling. Skin: Negative for color change, pallor, rash and wound. Neurological: Negative for dizziness, syncope, facial asymmetry, speech difficulty, weakness, light-headedness and numbness. Hematological: Negative for adenopathy. PHYSICAL EXAM: Physical Exam Vitals reviewed. Constitutional: General: He is not in acute distress. Neck: Vascular: No JVD. Cardiovascular: Rate and Rhythm: Normal rate. Pulses: Radial pulses are 2+ on the right side and 2+ on the left side. Dorsalis pedis pulses are detected w/ doppler on the right side and detected w/ doppler on the left side. Posterior tibial pulses are detected w/ doppler on the right side and detected w/ doppler on the left side. Heart sounds: No murmur heard. Comments: No carotid bruits. Pulmonary: Breath sounds: Normal breath sounds. Abdominal: Palpations: Abdomen is soft. There is no mass. Tenderness: There is no abdominal tenderness. Musculoskeletal: General: No tenderness. Cervical back: Neck supple. Right lower leg: Edema present. Left lower leg: Edema present. Skin: General: Skin is warm. Coloration: Skin is not pale. Findings: No erythema. Neurological: Mental Status: He is alert and oriented to person, place, and time. VASCULAR EXAM: Vascular: Right Lower Extremity Right lower extremity pulses DP: detected w/ doppler Doppler findings: biphasic PT: detected w/ doppler Doppler findings: biphasic Right lower extremity edema: 1+ and pitting Left Lower Extremity Left lower extremity pulses DP: detected w/ doppler Doppler findings: biphasic PT: detected w/ doppler Doppler findings: biphasic Left lower extremity edema: 1+ and pitting Right Upper Extremity Right upper extremity pulses Radial: 2+ Left Upper Extremity Left upper extremity pulses Radial: 2+ ASSESSMENT AND PLAN: Elvis was seen today for follow-up. Diagnoses and all orders for this visit: PAD (peripheral artery disease) ([facility]) Claudication ([facility]) Rest pain of lower extremity due to atherosclerosis ([facility]) Patient had lower extremity arterial Dopplers with exercise. On the right side it appears to be with no significant arterial disease. On the left side there appeared to be dropped to moderate disease after exercise. The main issue is that the patient is complaining of pain in both lower extremities which is not consistent with the findings of the Dopplers. Patient had already lower extremity angiogram back in October of 2022 with angioplasty of the left iliac artery. This improved his walking slightly better but then he came back to my clinic with same issues. I will repeat the lower extremity angiogram again. documented in this encounter [email or web address] 03-21-2023 Note Patient Outreach (UR OLMN) ELVIS GRANDE ([id number]) 1955 Date Time Provider Department 03/21/23 CORRY HANSON During your visit today, we recorded the following information about you: Allergies As of Date: 03/21/2023 Noted Allergy Reaction IODINATED CONTRAST MEDIA 04/05/2013 16 - Unknown Date Reviewed: 03/21/2023 Reviewed by: Juan C Wolfe OCCA - Fully Assessed Visit Diagnosis:Screening for genitourinary condition [Z13.89] Order(s):URINALYSIS, REFLEX MICROSCOPIC [[id number]] Order #: [id number]. #:[id number] Prescriptions as of 03/24/2023 - bicalutamide (CASODEX) 50 mg tablet Take 50 mg by mouth once daily. - oxybutynin ER (DITROPAN XL) 10 mg 24 hr tablet Take 10 mg by mouth once daily. - atorvastatin (LIPITOR) 40 mg tablet Take 40 mg by mouth once daily. - clopidogrel (PLAVIX) 75 mg tablet Take 75 mg by mouth once daily. - dilTIAZem CR (TIAZAC, TAZTIA XT) 120 mg 24 hr capsule Take 120 mg by mouth once daily. - aspirin, enteric coated (ASPIRIN, ENTERIC COATED) 81 mg EC tablet Take 81 mg by mouth once daily. - tamsulosin (FLOMAX) 0.4 mg Take 1 capsule by mouth daily at bedtime. - HYDROcodone-acetaminophen (NORCO) 5-325 mg per tablet Take 1 tablet by mouth every 8 hours as needed for pain. - losartan (COZAAR) 25 mg tablet 20 mg. Problem List As Of Date 03/21/2023 Noted Resolved Obesity, Class I, BMI 30-34.9 [E66.9] 03/21/2023 Encounter Status:Closed by [employer] on 03/24/23 [facility] 03-21-2023 Note HNO ID: [id number] Author: Corry Hanson MD Service: ? Author Type: Physician Type: Progress Notes Filed: 04/16/2023 11:11 AM Note Text: Referring Provider: Chief Complaint: Renal Mass HPI Elvis Grande is a 67 year old male with PMH of GG3 CaP (initial PSA 32.05) s/p EBRT and brachytherapy 04/11-06/13 and ADT, with last PSA now undetectable as of 12/09/22, who presents with increasing 1.2cm enhancing left renal mass. His renal mass was previously noted to be 1cm on last CT scan 05/22/22. 1-Duration: 2022 2-Location: kidney 3-Severity: see imaging 4-Quality: Not applicable 5-Context: Imaging 6-Timing: N/A 7-Modifying factors: No treatment prior to referral 8-Associated signs AND symptoms: no additional symptoms Family History of Genitourinary Cancer: N/A LABS Creatinine Date Value Ref Range Status 01/17/2023 0.91 0.73 - 1.22 mg/dL Final 05/06/2022 0.74 0.73 - 1.22 mg/dL Final PSA <0.[address] Kidney 01/17/23 IMPRESSION: 1. Since 05/22/2022, slight increase in size of a now 1.2 cm enhancing mass arising from the left renal lower pole (previously 1 cm). As previously, this remains suspicious for a primary renal neoplasm. Consider urology consultation, if not previously obtained. 2. Unchanged 0.6 cm enhancing left posterior interpolar renal mass, likely also a small renal neoplasm. 3. Patent renal veins and inferior vena cava. No lymphadenopathy or evidence of abdominal metastatic disease. 4. Diffuse hepatic steatosis. REVIEW OF SYSTEMS GENERAL:No weight loss, malaise or fevers., SEE HPI HEENT:Negative for frequent or significant headaches, No changes in hearing or vision, no nose bleeds or other nasal problems RESPIRATORY: See HPI CARDIOVASCULAR: Not reviewed GASTROINTESTINAL: Not reviewed GENITOURINARY: No history of dysuria, frequency or incontinence, See HPI TRAFFIC COURT REFEREE: NA MUSCULOSKELETAL: Negative for joint pain or swelling, back pain or muscle pain. NEUROLOGIC:Not reviewed HEMATOLOGIC/LYMPHATIC/IMMUNOLOGIC :Not reviewed ENDOCRINE: Not reviewed The remainder of the ROS was negative. HISTORIES PAST MEDICAL HISTORY Diagnosis Date Brain aneurysm With Clamp Stomach ulcer FAMILY HISTORY Problem Relation Age of Onset Leukemia Mother other (esophageal cancer) Brother SOCIAL HISTORY Social History Tobacco Use Smoking status: Every Day Packs/day: 1.00 Years: 45.00 Additional pack years: 0.00 Total pack years: 45.00 Types: Cigarettes Smokeless tobacco: Never Substance Use Topics Alcohol use: Never PHYSICAL EXAMINATION General appearance: Well appearing, alert, in no acute distress, and well-hydrated, well nourished Back: no pain to palpation over spine or costovertebral angles, reflexes are 2+ and symmetric, motor and sensory appear to be normal Lungs: Not examined Heart: Not examined Abdomen: Not reviewed Extremities: Extremities normal. No deformities, edema, or skin discoloration. Good capillary refill. Musculoskeletal: Spine range of motion normal. 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 of the kidney on 01/17/2023 showed that the slight increase in size of a now 1.2 cm enhancing mass arising from the left renal lower pole (previously 1 cm). Suspicious for a primary renal neoplasm. Unchanged 0.6 cm enhancing left posterior interpolar renal mass, likely also a small renal neoplasm. Diffuse hepatic steatosis. I have reassured the Pt that the kidney cancer is unlikely to metastasize, and his previous Hx of prostate cancer is unrelated to the development of cancer in the kidney. Plan - CT Kidney at [facility] in 9 months with a virtual visit at least 1 day later with Pina Ott - If no substantial growth in the tumors, then annual follow up with CT or MRI Oc Attestation: By signing my name below, I, Get Hicks, attest that this documentation has been prepared under the direction and in the presence of Corry Hanson MD. Electronically Signed:oc Youssef, March 21, 2023 10:46 AM [facility] 03-05-2023 Hospital Discharge instructions Patient Education 03/05/2023 08:32:02 Hormone Suppression Therapy for Prostate Cancer Hormone Suppression Therapy for Prostate Cancer Hormone suppression therapy is a treatment for prostate cancer that can help slow the growth of cancer cells in the prostate gland. It is also called androgen deprivation therapy (ADT) or androgen suppression therapy. Hormone suppression therapy targets male sex hormones (androgens) in the body that help cancer cells grow. Hormone suppression therapy alone will not cure prostate cancer, but it can slow the growth of cancer cells and may shrink tumors over time. Your health care provider can help you find the best treatment that fits your lifestyle. Hormone suppression therapy may be used in the following cases: When prostate cancer has spread too far to other places in the body and cannot be cured by surgery or radiation. When a person has health problems that prevent the use of surgery or radiation. Before radiation to help shrink the size of the cancer and make the radiation treatment more effective. If the prostate cancer remains or comes back following treatment with surgery or radiation. What are the types of hormone suppression therapy? Orchiectomy Orchiectomy, also called surgical castration, is a surgery to remove one or both testicles. The testicles make the two main androgens testosterone and dihydrotestosterone (DHT). This surgery reduces the levels of testosterone in the blood, leading to decreased androgen production. Medicine therapy Medicine therapy, also called medical or chemical castration, involves taking medicines to keep your body from making or using androgens. Medicines can do this in one of three ways: 1.Reducing androgen production by the testicles. Luteinizing hormone-releasing hormone (LHRH) agonists. These medicines are injected or implanted under your skin to lower the amount of androgens that your testicles make. Depending on the medicine, they can be given monthly or up to every 3 to 6 months. If you take these medicines, you may also be prescribed other medicines to help with side effects. LHRH antagonists. These medicines also work to lower the amount of androgens made in the testicles, but they work faster than LHRH agonist medicines and have less severe side effects. They are given as a monthly injection under the skin, and they are used when prostate cancer is in an advanced stage. Estrogens. These medicines are female hormones that help to reduce androgen production by the testicles. Estrogens are not used as commonly as other types of hormone suppression therapy due to their side effects. However, they may be used if other treatments do not work. 2.Blocking androgen attachment throughout the body. Anti-androgen medicines, also called androgen receptor antagonists, block areas on the body where androgens attach. These are pills that are usually used in combination with other types of hormone suppression therapy, like orchiectomy and other medicines. 3.Blocking androgen production throughout the body. Androgen synthesis inhibitor medicines. These medicines help to stop other areas of the body from making androgens. They are taken as pills. They may be used if the prostate cancer is advanced and has not gotten better with surgery or other medicines. A steroid medicine may be given with this type of medicine to help with side effects. What are the risks? Hormone suppression therapy may cause side effects, including: Hot flashes. Diarrhea and nausea. Itching. Sexual side effects, such as: ?Decrease or lack of sexual desire. ?Decrease in size of the penis or testicles. ?Inability to get an erection (erectile dysfunction, or impotence). ?Breast tenderness or increase in breast size. Fatigue. Weight gain. Anemia. Thinning of the bones (osteoporosis) and loss of muscle mass. Depression, mood swings, and trouble with thinking or focusing. Hormone suppression therapy may also increase your risk of high blood pressure, increased cholesterol levels, stroke, heart attack, or diabetes. What are the benefits? One of the main benefits of hormone suppression therapy is having additional treatment options. You may have only one type of treatment, or two or more types at the same time. Treatments may be combined to: Help with side effects. Treat advanced cancer. Where to find more information [place] [employer]: www.cancer.org National Cancer [place]: www.cancer.gov Contact a health care provider if: You have pain or side effects that do not get better with treatment. You have trouble urinating. You have new side effects that do not go away. Get help right away if: You have severe chest pain. You have trouble breathing. You have an irregular heartbeat. You have numbness or paralysis in the lower half of your body. You are confused. You have trouble talking or understanding speech. These symptoms may be an emergency. Do not wait to see if the symptoms will go away. Get medical help right away. Call your local emergency services (911 in the [place] Do not drive yourself to the hospital. Summary Hormone suppression therapy is a treatment for prostate cancer that can help to slow the growth of cancer cells in the prostate gland. Hormone suppression therapy alone will not cure prostate cancer, but it can slow the growth of prostate cancer and may shrink tumors over time. Treatment to suppress hormones may include surgery or medicines. Side effects such as hot flashes, changes in sexual function or desire, and weakened bones can result from hormone suppression therapy. This information is not intended to replace advice given to you by your health care provider. Make sure you discuss any questions you have with your health care provider. Document Revised: 07/19/2021 Document Reviewed: 07/19/2021 [employer] Patient Education 2022 [employer] Follow Up Care 09/11/2022 14:33:52 With:PATRICIA SALINAS, Mansi Cordova, URL Address: [facility] [address] , [place] [address]- When: Unknown [facility] 01-25-2023 Evaluation + Plan note Associated Problem(s): Class 1 obesity with body mass index (BMI) of 32.0 to 32.9 in adult Shortness of breath may improve with weight loss. Current BMI at 33. Calorie restriction and intermittent fasting and some type of water aerobics are good options for him. [facility] Work Phone: 01-25-2023 Miscellaneous Notes Associated Problem(s): Class 1 obesity with body mass index (BMI) of 32.0 to 32.9 in adult Shortness of breath may improve with weight loss. Current BMI at 33. Calorie restriction and intermittent fasting and some type of water aerobics are good options for him. Associated Problem(s): Primary hypertension Blood pressure is at target Associated Problem(s): Peripheral vascular disease (CMS/HCC) Patient is followed by vascular surgery. Has history of PVD with stenting left lower extremity details not available At the time of coronary angiography, right common femoral angiography identified 80% stenosis. Continue antiplatelet therapy abstinence from nicotine gum and walking program and follow-up with vascular surgery aggressive lipid management. Associated Problem(s): Hyperlipidemia At target, remains on statin therapy Associated Problem(s): Shortness of breath Continues to have significant shortness of breath. Filling pressures are low on cardiac catheterization no pulmonary hypertension at rest good correlation between pulmonary capillary wedge pressure and LV end-diastolic pressure. Still believe that shortness of breath may be multifactorial, patient may have more COPD than depicted so far by testing. Unable to test for chronotropic incompetence, cannot walk on treadmill. I think we will stop with cardiac work-up at this time, patient to continue follow-up with primary and pulmonary. Consider pulmonary rehabilitation if appropriate documented in this encounter [facility] Work Phone: 01-25-2023 Evaluation + Plan note Associated Problem(s): Primary hypertension Blood pressure is at target [facility] Work Phone: 01-25-2023 Evaluation + Plan note Associated Problem(s): Peripheral vascular disease (CMS/HCC) Patient is followed by vascular surgery. Has history of PVD with stenting left lower extremity details not available At the time of coronary angiography, right common femoral angiography identified 80% stenosis. Continue antiplatelet therapy abstinence from nicotine gum and walking program and follow-up with vascular surgery aggressive lipid management. [facility] Work Phone: 01-25-2023 Evaluation + Plan note Associated Problem(s): Hyperlipidemia At target, remains on statin therapy [facility] Work Phone: 01-25-2023 Evaluation + Plan note Associated Problem(s): Shortness of breath Continues to have significant shortness of breath. Filling pressures are low on cardiac catheterization no pulmonary hypertension at rest good correlation between pulmonary capillary wedge pressure and LV end-diastolic pressure. Still believe that shortness of breath may be multifactorial, patient may have more COPD than depicted so far by testing. Unable to test for chronotropic incompetence, cannot walk on treadmill. I think we will stop with cardiac work-up at this time, patient to continue follow-up with primary and pulmonary. Consider pulmonary rehabilitation if appropriate [facility] Work Phone: 01-23-2023 History of Present illness Narrative Fernandez Grande is a 67 y.o. male who presents for follow-up after further cardiac testing to include coronary angiography. Continues to have shortness of breath functional class III. Denies chest pressure tightness heaviness palpitations lightheadedness presyncope or syncope. At this point, the shortness of breath is out of proportion to the extent of his lung disease, right and left heart catheterization did not identify the reason for his shortness of breath. Patient is on diltiazem, I did think of chronotropic blunting as a possibility, however resting heart rate is already 64, unable to walk on treadmill to assess chronotropic blunting. Reviewed laboratory data to include comprehensive profile basic metabolic profile and lipid profile. History so far : 1.Multiple cardiac risk factors 2. Hypertension 3. Hyperlipidemia 4. Class II/III claudication 5. Cannot exclude statin induced myalgia 6. [id number] history of smoking quit 4 months ago 7. Lexiscan Myoview08/2022 -normal perfusion, Patient reports that he did not walk on the treadmill.Transient ischemic dilatation 0.8, LVEF 69% 8. History of cerebral aneurysm clipping in 1980 at [facility] in [place], has seen Dr. Castillo of neurology, who is no longer seeing patient on a regular basis 9. Current use of dual antiplatelet therapy 10. Increased BMI 11. Pulmonary function testing-September 2022-mild obstructive pattern on spirometry without bronchodilator response elevated residual volumes suggest air trapping mild diffusion impairment overall study compatible with mild COPD/emphysema diffusion capacity 77% predicted. 12. Patient reports 30 pound weight gain on hormone replacement therapy 13.Carotid ultrasound January 2022-mild bilateral carotid disease 14.CTA August 2022-no pulmonary embolism, emphysema was noted. 15. Echocardiogram December 2022-LVEF 65% impaired relaxation pattern of LV diastolic filling peak and mean gradients across aortic valve 25 and 17 respectively, consistent with mild aortic stenosis, left atrial diameter 3.7 cm, left atrial volume index 15 mL per metered square, ascending aorta 3.2 cm, dimensionless index of the aortic valve 0.49. PA pressure not estimated as there was no tricuspid regurgitation envelope. 16. Cardiac catheterization November 2022-right and left heart catheterization-proximal RCA 40% ulcerated stenosis, NATALIE-3 distal flow, mid and distal RCA 20%, left main 0% stenosis, LAD 20% proximal 30% mid, left circumflex less than 20%, LVEF 65% LVEDP 5 to 8 mmHg, right heart catheterization-mean right atrial pressure 3 mmHg RV pressure 23/3 PA pressure 20/8 with a mean of 12, mean pulmonary capillary wedge pressure 8 mmHg, LVEF 60 to 65%, LVEDP 7 to 9 mmHg 17. 80% stenosis right common iliac artery. Objective Visit Vitals BP 100/78 (BP Location: Left arm, Patient Position: Sitting) Pulse 64 Ht 1.829 m (6') Wt 111 kg (245 lb) BMI 33.23 kg/m Smoking Status Former BSA 2.37 m GENERAL APPEARANCE: Well developed, well nourished, in no acute distress. CHEST: Symmetric and non-tender. INTEGUMENT: Skin warm and dry, without gross excoriationis or lesions. HEENT: No gross abnormalities of conjunctiva, teeth, gums, oral mucosa NECK: Supple, no JVD, no bruit. Thyroid not palpable. Carotid upstrokes normal. NEURO/PSHCY: Alert and oriented x3; appropriate behavior and responses and responses, with normal balance and coordination LUNGS: Clear to auscultation bilaterally; normal respiratory effort. HEART: Rate and rhythm regular with no evident murmur; no gallop appreciated. There are no rubs, clicks or heaves. ABDOMEN: Soft, nontender, no palpable hepatosplenomegaly, no mases, no bruits. Abdominal aorta not noted to be enlarged. MUSCULOSKELETAL: Ambulatory with normal tandem gait. EXTREMITIES: Warm with good color, no clubbing or cyanois. There is no edema noted. LABS: CBC: No results for input(s): WBC , HGB , PLT in the last 72 hours. BMP: No results for input(s): NA , K , CL , CO2 , BUN , CREATININE , GLUCOSE in the last 72 hours. Troponin: No results for input(s): TROPONINT in the last 72 hours. BNP: No results for input(s): PROBNP in the last 72 hours. INR: No results for input(s): INR in the last 72 hours. Mg: @LABRCNT (mg)@ Assessment/Plan Shortness of breath Continues to have significant shortness of breath. Filling pressures are low on cardiac catheterization no pulmonary hypertension at rest good correlation between pulmonary capillary wedge pressure and LV end-diastolic pressure. Still believe that shortness of breath may be multifactorial, patient may have more COPD than depicted so far by testing. Unable to test for chronotropic incompetence, cannot walk on treadmill. I think we will stop with cardiac work-up at this time, patient to continue follow-up with primary and pulmonary. Consider pulmonary rehabilitation if appropriate Hyperlipidemia At target, remains on statin therapy Peripheral vascular disease (CMS/HCC) Patient is followed by vascular surgery. Has history of PVD with stenting left lower extremity details not available At the time of coronary angiography, right common femoral angiography identified 80% stenosis. Continue antiplatelet therapy abstinence from nicotine gum and walking program and follow-up with vascular surgery aggressive lipid management. Primary hypertension Blood pressure is at target Class 1 obesity with body mass index (BMI) of 32.0 to 32.9 in adult Shortness of breath may improve with weight loss. Current BMI at 33. Calorie restriction and intermittent fasting and some type of water aerobics are good options for him. Patient to follow-up with me in July 2023 with comprehensive profile and lipid profile prior to next visit. documented in this encounter [facility] Work Phone: 01-23-2023 Instructions Nina More LPN - 01/23/2023 9:15 AM EDT Please bring all medicines, vitamins, and herbal supplements with you when you come to the office. Prescriptions will not be filled unless you are compliant with your follow up appointments or have a follow up appointment scheduled as per instruction of your physician. Refills should be requested at the time of your visit. Patient to follow up with primary care regarding Shortness of breath, Vascular regarding PVD. Follow up in 6 months. documented in this encounter [facility] Work Phone: 01-17-2023 Note HNO ID: [id number] Author: Nathaly Yousif RT(R) Service: ? Author Type: Technologist Type: Progress Notes Filed: 01/17/2023 9:15 AM Note Text: Radiology Service Progress Note PATIENT NAME: Elvis Grande DATE OF SERVICE: January 17, 2023 TIME: 9:15 AM PATIENT IDENTITY VERIFICATION COMPLETED USING TWO (2) IDENTIFIERS: Name and Date of confirmed by patient verbally. FALL SCREENING: Has the patient had 2 falls in the last year or 1 fall with injury or currently using an Ambulatory Assistive Device (Walker, Cane, Wheelchair, Crutches, etc.)? No PATIENT GENDER DATA: Male PATIENT RELEVANT IMPLANT DATA REVIEWED: Not Applicable RADIOLOGY DEPARTMENT: CT; Exam(s) Completed: Kidney PERIPHERAL IV DATA: Site assessment: Clean,Dry and Intact, Site disposition Discontinued SIGNED BY: Nathaly Yousif, RT(R) January 17, 2023 9:15 AM [facility] 01-02-2023 Note HNO ID: [id number] Author: Shelley Pond MD Service: ? Author Type: Physician Type: Progress Notes Filed: 01/09/2023 12:55 PM Note Text: Radiation Oncology - Follow Up Note PATIENT NAME: Elvis Grande PATIENT DIAGNOSIS: Prostate adenocarcinoma, initial PSA 32.05, biopsy Clara score 4 + 3 = 7 (grade group 3), clinical stage T2a, N0, M0, stage IIIA [T1-T2, N0, M0, PSA >=20, GG 1-4] (AJCC 8th ed.), s/p TRUS Random biopsy. Prostate cancer (C61), 2019 NCCN Risk Group: High Risk Group Clinical State: Localized Cancer - New Diagnosis RADIATION SUMMARY: DATES OF TREATMENT: 04/01/22-05/08/22: Pelvic EBRT 05/23/22: Prostate Brachytherapy AREA TREATED: Pelvis Prostate DELIVERED DOSE: Pelvis Prostate: 45Gy in 25 fractions, 3 Celis, IMRT, 10MV with daily CBCT Prostate: 100 Gy, Pd-103. 71 sources, 112.18 mCi INTERVAL HISTORY: The patient presents for routine follow-up. Doing fairly well. Still sensation of increased urinary frequency and urgency though improved. No hematuria. PSA HISTORY: PSA. (no units) Date Value 12/09/2022 <0.13 2022 0.14 ALLERGIES Allergen Reactions Iodinated Contrast * Unknown bicalutamide (CASODEX) 50 mg tablet Take 50 mg by mouth once daily. oxybutynin ER (DITROPAN XL) 10 mg 24 hr tablet Take 10 mg by mouth once daily. atorvastatin (LIPITOR) 40 mg tablet Take 40 mg by mouth once daily. clopidogrel (PLAVIX) 75 mg tablet Take 75 mg by mouth once daily. dilTIAZem CR (TIAZAC, TAZTIA XT) 120 mg 24 hr capsule Take 120 mg by mouth once daily. aspirin, enteric coated (ASPIRIN, ENTERIC COATED) 81 mg EC tablet Take 81 mg by mouth once daily. tamsulosin (FLOMAX) 0.4 mg Take 1 capsule by mouth daily at bedtime. HYDROcodone-acetaminophen (NORCO) 5-325 mg per tablet Take 1 tablet by mouth every 8 hours as needed for pain. losartan (COZAAR) 25 mg tablet 20 mg. REVIEW OF SYSTEMS: D/N = 5-7/2-3 Hematuria: none Dysuria: no Incontinence: No Urgency: moderate Catheter use: none Medications to aid urination: y - Total AUA Score: 19 Bowel movement frequency: 1-2/day Bowel movement quality: normal Blood per rectum: none PHYSICAL EXAM: BP 113/74 Pulse 65 Temp (!) 35.9 ?C (96.7 ?F) Resp 18 Wt 110.5 kg (243 lb 9.6 oz) SpO2 98% BMI 33.03 kg/m? KPS: 100 General Appearance: Alert and oriented. No acute distress. Rectal exam is deferred. ASSESSMENT/PLAN: Prostate adenocarcinoma, initial PSA 32.05, biopsy [place] score 4 + 3 = 7 (grade group 3), clinical stage T2a, N0, M0, stage IIIA [T1-T2, N0, M0, PSA >=20, GG 1-4] (AJCC 8th ed.), s/p pelvic radiation, prostate brachytherapy boost, ADT. Patient doing fairly well. PSA undetectable. He continues on ADT given his initial elevated PSA. He continues close follow-up with urology. Plan to see patient back in 6 months for further postradiation follow-up. Signed by: Shelley Pond MD cc: ANTONIO CASTELLON [address] [place] [address] Dr. Gomez [facility] 01-02-2023 History of Present illness Narrative Radiation Oncology - Follow Up Note PATIENT NAME: Elvis Grande PATIENT DIAGNOSIS: Prostate adenocarcinoma, initial PSA 32.05, biopsy Clara score 4 + 3 = 7 (grade group 3), clinical stage T2a, N0, M0, stage IIIA [T1-T2, N0, M0, PSA >=20, GG 1-4] (AJCC 8th ed.), s/p TRUS Random biopsy. Prostate cancer (C61), 2019 NCCN Risk Group: High Risk Group Clinical State: Localized Cancer - New Diagnosis RADIATION SUMMARY: DATES OF TREATMENT: 04/01/22-05/08/22: Pelvic EBRT 05/23/22: Prostate Brachytherapy AREA TREATED: Pelvis Prostate DELIVERED DOSE: Pelvis Prostate: 45Gy in 25 fractions, 3 Celis, IMRT, 10MV with daily CBCT Prostate: 100 Gy, Pd-103. 71 sources, 112.18 mCi INTERVAL HISTORY: The patient presents for routine follow-up. Doing fairly well. Still sensation of increased urinary frequency and urgency though improved. No hematuria. PSA HISTORY: PSA. (no units) Date Value 12/09/2022 <0.13 2022 0.14 ALLERGIES Allergen Reactions Iodinated Contrast * Unknown bicalutamide (CASODEX) 50 mg tablet Take 50 mg by mouth once daily. oxybutynin ER (DITROPAN XL) 10 mg 24 hr tablet Take 10 mg by mouth once daily. atorvastatin (LIPITOR) 40 mg tablet Take 40 mg by mouth once daily. clopidogrel (PLAVIX) 75 mg tablet Take 75 mg by mouth once daily. dilTIAZem CR (TIAZAC, TAZTIA XT) 120 mg 24 hr capsule Take 120 mg by mouth once daily. aspirin, enteric coated (ASPIRIN, ENTERIC COATED) 81 mg EC tablet Take 81 mg by mouth once daily. tamsulosin (FLOMAX) 0.4 mg Take 1 capsule by mouth daily at bedtime. HYDROcodone-acetaminophen (NORCO) 5-325 mg per tablet Take 1 tablet by mouth every 8 hours as needed for pain. losartan (COZAAR) 25 mg tablet 20 mg. REVIEW OF SYSTEMS: D/N = 5-7/2-3 Hematuria: none Dysuria: no Incontinence: No Urgency: moderate Catheter use: none Medications to aid urination: y - Total AUA Score: 19 Bowel movement frequency: 1-2/day Bowel movement quality: normal Blood per rectum: none PHYSICAL EXAM: BP 113/74 Pulse 65 Temp (!) 35.9 C (96.7 F) Resp 18 Wt 110.5 kg (243 lb 9.6 oz) SpO2 98% BMI 33.03 kg/m KPS: 100 General Appearance: Alert and oriented. No acute distress. Rectal exam is deferred. ASSESSMENT/PLAN: Prostate adenocarcinoma, initial PSA 32.05, biopsy Clara score 4 + 3 = 7 (grade group 3), clinical stage T2a, N0, M0, stage IIIA [T1-T2, N0, M0, PSA >=20, GG 1-4] (AJCC 8th ed.), s/p pelvic radiation, prostate brachytherapy boost, ADT. Patient doing fairly well. PSA undetectable. He continues on ADT given his initial elevated PSA. He continues close follow-up with urology. Plan to see patient back in 6 months for further postradiation follow-up. Signed by: Shelley Pond MD cc: ANTONIO CASTELLON [address] [place] [address] Dr. Gomez documented in this encounter [facility] 01-02-2023 Nurse Note AUA 19 Bonnie Sanz RN documented in this encounter [facility] 12-16-2022 Procedure note [facility] 11-28-2022 History of Present illness Narrative 67-year-old gentleman is being seen in cardiology consultation at the request of Dr. Spike Talavera exertional shortness of breath particularly noticeable in the past 3 to 4 months. Currently functional class III, no orthopnea PND or lower extremity edema.Has multiple cardiac risk factors to include hypertension hyperlipidemia peripheral vascular disease age male sex. Smoked 2 packs/day for 25 years then 1 pack/day for 25 years and quit 4 months ago patient reports that ever since he quit smoking he has been noticing the shortness of breath and also pain in his legs with activity. 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 Activity is limited by burning discomfort in the calf area both legs, left worse than right. Also reports achy muscles particularly in the lower extremities.Diagnosed with prostate cancer few months ago, had 25 radiation treatments, radiation seed implantation, and currently is on hormone replacement therapy, which causes him to have hot flashes and sweating and some shortness of breath particularly at night.Gives history of migraine headaches peripheral vascular disease stent in the left lower extremity above thigh, migraine headaches and small abdominal aortic aneurysm.EKG is normalI reviewed laboratory data and testing results from Dr. Lala. Richycatarinograciela Alex was reported to be normal.History so far :1.Multiple cardiac risk factors2. Hypertension3. Hyperlipidemia4. Class II/III claudication5. Cannot exclude statin induced myalgia6. [id number] history of smoking quit 4 months ago7. Richyiscan Myoview08/2022 -normal perfusion, Patient reports that he did not walk on the treadmill.Transient ischemic dilatation 0.8, LVEF 69%8. History of cerebral aneurysm clipping in 1980 at [facility] in [place], has seen Dr. Castillo of neurology, who is no longer seeing patient on a regular basis9. Current use of dual antiplatelet [id number]. Increased BMI11. Pulmonary function testing-September 2022-mild obstructive pattern on spirometry without bronchodilator response elevated residual volumes suggest air trapping mild diffusion impairment overall study compatible with mild COPD/emphysema diffusion capacity 77% predicted.12. Patient reports 30 pound weight gain on hormone replacement [id number].Carotid ultrasound January 2022-mild bilateral carotid [id number].CTA August 2022-no pulmonary embolism, emphysema was noted.Assessment :1. Patient needs further workup for coronary artery disease.2. Exertional shortness of breath could be anginal equivalent versus other3. Pulmonary function testing surprisingly good for someone with [id number] history of smoking4. Continues to have claudication, some of the lower extremity symptoms raise suspicion for statin induced myopathy or myalgia5. Patient is unable to do a treadmill stress test because of claudication6. Patient has history of migraine headaches and cerebral aneurysm clipping. As such we will stay away from p.o. vasodilatory agents such as isosorbide or amlodipine.7. COPD is probable8. Prostate cancer without metastasisRecommendations:1. Diltiazem CD 1 20 mg p.o. daily2. Echocardiogram3. Discussed the need for coronary angiography, preferred right radial approach, procedure risk benefits and alternatives were discussed, patient is agreeable, procedure to be [facility] at [facility]. Risk discussed included but were not limited to CT, stroke, , peripheral vascular compromise and allergic reaction to dye.5. Patient should not stop aspirin and clopidogrel6. CBC PT/INR basic metabolic profile and CPK level to be drawn a week before cardiac catheterization.7. Additional recommendations to be based on clinical course and findings8. Please obtain most recent office notes from neurology, Dr. Taylor you ,for allowing us to participate in aneesh Kendall care please do not hesitate to call if further questions arise,Sincerely,Safia Cerda MD [facility] [address] DO Work Phone: 07-04-2022 Nurse Note AUA=27 documented in this encounter [facility] 07-04-2022 History of Present illness Narrative Radiation Oncology - Follow Up Note PATIENT NAME: Elvis Grande PATIENT DIAGNOSIS: Prostate adenocarcinoma, initial PSA 32.05, biopsy [place] score 4 + 3 = 7 (grade group 3), clinical stage T2a, N0, M0, stage IIIA [T1-T2, N0, M0, PSA >=20, GG 1-4] (AJCC 8th ed.), s/p TRUS Random biopsy. Prostate cancer (C61), 2019 NCCN Risk Group: High Risk Group Clinical State: Localized Cancer - New Diagnosis RADIATION SUMMARY: DATES OF TREATMENT: 04/01/22-05/08/22: Pelvic EBRT 05/23/22: Prostate Brachytherapy AREA TREATED: Pelvis Prostate DELIVERED DOSE: Pelvis Prostate: 45Gy in 25 fractions, 3 Celis, IMRT, 10MV with daily CBCT Prostate: 100 Gy, Pd-103. 71 sources, 112.18 mCi INTERVAL HISTORY: The patient presents for routine follow-up. Still having urinary urgency and frequency, pain has resolved. No hematuria. Denies any bowel related problems. Has moderate fatigue. PSA HISTORY: PSA. (no units) Date Value 2022 0.14 ALLERGIES Allergen Reactions Iodinated Contrast * Unknown tamsulosin (FLOMAX) 0.4 mg Take 1 capsule by mouth daily at bedtime. naproxen (NAPROSYN) 500 mg tablet TAKE 1 TABLET BY MOUTH EVERY 12 HOURS WITH FOOD OR MILK NEEDED FOR 30 DAYS HYDROcodone-acetaminophen (NORCO) 5-325 mg per tablet Take 1 tablet by mouth every 8 hours as needed for pain. losartan (COZAAR) 25 mg tablet 20 mg. hydrOXYzine pamoate (VISTARIL) 25 mg capsule TAKE 1 CAPSULE BY MOUTH EVERY DAY NEEDED AT BEDTIME FOR 30 DAYS omeprazole (PRILOSEC) 20 mg capsule TAKE 1 CAPSULE BY MOUTH EVERY DAY 30 MINUTES BEFORE MORNING MEAL FOR 90 DAYS sertraline (ZOLOFT) 25 mg tablet Take 1 tablet by mouth. sucralfate (CARAFATE) 1 gram tablet 1 tablet on an empty stomach REVIEW OF SYSTEMS: D/N = 5-7/2-3 Hematuria: none Dysuria: no Incontinence: No Urgency: moderate Catheter use: none Medications to aid urination: y - Total AUA Score: 27 Bowel movement frequency: 1-2/day Bowel movement quality: normal Blood per rectum: none PHYSICAL EXAM: There were no vitals taken for this visit. KPS: 100 General Appearance: Alert and oriented. No acute distress. Rectal exam is deferred. ASSESSMENT/PLAN: Prostate adenocarcinoma, initial PSA 32.05, biopsy Clara score 4 + 3 = 7 (grade group 3), clinical stage T2a, N0, M0, stage IIIA [T1-T2, N0, M0, PSA >=20, GG 1-4] (AJCC 8th ed.), s/p pelvic radiation, prostate brachytherapy boost, ADT. Patient overall improving after prostate brachytherapy. He has had a good initial PSA response. Post-implant CT shows excellent prostate coverage and appropriate normal tissue sparing. No change of modification in either the treatment or follow-up plan based on this. Recommend repeat PSA in 6 months. Patient has continued close follow-up with Dr. Gomez including follow-up of incidentally found left renal lesion. Signed by: Shelley Pond MD cc: ANTONIO CASTELLON [address] [place] [address] Dr. Gomez documented in this encounter [facility] 06-20-2022 History of Present illness Narrative Patient: Elvis Grande Date:06/20/2022 [facility] Department of Radiation Oncology [facility] RADIATION ONCOLOGY POST SEED IMPLANT SIMULATION NOTE DATE OF SIMULATION: 06/20/2022 MACHINE: CT Simulator AREA:Prostate PATIENT POSITION: Supine. CONTRAST: None PROTOCOL: None CONCURRENT THERAPY: None FIXATION DEVICE: None PROCEDURE: Patient was simulated on the CT scanner and CT images of the patients pelvis obtained. ASSESSMENT/PLAN: Patient tolerated simulation procedure well. CT images were obtained on the CT simulator for the prostate post brachy therapy seed implant planning. Post planning for the permanent seed prostate brachy procedure will commence following simulation. Electronically Signed STUART POND M.D. 38:42 AM documented in this encounter [facility] 06-17-2022 Hospital Discharge instructions Patient Education 06/17/2022 08:15:42 Prostate Cancer Prostate Cancer The prostate is a walnut-sized gland that is involved in the production of semen. It is located below a man's bladder, in front of the rectum. Prostate cancer is the abnormal growth of cells in the prostate gland. What are the causes? The exact cause of this condition is not known. What increases the risk? This condition is more likely to develop in men who: Are older than age 65. Are -[place]. Are obese. Have a family history of prostate cancer. Have a family history of breast cancer. What are the signs or symptoms? Symptoms of this condition include: A need to urinate often. Weak or interrupted flow of urine. Trouble starting or stopping urination. Inability to urinate. Pain or burning during urination. Painful ejaculation. Blood in urine or semen. Persistent pain or discomfort in the lower back, lower abdomen, hips, or upper thighs. Trouble getting an erection. Trouble emptying the bladder all the way. How is this diagnosed? This condition can be diagnosed with: A digital rectal exam. For this exam, a health care provider inserts a gloved finger into the rectum to feel the prostate gland. A blood test called a prostate-specific antigen (PSA) test. An imaging test called transrectal ultrasonography. A procedure in which a sample of tissue is taken from the prostate and examined under a microscope (prostate biopsy). Once the condition is diagnosed, tests will be done to determine how far the cancer has spread. This is called staging the cancer. Staging may involve imaging tests, such as: A bone scan. A CT scan. A PET scan. An MRI. The stages of prostate cancer are as follows: Stage I. At this stage, the cancer is found in the prostate only. The cancer is not visible on imaging tests and it is usually found by accident, such as during a prostate surgery. Stage II. At this stage, the cancer is more advanced than it is in stage I, but the cancer has not spread outside the prostate. Stage III. At this stage, the cancer has spread beyond the outer layer of the prostate to nearby tissues. The cancer may be found in the seminal vesicles, which are near the bladder and the prostate. Stage IV. At this stage, the cancer has spread other parts of the body, such as the lymph nodes, bones, bladder, rectum, liver, or lungs. How is this treated? Treatment for this condition depends on several factors, including the stage of the cancer, your age, personal preferences, and your overall health. Talk with your health care provider about treatment options that are recommended for you. Common treatments include: Observation for early stage prostate cancer (active surveillance). This involves having exams, blood tests, and in some cases, more biopsies. For some men, this is the only treatment needed. Surgery. Types of surgeries include: ?Open surgery. In this surgery, a larger incision is made to remove the prostate. ?A laparoscopic prostatectomy. This is a surgery to remove the prostate and lymph nodes through several, small incisions. It is often referred to as a minimally invasive surgery. ?A robotic prostatectomy. This is a surgery to remove the prostate and lymph nodes with the help of a robotic arm that is controlled by a computer. ?Orchiectomy. This is a surgery to remove the testicles. ?Cryosurgery. This is a surgery to freeze and destroy cancer cells. Radiation treatment. Types of radiation treatment include: ?External beam radiation. This type aims beams of radiation from outside the body at the prostate to destroy cancerous cells. ?Brachytherapy. This type uses radioactive needles, seeds, wires, or tubes that are implanted into the prostate gland. Like external beam radiation, brachytherapy destroys cancerous cells. An advantage is that this type of radiation limits the damage to surrounding tissue and has fewer side effects. High-intensity, focused ultrasonography. This treatment destroys cancer cells by delivering high-energy ultrasound waves to the cancerous cells. Chemotherapy medicines. This treatment kills cancer cells or stops them from multiplying. Hormone treatment. This treatment involves taking medicines that act on one of the male hormones (testosterone): ?By stopping your body from producing testosterone. ?By blocking testosterone from reaching cancer cells. Follow these instructions at home: Take [id number] and prescription medicines only as told by your health care provider. Maintain a healthy diet. Get plenty of sleep. Consider joining a support group for men who have prostate cancer. Meeting with a support group may help you learn to cope with the stress of having cancer. Keep all follow-up visits as told by your health care provider. This is important. If you have to go to the hospital, notify your cancer specialist (oncologist). Treatment for prostate cancer may affect sexual function. Continue to have intimate moments with your partner. This may include touching, holding, hugging, and caressing. Contact a health care provider if: You have trouble urinating. You have blood in your urine. You have pain in your hips, back, or chest. Get help right away if: You have weakness or numbness in your legs. You cannot control urination or your bowel movements (incontinence). You have trouble breathing. You have sudden chest pain. You have chills or a fever. Summary The prostate is a walnut-sized gland that is involved in the production of semen. It is located below a man's bladder, in front of the rectum. Prostate cancer is the abnormal growth of cells in the prostate gland. Treatment for this condition depends on several factors, including the stage of the cancer, your age, personal preferences, and your overall health. Talk with your health care provider about treatment options that are recommended for you. Consider joining a support group for men who have prostate cancer. Meeting with a support group may help you learn to cope with the stress of having cancer. This information is not intended to replace advice given to you by your health care provider. Make sure you discuss any questions you have with your health care provider. Document Released: 04/07/2006 Document Revised: 03/20/2018 Document Reviewed: 12/16/2016 [employer] Patient Education 2020 [employer] Follow Up Care 04/26/2022 11:49:03 With:PATRICIA SALINAS, Mansi Cordova, URL Address: [facility] [address] [place] [address]- When: Unknown [facility] 06-13-2022 History of Present illness Narrative Radiation Oncology - Follow Up Note PATIENT NAME: Elvis Grande PATIENT DIAGNOSIS: Prostate adenocarcinoma, initial PSA 32.05, biopsy Clara score 4 + 3 = 7 (grade group 3), clinical stage T2a, N0, M0, stage IIIA [T1-T2, N0, M0, PSA >=20, GG 1-4] (AJCC 8th ed.), s/p TRUS Random biopsy. Prostate cancer (C61), 2019 NCCN Risk Group: High Risk Group Clinical State: Localized Cancer - New Diagnosis RADIATION SUMMARY: DATES OF TREATMENT: 04/01/22-05/08/22: Pelvic EBRT 05/23/22: Prostate Brachytherapy AREA TREATED: Pelvis Prostate DELIVERED DOSE: Pelvis Prostate: 45Gy in 25 fractions, 3 Celis, IMRT, 10MV with daily CBCT Prostate: 100 Gy, Pd-103. 71 sources, 112.18 mCi INTERVAL HISTORY: The patient presents for routine follow-up 2 weeks after completion of her recent brachytherapy boost. Overall doing better. Still with urinary urgency and frequency. Denies of any problems. Denies fever. PSA HISTORY: No results found for: PSA, PSAPER ALLERGIES Allergen Reactions Iodinated Contrast * Unknown tamsulosin (FLOMAX) 0.4 mg Take 1 capsule by mouth daily at bedtime. HYDROcodone-acetaminophen (NORCO) 5-325 mg per tablet Take 1 tablet by mouth every 8 hours as needed for pain. losartan (COZAAR) 25 mg tablet 20 mg. omeprazole (PRILOSEC) 20 mg capsule TAKE 1 CAPSULE BY MOUTH EVERY DAY 30 MINUTES BEFORE MORNING MEAL FOR 90 DAYS naproxen (NAPROSYN) 500 mg tablet TAKE 1 TABLET BY MOUTH EVERY 12 HOURS WITH FOOD OR MILK NEEDED FOR 30 DAYS hydrOXYzine pamoate (VISTARIL) 25 mg capsule TAKE 1 CAPSULE BY MOUTH EVERY DAY NEEDED AT BEDTIME FOR 30 DAYS sertraline (ZOLOFT) 25 mg tablet Take 1 tablet by mouth. sucralfate (CARAFATE) 1 gram tablet 1 tablet on an empty stomach REVIEW OF SYSTEMS: D/N = 5-7/2-3 Hematuria: none Dysuria: Yes Incontinence: No Urgency: moderate Catheter use: none Medications to aid urination: y - Total AUA Score: 31 Bowel movement frequency: 1-2/day Bowel movement quality: normal Blood per rectum: none PHYSICAL EXAM: BP 129/79 Pulse 79 Temp 36.6 C (97.8 F) (Temporal) Resp 16 Ht 182.9 cm (6' 0.01 ) Wt 101 kg (222 lb 9.6 oz) SpO2 99% BMI 30.18 kg/m KPS: 100 General Appearance: Alert and oriented. No acute distress. Rectal exam is deferred. Perineal area without ecchymosis tenderness or seroma. ASSESSMENT/PLAN: Prostate adenocarcinoma, initial PSA 32.05, biopsy [place] score 4 + 3 = 7 (grade group 3), clinical stage T2a, N0, M0, stage IIIA [T1-T2, N0, M0, PSA >=20, GG 1-4] (AJCC 8th ed.), s/p pelvic radiation, prostate brachytherapy boost, ADT. Patient overall doing well with improving post-implant urinary issues. No other new problems. Plan to have patient back in 2 weeks for post-implant CT, return for follow-up exam in 4 weeks. He continues close follow-up with his urologist as well. Signed by: Shelley Pond MD cc: ANTONIO CASTELLON [address] [place] [address] documented in this encounter [facility] 06-07-2022 Nurse Note Pt states that he is having burning with urination since his catheter from his seed implants. He has been put on pain meds, no antibiotics were giving and no UA done. Skylar Van documented in this encounter [facility] 05-24-2022 Note PROCEDURE: XR PELVIS 1_2 VIEWS HISTORY: Surgical procedure ; prostate seed implant COMPARISON: None. FINDINGS: BONES:No fracture, acute abnormality, or significant arthropathy. SOFT TISSUES:Multiple radioactive seeds projecting over region of prostate. Bladder is filled with radiopaque contrast without visible extravasation. OTHER: Negative. IMPRESSION: 1. Radioactive seeding of the prostate without appreciable acute bladder involvement. Electronically authenticated by: PAMELA BRUNO Date: 2022-05-24 07:28 [facility] 05-23-2022 History of Present illness Narrative Date: 05/23/22 Facility: [facility] Procedure: prostate transperineal brachytherapy implant Sources: [id number] Anesthesia:general Urologist: Dr. Gomez This is an operative report supplement to Dr. Gomez's note. Prior the the implant patient underwent planning using transrectal ultrasound based. The planning including outline of prostate and planning margin around prostate to deliver 100 Gy using Pd 103 sources. It was determined 71 sources, for a total of 112.18 mCi was necessary using 19 needles. Prior to the procedure on the morning of the implant, patient identified by name and hospital ID bracelet. After anesthesia administered patient placed in dorsal-lithotomy position and ultrasound study done showing good correlation with planning images and excellent visualization of the gland. Implant was then carried out using transperineal technique with active ultrasound and fluoroscopic guidance. At the end of the case the treatment planning ultrasound computer showed captured seed located in expected position with appropriate target coverage, no extra seeds implanted. X-ray image showed good seed distribution and all 71 sources. Intraoperative dosimetry reviewed showing D90 of >90%, and excellent coverage of gland by the 100% IDL. After the cystoscopy physics performed survey with meter of patient, cystoscopy fluid, floor, trash, work table and general area. No excess activity seen, results documented. Brennan Pond MD [facility] documented in this encounter [facility] 05-15-2022 Note OPERATIVE NOTE OPERATION DATE: 05/15/2022 PREOPERATIVE DIAGNOSIS: Epigastric abdominal pain, CT scan with evidence of duodenitis, need for colorectal screening. POSTOPERATIVE DIAGNOSIS: Antral gastritis as well as sigmoid diverticulosis. PROCEDURE: EGD with antral biopsy and colonoscopy to cecum. SURGEON: Mitchel Segundo M.D. ANESTHESIA: Monitored anesthesia care. ESTIMATED BLOOD LOSS: Less than 1 mL. INDICATIONS AND CONSENT: Patient is a 66-year-old male with history of intermittent epigastric abdominal pain. CT scan revealed evidence of duodenitis as well as sigmoid diverticulosis. Indications, risks, benefits, alternatives of proceeding with EGD and colonoscopy were explained extensively to the patient, including the risks of bleeding, aspiration, esophageal/gastric/duodenal or colonic perforation or anesthetic complications. All of his questions were answered. Informed consent was obtained. PROCEDURE: Patient brought to the operating room, placed in the left lateral decubitus position. Monitored anesthesia care was provided. A bite block was placed in the patient's mouth. Scope was inserted into the oropharynx. Under direct visualization, it was advanced into the esophagus, past the cricopharyngeus, down to the stomach. The stomach was insufflated with air. The pylorus was traversed down to the descending portion of the duodenum. There was no evidence of duodenitis or ulceration. There was no scarring within the pyloric channel. The scope was pulled back into the stomach and retroflexed. There was no significant hiatal hernia. Within the antrum, there was evidence of antral gastritis, as well as some superficial antral erosions. No active bleeding. Several biopsies were obtained with pediatric cold biopsy forceps with good hemostasis. The GE junction was noted at 40 cm. There was no distal esophagitis or Lanier's changes. Remainder of the esophagus was unremarkable. The scope was then withdrawn. The patient was then positioned for colonoscopy. Rectal exam was performed which revealed no masses or blood. The scope was then inserted into the anal canal. Under direct visualization it was advanced. It was advanced to the cecum where cecal markings were clearly identified. There was noted to be a good prep. Upon withdrawal of the scope, mucosal surfaces were carefully examined. There were no mass lesions or polyps. No inflammatory changes or ulcerations. There was moderate sigmoid diverticulosis without inflammatory changes or scarring. The scope was retroflexed in the anal canal. There were some prominent rectal veins. No significant hemorrhoidal disease. No old or new blood. The scope was then withdrawn. Patient tolerated procedure well. Follow up screening colonoscopy should be in 10 years. CC: JUDITH Grier [facility] 05-14-2022 History of Present illness Narrative ELVIS GRANDE [id number] 05/14/2022 [facility] Department of Radiation Oncology [facility] RADIATION ONCOLOGY BRACHYTHERAPY TREATMENT PLANNING NOTE For reasons stated in the consult note, ELVIS GRANDE is a candidate for definitive radiation. Based on review and interpretation of the relevant diagnostic studies together with the exam findings, ELVIS GRANDE was simulated on 05/08/2022 and the target volume to be treated as well as the critical normal structure(s) were delineated as indicated in the simulation note. I personally reviewed the TRUS and was able to create contours of the volume to be treated and the normal critical structures to be spared. In this particular case, the rectum was deemed to be a critical structure. Special consideration of this was given in light of the potential for increased toxicity if the rectum receives too much radiation dose. After participating in the treatment planning process with medical physics, I approved the best plan to deliver my prescribed course of radiation. The target tissue was planned using pre-planning to allow for the best isodose distribution to deliver a minimum dose of 100 Gy to the prostate. The dose to normal tissue (rectum) and target tissue was confirmed upon review of the calculated dose superimposed on the TRUS images containing the target tissue and the rectum. A completed summary of this plan dated 05/14/2022 incorporated herein by reference includes dose, energy, isodose distribution and DVH. Electronically Signed Stuart Pond M.D. / BELÉN 1:43 AM documented in this encounter [facility] 05-13-2022 Note EXAMINATION: XR CHES T 2 V HISTORY: Pre-surgery evaluation COMPARISON: No relevant comparison available. FINDINGS: LUNGS: No significant pulmonary parenchymal abnormalities. Old small calcified granuloma within right lung apex. VASCULATURE: No increased pulmonary vasculature. PLEURA: No pneumothorax, effusion, or pleural thickening. CARDIAC: No cardiomegaly or cardiac silhouette abnormality. MEDIASTINUM: No visible mass or adenopathy. BONES: No fracture or visible bone lesion. OTHER: Negative. IMPRESSION: 1. No acute cardiac point process. 2. Mild chronic interstitial changes. Electronically authenticated by: PAMELA BRUNO Date: 2022-05-13 09:51 [facility] 05-10-2022 Miscellaneous Notes Images from the original note were not included. Patient has been scheduled for imaging. Called patient & confirmed appointment date & time. Chelita Pond MD [facility]; Chelita Saldañaoten Needs renal ct, talked with pt, exam ordered documented in this encounter [facility] 05-09-2022 History of Present illness Narrative UNIVERSAL PROTOCOL / SAFETY CHECKLIST Procedure to be Performed: prostate volume study Sign In: A Moment of CARE was completed. Personnel directly involved with the procedure wore the appropriate PPE (Personal Protective Equipment). Patient/Surrogate Stated/Verified: PATIENT VERIFIED(optional for EMERGENT procedures): Patient name, Date of , Relevant allergies, and The intended procedure Time Out Communication: Intended patient and procedure match the source documents. Consent documented and matches the intended procedure. Sign Out: SIGN OUT (optional for EMERGENT procedures): No specimen collected. Shelley Pond MD documented in this encounter [facility] 05-08-2022 History of Present illness Narrative [facility] Radiation Oncology Department RADIATION ONCOLOGY - COMPLETION NOTE PATIENT: ELVIS GRANDE: 1955 DATES OF TREATMENT: 04/01/22-05/08/22 DIAGNOSIS: Prostate adenocarcinoma, initial PSA 32.05, biopsy [place] score 4 + 3 = 7 (grade group 3), clinical stage T2a, N0, M0, stage IIIA [T1-T2, N0, M0, PSA >=20, GG 1-4] (AJCC 8th ed.), s/p TRUS Random biopsy. Prostate cancer (C61), 2019 NCCN Risk Group: High Risk Group Clinical State: Localized Cancer - New Diagnosis AREA TREATED: Pelvis Prostate DELIVERED DOSE: Pelvis Prostate: 4,500 cGy in 25 fractions, 3 Cleis, IMRT, 10MV with daily CBCT TOTAL: 4,500 cGy in 25 fractions ELAPSED TIME: 37 days. CLINICAL SUMMARY: The patient tolerated radiation with mild radiation related bowel and bladder changes and mild fatigue. The patient was able to complete treatment as intended without break interruption or modification of prescription plan. Brachytherapy boost schedule 05/23/22. Staff Physician Stuart Pond M.D. / KG 1:50 AM Electronically Signed cc: Dr. Patricia Castellon documented in this encounter [facility] 05-06-2022 History of Present illness Narrative Radiation Oncology - On Treatment Review (OTR) Note PATIENT NAME: Elvis Grande PATIENT DIAGNOSIS: Prostate adenocarcinoma, initial PSA 32.05, biopsy [place] score 4 + 3 = 7 (grade group 3), clinical stage T2a, N0, M0, stage IIIA [T1-T2, N0, M0, PSA >=20, GG 1-4] (AJCC 8th ed.), s/p TRUS Random biopsy. Prostate cancer (C61), 2019 NCCN Risk Group: High Risk Group Clinical State: Localized Cancer - New Diagnosis COURSE: definitive Current dose: 4140 cGy in 23 fx Planned dose: 4500 cGy in 25 fx SUBJECTIVE: Having issues with left testicular pain since Friday. Denies dysuria or hematuria. Denies fevers but feels off. Denies trauma. Denies bowel issues. PHYSICAL EXAM: 05/06/22 0747 BP: 116/86 Pulse: 85 Resp: 18 Temp: (!) 35.6 C (96 F) SpO2: 100% Weight: 97.5 kg (215 lb) KPS: 100 General Appearance: Alert and oriented. No acute distress. : No groin or testicular masses. Minimal tenderness left scrotal sac IMAGING/LAB RESULTS: Hemoglobin (g/dL) Date Value 04/11/2022 16.0 Hematocrit (%) Date Value 04/11/2022 47.2 WBC (k/uL) Date Value 04/11/2022 5.52 Platelet Count (k/uL) Date Value 04/11/2022 171 Latest Reference Range & Units 05/06/22 08:04 Sodium 136 - 144 mmol/L 139 Potassium 3.7 - 5.1 mmol/L 4.5 Chloride 97 - 105 mmol/L 104 CO2 22 - 30 mmol/L 26 BUN 9 - 24 mg/dL 25 (H) Creatinine 0.73 - 1.22 mg/dL 0.74 Glucose 74 - 99 mg/dL 104 (H) Calcium 8.5 - 10.2 mg/dL 9.7 Anion Gap 9 - 18 mmol/L 9 eGFR >=60 mL/min/1.73m 101 (H): Data is abnormally high TOXICITY ASSESSMENT (CTC v4.0): Fatigue:grade 1 Radiation Dermatitis: grade 0 - No symptoms Diarrhea:grade 1 Proctitis: grade 0 - No symptoms Urinary frequency: grade 1 Dysuria: grade 0 - No symptoms Urinary incontinence: grade 0 (No symptoms) Urinary retention: grade 1 Treatment chart checked: Yes Patient treatment site reviewed and verified:Yes Port films reviewed and current:Yes Medications started: None ASSESSMENT/PLAN: Unclear etiology pain possible kidney stone though no hematuria. Possible orchiditis process patient should go to emergency room. Recommend hydrocodone ciprofloxacin. We will reevaluate tomorrow. Shelley Pond MD documented in this encounter [facility] 04-29-2022 History of Present illness Narrative Radiation Oncology - On Treatment Review (OTR) Note PATIENT NAME: Elvis Grande PATIENT DIAGNOSIS: Prostate adenocarcinoma, initial PSA 32.05, biopsy Clara score 4 + 3 = 7 (grade group 3), clinical stage T2a, N0, M0, stage IIIA [T1-T2, N0, M0, PSA >=20, GG 1-4] (AJCC 8th ed.), s/p TRUS Random biopsy. Prostate cancer (C61), 2019 NCCN Risk Group: High Risk Group Clinical State: Localized Cancer - New Diagnosis COURSE: definitive Current dose: 3240 cGy in 18 fx Planned dose: 4500 cGy in 25 fx SUBJECTIVE: Tolerating XRT well and denies any burning/discomfort with urination but does note nocturia approximately hourly. He is on Flomax but has not increased to 2 tablets. He denies any issues with incontinence/leakage with a strong stream. He does have intermittent loose bowel movements and is not using Imodium. He denies nausea but does endorse fatigue with good appetite and hydration and stable weight. PHYSICAL EXAM: KPS: 90 General Appearance: Alert and oriented. No acute distress. IMAGING/LAB RESULTS: None TOXICITY ASSESSMENT (CTC v4.0): Fatigue:grade 1 - Fatigue relieved by rest Radiation Dermatitis: grade 0 - No symptoms Diarrhea:grade 1 - Increase to >4 stools per day over baseline; mild increase in ostomy output compared to baseline Proctitis: grade 0 - No symptoms Urinary frequency: grade 1 - present Dysuria: grade 1 - Microscopic hematuria; minimal increase in frequency, urgency, dysuria, or nocturia; new onset of incontinence Urinary incontinence: grade 0 (No symptoms) Urinary retention: grade 0 - No symptoms Treatment chart checked: Yes Patient treatment site reviewed and verified:Yes Port films reviewed and current:Yes Medications started: None ASSESSMENT/PLAN: Clinically stable. Toxicity within expected parameters. Continue radiation treatment as planned. Discussed increasing Flomax to 2 tablets to help with urinary frequency/nocturia as well as Imodium to help with diarrhea should it persist/progress. Scot Licona MD documented in this encounter [facility] 04-23-2022 History of Present illness Narrative Radiation Oncology - On Treatment Review (OTR) Note PATIENT NAME: Elvis Grande PATIENT DIAGNOSIS: Prostate adenocarcinoma, initial PSA 32.05, biopsy [place] score 4 + 3 = 7 (grade group 3), clinical stage T2a, N0, M0, stage IIIA [T1-T2, N0, M0, PSA >=20, GG 1-4] (AJCC 8th ed.), s/p TRUS Random biopsy. Prostate cancer (C61), 2019 NCCN Risk Group: High Risk Group Clinical State: Localized Cancer - New Diagnosis COURSE: definitive Current dose: 2520 cGy in 14 fx Planned dose: 4500 cGy in 25 fx SUBJECTIVE: Still with some urinary frequency. Also increased bowel urgency. No dysuria. No hematuria. No blood per rectum. PHYSICAL EXAM: 04/23/22 0825 BP: 125/77 Pulse: 82 Resp: 18 Temp: 36.2 C (97.1 F) TempSrc: Temporal SpO2: 99% Weight: 99.6 kg (219 lb 9.6 oz) KPS: 100 General Appearance: Alert and oriented. No acute distress. IMAGING/LAB RESULTS: Hemoglobin (g/dL) Date Value 04/11/2022 16.0 Hematocrit (%) Date Value 04/11/2022 47.2 WBC (k/uL) Date Value 04/11/2022 5.52 Platelet Count (k/uL) Date Value 04/11/2022 171 TOXICITY ASSESSMENT (CTC v4.0): Fatigue:grade 1 Radiation Dermatitis: grade 0 - No symptoms Diarrhea:grade 1 Proctitis: grade 0 - No symptoms Urinary frequency: grade 1 Dysuria: grade 0 - No symptoms Urinary incontinence: grade 0 (No symptoms) Urinary retention: grade 1 Treatment chart checked: Yes Patient treatment site reviewed and verified:Yes Port films reviewed and current:Yes Medications started: None ASSESSMENT/PLAN: Overall tolerance fairly good. Recommend Imodium for increased bowel frequency. Recommend increase Flomax to twice daily. Chart and films reviewed. Continue radiation. Shelley Pond MD documented in this encounter [facility] 04-16-2022 History of Present illness Narrative Radiation Oncology - On Treatment Review (OTR) Note PATIENT NAME: Elvis Grande PATIENT DIAGNOSIS: Prostate adenocarcinoma, initial PSA 32.05, biopsy Clara score 4 + 3 = 7 (grade group 3), clinical stage T2a, N0, M0, stage IIIA [T1-T2, N0, M0, PSA >=20, GG 1-4] (AJCC 8th ed.), s/p TRUS Random biopsy. Prostate cancer (C61), 2019 NCCN Risk Group: High Risk Group Clinical State: Localized Cancer - New Diagnosis COURSE: definitive Current dose: 1800 cGy in 10 fx Planned dose: 4500 cGy in 25 fx SUBJECTIVE: Having continued issues with urgency. Has had some improvement with Flomax. Denies dysuria or hematuria. PHYSICAL EXAM: 04/16/22 1709 BP: 144/84 Pulse: 81 Resp: 16 Temp: 36.3 C (97.3 F) SpO2: 99% Weight: 100.2 kg (221 lb) KPS: 100 General Appearance: Alert and oriented. No acute distress. IMAGING/LAB RESULTS: Hemoglobin (g/dL) Date Value 04/11/2022 16.0 Hematocrit (%) Date Value 04/11/2022 47.2 WBC (k/uL) Date Value 04/11/2022 5.52 Platelet Count (k/uL) Date Value 04/11/2022 171 TOXICITY ASSESSMENT (CTC v4.0): Fatigue:grade 1 Radiation Dermatitis: grade 0 - No symptoms Diarrhea:grade 0 - No symptoms Proctitis: grade 0 - No symptoms Urinary frequency: grade 1 Dysuria: grade 0 - No symptoms Urinary incontinence: grade 0 (No symptoms) Urinary retention: grade 0 - No symptoms Treatment chart checked: Yes Patient treatment site reviewed and verified:Yes Port films reviewed and current:Yes Medications started: None ASSESSMENT/PLAN: Overall tolerance fairly good. Continue Flomax. Chart and films reviewed. Continue radiation. Shelley Pond MD documented in this encounter [facility] 04-11-2022 Nurse Note Elvis Grande presents in office today for: Lab Draw only . Ordering Provider: Stuart Pond M.D. Test (s) ordered: CBC Method for obtaining blood: Phlebotomy was performed, accessing right antecubital vein. Needle removed intact. Dressing secured. Patient denies discomfort, dizziness, light-headedness or weakness and left the department without assist. Bonnie Sanz RN documented in this encounter [facility] 04-08-2022 History of Present illness Narrative Radiation Oncology - On Treatment Review (OTR) Note PATIENT NAME: Elvis Grande PATIENT DIAGNOSIS: Prostate adenocarcinoma, initial PSA 32.05, biopsy [place] score 4 + 3 = 7 (grade group 3), clinical stage T2a, N0, M0, stage IIIA [T1-T2, N0, M0, PSA >=20, GG 1-4] (AJCC 8th ed.), s/p TRUS Random biopsy. Prostate cancer (C61), 2019 NCCN Risk Group: High Risk Group Clinical State: Localized Cancer - New Diagnosis COURSE: definitive Current dose: 1080 cGy in 6 fx Planned dose: 4500 cGy in 25 fx SUBJECTIVE: Here to start radiation, doing well. Having some issues with increased frequency some urgency and incomplete emptying. Denies dysuria. PHYSICAL EXAM: 04/08/22 0758 Pulse: 75 Resp: 18 Temp: 36.3 C (97.4 F) SpO2: 98% Weight: 99.3 kg (219 lb) KPS: 100 General Appearance: Alert and oriented. No acute distress. IMAGING/LAB RESULTS: No results found for: HB, HCT, WBC, PLT TOXICITY ASSESSMENT (CTC v4.0): Fatigue:grade 0 - No symptoms Radiation Dermatitis: grade 0 - No symptoms Diarrhea:grade 0 - No symptoms Proctitis: grade 0 - No symptoms Urinary frequency: grade 0 - No symptoms Dysuria: grade 0 - No symptoms Urinary incontinence: grade 0 (No symptoms) Urinary retention: grade 0 - No symptoms Treatment chart checked: Yes Patient treatment site reviewed and verified:Yes Port films reviewed and current:Yes Medications started: None ASSESSMENT/PLAN: Recommend Flomax. Discussed avoidance of caffeine etc. Chart and films reviewed. Continue radiation. Shelley Pond MD documented in this encounter [facility] 04-02-2022 Note Chief Complaint consultation for colonoscopy HPI Staff 66 year old male presents on consultation from [facility] for screening colonoscopy. Denies abdominal or rectal pain. No rectal bleeding or change in bowel habits. Denies nausea or vomiting. No unexplained weight loss. Last colonoscopy completed greater than 20 years ago, normal per patient. No known family history of colon cancer. History of Present Illness 66 yo male with h/o prostate cancer, GERD, PVD, migraines, referred for colorectal screening; denies change in bms or blood in stools; no abdominal complaints; denies asa or NSAID use, no SBE prophylaxis; abdominal operations significant for cholecystectomy; no fmhx of colon cancer or IBD; smokes 1 ppd. patient currently undergoing radiation therapy for prostate cancer and is scheduled for brachytherapy of the prostate in early May. recent abd ct scan with duodenal inflammation and sigmoid diverticulosis. Review of Systems PHQ Score Initial Depression Screen Score: 0 ROS - Provider Constitutional: no fever, no sweats, no weight loss. Eyes: no glasses, no blurred vision, no visual loss. ENMT: no dentures, no hoarseness, no swallowing difficulties, no hearing loss, no ear infection(s), no nose bleeds. Cardiovascular: normal blood pressure, no chest pain, regular heartbeat, no heart murmur. Respiratory: no shortness of breath, no cough, no asthma, no wheezing. Gastrointestinal: no nausea, no vomiting, no diarrhea, no constipation, no blood in stool, no change in bowel habits, no abdominal pain, no hepatitis. Genitourinary: no kidney stones, no urine infection, no dysuria. Musculoskeletal: no pain, no weakness. Skin: no changing moles, no rash, no skin lumps. Neurologic: no seizures, no epilepsy, no headache. Psychiatric: no emotional or psychiatric problem. Heme/Lymph: no bleeding problems, no anemia, no blood clots, no transfusions. Allergy/Immunologic: no swollen lymph nodes/glands, no IV drug abuse. Other: Additional ROS info: Except as noted in the above Review of Systems and in the History of Present Illness, all other systems have been reviewed and are negative or noncontributory. Physical Exam Vitals & Measurements HR: 72(Peripheral) RR: 16 BP: 138/76 HT: 72 in HT: 182.88 cm WT: 100 kg WT: 220 lb BMI: 29.9 HEENT: normal conjunctiva, sclera clear, no scleral icterus, EOM intact, PERRLA, oral mucosa moist without lesions. Neck: trachea midline, no mass, symmetric, no thyromegaly or nodules, no adenopathy Respiratory: lungs CTA, respirations non labored. Cardiovascular: regular rate and rhythm, no murmur, no pedal edema or varicosities. Gastrointestinal: soft, non distended, mild tenderness, epigastrium/RUQ, no peritoneal signs; no masses, no palpable hernias, diastasis recti no, no hepatosplenomegaly; normal bs Lymphatic: no cervical adenopathy, Musculoskeletal: normal gait, digits and nails without infection, nodes, cyanosis, clubbing. Skin: no rashes, no lesions, no ulcers, no subcutaneous nodules, induration. Psychiatric/Neuro: oriented to time, place, person, judgement normal, affect appropriate for age, insight intact, no focal deficits. Tests: x-rays reviewed, review of old records completed, Discussed surgical options, risks, and possible complications with patient. Assessment/Plan 1. Epigastric pain (R10.13: Epigastric pain) plan EGD and colonoscopy under anesthesia for further evaluation, informed consent obtained. Ordered: E&M of New Patient Moderate 45-59 Min [address] scan (R93.5: Abnormal findings on diagnostic imaging of other abdominal regions, including retroperitoneum) see # 1 Ordered: E&M of New Patient Moderate 45-59 Min 15676 3. Personal history of peptic ulcer disease (Z87.11: Personal history of peptic ulcer disease) see # 1 Ordered: E&M of New Patient Moderate 45-59 Min 34272 4. Sigmoid diverticulosis (K57.30: Diverticulosis of large intestine without perforation or abscess without bleeding) see # 1 Ordered: E&M of New Patient Moderate 45-59 Min 98052 5. Screening for malignant neoplasm of colon (Z12.11: Encounter for screening for malignant neoplasm of colon) see # 1 Ordered: E&M of New Patient Moderate 45-59 Min [id number] Follow-up No qualifying data available Problem List/Past Medical History Ongoing Abnormal abdominal CT scan Anxiety BMI 29.0-29.9,adult Elevated PSA Epigastric pain GERD (gastroesophageal reflux disease) Migraines Paresthesia Peripheral vascular disease Personal history of peptic ulcer disease Prostate CA Prostate nodule Screening for malignant neoplasm of colon Sigmoid diverticulosis Smoker Historical No qualifying data Procedure/Surgical History Transrectal needle biopsy of prostate (02/13/2022), Cholecystectomy, Clamping of cerebral aneurysm, Colonoscopy, EGD - Esophagogastroduodenoscopy, Excision of vein, Removal of foreign body from neck, Stripping of (more content not included)... [facility] Comment on above: Result Comment: Elec tronically Signed By: SANYA SALINAS, Mitchel Vargas.danie\Date and Time Signed: 04/02/22 15:40 EST 04-01-2022 History of Present illness Narrative Radiation Oncology - On Treatment Review (OTR) Note PATIENT NAME: Elvis Grande PATIENT DIAGNOSIS: Prostate adenocarcinoma, initial PSA 32.05, biopsy [place] score 4 + 3 = 7 (grade group 3), clinical stage T2a, N0, M0, stage IIIA [T1-T2, N0, M0, PSA >=20, GG 1-4] (AJCC 8th ed.), s/p TRUS Random biopsy. Prostate cancer (C61), 2019 NCCN Risk Group: High Risk Group Clinical State: Localized Cancer - New Diagnosis COURSE: definitive Current dose: 180 cGy in 1 fx Planned dose: 4500 cGy in 25 fx SUBJECTIVE: Starting radiation today. PHYSICAL EXAM: KPS: 100 General Appearance: Alert and oriented. No acute distress. IMAGING/LAB RESULTS: None TOXICITY ASSESSMENT (CTC v4.0): Fatigue:grade 0 - No symptoms Radiation Dermatitis: grade 0 - No symptoms Diarrhea:grade 0 - No symptoms Proctitis: grade 0 - No symptoms Urinary frequency: grade 0 - No symptoms Dysuria: grade 0 - No symptoms Urinary incontinence: grade 0 (No symptoms) Urinary retention: grade 0 - No symptoms Treatment chart checked: Yes Patient treatment site reviewed and verified:Yes Port films reviewed and current:Yes Medications started: None ASSESSMENT/PLAN: Patient starting radiation today. Contours adjusted for bowel changes detected last week that attempted initiation of treatment. plan of care and expectations again reviewed. Plan, MU calculations and qa report reviewed. Initial imaging including cone beam ct and verification reviewed and approved. First treatment given. Continue radiation as prescribed. Shelley Pond MD documented in this encounter [facility] 03-27-2022 History of Present illness Narrative Radiation Oncology - On Treatment Review (OTR) Note PATIENT NAME: Evlis Grande PATIENT DIAGNOSIS: Prostate adenocarcinoma, initial PSA 32.05, biopsy [place] score 4 + 3 = 7 (grade group 3), clinical stage T2a, N0, M0, stage IIIA [T1-T2, N0, M0, PSA >=20, GG 1-4] (AJCC 8th ed.), s/p TRUS Random biopsy. Prostate cancer (C61), 2019 NCCN Risk Group: High Risk Group Clinical State: Localized Cancer - New Diagnosis COURSE: definitive Current dose: 0cGy in 0fx Planned dose: 4500 cGy in 25 fx SUBJECTIVE: No new issues. PHYSICAL EXAM: KPS: 100 General Appearance: Alert and oriented. No acute distress. IMAGING/LAB RESULTS: None TOXICITY ASSESSMENT (CTC v4.0): Fatigue:grade 0 - No symptoms Radiation Dermatitis: grade 0 - No symptoms Diarrhea:grade 0 - No symptoms Proctitis: grade 0 - No symptoms Urinary frequency: grade 0 - No symptoms Dysuria: grade 0 - No symptoms Urinary incontinence: grade 0 (No symptoms) Urinary retention: grade 0 - No symptoms Treatment chart checked: Yes Patient treatment site reviewed and verified:Yes Port films reviewed and current:Yes Medications started: None ASSESSMENT/PLAN: Due to change in rectal volume. Replanning was recommended. Patient will start on Friday. Shelley Pond MD documented in this encounter [facility] 03-25-2022 Miscellaneous Notes CBC order pending for the second week during radiation therapy. Sally Alfredo LPN documented in this encounter [facility] 03-18-2022 History of Present illness Narrative ELVIS GRANDE [id number] 03/18/2022 [facility] Radiation Oncology Department SIMULATION NOTE DATE OF SIMULATION: 03/18/2022 THERAPIST: Elisha Webber MACHINE: [employer] DIAGNOSIS: Malignant neoplasm of [id number] AREA: PELVIS CONTRAST: None Consent in Epic: Yes PATIENT POSITION: Supine. FIXATION DEVICE: In order to achieve accurate and reproducible treatments, the patient is immobilized with PT SUPINE ORIFIT BOARD H3 40MM BLOCK 4 BLUE HEAD PAD HANDS CLASPED ON CHEST INDEX PLATE BASIC LOW KNEE SPONGE A9 SHOES OFF A time-out was conducted and recorded by the therapist. CT scan was completed for target localization and planning. Field arrangement will be determined after plan has been completed. The patient is scheduled for a verification simulation on the treatment machine to ensure proper set-up and field arrangement is correct prior to the first treatment of primary and boost celis if applicable. Patient education will be completed per nursing. Electronically Signed Stuart Pond M.D. / NRS :02 AM documented in this encounter [facility] 03-18-2022 History of Present illness Narrative ELVIS GRANDE [id number] 03/18/2022 [facility] Department of Radiation Oncology Treatment Planning Note For reasons stated in the consult note, Elvis Grande is a candidate for radiation therapy. Based on review and interpretation of the relevant diagnostic studies together with the exam findings, Elvis Grande was simulated on 03/18/2022 at which time the target volume and/or requisite celis were delineated, as indicated in the simulation note, to be treated according to the prescription. The treatment target and organs at risk were contoured on the simulation scan . After reviewing multiple treatment plans with dosimetry, the best plan was approved to deliver the prescribed course of radiation to the target area using inverse planning to allow for the best isodose distribution, treating to the 97.9% isodose line with 10MV and 3 celis. Custom MLC asym jaws for IMRT were the treatment devices used to shape/modify the beams. Limiting dose to normal tissue was confirmed upon review of the calculated dose volume histogram. IMRT planning was used because it best met the dose/volume constraints for the organs at risk for this patient, better than what could be achieved using conventional or 3D planning. The specific dose requirements for the PTV, organs at risk and dose-volume histograms are contained in this treatment plan and/or elsewhere in the medical record. A completed summary of this plan dated 03/26/22 incorporated herein by reference includes dose, beam arrangements, energy, blocking, isodose distribution, and/or ports and DVH. Electronically Signed Stuart Pond M.D. 2:24 PM documented in this encounter [facility] 03-13-2022 Hospital Discharge instructions Patient Education 03/13/2022 12:11:06 Brachytherapy for Prostate Cancer Brachytherapy for Prostate Cancer Brachytherapy for prostate cancer is radiation treatment that is placed inside of the prostate (prostate gland). There are several types of brachytherapy: Low-dose rate (LDR) therapy. This may involve temporary implants or permanent radioactive seed or pellet implants. The radiation does not travel far from the prostate, which means that healthy, noncancerous tissues around the prostate receive only a small dose of radiation. This helps to protect those tissues from injury. This type of treatment may be followed by a course of external beam radiation. ?Temporary low-dose implants are left in the prostate for 1 7 days. The implants are needles, applicators, or thin, plastic tubes (catheters) that contain radioactive material. You will need to stay in the hospital while the implant is in place. ?Permanent low-dose implants (seeds or pellets) are injected into the prostate, and they work for up to one year after they are inserted. They are left in place and are not removed. High-dose rate (HDR) therapy. This is given through needles, applicators, or catheters that contain radioactive material. The tubes are removed after treatment, and no radiation is left in the prostate. This type of treatment may be followed by a course of external beam radiation. Tell a health care provider about: Any allergies you have. All medicines you are taking, including vitamins, herbs, eye drops, creams, and mbby-aai-tykvkjw medicines. Any problems you or family members have had with anesthetic medicines. Any surgeries you have had. Any blood disorders you have. Any medical conditions you have. What are the risks? Generally, this is a safe procedure. However, problems may occur, including: Inflammation of the rectum. Problems getting or keeping an erection (erectile dysfunction). Trouble urinating. Diarrhea. Bleeding. Loss of bowel control. What happens before the procedure? Staying hydrated Follow instructions from your health care provider about hydration, which may include: Up to 2 hours before the procedure you may continue to drink clear liquids, such as water, clear fruit juice, black coffee, and plain tea. Eating and drinking Follow instructions from your health care provider about eating and drinking, which may include: 8 hours before the procedure stop eating heavy meals or foods such as meat, fried foods, or fatty foods. 6 hours before the procedure stop eating light meals or foods, such as toast or cereal. 6 hours before the procedure stop drinking milk or drinks that contain milk. 2 hours before the procedure stop drinking clear liquids. Medicines Ask your health care provider about: ?Changing or stopping your regular medicines. This is especially important if you are taking diabetes medicines or blood thinners. ?Taking medicines such as aspirin and ibuprofen. These medicines can thin your blood. Do not take these medicines before your procedure if your health care provider instructs you not to. You may be given antibiotic medicine to help prevent infection. General instructions Plan to have someone take you home from the hospital or clinic. If you will be going home right after the procedure, plan to have someone with you for 24 hours. You may have imaging tests done, including an ultrasound, CT scan, or MRI. You may have blood tests done. You may have a test to check the electrical signals in your heart (electrocardiogram). You may need to take medicine to clean out your bowel (bowel prep). What happens during the procedure? To lower your risk of infection: ?Your health care team will wash or sanitize their hands. ?Your skin will be washed with soap. ?Hair may be removed from the surgical area. An IV will be inserted into one of your veins. You will be given one or more of the following: ?A medicine to help you relax (sedative). ?A medicine to numb the area (local anesthetic). ?A medicine to make you fall asleep (general anesthetic). You may have a thin, plastic tube (catheter) inserted to drain your bladder. If you are receiving brachytherapy with implants: ?A needle, applicator, or catheter will be inserted into the prostate. It will be inserted through a body cavity, such as the rectum, or through the tissue between the testicles and the anus (perineum). ?An X-ray, ultrasound, MRI, or CT scan will be used to guide the catheter or applicator toward the prostate. ?Radioactive seeds, wires, or ribbons will be fed through the catheter or applicator. ?If the high-dose method is used: ?The radioactive wires or ribbons will be left in for a few minutes and then removed. ?Once the treatment is finished, the catheter or applicator will be removed. ?If the low-dose method is used, the implant will stay in place for 1 7 days. ?You will remain in the hospital while the implant is in place. ?Once the treatment is finished, the radioactive material and catheter will be removed. If you are receiving permanent, low-dose brachytherapy: ?Small, radioactive seeds or pellets will be injected into your prostate. This may be done through a catheter, needle, or applicator. ?The catheter or applicator will be removed, leaving the seeds in the prostate. The procedure may vary among health care providers and hospitals. What happens after the procedure? Your blood pressure, heart rate, breathing rate, and blood oxygen level will be monitored until the medicines you were given have worn off. Do not drive for 24 hours if you were given a sedative. Summary Brachytherapy for prostate cancer is radiation treatment placed inside of the prostate (prostate gland). There are several types of brachytherapy for prostate cancer, including low-dose temporary treatment, low-dose permanent treatment, and high-dose temporary treatment. Temporary low-dose implants are left in the prostate for 1 7 days. Permanent low-dose implants are injected into the prostate and left in place. They work for up to one year after they are inserted. Permanent high-dose therapy is given through tubes that contain radioactive material. The tubes are removed after treatment, and no radiation is left in the prostate. This information is not intended to replace advice given to you by your health care provider. Make sure you discuss any questions you have with your health care provider. Document Released: 09/15/2006 Document Revised: 03/20/2018 Document Reviewed: 04/16/2017 [employer] Patient Education 2020 [employer] Follow Up Care 02/27/2022 10:00:45 With:PATRICIA SALINAS, Mansi Cordova, URL Address: [facility] [address], [place] [address]- When: Unknown [facility] 03-06-2022 Nurse Note Radiation Therapy - Patient Education Note PATIENT NAME: Elvis Grande PATIENT March 06, 2022 [facility] FACILITY/LOCATION: [facility] READINESS TO LEARN Cognitive Ability: Alert and oriented Motivation to learn: Interested Family Support: High - Very involved in pt care Instruction provide to: Patient and family Patient learns best by: Multiple Methods Factors effecting learning: None Physical limitations effecting learning: None LEARNING RESPONSE Diagnosis: Pt educated today for radiation therapy to pelvis. Education Topic/Teaching Points: Radiation therapy, Side effects, and OTV: Method of instruction: Written instruction - handouts Patient /Family response: Patient and family verbalized understanding of radiation treatments, side effects, OTV, and transportation. Follow-up plan: Recommend - Recommend continued instruction and follow up as directed Supplemental material: Informational handouts on Diarrhea, Pelvic handout, and Prostate external beam. 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 Signed by: Bonnie Sanz RN documented in this encounter [facility] 03-06-2022 Nurse Note AUA 16 Bonnie Sanz RN documented in this encounter [facility] 03-06-2022 History of Present illness Narrative Radiation Oncology - Prostate Cancer New Patient/Consult Note PATIENT NAME: Elvis Grande PATIENT REQUESTING PROVIDER: Dr. Gomez DIAGNOSIS: 66 year old male with prostate adenocarcinoma, initial PSA 32.05, biopsy [place] score 4 + 3 = 7 (grade group 3), clinical stage T2a, N0, M0, stage IIIA [T1-T2, N0, M0, PSA >=20, GG 1-4] (AJCC 8th ed.), s/p TRUS Random biopsy. HPI: 66 year old male with prostate adenocarcinoma who presents for an opinion regarding the role of radiation therapy in the management of the patient's disease. Final recommendations will be communicated back to the requesting physician by way of the shared medical record, or letter to requesting physician via US mail. The patient was diagnosed with prostate cancer and comes in today to discuss treatment options. Patient presented with an elevated PSA of 32.05 on 01/22/2022. Clinical exam revealed a nodule on the right side, per Dr. Gomez, entire right half of prostate described as rockhard. Prostate biopsy on February 26, 2022 revealed: Adenocarcinoma [place] 7 (4+3) from right mid and right apical, perineural invasion described, [place] 7(3+4) from right mid, areas of CHAS right base right lateral base Total # of positive biopsy cores: 3 Total # of biopsy cores sampled: 12 Greatest % cancer in any single core: 25-50% Staging Studies: Pending scheduled 03/08/2022 Previous Treatment for Prostate Cancer: None Genomic Testing: None The patient reports the following pertinent history: Urinary frequency (D/N): 4-6/2 Dysuria: No Incontinence: 1- No pads Hematuria: No - Total AUA Score: 16 Bowel Movement Frequency: 1/day Bowel Movement Quality: Normal Blood per Rectum: No Androgen Deprivation: none Prior Radiation Therapy, Collagen Vascular Disease, or Inflammatory Bowel Disease: No Currently on Anticoagulation: No History of Hip Replacement: No History of Prior TURP: No ALLERGIES No Known Allergies No prescriptions on file. PAST MEDICAL HISTORY Diagnosis Date Brain aneurysm With Clamp Stomach ulcer PAST SURGICAL HISTORY Procedure Laterality Date PAST SURGICAL HISTORY OF Vein strippings REMOVAL GALLBLADDER FAMILY HISTORY Problem Relation Age of Onset Leukemia Mother other (esophageal cancer) Brother Social History Tobacco Use Smoking status: Every Day Packs/day: 1.00 Years: 45.00 Pack years: 45.00 Types: Cigarettes Smokeless tobacco: Never Substance Use Topics Alcohol use: Never REVIEW OF SYSTEMS: GENERAL: feeling well without fatigue, no recent change in weight NECK: denies swelling or pain in neck RESPIRATORY: no cough, no wheezing or shortness of breath CARDIOVASCULAR: no chest pain, no palpitations MUSCULOSKELETAL: denies any painful or swollen joints, no muscle aches SKIN: no rash HEMATOLOGY/LYMPHOLOGY: negative for prolonged bleeding, no swollen lymph nodes NEURO: no numbness or paresthesias and no weakness of the extremities As noted in HPI PHYSICAL EXAM: VS: BP 151/83 Pulse 72 Temp (!) 35.9 C (96.7 F) Resp 18 Ht 182.9 cm (6') Wt 96.2 kg (212 lb) SpO2 99% BMI 28.75 kg/m KARNOFSKY PERFORMANCE STATUS: 100 General Appearance: Alert and oriented. No acute distress. HEENT: NCAT. Sclera anicteric. PERRL. EOMI. Neck: Normal ROM. No palpable cervical or supraclavicular adenopathy. Chest: No respiratory distress. Lungs clear to auscultation bilaterally. Heart: Regular rate and rhythm. Abdomen: Soft. Nontender. Nondistended. Musculoskeletal: No edema. Normal ROM in extremities. No bone or spine tenderness. Neuro: Speech fluent. Gait normal. No focal deficits. Skin: No rashes noted Lymphatics: No palpable lymphadenopathy. GENITOURINARY: Deferred exam RECTAL: Deferred exam RADIOLOGY/LABORATORY DATA: see HPI ASSESSMENT/PLAN: Prostate adenocarcinoma, initial PSA 32.05, biopsy [place] score 4 + 3 = 7 (grade group 3), clinical stage T2a, N0, M0, stage IIIA [T1-T2, N0, M0, PSA >=20, GG 1-4] (AJCC 8th ed.), s/p TRUS Random biopsy. Prostate cancer (C61), 2019 NCCN Risk Group: High Risk Group Clinical State: Localized Cancer - New Diagnosis Staging pending though appears to have a localized high risk prostate cancer. Assuming his scans do not show any additional findings patient I do feel is an appropriate candidate for definitive treatment. Definitive treatment options discussed at length with patient. Potential surgical and radiation options discussed. In terms of radiation options discussed both external beam or external beam followed by brachytherapy boost. Discussed the important role of androgen deprivation therapy given his high risk presentation. Acute and long-term risks of treatment discussed at length. Patient expressed an understanding. Patient return after staging studies for further discussion. Patient will have planned ADT administration, which has been scheduled with Dr. Gomez. In terms of brachytherapy we discussed radiation safety precautions. Plan to coordinate brachytherapy boost with Dr. Gomez office. Signed by: Shelley Pond MD cc: ANTONIO CASTELLON [id number] [place] [address] Mansi Gomez [id number] [facility] [id number] documented in this encounter [facility] 02-13-2022 Hospital Discharge instructions Patient Education 02/13/2022 13:43:51 Transurethral Resection of the Prostate, Care After Transurethral Resection of the Prostate, Care After This sheet gives you information about how to care for yourself after your procedure. Your health care provider may also give you more specific instructions. If you have problems or questions, contact your health care provider. What can I expect after the procedure? After the procedure, it is common to have: Mild pain in your lower abdomen. Soreness or mild discomfort in your penis from having the catheter inserted during the procedure. A feeling of urgency when you need to urinate. A small amount of blood in your urine. You may notice some small blood clots in your urine. These are normal. Follow these instructions at home: Medicines Take vrja-ziu-rsowwck and prescription medicines only as told by your health care provider. If you were prescribed an antibiotic medicine, take it as told by your health care provider. Do not stop taking the antibiotic even if you start to feel better. Ask your health care provider if the medicine prescribed to you: ?Requires you to avoid driving or using heavy machinery. ?Can cause constipation. You may need to take actions to prevent or treat constipation, such as: ?Take kfrf-pws-xirlyjn or prescription medicines. ?Eat foods that are high in fiber, such as fresh fruits and vegetables, whole grains, and beans. ?Limit foods that are high in fat and processed sugars, such as fried or sweet foods. Do not drive for 24 hours if you were given a sedative during your procedure. Activity Return to your normal activities as told by your health care provider. Ask your health care provider what activities are safe for you. Do not lift anything that is heavier than 10 lb (4.5 kg), or the limit that you are told, for 3 weeks after the procedure or until your health care provider says that it is safe. Avoid intense physical activity for as long as told by your health care provider. Avoid sitting for a long time without moving. Get up and move around one or more times every few hours. This helps to prevent blood clots. You may increase your physical activity gradually as you start to feel better. Lifestyle Do not drink alcohol for as long as told by your health care provider. This is especially important if you are taking prescription pain medicines. Do not engage in sexual activity until your health care provider says that you can do this. General instructions Do not take baths, swim, or use a hot tub until your health care provider approves. Drink enough fluid to keep your urine pale yellow. Urinate as soon as you feel the need to. Do not try to hold your urine for long periods of time. If your health care provider approves, you may take a stool softener for 2 3 weeks to prevent you from straining to have a bowel movement. Wear compression stockings as told by your health care provider. These stockings help to prevent blood clots and reduce swelling in your legs. Keep all follow-up visits as told by your health care provider. This is important. Contact a health care provider if you have: Difficulty urinating. A fever. Pain that gets worse or does not improve with medicine. Blood in your urine that does not go away after 1 week of resting and drinking more fluids. Swelling in your penis or testicles. Get help right away if: You are unable to urinate. You are having more blood clots in your urine instead of fewer. You have: ?Large blood clots. ?A lot of blood in your urine. ?Pain in your back or lower abdomen. ?Pain or swelling in your legs. ?Chills and you are shaking. ?Difficulty breathing or shortness of breath. Summary After the procedure, it is common to have a small amount of blood in your urine. Avoid heavy lifting and intense physical activity for as long as told by your health care provider. Urinate as soon as you feel the need to. Do not try to hold your urine for long periods of time. Keep all follow-up visits as told by your health care provider. This is important. This information is not intended to replace advice given to you by your health care provider. Make sure you discuss any questions you have with your health care provider. Document Released: 04/07/2006 Document Revised: 07/28/2019 Document Reviewed: 01/06/2019 [employer] Patient Education 2020 Circl. 02/13/2022 13:43:50 Transurethral Resection of the Prostate Transurethral Resection of the Prostate Transurethral resection of the prostate (TURP) is the removal (resection) of part of the gland that produces semen (prostate gland). This procedure is done to treat benign prostatic hyperplasia (BPH). BPH is an abnormal, noncancerous (benign) increase in the number of cells that make up the prostate tissue. BPH causes the prostate to get bigger. The enlarged prostate can push against or block the tube that drains urine from the bladder out of the body (urethra). BPH can affect normal urine flow by causing bladder infections, difficulty controlling bladder function, and difficulty emptying the bladder. The goal of TURP is to remove enough prostate tissue to allow for a normal flow of urine. The procedure will allow you to empty your bladder more completely when you urinate so that you can urinate less often. In a transurethral resection, a thin telescope with a light, a tiny camera, and an electric cutting edge (resectoscope) is passed through the urethra and into the prostate. The opening of the urethra is at the end of the penis. Tell a health care provider about: Any allergies you have. All medicines you are taking, including vitamins, herbs, eye drops, creams, and hycd-sxk-wkfvjwk medicines. Any problems you or family members have had with anesthetic medicines. Any blood disorders you have. Any surgeries you have had. Any medical conditions you have. Any prostate infections you have had. What are the risks? Generally, this is a safe procedure. However, problems may occur, including: Infection. Bleeding. Allergic reactions to medicines. Damage to other structures or organs, such as: ?The urethra. ?The bladder. ?Muscles that surround the prostate. Difficulty getting an erection. Inability to control when you urinate (incontinence). Scarring, which may cause problems with urine flow. What happens before the procedure? Medicines Ask your health care provider about: Changing or stopping your regular medicines. This is especially important if you are taking diabetes medicines or blood thinners. Taking medicines such as aspirin and ibuprofen. These medicines can thin your blood. Do not take these medicines unless your health care provider tells you to take them. Taking jsiq-pzr-opvjerf medicines, vitamins, herbs, and supplements. Eating and drinking Follow instructions from your health care provider about eating and drinking, which may include: 8 hours before the procedure stop eating heavy meals or foods, such as meat, fried foods, or fatty foods. 6 hours before the procedure stop eating light meals or foods, such as toast or cereal. 6 hours before the procedure stop drinking milk or drinks that contain milk. 2 hours before the procedure stop drinking clear liquids. Staying hydrated Follow instructions from your health care provider about hydration, which may include: Up to 2 hours before the procedure you may continue to drink clear liquids, such as water, clear fruit juice, black coffee, and plain tea. General instructions You may have a physical exam. You may have a blood or urine sample taken. Ask your health care provider what steps will be taken to help prevent infection. These may include: ?Washing skin with a germ-killing soap. ?Taking antibiotic medicine. Plan to have someone take you home from the hospital or clinic. You may not be able to drive for up to 10 days after your procedure. Plan to have a responsible adult care for you for at least 24 hours after you leave the hospital or clinic. This is important. What happens during the procedure? An IV will be inserted into one of your veins. You will be given one or more of the following: ?A medicine to help you relax (sedative). ?A medicine to make you fall asleep (general anesthetic). ?A medicine that is injected into your spine to numb the area below and slightly above the injection site (spinal anesthetic). Your legs will be placed in foot rests (stirrups) so that your legs are apart and your knees are bent. The resectoscope will be passed through your urethra to your prostate. Parts of your prostate will be resected using the cutting edge of the resectoscope. The resectoscope will be removed. A small, thin tube (catheter) will be passed through your urethra and into your bladder. The catheter will drain urine into a bag outside of your body. ?Fluid may be passed through the catheter to keep the catheter open. The procedure may vary among health care providers and hospitals. What happens after the procedure? Your blood pressure, heart rate, breathing rate, and blood oxygen level will be monitored until you leave the hospital or clinic. You may continue to receive fluids and medicines through an IV. You may have some pain. Pain medicine will be available to help you. You will have a catheter draining your urine. ?You may have blood in your urine. Your catheter may be kept in until your urine is clear. ?Your urinary drainage will be monitored. If necessary, your bladder may be rinsed out (irrigated) through your catheter. You will be encouraged to walk around as soon as possible. You may have to wear compression stockings. These stockings help prevent blood clots and reduce swelling in your legs. Do not drive for 24 hours if you were given a sedative during your procedure. Summary Transurethral resection of the prostate (TURP) is the removal (resection) of part of the gland that produces semen (prostate gland). The goal of this procedure is to remove enough prostate tissue to allow for a normal flow of urine. Follow instructions from your health care provider about taking medicines and about eating and drinking before the procedure. This information is not intended to replace advice given to you by your health care provider. Make sure you discuss any questions you have with your health care provider. Document Released: 04/07/2006 Document Revised: 07/28/2019 Document Reviewed: 01/06/2019 [employer] Patient Education 2019 Circl. Follow Up Care 02/01/2022 10:41:14 With:PATRICIA SALINAS, Mansi Cordova, URL Address: [facility] [address] , [place] [address]- When: Unknown [facility] 01-31-2022 Hospital Discharge instructions Patient Education 01/31/2022 10:19:14 Prostate Cancer Screening Prostate Cancer Screening The prostate is a walnut-sized gland that is located below the bladder and in front of the rectum in males. The function of the prostate (prostate gland) is to add fluid to semen during ejaculation. Prostate cancer is the second most common type of cancer in men. A screening test for cancer is a test that is done before cancer symptoms start. Screening can help to identify cancer at an early stage, when the cancer can be treated more easily. The recommended prostate cancer screening test is a blood test called the prostate-specific antigen (PSA) test. PSA is a protein that is made in the prostate. As you age, your prostate naturally produces more PSA. Abnormally high PSA levels may be caused by: Prostate cancer. An enlarged prostate that is not caused by cancer (benign prostatic hyperplasia, BPH). This condition is very common in older men. A prostate gland infection (prostatitis). Medicines to assist with hair growth, such as finasteride. Depending on the PSA results, you may need more tests, such as: A physical exam to check the size of your prostate gland. Blood and imaging tests. A procedure to remove tissue samples from your prostate gland for testing (biopsy). Who should have screening? Screening recommendations vary based on age. If you are younger than age 40, screening is not recommended. If you are age 40 54 and you have no risk factors, screening is not recommended. If you are younger than age 55, ask your health care provider if you need screening if you have one of these risk factors: ?Being of -[place] descent. ?Having a family history of prostate cancer. If you are age 55 69, talk with your health care provider about your need for screening and how often screening should be done. If you are older than age 70, screening is not recommended. This is because the risks that screening can cause are greater than the benefits that it may provide (risks outweigh the benefits). If you are at high risk for prostate cancer, your health care provider may recommend that you have screenings more often or start screening at a younger age. You may be at high risk if you: Are older than age 55. Are -[place]e. Have a father, brother, or uncle who has been diagnosed with prostate cancer. The risk may be higher if your family member's cancer occurred at an early age. What are the benefits of screening? There is a small chance that screening may lower your risk of dying from prostate cancer. The chance is small because prostate cancer is typically a slow-growing cancer, and most men with prostate cancer from a different cause. What are the risks of screening? The main risk of prostate cancer screening is diagnosing and treating prostate cancer that would never have caused any symptoms or problems (overdiagnosis and overtreatment). PSA screening cannot tell you if your PSA is high due to cancer or a different cause. A prostate biopsy is the only procedure to diagnose prostate cancer. Even the results of a biopsy may not tell you if your cancer needs to be treated. Slow-growing prostate cancer may not need any treatment other than monitoring, so diagnosing and treating it may cause unnecessary stress or other side effects. A prostate biopsy may also cause: Infection or fever. A false negative. This is a result that shows that you do not have prostate cancer when you actually do have prostate cancer. Questions to ask your health care provider When should I start prostate cancer screening? What is my risk for prostate cancer? How often do I need screening? What type of screening tests do I need? How do I get my test results? What do my results mean? Do I need treatment? Contact a health care provider if: You have difficulty urinating. You have pain when you urinate or ejaculate. You have blood in your urine or semen. You have pain in your back or in the area of your prostate. You have trouble getting or maintaining an erection (erectile dysfunction, ED). Summary Prostate cancer is a common type of cancer in men. The prostate (prostate gland) is located below the bladder and in front of the rectum. This gland adds fluid to semen during ejaculation. Prostate cancer screening may identify cancer at an early stage, when the cancer can be treated more easily. The prostate-specific antigen (PSA) test is the recommended screening test for prostate cancer. Discuss the risks and benefits of prostate cancer screening with your health care provider. If you are age 70 or older, screening is likely to lead to more risks than benefits (risks outweigh the benefits). This information is not intended to replace advice given to you by your health care provider. Make sure you discuss any questions you have with your health care provider. Document Released: 01/16/2018 Document Revised: 03/20/2018 Document Reviewed: 01/16/2018 [employer] Patient Education 2020 Circl. Follow Up Care 01/28/2022 14:16:05 With:PATRICIA SALINAS, Mansi Cordova, URL Address: [facility] [address] , [place] [address]- [phone] When: Unknown Comments:schedule TRUS/bx [facility] Chief complaint Narrative - Reported ELVIS GRANDE is being seen for Dr. Lala Referral for LAZAR. [facility] [address] DO Work Phone: Evaluation + Plan note Future Appointments Appointment Date:02/13/2022 01:00:00 PM Scheduled Provider:Mansi GOMEZ MD Location:[facility] [place] Appointment Type:URO Procedure 15 min Appointment Date:02/27/2022 01:00:00 PM Scheduled Provider:Mansi GOMEZ MD Location:[facility] Appointment Type:URO Office Visit [facility] Evaluation + Plan note Future Appointments Appointment Date:02/27/2022 01:00:00 PM Scheduled Provider:Mansi GOMEZ MD Location:[facility] Appointment Type:URO Office Visit Diagnostic Tests PendingProstate Histology ([facility]) 02/13/22 [facility] Evaluation + Plan note Future Appointments Appointment Date:04/02/2022 03:20:00 PM Scheduled Provider:Mitchel SEGUNDO MD Location: [place] Appointment Type: New 30 Appointment Date:09/11/2022 01:45:00 PM Scheduled Provider:Mansi GOMEZ MD Location:[facility] [place] Appointment Type:URO Office Visit Diagnostic Tests PendingPSA Free & Total 03/13/22 [facility] Evaluation + Plan note Future Appointments Appointment Date:05/31/2022 02:40:00 PM Scheduled Provider:Mitchel SEGUNDO MD Location: [place] Appointment Type:JAMARI Post Op 15 Appointment Date:06/17/2022 09:30:00 AM Scheduled Provider:Mansi GOMEZ MD Location:[facility] [place] Appointment Type:URO Office Visit Appointment Date:09/11/2022 01:45:00 PM Scheduled Provider:Mansi GOMEZ MD Location:[facility] [place] Appointment Type:URO Office Visit [facility] [place] Evaluation + Plan note Future Appointments Appointment Date:06/17/2022 09:30:00 AM Scheduled Provider:Mansi GOMEZ MD Location:[facility] Appointment Type:URO Office Visit Appointment Date:09/11/2022 01:45:00 PM Scheduled Provider:Mansi GOMEZ MD Location:[facility] [place] Appointment Type:URO Office Visit General Surgery [place] Evaluation + Plan note Future Appointments Appointment Date:09/11/2022 01:45:00 PM Scheduled Provider:Mansi GOMEZ MD Location:[facility] [place] Appointment Type:URO Office Visit Diagnostic Tests PendingPSA Total 06/17/22 [facility] Evaluation + Plan note Future Appointments Appointment Date:09/10/2023 08:00:00 AM Scheduled Provider:Mansi GOMEZ MD Location:[facility] [place] Appointment Type:URO Office Visit Diagnostic Tests PendingPSA Total 03/05/23 [facility] [place] Evaluation note Diagnosis Malignant neoplasm of prostate (HCC)- Primary Malignant neoplasm of prostate [facility] Malignant neoplasm of prostate (HCC)- Primary Malignant neoplasm of prostate [facility] Diagnosis Malignant neoplasm of prostate (HCC)- Primary Malignant neoplasm of prostate [facility] Diagnosis Malignant neoplasm of prostate (HCC)- Primary Malignant neoplasm of prostate [facility] Diagnosis Malignant neoplasm of prostate (HCC)- Primary Malignant neoplasm of prostate [facility] Diagnosis Malignant neoplasm of prostate (HCC) Malignant neoplasm of prostate [facility] Diagnosis Malignant neoplasm of prostate (HCC)- Primary Malignant neoplasm of prostate [facility] Diagnosis Malignant neoplasm of prostate (HCC)- Primary Malignant neoplasm of prostate [facility] Diagnosis Malignant neoplasm of prostate (HCC)- Primary Malignant neoplasm of prostate [facility] Diagnosis Malignant neoplasm of prostate (HCC)- Primary Malignant neoplasm of prostate [facility] Diagnosis Left lower quadrant abdominal pain- Primary Left inguinal pain Abdominal pain, left lower quadrant [facility] Diagnosis Acquired cyst of kidney- Primary Other specified disorders of kidney and ureter [facility] Diagnosis Malignant neoplasm of prostate (HCC)- Primary Malignant neoplasm of prostate [facility] Diagnosis Malignant neoplasm of prostate (HCC)- Primary Malignant neoplasm of prostate [facility]* Diagnosis Malignant neoplasm of prostate (HCC)- Primary Malignant neoplasm of prostate Renal mass, left Unspecified disorder of kidney and ureter documented in this encounter [facility] noteNo assessment information [facility]Ke[facility] Work Phone: Evaluation note* Diagnosis Malignant neoplasm of prostate (HCC)- Primary Malignant neoplasm of prostate Other specified disorders of kidney and ureter [facility] Diagnosis Peripheral vascular disease (CMS/HCC)- Primary Unspecified peripheral vascular disease Shortness of breath Mixed hyperlipidemia Primary hypertension Unspecified essential hypertension Encounter to discuss test results Other specified counseling Class 1 obesity with body mass index (BMI) of 32.0 to 32.9 in adult documented in this encounter [facility] Work Phone: Evaluation note* Diagnosis Screening for genitourinary condition Screening for other and unspecified genitourinary condition documented in this encounter [facility] note* Diagnosis PAD (peripheral artery disease) (CMS-HCC)- Primary Unspecified peripheral vascular disease Claudication (CMS-HCC) Unspecified peripheral vascular disease Rest pain of lower extremity due to atherosclerosis (CMS-HCC) [facility] Diagnosis PAD (peripheral artery disease) (CMS-HCC)- Primary Unspecified peripheral vascular disease Claudication (CMS-HCC) Unspecified peripheral vascular disease [facility] PAD (peripheral artery disease) (HCC)- Primary Peripheral vascular disease, unspecified documented in this encounter [facility] note* Diagnosis PAD (peripheral artery disease) (HCC)- Primary Peripheral vascular disease, unspecified [facility] Diagnosis SOB (shortness of breath)- Primary Shortness of breath Neurogenic claudication Spinal stenosis, lumbar region, with neurogenic claudication Bilateral carotid artery stenosis Occlusion and stenosis of carotid artery without mention of cerebral infarction Diabetic mononeuropathy associated with type 2 diabetes mellitus (HCC) documented 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 Diagnosis Malignant neoplasm of prostate (HCC)- Primary Malignant neoplasm of prostate [facility]* Diagnosis Peripheral vascular disease ([facility]-H[facility]) Unspecified peripheral vascular disease Primary hypertension Unspecified essential hypertension Mixed hyperlipidemia BMI 34.0-34.9,adult Pulmonary emphysema, unspecified emphysema type (Multi) Shortness of breath Former smoker Personal history of tobacco use, presenting hazards to health Prostate cancer (Multi) Malignant neoplasm of prostate Medical non-compliance documented in this encounter [facility] Work Phone: Hospital course Narrative No data available for this section [facility] Hospital Discharge instructions No data available for this section [facility] Discharge instructions Additional Instructions DISCHARGE INSTRUCTIONS FOR CARDIAC ELECTRICAL SYSTEMS DESIGNER PHONE NUMBER OF YOUR PHYSICIAN: [phone] PROCEDURE: Heart Cath The following instructions have been prepared to help you care for yourself, or be cared for upon your return home. 1. You were given conscious sedation. Do not operate a vehicle, power tools, make important decisions, or drink alcohol for 24 hours. You might be drowsy or light headed. Return to the Emergency Room if you have trouble breathing, walking or nausea and vomiting. 2. FOR BLEEDING: Apply continuous pressure to the site and call 911. 3. Operative Site Care: Keep the dressing clean and dry. You may change the dressing only if soiled or wet. You may remove the dressing the following morning. You may wash over the puncture site in the shower. If the puncture site is at the wrist no soaking for 3 days. Some bruising or slight swelling may be present. -Signs of infection are redness, warmth, swelling, getting more sore, colored drainage, fever or chills. -Should the arm or leg become cold, numb, blue or white, call the manager channel immediately. 4. ACTIVITY: You are advised to go directly home from the hospital. Restrict your activities for the rest of the day. Resume light or normal activities tomorrow. Do not engage in any activity that will stress the puncture site. Avoid heavy lifting (over 15 lbs.), straining or bending at the catheter site for 48 hours after discharge. If the puncture site is at the wrist do not manipulate wrist for 24 hours and no lifting more than 3 lbs for 3 days. 5. DIET:You may eat your regular diet when you desire. 6. MEDICATIONS: Resume your daily prescription schedule. Prescriptions may be sent with you if needed. Use as directed. When taking pain medications, you may experience dizziness or drowsiness. Do not drink alcohol or drive when taking pain medications. 7. If you should experience episodes of angina e.g. chest discomfort, heaviness, tightness, pressure, burning, with or without radiation to the neck, jaws, arms, or back- Use 1 Nitrostat under your tongue every 5-10 minutes, and up to 3 tablets. If no relief- Call 911 and go to the nearest Emergency Room. -Notify the office for recurrent angina, chest pain or other concerns. You may NOT drive yourself home! Follow the medication instructions provided on your discharge. If the dosages and instructions on this sheet differ from the dosage and instructions on the bottle, follow the instructions on the bottle. [facility] is not responsible for incorrect prescription information provided by the patient during their visit. Do not stop your medications without consulting your health care provider. Please take the list with you to your next doctor's appointment.[facility] Work Phone: InstructionsNot on filedocumented in this encounter [facility] LIA SystemInstructionsNot on filedocumented in this encounter [facility] LIA SystemInstructionsNot on filedocumented in this encounter [facility] LIA SystemProgress note No data available for this section [facility] reason for referral (narrative)* Consultation (Routine) - Authorized Specialty Diagnoses / Procedures Referred By Contac t Referred To Contact Cardiology Diagnoses Peripheral vascular disease ([facility] - [facility]) Procedures Follow Up In Cardiology Safia Cerda MD [address] [place] [address] [address] [place] [address] Referral ID Status Reason Start Date Expiration Date V isits Requested Visits Authorized [id number] Authorized 01/23/2023 07/22/2023 1 1 [facility] Work Phone: Reason for referral (narrative) Referred by: PATRICIA SALINAS, Mansi Cordova [facility] Reason for referral (narrative)* Consultation (Routine) - Pending Review Specialty Diagnoses / Procedures Referred By Contac t Referred To Contact Cardiac Rehabilitation Diagnoses PAD (peripheral artery disease) ([facility]) Claudication ([facility]) Valerie Arriola MD [facility], [address] [address] Valerie Arriola MD [address] [facility], [address] [address] Referral ID Status Reason Start Date Expiration Date V isits Requested Visits Authorized [id number] Pending Review 05/29/2023 05/28/2024 1 1 Scheduling Instructions Needs PAD Rehab (Supervised Walking Program) [facility] Outpatient Procedure (Routine) - Authorized Specialty Diagnoses / Procedures Referred By Contac t Referred To Contact [facility] Diagnoses PAD (peripheral artery disease) (HCC) Procedures PVR LEG DIETER VAS LAB NON-INVASIVE PHYSIOLOGIC STUDY EXTREMITY 3 Ricardo Townsend MD [address] [place] [address] [address] Referral ID Status Reason Start Date Expiration Date Visits Requested Visits Authorized [id number] Authorized Auto-Generat ed Referral 06/27/2023 06/26/2024 1 1 [facility] for referral (narrative)* Outpatient Procedure (Routine) - Authorized Specialty Diagnoses / Procedures Referred By Contac t Referred To Contact [facility] Diagnoses PAD (peripheral artery disease) (HCC) Procedures PVR LEG W/EXC DIETER VAS LAB N-INVAS PHYSIOLOGIC ST[place] [address] [place] [address] [address] Referral ID Status Reason Start Date Expiration Date Visits Requested Visits Authorized [id number] Authorized Auto-Generat ed Referral 07/02/2023 2024 1 1 [facility] for referral (narrative)* Outpatient Procedure (Routine) - Closed Specialty Diagnoses / Procedures Referred By Contac t Referred To Contact [facility] Diagnoses Bilateral carotid artery stenosis Procedures US CAROTID ARTERIES DIETER VAS LAB DUPLEX SCAN EXTRACRANIAL [place] [address] [place] [address] [address] Referral ID Status Reason Start Date Expiration Date V isits Requested Visits Authorized [id number] Closed Auto-Generate d Referral 07/04/2023 07/03/2024 1 1 * Consult, Test, Treat (Routine) - Authorized Specialty Diagnoses / Procedures Referred By Contmarley t Referred To Contact Pulmonary and Critical Care Medicine Diagnoses SOB (shortness of breath) Procedures CONSULT TO PULM/CRITICAL CARE OFFICE/OUTPATIENT [facility] 60 MINUTES Ricardo Wang MD [address] [place] [address] Referral ID Status Reason Start Date Expiration Date Visits Requested Visits Authorized [id number] Authorized PCP Requested Referral 07/04/2023 07/03/2024 1 1 * Consult, Test, Treat (Routine) - Authorized Specialty Diagnoses / Procedures Referred By Contac t Referred To Contact [facility] Diagnoses Neurogenic claudication Procedures CONSULT TO [facility] OFFICE/OUTPATIENT [facility] 60 MINUTES Ricardo Wang MD [address] [place] [address] Referral ID Status Reason Start Date Expiration Date Visits Requested Visits Authorized [id number] Authorized PCP Requested Referral 07/04/2023 07/03/2024 1 1 [facility] for referral (narrative)* Outpatient Procedure (Routine) - Authorized Specialty Diagnoses / Procedures Referred By Contac t Referred To Contact [facility] [place] Diagnoses Bilateral carotid artery stenosis Procedures US CAROTID ARTERIES DIETER VAS LAB DUPLEX SCAN EXTRACRANIAL [place] [address] [place] [address] [address] Referral ID Status Reason Start Date Expiration Date Visits Requested Visits Authorized [id number] Authorized Auto-Generat ed Referral 07/09/2023 07/08/2024 1 1 * Outpatient Procedure (Routine) - Authorized Specialty Diagnoses / Procedures Referred By Contac t Referred To Contact [facility] [place] Diagnoses Bilateral carotid artery stenosis 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) Procedures PVR LEG DIETER VAS LAB NON-INVASIVE PHYSIOLOGIC STUDY EXTREMITY 3 Ricardo Townsend MD [address] [place] [address] [facility] [address] [address] Referral ID Status Reason Start Date Expiration Date Visits Requested Visits Authorized [id number] Authorized Auto-Generat ed Referral 07/09/2023 07/08/2024 1 1 [facility] for referral (narrative)* Consultation (Routine) - Authorized Specialty Diagnoses / Procedures Referred By Contac t Referred To Contact Cardiology Diagnoses Peripheral vascular disease ([facility]) Procedures Follow Up In Cardiology Safia Cerda MD [address] [address] Safia Cerda MD 254 [facility] [address] [place] [address] Referral ID Status Reason Start Date Expiration Date V isits Requested Visits Authorized [id number] Authorized 08/07/2023 08/06/2024 1 1 [facility] Work Phone: Reason for Referral Specialty Diagnoses / Procedures Referred By Contac t Referred To Contact CT IMAGING Diagnoses Other specified disorders of kidney and ureter Procedures CT KIDNEY WO/W IVCON CT ABDOMEN W & W/O CONTRAST Shelley Pond MD [address] [place] [address] [place] [address] [place] [address] Referral ID Status Reason Start Date Expiration Date Visits Requested Visits Authorized [id number] Authorized Auto-Generat ed Referral 01/16/2023 02/01/2024 1 1 Specialty Diagnoses / Procedures Referred By Contac t Referred To Contact CT IMAGING Diagnoses Acquired cyst of kidney Other specified disorders of kidney and ureter Procedures CT KIDNEY WO/W IVCON CT ABDOMEN W & W/O CONTRAST Shelley Pond MD [address] [place] [address] [place] [address] Ct Imaging Referral ID Status Reason Start Date Expiration Date Visits Requested Visits Authorized [id number] Authorized Auto-Generat ed Referral 05/10/2022 06/09/2023 1 1 Specialty Diagnoses / Procedures Referred By Contac t Referred To Contact CT IMAGING Diagnoses Left lower quadrant abdominal pain Left inguinal pain Procedures CT ABD/PEL W IVCON CT ABD & PELVIS W/CONTRAST Shelley Pond MD [address] [place] [address] [place] [address] Ct Imaging Referral ID Status Reason Start Date Expiration Date V isits Requested Visits Authorized [id number] Closed Auto-Generate d Referral 05/08/2022 06/07/2023 1 1 Summary Purpose Family History No Family History Records FoundUnknown Family Member Name Dates Details FH: CABG (coronary artery by pass surgery): Mother(V17.3, Z82.49) Status:Active Family history of malignant neoplasm: Sibling(V16.9, Z80.9) Status:Active Unknown Family Member Name Dates Details FH: CABG (coronary artery by pass surgery): Mother(V17.3, Z82.49) Status:Active Family history of malignant neoplasm: Sibling(V16.9, Z80.9) Status:Active Relationship Condition Age at Onset Recorded Date/T margarita Not Specified Leukemia Unknown Heart disease Unknown brother Malignant neoplasm of esophagus Unknown sister Pulmonary emphysema Unknown Unknown Family Member Name Dates Details FH: CABG (coronary artery by pass surgery): Mother(V17.3, Z82.49) Status:Active Family history of malignant neoplasm: Sibling(V16.9, Z80.9) Status:Active Advance Directives No Advanced Directives Records Found Advance Directive Response Recorded Date/ Time Advance Directives No December 02, 2022 11:14am Chief Complaint and Reason for Visit Chief Complaint SOB, PVD, COPD SOB, PVD, COPD Additional Source Comments Patient Care team informatio n (unrecognized section and content) Marine Machinist Relationship Specialty Start Date End Date Antonio Castellon [address] [place] [address] PCP - General 03/06/22 Marine Machinist Relationship Specialty Start Date End Date Antonio Castellon [address] [place] [address] PCP - General 03/06/22 Marine Machinist Relationship Specialty Start Date End Date Shammo, [place] [address] PCP - General 03/06/22 Marine Machinist Relationship Specialty Start Date End Date Shammo, [place] [address] PCP - General 03/06/22 Marine Machinist Relationship Specialty Start Date End Date Shammo, [place] [address] PCP - General 03/06/22 Marine Machinist Relationship Specialty Start Date End Date Shammo, [place] [address] PCP - General 03/06/22 Marine Machinist Relationship Specialty Start Date End Date Shammo, [place] [address] PCP - General 03/06/22 Marine Machinist Relationship Specialty Start Date End Date Shammo, [place] [address] PCP - General 03/06/22 Marine Machinist Relationship Specialty Start Date End Date Shammo, [place] [address] PCP - General 03/06/22 Marine Machinist Relationship Specialty Start Date End Date Shammo, [place] [address] PCP - General 03/06/22 Marine Machinist Relationship Specialty Start Date End Date Shammo, Antonio [place] [address] PCP - General 03/06/22 Marine Machinist Relationship Specialty Start Date End Date Shammo, [place] [address] PCP - General 03/06/22 Marine Machinist Relationship Specialty Start Date End Date Shammo, Antonio [address] [place] [address] PCP - General 03/06/22 Marine Machinist Relationship Specialty Start Date End Date Shammo, Antonio [address] [place] [address] PCP - General 03/06/22 Marine Machinist Relationship Specialty Start Date End Date Shammo, Antonio [address] [place] [address] PCP - General 03/06/22 Marine Machinist Relationship Specialty Start Date End Date Shammo, [place] [address] PCP - General 03/06/22 Marine Machinist Relationship Specialty Start Date End Date Shammo, [place] [address] PCP - General 03/06/22 Marine Machinist Relationship Specialty Start Date End Date Shammo, Antonio [address] [place] [address] PCP - General 03/06/22 Marine Machinist Relationship Specialty Start Date End Date Shammo, [place] [address] PCP - General 03/06/22 Marine Machinist Relationship Specialty Start Date End Date Shammo, YADI Alvarez [address] [place] [address] PCP - General 03/06/22 Marine Machinist Relationship Specialty Start Date End Date Shammo, YADI Alvarez [address] [place] [address] PCP - General 03/06/22 Team Status: Active Member Role Status Dates Antonio Castellon , [facility] Primary Care Provider Active Team Status: Inactive Member Role Status Dates Safia Cerda MD Attending Provider Active Antonio Stacie Cande , [facility] Primary Care Provider Active Marine Machinist Relationship Specialty Start Date End Date Shammo, Antonio, HAND TUFTER [address] [place] [address] [facility] General 03/06/22 Marine Machinist Relationship Specialty Start Date End Date Shammo, Antonio, HAND TUFTER [address] [place] [address] [facility] General 03/06/22 Marine Machinist Relationship Specialty Start Date End Date Shammo, Antonio, ENGLISH LANGUAGE LEARNER TUTOR-HAND TUFTER [address] [place] [address] [facility] Primary Care 01/21/22 Marine Machinist Relationship Specialty Start Date End Date Shammo, Antonio, ENGLISH LANGUAGE LEARNER TUTOR-HAND TUFTER [address] [place] [address] PCP [facility] Primary Care 01/21/22 Marine Machinist Relationship Specialty Start Date End Date Shammo, Antonio, ENGLISH LANGUAGE LEARNER TUTOR-HAND TUFTER [address] [place] [address] PCP [facility] Primary Care 01/21/22 Marine Machinist Relationship Specialty Start Date End Date Shammo, Antonio, HAND TUFTER [address] [place] [address] [facility] General 03/06/22 Marine Machinist Relationship Specialty Start Date End Date Shammo, Antonio, HAND TUFTER [address] [place] [address] PCP - General 03/06/22 Marine Machinist Relationship Specialty Start Date End Date Antonio Castellon CNP [address] [place] [address] PCP - General 03/06/22 Marine Machinist Relationship Specialty Start Date End Date Antonio Castellon CNP [address] [place] [address] PCP - General 03/06/22 Marine Machinist Relationship Specialty Start Date End Date Antonio Castellon CNP [address] [place] [address] PCP - General 03/06/22 Marine Machinist Relationship Specialty Start Date End Date Antonio Castellon CNP [address] [place] [address] PCP General 03/06/22 Marine Machinist Relationship Specialty Start Date End Date Antonio Castellon CNP [address] [place] [address] PCP - General 03/06/22 Source Comments (unrecognize d section and content) In the event this informatio n is protected by the Federal Confidentiality of Alcohol and Drug Abuse Patient Records regulations: The Federal rules restrict any use of the information to criminally investigate or prosecute any alcohol or drug abuse patient.[facility] the event this information is protected by the Federal Confidentiality of Alcohol and Drug Abuse Patient Records regulations: The Federal rules restrict any use of the information to criminally investigate or prosecute any alcohol or drug abuse patient.[facility] CenterIn the event this information is protected by the Federal Confidentiality of Alcohol and Drug Abuse Patient Records regulations: The Federal rules restrict any use of the information to criminally investigate or prosecute any alcohol or drug abuse patient.[facility] CenterIn the event this information is protected by the Federal Confidentiality of Alcohol and Drug Abuse Patient Records regulations: The Federal rules restrict any use of the information to criminally investigate or prosecute any alcohol or drug abuse patient.[facility] CenterIn the event this information is protected by the Federal Confidentiality of Alcohol and Drug Abuse Patient Records regulations: The Federal rules restrict any use of the information to criminally investigate or prosecute any alcohol or drug abuse patient.[facility] CenterIn the event this information is protected by the Federal Confidentiality of Alcohol and Drug Abuse Patient Records regulations: The Federal rules restrict any use of the information to criminally investigate or prosecute any alcohol or drug abuse patient.[facility] CenterIn the event this information is protected by the Federal Confidentiality of Alcohol and Drug Abuse Patient Records regulations: The Federal rules restrict any use of the information to criminally investigate or prosecute any alcohol or drug abuse patient.[facility] CenterIn the event this information is protected by the Federal Confidentiality of Alcohol and Drug Abuse Patient Records regulations: The Federal rules restrict any use of the information to criminally investigate or prosecute any alcohol or drug abuse patient.[facility] CenterIn the event this information is protected by the Federal Confidentiality of Alcohol and Drug Abuse Patient Records regulations: The Federal rules restrict any use of the information to criminally investigate or prosecute any alcohol or drug abuse patient.[facility] CenterIn the event this information is protected by the Federal Confidentiality of Alcohol and Drug Abuse Patient Records regulations: The Federal rules restrict any use of the information to criminally investigate or prosecute any alcohol or drug abuse patient.[facility] CenterIn the event this information is protected by the Federal Confidentiality of Alcohol and Drug Abuse Patient Records regulations: The Federal rules restrict any use of the information to criminally investigate or prosecute any alcohol or drug abuse patient.[facility] CenterIn the event this information is protected by the Federal Confidentiality of Alcohol and Drug Abuse Patient Records regulations: The Federal rules restrict any use of the information to criminally investigate or prosecute any alcohol or drug abuse patient.[facility] CenterIn the event this information is protected by the Federal Confidentiality of Alcohol and Drug Abuse Patient Records regulations: The Federal rules restrict any use of the information to criminally investigate or prosecute any alcohol or drug abuse patient.[facility] CenterIn the event this information is protected by the Federal Confidentiality of Alcohol and Drug Abuse Patient Records regulations: The Federal rules restrict any use of the information to criminally investigate or prosecute any alcohol or drug abuse patient.[facility] CenterIn the event this information is protected by the Federal Confidentiality of Alcohol and Drug Abuse Patient Records regulations: The Federal rules restrict any use of the information to criminally investigate or prosecute any alcohol or drug abuse patient.[facility] CenterIn the event this information is protected by the Federal Confidentiality of Alcohol and Drug Abuse Patient Records regulations: The Federal rules restrict any use of the information to criminally investigate or prosecute any alcohol or drug abuse patient.[facility] CenterIn the event this information is protected by the Federal Confidentiality of Alcohol and Drug Abuse Patient Records regulations: The Federal rules restrict any use of the information to criminally investigate or prosecute any alcohol or drug abuse patient.[facility] CenterIn the event this information is protected by the Federal Confidentiality of Alcohol and Drug Abuse Patient Records regulations: The Federal rules restrict any use of the information to criminally investigate or prosecute any alcohol or drug abuse patient.[facility] CenterIn the event this information is protected by the Federal Confidentiality of Alcohol and Drug Abuse Patient Records regulations: The Federal rules restrict any use of the information to criminally investigate or prosecute any alcohol or drug abuse patient.[facility] CenterIn the event this information is protected by the Federal Confidentiality of Alcohol and Drug Abuse Patient Records regulations: The Federal rules restrict any use of the information to criminally investigate or prosecute any alcohol or drug abuse patient.[facility] CenterIn the event this information is protected by the Federal Confidentiality of Alcohol and Drug Abuse Patient Records regulations: The Federal rules restrict any use of the information to criminally investigate or prosecute any alcohol or drug abuse patient.[facility] CenterIn the event this information is protected by the Federal Confidentiality of Alcohol and Drug Abuse Patient Records regulations: The Federal rules restrict any use of the information to criminally investigate or prosecute any alcohol or drug abuse patient.[facility] CenterIn the event this information is protected by the Federal Confidentiality of Alcohol and Drug Abuse Patient Records regulations: The Federal rules restrict any use of the information to criminally investigate or prosecute any alcohol or drug abuse patient.[facility] CenterIn the event this information is protected by the Federal Confidentiality of Alcohol and Drug Abuse Patient Records regulations: The Federal rules restrict any use of the information to criminally investigate or prosecute any alcohol or drug abuse patient.[facility] CenterIn the event this information is protected by the Federal Confidentiality of Alcohol and Drug Abuse Patient Records regulations: The Federal rules restrict any use of the information to criminally investigate or prosecute any alcohol or drug abuse patient.[facility] CenterIn the event this information is protected by the Federal Confidentiality of Alcohol and Drug Abuse Patient Records regulations: The Federal rules restrict any use of the information to criminally investigate or prosecute any alcohol or drug abuse patient.[facility] CenterIn the event this information is protected by the Federal Confidentiality of Alcohol and Drug Abuse Patient Records regulations: The Federal rules restrict any use of the information to criminally investigate or prosecute any alcohol or drug abuse patient.[facility] CenterIn the event this information is protected by the Federal Confidentiality of Alcohol and Drug Abuse Patient Records regulations: The Federal rules restrict any use of the information to criminally investigate or prosecute any alcohol or drug abuse patient.[facility] CenterIn the event this information is protected by the Federal Confidentiality of Alcohol and Drug Abuse Patient Records regulations: The Federal rules restrict any use of the information to criminally investigate or prosecute any alcohol or drug abuse patient.[facility] CenterIn the event this information is protected by the Federal Confidentiality of Alcohol and Drug Abuse Patient Records regulations: The Federal rules restrict any use of the information to criminally investigate or prosecute any alcohol or drug abuse patient.[facility] CenterIn the event this information is protected by the Federal Confidentiality of Alcohol and Drug Abuse Patient Records regulations: The Federal rules restrict any use of the information to criminally investigate or prosecute any alcohol or drug abuse patient.[facility] CenterIn the event this information is protected by the Federal Confidentiality of Alcohol and Drug Abuse Patient Records regulations: The Federal rules restrict any use of the information to criminally investigate or prosecute any alcohol or drug abuse patient.[facility] CenterIn the event this information is protected by the Federal Confidentiality of Alcohol and Drug Abuse Patient Records regulations: The Federal rules restrict any use of the information to criminally investigate or prosecute any alcohol or drug abuse patient.[facility] CenterIn the event this information is protected by the Federal Confidentiality of Alcohol and Drug Abuse Patient Records regulations: The Federal rules restrict any use of the information to criminally investigate or prosecute any alcohol or drug abuse patient.[facility] Reason for Visit (unrecogniz ed section and content) Reason Comments Prostate Cancer Specialty Diagnoses / Procedures Referred By Contac t Referred To Contact Radiation Oncology / RADIATION ONCOLOGY Diagnoses Seed Implant @ [facility] Procedures SEED IMPLANT Shelley Pond MD [address] [place] [address] [place] [address] Shelley Pond MD [address] [place] [address] [place] [address] Referral ID Status Reason Start Date Expiration Date V isits Requested Visits Authorized [id number] Authorized 05/23/2022 04/12/2023 99 99 Reason Comments Patient Education Reason Comments Orders Reason Comments Radiotherapy On-treatment Visit Reason Comments Phlebotomy Reason Comments Prostate Cancer Weekly check Reason Comments Volume Study Reason Comments Appointment Specialty Diagnoses / Procedures Referred By Contac t Referred To Contact Radiation Oncology / RADIATION ONCOLOGY Diagnoses Seed Implant @ [facility] Procedures SEED IMPLANT Shelley Pond MD [facility] [place] [address] Shelley Pond MD [address] [place] [address] [place] [address] Reason Onset Date Comments Refill Request 06/04/2022 Reason Comments Prostate Cancer Reason Comments Results Cath ech Reason Comments Follow-up 3 week follow up wit h testing prior. Reason Comments Follow up from Angio Reason Comments New Patient Consult Reason Comments Follow-up 6 months Specialty Diagnoses / Procedures Referred By Jake mock Referred To Contact Cardiology Diagnoses Peripheral vascular disease ([facility]) Procedures Follow Up In Cardiology Safia Cerda MD [address] [facility] [address] [place] [address] Referral ID Status Reason Start Date Expiration Date Visits Re quested Visits Authorized [id number] Closed 01/23/2023 07/22/2023 1 1 (unrecognized sect ion and content) No Status Records FoundNo Status Records FoundNo Status Records FoundNo Status Records FoundNo Status Records FoundNo Status Records FoundNo Status Records FoundNo Status Records FoundNo Status Records FoundNo Status Records FoundNo Status Records Found INFORMATION SOURCE (unrecogn ized section and content) DATE CREATED AUTHOR 09/27/2022 [facility] DATE CREATED AUTHOR AUTHOR'S ORGANIZ ATION 11/29/2022 [employer] DATE CREATED AUTHOR AUTHOR'S ORGANIZ ATION 12/24/2022 [facility] DATE CREATED AUTHOR AUTHOR'S ORGANIZ ATION 01/01/2023 [facility] DATE CREATED AUTHOR AUTHOR'S ORGANIZ ATION 03/08/2023 [facility] DATE CREATED AUTHOR AUTHOR'S ORGANIZ ATION 03/08/2023 [facility] DATE CREATED AUTHOR AUTHOR'S ORGANIZ ATION 04/29/2023 [facility] DATE CREATED AUTHOR AUTHOR'S ORGANIZ ATION 05/11/2023 [facility] DATE CREATED AUTHOR AUTHOR'S ORGANIZ ATION 06/02/2023 [facility] DATE CREATED AUTHOR AUTHOR'S ORGANIZ ATION 07/10/2023 [facility] DATE CREATED AUTHOR AUTHOR'S DENA ATION 08/08/2023 [facility] FOR RECORDS PERTAINING TO PATIENTS WHO ARE OR HAVE BEEN ENROLLED IN A CHEMICAL DEPENDENCY/SUBSTANCEABUSE PROGRAM, SOME INFORMATION MAY BE OMITTED. This clinical summary was aggregated from multiple sources. Caution should be exercised in using it in the provision of clinical care. This summary normalizes information from multiple sources, and as a consequence, information in this document may materially change the coding, format and clinical context of patient data. In addition, data may be omitted in some cases. CLINICAL DECISIONS SHOULD BE BASED ON THE PRIMARY CLINICAL RECORDS. [employer] [facility]. provides no warranty or guarantee of the accuracy or completeness of information in this document.
[2023-08-13 09:41] LABS: Alanine Aminotransferase 91 U/L (16-63); Albumin Globulin Ratio 0.9; Albumin Level 3.5 g/dL (3.4-5.0); Alkaline Phosphatase 68 U/L (46-116); Anion Gap 11.9; Aspartate Amino Transferase 36 U/L (15-37); BUN Creatinine Ratio 9.7; Bilirubin Total 0.5 mg/dL (0.2-1.0); Calcium 9.5 mg/dL (8.5-10.1); Carbon Dioxide 30.3 mmol/L (21.0-32.0); Chloride 105 mmol/L (98-107); Cholesterol 165 mg/dL (<=200); Estimated GFR (African America >60 (>=60); Estimated GFR (Non-African Ame >60 (>=60); Glucose 95 mg/dL (74-106); HDL Cholesterol 41 mg/dL (40-60); Potassium 4.2 mmol/L (3.5-5.1); Sodium 143 mmol/L (136-145); Total Protein 7.5 g/dL (6.4-8.2); Triglycerides 120 mg/dL (<=150)
== END 2023-08-13 08:53 | disposition home or self-care (01) ==
LOC: LAB 08:55
DX: I73.9 Peripheral vascular disease, unspecified (principal); I10 Essential (primary) hypertension; E78.2 Mixed hyperlipidemia
CPT/HCPCS: 36415; 80053; 80061

== ENCOUNTER 2023-09-03 08:29 | Outpatient (OUT) | payer MEDICARE, SELFPAY ==
[2023-09-03 11:35] LABS: Prostate Specific Antigen Dx 0.14 ng/mL (<=4.00)
== END 2023-09-03 08:30 | disposition home or self-care (01) ==
LOC: LAB 08:31
PROVIDERS: Visit Provider Urology
DX: C61 Malignant neoplasm of prostate (principal)
CPT/HCPCS: 36415; 84153

== ENCOUNTER 2023-11-24 09:17 | Outpatient (OUT) | payer MEDICARE, SELFPAY ==
[2023-11-24 11:06] LABS: Prostate Specific Antigen Dx 0.15 ng/mL (<=4.00)
[2023-11-25 04:10] LABS: Testosterone 347 ng/dL (264-916)
== END 2023-11-24 09:18 | disposition home or self-care (01) ==
LOC: LAB 09:18
PROVIDERS: Visit Provider Urology
DX: C61 Malignant neoplasm of prostate (principal)
CPT/HCPCS: 36415; 84153; 84403

== ENCOUNTER 2023-12-15 07:46 | Outpatient (OUT) | payer MEDICARE, SELFPAY ==
[2023-12-15 08:37] LABS: Alanine Aminotransferase 85 U/L (16-63); Aspartate Amino Transferase 39 U/L (15-37); Chol HDL Ratio 2.9; Cholesterol 122 mg/dL (<=200); HDL Cholesterol 42 mg/dL (40-60); LDL Cholesterol Calculated 54.4 mg/dL; Triglycerides 128 mg/dL (<=150); VLDL CHOLESTEROL 25.6 mg/dL
== END 2023-12-15 07:47 | disposition home or self-care (01) ==
LOC: LAB 07:47
PROVIDERS: Visit Provider Internal Medicine Interventional Cardiology
DX: E78.5 Hyperlipidemia, unspecified (principal)
CPT/HCPCS: 36415; 80061; 84450; 84460

== ENCOUNTER 2024-03-08 09:17 | Outpatient (OUT) | payer MEDICARE, SELFPAY ==
[2024-03-08 11:04] LABS: Prostate Specific Antigen Dx <0.13 ng/mL (<=4.00)
== END 2024-03-08 09:18 | disposition home or self-care (01) ==
LOC: LAB 09:19
PROVIDERS: Visit Provider Urology
DX: C61 Malignant neoplasm of prostate (principal)
CPT/HCPCS: 36415; 84153

== ENCOUNTER 2024-08-18 08:30 | Outpatient (OUT) | payer MEDICARE, SELFPAY ==
[2024-08-18 09:39] LABS: Prostate Specific Antigen Dx <0.13 ng/mL (<=4.00)
== END 2024-08-18 08:31 | disposition home or self-care (01) ==
LOC: LAB 08:32
PROVIDERS: Visit Provider Urology
DX: C61 Malignant neoplasm of prostate (principal); R97.20 Elevated prostate specific antigen [PSA]
CPT/HCPCS: 36415; 84153

== ENCOUNTER 2024-10-07 07:44 | Outpatient (RCR) | payer MEDICARE, SELFPAY | END 2024-11-12 14:23 | disposition home or self-care (01) | LOC: PT 07:44 | PROVIDERS: Visit Provider Neurological Surgery | DX: M43.26 Fusion of spine, lumbar region (principal) | CPT/HCPCS: 97010; 97110; 97163; 97530; G0283 ==